=== PATIENT | male | born 1955 | race Caucasian/White ===

== ENCOUNTER 2024-05-10 19:43 | Emergency (ER) | payer MEDICARE, BC, SELFPAY ==
[2024-05-10 20:04] VITALS: BP 130/85; PULSE 59; RESP 16; TEMP 36.7; O2SAT 96; BMI 26.3
--- NOTE | 2024-05-10 20:17 | ED.GENADULT ---
HPI - General Adult General Chief complaint: Fall/Minor Trauma Stated complaint: Fall, face abrasion, L arm injury Time Seen by Provider: 05/10/24 20:01 History of Present Illness HPI narrative: pt fell at home around 1710, injured left hand ring finger. Pt seen in Urgent Care today, had ring removed from finger. Pt went to bathroom at Urgent Care, Pt fell in restroom, pt reports left foot got caught , he was not able to compensate and fell. Pt hit head on tile floor when he fell. No LOC, No neck pain. Pt is on Eliquis. Pt reports no difficulty in breathing. Pt has Parkinson's . Pt A&[id number]. Pt brought here for further evaluation after fall. Pain reports to left rib area, left side of face and left?hand ring finger. 69-year-old man presenting to the emergency department after initially being evaluated in urgent care following a fall forward event when he bent forward to interact with leaf blower I believe noting to have a dislocation of the left finger. Also revealed later that anterior left chest does hurt somewhat as well. Not particularly with pleuritic pain; more irritated with movement. No abdominal pain. Ring was removed in urgent care and we were contacted in this department about potential relocation of joint described initially as DIP. However upon going to the bathroom prior to this relocation Mr. Hamlin'adriel in reportedly caught his foot and fell in the bathroom sustaining further injuries. Did strike his head. He is not have any neck or back pain. Underlying history of Parkinson's prompting frequent falls. Is not experiencing shortness of breath. There was not a loss of consciousness. Does not have significant head pain. Dentition appears to be intact. Takes Eliquis. Related Data Home Medications ?Medication ?Instructions ?Recorded ?Confirmed amiodarone 200 mg tablet 100 mg PO DAILY 05/10/24 05/10/24 apixaban 5 mg tablet (Eliquis) 5 mg PO BID 05/10/24 05/10/24 carbidopa 25 mg-levodopa 100 mg tab PO 05/10/24 05/10/24 tablet carbidopa ER 48.75 mg-levodopa 195 cap PO 05/10/24 05/10/24 mg capsule,extended release (Rytary) duloxetine 30 mg capsule,delayed 30 mg PO DAILY 05/10/24 05/10/24 release metoprolol succinate 25 mg 25 mg PO DAILY 05/10/24 05/10/24 tablet,extended release 24 hr Allergies Allergy/AdvReac Type Severity Reaction Status Date / Time No Known Drug Allergies Allergy Verified 05/10/24 17:56 Review of Systems Status of ROS: Reports: 6 or more systems reviewed and unremarkable except as noted in History and below [facility] Social History Smoking Status: Never smoker How often do you have a drink containing alcohol: never AUDIT-C Alcohol total score: 0 Non-prescribed substance use: denies use Exam Narrative: Exam Narrative: Very pleasant. Tremor more affecting the left side. Was a little stiffly. Breathing easily. Cranial nerves 2-12 intact. Dentition looks to be intact. There is a bruise and mild skin tear little more than quarter sized on the left zygoma. External ear canals free of fluid. There is no Toscano sign. Neck is supple nontender. Back nontender. Lungs appear to be clear with equal expansion excursion. Difficult to reproduce discomfort in the anterior chest but seems to be in the midclavicular line a few inches up on the chest. I do not see any erythema or bruising here. Is not tender to oppositional compression. Abdomen is soft and nontender. There is small skin tear at the left elbow but flexes and extends is try without difficulty. Raising his arms over his head without difficulty. No pain to palpation of the shoulder clavicles. Knees are not tender and without any apparent swelling. The left hand in particular shows deformity at the left 4th finger PIP joint and absent a ring. There is some slight deviation at the D IP as well attempting manipulation here does not appear to be the joint involved. There is also a 1.5 cm laceration at the left outer brow. Bleeds lightly when manipulated. Const: Vital Signs, click to edit/add: Vital Signs - 24 hr 05/10/24 20:04 Temperature 98.1 F Pulse Rate [Left P ulse Oximeter] 59 L Respiratory Rate 16 Blood Pressure [Ri ght Upper Arm] 130/85 Pulse Oximetry 96 Oxygen Delivery Me thod Room Air Documenting provider has reviewed patient's vital signs: yes Course Vital Signs Vital signs: Initial Vital Signs Temperature 98.1 F 05/10/24 20:04 Temperature Source Temporal Artery Scan 10/08/24 20:04 Pulse Rate 59 L 05/10/24 20:04 Pulse Rhythm Regular 05/10/24 20:04 Respiratory Rate 16 05/10/24 20:04 Blood Pressure 130/85 05/10/24 20:04 Blood Pressure Mean 100 05/10/24 20:04 Blood Pressure Position Sitting 05/10/24 20:04 Pulse Oximetry 96 05/10/24 20:04 Oxygen Delivery Method Room Air 05/10/24 20:04 Vital Signs Temperature 98.1 F 05/10/24 20:04 Pulse Rate 59 L 05/10/24 20:04 Respiratory Rate 16 05/10/24 20:04 Blood Pressure 130/85 05/10/24 20:04 Pulse Oximetry 96 05/10/24 20:04 Oxygen Delivery Method Room Air 05/10/24 20:04 Temperature 98.1 F 05/10/24 20:04 Pulse Rate 59 L 05/10/24 20:04 Respiratory Rate 16 05/10/24 20:04 Blood Pressure 130/85 05/10/24 20:04 Pulse Oximetry 96 05/10/24 20:04 Oxygen Delivery Method Room Air 05/10/24 20:04 Medications Administered Medications: Discontinued Medications Generic Name Dose Route Start Last Admin Trade Name Bee PRN Reason Stop Dose Admin Bupivacaine HCl 2 ml 05/10/24 20:24 05/10/24 20:35 Bupivacaine 0.25% 30 Ml INJECTION 05/10/24 20:25 2 ml ONCE ONE Administration Ibuprofen 600 mg 05/10/24 20:24 05/10/24 20:54 Ibuprofen 200 Mg Tablet PO 05/10/24 20:25 600 mg ONCE ONE Administration Lidocaine 1 patch 05/10/24 22:53 05/10/24 23:11 Lidocaine 5% Patch TRANSDERMA 05/10/24 22:54 1 patch ONCE ONE Administration Protocol Medical Decision Making MDM Narrative Medical decision making narrative: Considering Eliquis an age and significant fall would image head and face in this case. Considering nexus criteria. He is clearly alert and on altered by substances. I would have concerns by neck but he maintains clearly that he does not have any pain here. Would like something for pain. I think singular dosing of ibuprofen would be all right even in light of Eliquis. Was not too long ago that he did take some acetaminophen. Returned to place digital block with Marcaine in the left 4th finger. Unable initially to see imaging did do one-view clearly this is the PIP joint. With traction countertraction able to relocate this joint. Placed a splint. X-rays confirms relocation. I did review these images. I did review images of head and facial CT both of which without apparent acute abnormality. Radiology over-read are noted; concur Applied benzoin and 8th inch Steri-Strips at the left brow with good wound approximation. Cleansed the left zygoma applied Band-Aid and antibiotic ointment as well to the left elbow. Place Lidoderm patch on the left chest. I do not think this is a likely fracture but he is uncomfortable here. See patient discharge plan for further discussion Medical Records Medical records reviewed: Yes I reviewed the patient's medical records Discharge Plan Discharge Clinical Impression: Closed head injury, Multiple skin tears, Laceration of brow without complication, Dislocation of finger PIP joint Patient Disposition: Home w/ Parent or Adult Condition: Stable Additional Instructions: Can trim away the edges of this Steri-Strip as it peels off. Hopefully it stays in place at least 3 or [address] not place antibiotic ointment here as it will just encourage Steri-Strip to pull way Otherwise antibiotic ointment and Band-Aid to abrasions/skin tears, changing daily over the next 5 days or so. If this lidocaine patch is helpful, you can purchase more [id number]. Wear this splint most of the time until follow-up in 10-14 days. Be careful with finger movements when removing splint for cleaning. Prescriptions: No Action carbidopa-levodopa 25-100 mg tablet PO Rytary 48.75-195 mg capsule, extended release PO duloxetine 30 mg capsule,delayed release(DR/EC) 30 mg PO DAILY amiodarone 200 mg tablet 100 mg PO DAILY metoprolol succinate 25 mg tablet extended release 24 hr 25 mg PO DAILY Eliquis 5 mg tablet 5 mg PO BID Follow Up/Referrals: Provider,Not a Local [Primary Care Provider] - Stand Alone Forms: [facility] Info Instructions
--- NOTE | 2024-05-10 20:24 | CRLHL7_ITS ---
For Patients: As a result of the Century Cures Act, medical imaging exams and procedure reports are released immediately into your electronic medical record. You may view this report before your referring provider. If you have questions, please contact your health care provider. INDICATION: Facial injury, anticoagulated. History of melanoma.. TECHNIQUE: CT head without contrast. COMPARISON: None. FINDINGS: CSF spaces: Within normal limits for age. Brain parenchyma and extra-axial spaces: Mild generalized volume loss consistent with physiologic aging the gilbert-white differentiation is unremarkable. No sign of mass, hemorrhage, or midline shift. No extra-axial fluid collection. Skull base and calvarium: The visualized paranasal sinuses and mastoid air cells demonstrate no acute or significant findings. The visualized orbits are grossly unremarkable. No skull fractures. IMPRESSION: No acute intracranial abnormality. No skull fracture. Please note that all CT scans at this facility use dose modulation, iterative reconstruction, and/or weight-based dosing when appropriate to reduce radiation dose to as low as reasonably achievable. Dictated by Steven Eduardo MD @ 05/10/2024 9:46:41 PM (Electronically Signed)
--- NOTE | 2024-05-10 20:24 | CRLHL7_ITS ---
For Patients: As a result of the Cures Act, medical imaging exams and procedure reports are released immediately into your electronic medical record. You may view this report before your referring provider. If you have questions, please contact your health care provider. INDICATION: Facial injury. TECHNIQUE: CT maxillofacial without contrast. COMPARISON: None. FINDINGS: Facial bones: No fractures or bone lesions. Specifically the nasal bones, temporomandibular joints, maxilla and mandible appear intact. Orbits and globes: Unremarkable. Globes are intact. No sign of intraorbital hemorrhage or emphysema. Sinuses: Small left maxillary sinus mucous retention cyst. Mild right maxillary sinus fluid opacification. Soft tissues: Left-sided facial soft tissue swelling. IMPRESSION: Left-sided facial soft tissue swelling, but no underlying fracture. Please note that all CT scans at this facility use dose modulation, iterative reconstruction, and/or weight-based dosing when appropriate to reduce radiation dose to as low as reasonably achievable. Dictated by Steven Eduardo MD @ 05/10/2024 9:54:25 PM (Electronically Signed)
[2024-05-10] MEDS: BUPIVACAINE 0.25% 30 ML INJECTION (20:35)
[2024-05-10] MEDS: IBUPROFEN 200 MG TABLET 600 MG PO (20:54)
--- NOTE | 2024-05-10 21:37 | CRLHL7_ITS ---
For Patients: As a result of the Century Cures Act, medical imaging exams and procedure reports are released immediately into your electronic medical record. You may view this report before your referring provider. If you have questions, please contact your health care provider. Indication: Postreduction. Technique: Left hand 2 views. Comparison: Same day, 6:50pm. Findings/Impression: Bones: Compared to same day exam from 6:50pm, similar dislocation of the middle phalanx after try 1. After try 2, the joint appears reduced and well-aligned. Small bony fragment proximal to the joint on the palmar side of the finger could represent a small avulsion fracture (arrow on lateral view). Joint spaces: Unremarkable. Soft tissues: 4th digit soft tissue swelling. Dictated by Steven Eduardo MD @ 05/10/2024 10:22:37 PM (Electronically Signed)
[2024-05-10] MEDS: LIDOCAINE 5% PATCH 1 PATCH TRANSDERMA (23:11)
== END 2024-05-10 23:22 | disposition home or self-care (01) ==
PROVIDERS: Emergency Provider Family Medicine
DX: S01.111A Laceration without foreign body of right eyelid and periocular area, initial encounter (principal); S63.284A Dislocation of proximal interphalangeal joint of right ring finger, initial encounter; W01.10XA Fall on same level from slipping, tripping and stumbling with subsequent striking against unspecified object, initial encounter
CPT/HCPCS: 26770; 70450; 70486; 73140; 99284; A9270; J0665

== ENCOUNTER 2024-11-05 17:22 | Emergency (ER) | payer MEDICARE, BC, SELFPAY ==
[2024-11-05 17:34] VITALS: BP 137/83; PULSE 64; RESP 18; TEMP 36.7; O2SAT 97; BMI 27.0
--- NOTE | 2024-11-05 18:04 | CRLHL7_ITS ---
For Patients: As a result of the Cures Act, medical imaging exams and procedure reports are released immediately into your electronic medical record. You may view this report before your referring provider. If you have questions, please contact your health care provider. Indication: Trauma. Technique: Left forearm, 2 views. Comparison: None. Findings/Impression: Bones: Alignment is normal. No displaced fractures or bone lesions. Joint spaces: Unremarkable. Soft tissues: Unremarkable. Dictated by Syed Bazan MD @ 11/05/2024 6:40:19 PM (Electronically Signed)
--- NOTE | 2024-11-05 18:04 | ED_ITS ---
HPI - General Adult General Chief complaint: Skin/Abscess/Foreign Body Stated complaint: fall/arm pain Time Seen by Provider: 11/05/24 17:27 History of Present Illness HPI narrative: This 69-year-old male comes in with an injury to his left forearm. He has Parkinson's disease and has associated balance problems. He states that he got walking too fast and fell onto his left forearm. He did not hit his head or have loss of consciousness. He has a pre-existing cellulitis of the left forearm that is responding to a treatment with a 2nd antibiotic. He did not have any break in his skin. He does not report any fevers. Related Data Home Medications ?Medication ?Instructions ?Recorded ?Confirmed amiodarone 200 mg tablet 100 mg PO DAILY 05/10/24 05/10/24 apixaban 5 mg tablet (Eliquis) 5 mg PO BID 05/10/24 05/10/24 carbidopa 25 mg-levodopa 100 mg tab PO 05/10/24 05/10/24 tablet carbidopa ER 48.75 mg-levodopa 195 cap PO 05/10/24 05/10/24 mg capsule,extended release (Rytary) duloxetine 30 mg capsule,delayed 30 mg PO DAILY 05/10/24 05/10/24 release metoprolol succinate 25 mg 25 mg PO DAILY 05/10/24 05/10/24 tablet,extended release 24 hr Allergies Allergy/AdvReac Type Severity Reaction Status Date / Time No Known Drug Allergies Allergy Verified 11/05/24 17:33 Review of Systems Status of ROS: Reports: 10 or more systems reviewed and unremarkable except as noted in History and below Narrative: Constitutional: No fevers, no weight gain or loss. Eyes: No discharge. No vision changes. HENT: No congestion, no sore throat, no ear pain. Cardiovascular: No chest pain, no palpitations. Respiratory: No shortness of breath, no wheezes, no cough. Gastrointestinal: No abdominal pain, no vomiting, no diarrhea. Genitourinary: No dysuria, no hematuria. Musculoskeletal: Normal range of motion. Swelling of the left forearm with erythema from a cellulitis. Skin: No rashes, no pruritis. Neurological: No dizziness, weakness, sensory change, speech change. Endo/Heme/Allergies: No bruising or bleeding. No polydipsia. Pysch: no suicidality, no anxiety, no insomnia. All other systems reviewed and are negative. [facility] Social History Smoking Status: Never smoker Do you use any of these nicotine containing products: None Second hand tobacco smoke exposure: No How often do you have a drink containing alcohol: never AUDIT-C Alcohol total score: 0 Non-prescribed substance use: denies use service: No Exam Narrative: Exam Narrative: Constitutional: Well-developed, well-nourished, no acute distress. HEENT: Normocephalic, atraumatic. Neck: Normal range of motion. Nontender. Supple. Heart: Regular. No murmurs. Normal rate. Intact distal pulses. Lungs: Clear to auscultation. No chest discomfort. No wheezes, rhonchi, or rales. Abdomen: Normal bowel sounds. Nontender. No rebound tenderness. Genitalia: Deferred. Back: No midline tenderness. Normal range of motion. Extremities: Normal range of motion. Left forearm has erythema and mild swelling from a pre-existing cellulitis prior to his fall today. Range of motion is intact but there is some associated pain. Skin: Intact. No rash. Warm. No erythema or pallor. Neurologic: No altered sensation. No weakness. Alert and oriented. Psychiatric: No suicidality. No anxiety or depression. No insomnia. Nursing notes and vitals signs are reviewed. Const: Vital Signs, click to edit/add: Vital Signs - 24 hr 11/05/24 17:34 Temperature 98.1 F Pulse Rate [Pulse Oximeter] 64 Respiratory Rate 18 Blood Pressure [Ri ght Upper Arm] 137/83 Pulse Oximetry 97 Oxygen Delivery Me thod Room Air Course Vital Signs Vital signs: Initial Vital Signs Temperature 98.1 F 11/05/24 17:34 Temperature Source Temporal Artery Scan 11/05/24 17:34 Pulse Rate 64 11/05/24 17:34 Pulse Rhythm Regular 11/05/24 17:34 Respiratory Rate 18 11/05/24 17:34 Blood Pressure 137/83 11/05/24 17:34 Blood Pressure Mean 101 11/05/24 17:34 Blood Pressure Position Semi-Fowlers 11/05/24 17:34 Pulse Oximetry 97 11/05/24 17:34 Oxygen Delivery Method Room Air 11/05/24 17:34 Vital Signs Temperature 98.1 F 11/05/24 17:34 Pulse Rate 64 11/05/24 17:34 Respiratory Rate 18 11/05/24 17:34 Blood Pressure 137/83 11/05/24 17:34 Pulse Oximetry 97 11/05/24 17:34 Oxygen Delivery Method Room Air 11/05/24 17:34 Temperature 98.1 F 11/05/24 17:34 Pulse Rate 64 11/05/24 17:34 Respiratory Rate 18 11/05/24 17:34 Blood Pressure 137/83 11/05/24 17:34 Pulse Oximetry 97 11/05/24 17:34 Oxygen Delivery Method Room Air 11/05/24 17:34 Medical Decision Making MDM Narrative Medical decision making narrative: This patient comes in for evaluation of an injury to his left arm because of a fall that occurred prior to arrival. He happens to have a cellulitis in that same arm that he is treating with antibiotic. An x-ray images obtained which shows no sign of fracture or dislocation. The patient appears to be on a good antibiotic treatment for the cellulitis and there is no sign of worsening symptoms in that regard. He is okay to be discharged home. He has a sling that he can use if he desires. I did provide a [employer] prescription for Toradol. Discharge Plan Discharge Clinical Impression: Cellulitis Patient Disposition: Home, Self-Care Condition: Stable Additional Instructions: Take medication as needed and directed. Wear sling also as needed. Follow up with MD return if worsening. Prescriptions: No Action carbidopa-levodopa 25-100 mg tablet PO Rytary 48.75-195 mg capsule, extended release PO duloxetine 30 mg capsule,delayed release(DR/EC) 30 mg PO DAILY amiodarone 200 mg tablet 100 mg PO DAILY metoprolol succinate 25 mg tablet extended release 24 hr 25 mg PO DAILY Eliquis 5 mg tablet 5 mg PO BID Follow Up/Referrals: Provider,Not a Local [Non-Staff] - Stand Alone Forms: [employer] Info Instructions
--- OUTSIDE RECORDS SUMMARY | 2024-11-05 18:38 | XMS_ITS | Clinical Summary ---
Author Organization [facility] Address [address] [place] [address] Care Team Providers Care Copy Technician Name Role Phone Jayla Canales APRN, C.N.P. Primary Care Provide r Source Comments Patient records contain information from all sites at [facility]. For routine questions regarding patient records, call [phone] during business hours, M-F 8:00 AM - 5:00 PM Central Time. Record requests for emergency care only can be directed to [phone] at any time.[facility] Allergies No known active allergies Medications * This document contains information received from the source organization and may not represent a complete record from that organization. folic acid-vitamin B6,B12 (FOLBIC) 2.5-25-2 mg per tablet Take 2 tablets by mouth daily. To prevent homocysteine elevation. 01/08/20 16 Active glucosamine-florencia droitin 500-400 mg per tablet Take 2 tablets by mouth daily. Active fish oil 1,000 mg capsule Take 1,000 mg by mouth daily. Active fluocinolone (SYNALAR) 0.01 % external solutionIndicati ons:Keratosis Seborrheic,Eczem a Apply topically daily as needed for itching or rash. 60 mL 3 08/27/19 22 Active ketoconazole (NIZORAL) 2 % shampoo Apply 1 Application topically 3 (three) times a week. Apply to damp skin, lather, leave on 5 minutes, and rinse 120 mL 3 03/23/20 23 Active multivitamin tablet Take 1 tablet by mouth daily. Active carbidopa-levodo pa (SINEMET) 25-100 mg per tablet Take 0.5-1 tablets by mouth as directed. 1/2 tab by mouth six times per day; pt may take an additional 3 tabs daily as needed. 540 tablet 3 11/16/19 24 Active carbidopa-levodo pa (SINEMET CR) 50-200 mg per ER tablet Take 2 tablets by mouth at bedtime. 180 tablet 3 12/10/19 24 025 Active apixaban (Eliquis) 5 mg tablet Take 1 tablet (5 mg total) by mouth 2 (two) times a day. 180 tablet 3 12/17/19 24 Active DULoxetine (CYMBALTA) [address] capsule take 1 capsule by mouth daily 90 capsule 3 01/18/20 24 Active metoprolol succinate (Toprol XL) 25 mg 24 hr tabletIndication s:Atrial Fibrillation Unspecified (HCC) take 1 tablet by mouth daily 90 tablet 3 03/15/20 24 Active carbidopa-levodo pa (Crexont) 70-280 mg capsule,IR -extend rel,biphase Take 3 capsules by mouth every 4 (four) hours. Substitute for Rytary. Take 3 Crexont caps every 4 hours around the clock. Take on an empty stomach. 1800 each 3 05/17/20 24 Active traZODone (DesyreL) 50 mg tablet take 2 tablets by mouth at bedtime, may repeat with one tablet during the night. 270 tablet 3 08/04/19 25 Active amiodarone (Pacerone) 200 mg tablet TAKE HALF TABLET BY MOUTH DAILY 90 tablet 3 09/07/19 25 Active HYDROcodone-acet aminophen (Ehrenberg) 5-325 mg per tablet every 6 (six) hours as needed. Active sulfamethoxazole -trimethoprim (Bactrim DS) 800-160 mg per tabletIndication s:Cellulitis Arm Left Take 1 tablet by mouth 2 (two) times a day for 7 days. 14 tablet 11/05/19 25 025 Active cefadroxil (Duricef) 500 mg capsuleIndicatio ns:Cellulitis Arm Left Take 1 capsule (500 mg total) by mouth 2 (two) times a day for 10 days. 20 capsule 11/02/19 25 025 Discontin ued(Alter philomena therapy) Active Problems Problem Noted Date Diagnosed Date Sinusitis Acute Maxillary 10/15/2023 History Of Falling 02/19/2023 Pain Generalized 11/10/2022 Overview (02/19/2023): 05/22: Patient previously taking 40 mg Lexapro however, due to concerns of QT prolongation in setting of amiodarone, switched to 30 mg Cymbalta. Patient tolerating well. Prolonged QT Interval 10/22/2022 Overview (02/19/2023): noted on october 2022 EKG, QTC 445. 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 Advanced right proximal hamstring tendinopathy Mass Foot Soft Tissue 03/16/2021 Overview (02/19/2023): asymptomatic right dorsal foot mass. 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 Benign; tx: observation verses excision. At this time he will observe the mass. Dyspnea Multifactorial 02/01/2021 Insomnia Due To Medical Condition 11/10/2020 Overview (11/10/2020): Secondary to Parkinsons. Assessment & Plan (11/10/2020 2:01 PM CDT): - Trazodone 100-150 mg (via 50 mg tablets Rx) nightly before bed. We discussed that given his endorsed difficulty with sleep he should increase his nightly trazodone dose to 150 mg (from 100 mg) nightly as previously recommend by neurology. - Melatonin 5 mg one hour prior to sleep. Could increase to 10 mg nightly if desired. We discussed the safety of this and given his endorsement of ability to fall asleep at night with inability of taking a nap during the day he could attempt to stager these two medications as he is seeing adequate sleep onset, with decreased latency, in the setting of only one of these, when he holds his melatonin or forgets to take it. Atrial Fibrillation Paroxysmal 11/01/2020 Overview (09/10/2021): - 09/10/21: cards started low dose (100mg) amiodarone for rate control. Discussed case w/ EP and will pursue ablation Amiodarone fails. Per cards We completed his initial toxicity screening. Moving forward recommend TSH, LFTs every 6 months and ECG / CXR every 12 months. Repeat PFTS / eye exam as needed -05/25/21: confirmed with pt NOT on Cymbalta, was taking Lexapro. Checked with pharmacy; actually recommended to switch from Lexapro to 30mg Cymbalta for less QT prolongation. Desires 30mg dose instead of 60mg. - 05/07/21: Cards +amiodarone 200mg daily, continued Eliquis. Rec d/c Cymbalta (but never on Cymbalta, actually on Lexapro) d/t potential QT prolongation - 02/07/21: Per cardiology response, Daily metoprolol and PRN propanolol okay from CV perspective as long as no symptomatic bradycardia. - 02/03/21: per neurology response; okay to continue Propranolol while on metoprolol; feels that his resting HR is probably low regardless due to exercise - As of 02/01/21: rate controlled with 25mg Metoprolol succinate and anticoagulated with 5mg Eliquis. Asymptomatic (no fatigue, palpitations, chest pain, dyspnea). Also taking 40mg propranolol for parkinsonian hand tremor, taking roughly every other to every 2 days, will staff message Neuro and Cards so they're both aware he's taking 2 forms of betablocker, as he's near bradycardic in clinic today (HR 60). -11/08/2020: Echo Stress Test - non diagnostic for myocardial ischemia b/c exercise capacity was below average (estimated 7.4 METS; 77 % FAC). EF: 50 % at rest 11/07/2020: Holter Monitor- The basic rhythm was atrial fibrillation. The heart rate varied between 58-153 BPM with an average of 84 BPM. Occasional pauses were seen with the longest of 2.42 seconds in duration. -10/29/20: office CC: exertional dyspnea, found to have irreg rate in clinic, office EKG confirmed new Afib Assessment & Plan (11/29/2020 7:32 AM CDT): - Continue Metoprolol 25 mg daily. Discussed potential utility in an increase and declines increasing dose today. - Continue Aspirin 81 mg daily. - Continue Apixaban for remainder of thirty days and proceed with planned cardioversion on 12/10/2020. Assessment & Plan (11/10/2020 2:39 PM CDT): - Increase metoprolol to 25 mg daily - Discussed risks versus benefits of initiating anticoagulation - [id number]: 1; Stroke risk was 0.6% per year (1.02 bleeds per 100 patient years) - HAS-BLED: 1; Risk 3.4% of bleeding per year. - Through shared decision making he determined to initiate a baby ASA 81 mg daily. - Will withhold NOAC at this time and reconsider pending clinical status in the future. - Given his noted NSVT on Holter he does carry increased risk of SCD. Because of this will refer to [facility] Cardiology. Thoracic Aortic Aneurysm Without Rupture Unspeci fied 01/13/2017 Overview (02/19/2023): 04/07/2018 CTA: Mild dilatation of the proximal descending thoracic aorta measures 37 mm and is unchanged.Stable on imaging 2017. 11/2020: Dilated sinuses of Valsalva measuring up to 44 mm in diameter, previously 42 mm. Unchanged proximal descending thoracic aortic ectasia measuring 37 mm. Repeat 1 year. Assessment & Plan (11/10/2020 1:49 PM CDT): - Re-screen is overdue 04/07/2019. (CT Ordered). Nodule Thyroid 01/13/2017 Overview (04/03/2018): Normal biopsy 2017 Cyst Renal 02/11/2016 Loss Hearing Sensorineural Bilateral 08/07/2014 Tinnitus Subjective Right 08/04/2014 Parkinsonism Unspecified 01/03/2014 Assessment & Plan (11/10/2020 2:17 PM CDT): - Continue on Sinemet - (Carbidopa-Levodopa) 50-200 mg tablet, 2 tablets at bedtime. - (Carbidopa-Levodopa) 48.76 - 195 mg capsule, 3 capsules, 6 times daily. - Continue Lexapro 10 mg daily Keratosis Seborrheic 11/17/2008 Melanoma Personal History 10/13/2008 Pain Elbow Left Resolved Problems Problem Noted Date Diagnosed Date Resolved Date COVID-19 Infection 05/01/2022 3 Anxiety 05/25/2021 11/10/2022 Overview (05/25/2021): -05/22: Patient previously taking 40 mg Lexapro however, due to concerns of QT prolongation in setting of amiodarone, switched to 30 mg Cymbalta. Patient tolerating well. Chest Wall Fracture NOS 09/22/201508/2017 Elevated Prostate-Specific Antigen 08/04/2014 04/03/2018 Nephrolithiasis Calcium Oxalate 06/11/2012 04/03/2018 Encounters * This document contains information received from the source organization and may not represent a complete record from that organization. Date Type Department Care Team Description 11/04/2024 2:20 PM CDT Ancillary Procedure Department of Emergency Medicine Arrived 11/04/2024 2:10 PM CDT - 11/04/2024 3:34 PM CDT Emergency [facility] [address] [place] [phone] Nelly Jarrell APRN C.N.PEmeka, D.N.P. Cellulitis Arm Left (Primary Dx) Discharge Disposition: Home or Self Care 11/04/2024 Nurse Triage Department of Family [facility], [facility], in [address] [phone] Jayla Benton R.N. Wound Infection 11/03/2024 Clinical Communication Department of Rehabilitation Services in [address] [phone] Capri Valdez P.TEmeka, D.P.TEmeka Order Request (PT) 11/01/2024 4:28 PM CDT - 11/01/2024 5:34 PM CDT Emergency [facility] [address] [place] [phone] Steven Ferrell APRN C.N.P., D.N.P. Cellulitis Arm Left (Primary Dx) Discharge Disposition: Home or Self Care 11/01/2024 4:15 PM CDT Clinical Support Department of Rehabilitation Services in [address] [place] [phone] Jayla Canales APRN, C.N.P. Fogarty, Jennifer L P.T., D.P.T. Parkinsonism Unspecified (HCC) 10/25/2024 4:15 PM CDT Clinical Support Department of Rehabilitation Services in [address] [phone] Jayla Canales APRN, C.N.P. Fogarty, Jennifer L P.T., D.P.T. Parkinsonism Unspecified (HCC) 10/23/2024 Results Follow-Up Department of Family Medicine, [facility], in [address] [phone] Monsour, Jayla M, [employer]MENT [employer]ER, C.N.P. PSA (Prostate-Specific Antigen) Screen 10/21/2024 Results Follow-Up Department of Cardiovascular Diseases in [address] [phone] Maverick Terry M.D. ECG 12 Lead 10/19/2024 3:15 PM CDT Clinical Support Department of Rehabilitation Services in [address] [phone] Jayla Canales APRN, C.N.P. Fogarty, Jennifer L, P.T., D.P.T. Parkinsonism Unspecified (HCC) 10/17/2024 10:15 AM CDT Clinical Support Department of Rehabilitation Services in [address] [phone] Jayla Canales APRN, C.N.P. Fogarty, Jennifer L, P.T., D.P.T. Parkinsonism Unspecified (HCC) 10/14/2024 1:00 PM CDT Nurse Only Department of Family Medicine, [facility], in [address] [phone] Jayla Canales APRN, C.N.P. Jandro, Vanessa R RSandra Cerumen Impaction Discharge Disposition: Home or Self Care 10/14/2024 10:37 AM CDT - 10/14/2024 11:59 PM CDT Hospital Encounter Department of Radiology in [address] [phone] Maverick Terry M.D. Atrial Fibrillation Paroxysmal (HCC); Atrial Fibrillation Permanent (HCC); High Risk Medication; Atrial Fibrillation Unspecified (HCC) Discharge Disposition: Home or Self Care 10/14/2024 10:30 AM CDT - 10/14/2024 10:36 AM CDT Hospital Encounter Department of Radiology in [address] [phone] Maverick Terry M.D. Atrial Fibrillation Paroxysmal (HCC); Atrial Fibrillation Permanent (HCC); High Risk Medication; Atrial Fibrillation Unspecified (HCC) Discharge Disposition: Home or Self Care 10/11/2024 3:24 PM CDT - 10/11/2024 11:59 PM CDT Hospital Encounter Department of Laboratory Medicine in [address] [phone] Jayla Canales APRN, C.NKristin Screening Examination Prostate Cancer; Atrial Fibrillation Paroxysmal (HCC); Atrial Fibrillation Permanent (HCC); High Risk Medication; Atrial Fibrillation Unspecified (HCC) Discharge Disposition: Home or Self Care 10/11/2024 2:45 PM CDT Clinical Support Department of Rehabilitation Services in [address] [phone] Jayla Canales APRN, Capri Nava, P.T., D.P.T. Parkinsonism Unspecified (HCC) 10/10/2024 Clinical Communication Department of Cardiovascular Diseases in [address] [phone] Maverick Terry M.D. Lab Monitoring (High risk medication/Amiodaron e) 10/07/2024 8:00 AM WRAPAROUND FACILITATOR Clinical Support Department of Rehabilitation Services in [address] [phone] Jayla Canales APRN, Capri Nava, P.T., D.P.T. Parkinsonism Unspecified (HCC) 10/03/2024 9:15 AM WRAPAROUND FACILITATOR Clinical Support Department of Rehabilitation Services in [address] [phone] Jayla Canales APRN, C.N.P. Fogarty, Jennifer L P.T., D.P.T. Parkinsonism Unspecified (HCC) 09/30/2024 8:45 AM WRAPAROUND FACILITATOR Clinical Support Department of Rehabilitation Services in [address] [phone] Jayla Canales APRN, Capri Nava P.T., D.P.T. Parkinsonism Unspecified (HCC) 09/24/2024 Results Follow-Up Department of Family Medicine, [facility], in [address] [phone] Jayla Canales APRN, ChulaNKristin DX Knee Right 3 Views 09/21/2024 1:30 PM WRAPAROUND FACILITATOR Clinical Support Department of Rehabilitation Services in [address] [phone] Jayla Canales APRN, C.N.P. Fogarty, Jennifer L P.T., D.P.T. Parkinsonism Unspecified (HCC) 09/20/2024 3:30 PM WRAPAROUND FACILITATOR Office Visit Department of Orthopedic Surgery in [address] [place] [phone] Cristian Alvarenga M.D. Pain Knee Left (Primary Dx); Injury Finger Initial Left; Pain Knee Right 09/20/2024 2:52 PM WRAPAROUND FACILITATOR - 09/20/2024 11:59 PM WRAPAROUND FACILITATOR Hospital Encounter Department of Radiology in [address] [phone] Jayla Canales APRN, Edna.NEmekaPEmeka Pain Knee Right Discharge Disposition: Home or Self Care 09/19/2024 3:15 PM WRAPAROUND FACILITATOR Clinical Support Department of Rehabilitation Services in [address] [phone] Jayla Canales APRN, ChulaNCapri Watson P.T., D.P.T. Parkinsonism Unspecified (HCC) 09/16/2024 11:15 AM WRAPAROUND FACILITATOR Clinical Support Department of Rehabilitation Services in [address] [phone] Jayla Canales APRN, C.N.P. Fogarty, Jennifer L P.T., D.P.T. Parkinsonism Unspecified (HCC) 09/14/2024 7:45 AM WRAPAROUND FACILITATOR Clinical Support Department of Rehabilitation Services in [address] [phone] Jayla Canales APRN, C.N.P. Fogarty, Jennifer L P.T., D.P.T. Parkinsonism Unspecified (HCC) 09/14/2024 Clinical Communication Department of Rehabilitation Services in [address] [phone] Capri Valdez P.T., D.P.T. 09/12/2024 11:00 AM WRAPAROUND FACILITATOR Telemedicine Department of Neurology in [address] [phone] Bobby Santiago M.D., Ph.D. Parkinsonism Unspecified (HCC) (Primary Dx) 09/05/2024 1:00 PM WRAPAROUND FACILITATOR Comprehensive Visit Department of Family Medicine, [facility], in [address] [phone] Jayla Canales APRN, ChulaNEmekaPEmeka Conjunctivitis Chronic Simple Left (Primary Dx); Pain Knee Right; Parkinsonism Unspecified (HCC); Atrial Fibrillation Paroxysmal (HCC); History Of Falling; Screening Examination Prostate Cancer Discharge Disposition: Home or Self Care 09/05/2024 11:00 AM WRAPAROUND FACILITATOR Clinical Support Department of Rehabilitation Services in [address] [phone] Jayla Canales APRN, C.N.P. Fogarty, Jennifer L, P.T., D.P.T. Parkinsonism Unspecified (HCC) 09/04/2024 Refill Department of Cardiovascular Diseases in [address] [phone] Maverick Terry M.D. Med Refill 09/01/2024 12:45 PM WRAPAROUND FACILITATOR Clinical Support Department of Rehabilitation Services in [address] [phone] Jayla Canales APRN, Capri Nava, P.T., D.P.T. Parkinsonism Unspecified (HCC) 08/31/2024 Clinical Communication Department of Neurology in [address] [phone] Bobby Santiago M.D., Ph.D. Appt Request 08/17/2024 3:15 PM WRAPAROUND FACILITATOR Clinical Support Department of Rehabilitation Services in [address] [phone] Jayla Canales APRN, Capri Nava, P.T., D.P.T. Parkinsonism Unspecified (HCC) 08/12/2024 10:30 AM WRAPAROUND FACILITATOR Clinical Support Department of Rehabilitation Services in [address] [phone] Jayla Canales APRN, Capri Nava, P.T., D.P.T. Parkinsonism Unspecified (HCC) 08/09/2024 8:45 AM WRAPAROUND FACILITATOR Clinical Support Department of Rehabilitation Services in [address] [phone] Jayla Canales APRN, Capri Nava, P.T., D.P.T. Parkinsonism Unspecified (HCC) from Last 3 Months Immunizations Immunization Administration Dates Next Due HZV (ZOSTAVAX) 05/08/2013 HepB Adult 1999 HepB Adult (HEPLISAV-B) 02/19/2023,08/18/2022 HepB, Unspecified 1999 Influenza Split 04/19/2017, 6,04/17/2015,2013,05/03/2013 Influenza TIV (IM) 04/18/2019,04/29/2017 Influenza, Quadrivalent, Adj uvanted, Preservative Free 05/14/2023,05/13/2022,04/17/2021,2019 Influenza, Unspecified 04/16/2018 PCV13 2018 PPSV23 2019 RSV: respiratory syncytial v irus (ABRYSVO) bivalent vaccine 07/16/2023 RZV (SHINGRIX) 11/23/2017,09/22/2017 SARS-COV-2 (COVID-19) - PFIZ ER (Discontinued)(12 years or older) 09/22/2020,08/30/2020 Td (Adult), adsorbed 10/18/2002,11/30/1992 Tdap 04/15/2022,2018,11/18/2007 influenza trivalent high dos e (HD)(PF) 04/13/2020 Family History Medical History Relation Name Comments Arthritis Brother Rafael Mustafa Asthma Brother Rafael Ramsey Diabetes Brother Rafael Mustafa Hyperlipidemia Brother Rafael Mustafa Hypertension Brother Rafael Mustafa Parkinson disease Brother Rafael Mustafa Essenti al tremor first diagnosed age 62 Stroke Brother Rafael Mustafa Arthritis Father Zac Mustafa Diabetes Father Zac Mustafa Mild in hi s 60 d Prostate cancer Father Zac Herreraon Dementia Father's Sister Felicitas Herreraon Alzh eimer s in her 90 s Stroke Maternal Grandmother Dior Bruever Asthma Mother Bee Mustafa As a Child Diabetes Mother Bee Mus[place]fa Mild on her 60 s Hypertension Mother Bee Mustafa Osteoporosis Mother Bee Mustafa Parkinson disease Mother Bee Mustafa Essent ial tremor for 60 of her 99 years Leukemia Paternal Grandfather Juan Bruring Dementia Paternal Grandmother 1 Aletha O T [place] Ramsey Alzheimer s in her 90 s Transient ischemic attack Paternal Grand mother 1 Aletha O T [place] Ramsey Transient ischemic attack Paternal Grand mother 2 Dior Bruring Asthma Sister Florence Lechuga Diabetes Sister Florence Lechuga Hyperlipidemia Sister [place] Lechuga Hypertension Sister [place] Lechuga Osteoporosis Sister Florence Lechuga Anesthesia problems Neg Hx Relation Name Status Comments Brother Rafael Mustafa Father Zac Mustafa Father's Sister Felicitas Mustafa Maternal Grandmother Dior Bruring Alive Mother Bee Mustafa Paternal Grandfather Juan Bruring Alive Paternal Grandmother 1 Aletha O T het[place] Mustafa Alive Paternal Grandmother 2 Dior Bruring Alive Sister [place] Lechuga Social History Tobacco Use Types Packs/Day Years Used Date Smoking Tobacco: Never Passive Smoke Exposure: Never Smokeless Tobacco: Never Tobacco Cessation:Counseling Given: Not Answered Alcohol Use Standard Drinks/Week Comments Never 0 (1 standard drink = 0.6 oz pur e alcohol) [facility] Utilities Answer Date Recorded In the past 12 months has e [employer], gas, oil, or water [employer] threatened to shut off services in your home? No 09/19/2024 Humiliation, Afraid, Rape, and Kick questionnair e Answer Date Recorded Within the last year, have y ou been afraid of your partner or ex-partner? No 03/15/2024 Within the last year, have y ou been humiliated or emotionally abused in other ways by your partner or ex-partner? No Within the last year, have y ou been kicked, hit, slapped, or otherwise physically hurt by your partner or ex-partner? No 03/15/2024 Within the last year, have y ou been raped or forced to have any kind of sexual activity by your partner or ex-partner? No 03/15/2024 Social Connection and Isolat ion Panel [NHANES] Answer Date Recorded In a typical week, how many times do you talk on the phone with family, friends, or neighbors? More than three times a week 09/04/2022 How often do you get togethe r with friends or relatives? More than three times a week 09/04/2022 How often do you attend chur ch or rastafarian services? More than 4 times per year 09/04/2022 Do you belong to any clubs o r organizations such as confucianism groups, unions, fraternal or athletic groups, or school groups? Yes 09/04/2022 How often do you attend meet ings of the clubs or organizations you belong to? More than 4 times per year 09/04/2022 Are you , , di vorced, , never , or living with a partner? 09/04/2022 AUDIT-C Answer Date Recorded Q1: How often do you have a drink containing alc ohol? Never 09/04/2022 Average Number of Drinks Not on file 023 Frequency of Binge Drinking Not on file 09/2022 Overall Financial Resource Strain (CARDIA) Answe r Date Recorded How hard is it for you to pa y for the very basics like food, housing, medical care, and heating? Not hard at all 09/04/2022 PHQ-2 Answer Date Recorded PHQ-2 Score 0 08/31/2024 [facility] - Occupational Stress Questionnaire Answer Date Recorded Do you feel stress - tense, restless, nervous, or anxious, or unable to sleep at night because your mind is troubled all the time - these days? Not at all 09/04/2022 Exercise Vital Sign Answer Date Recorde d On average, how many days pe r week do you engage in moderate to strenuous exercise (like a brisk walk)? 4 days 09/19/2024 On average, how many minutes do you engage in exercise at this level? 40 min 09/19/2024 Hunger Vital Sign Answer Date Recorded Within the past 12 months, y ou worried that your food would run out before you got the money to buy more. Never true 09/19/19 25 Within the past 12 months, t he food you bought just didn't last and you didn't have money to get more. Never true 09/19/2024 PRAPARE - Transportation Answer Date Re corded In the past 12 months, has l ack of transportation kept you from medical appointments or from getting medications? No 09/03 In the past 12 months, has l ack of transportation kept you from meetings, work, or from getting things needed for daily living? No 09/19/2024 Depression Answer Date Recor ded PHQ-9 Total Score (max 27) 1 10/29 Nutrition Answer Date Recorded On average, how many serving s of fruits and vegetables do you eat per day (serving size is equal to 1 cup or approximately the size of a tennis ball)? 3-5 09/19/2024 Dental Answer Date Recorded Dental: Regular Dentist Yes 09/24/19 21 Employment Answer Date Recorded Employment status Retired 09/19/2024 Housing Stability Answer Date Recorded What is your living situation today? I have a [facility] place to live 03/15/2024 Education Answer Date Recorded What is the highest level of school you have completed or the highest degree you have received? 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, [employer], [employer]) 01/09/2019 Sex and Gender Information Value Date Recorded Sex Assigned at Male 12/15/2017 6:50 AM CDT Legal Sex Male 5:03 AM WRAPAROUND FACILITATOR Gender Identity Male 12/15/2017 6:50 AM CDT Sexual Orientation Straight 12/15/2017 6: 50 AM CDT Last Filed Vital Signs Vital Sign Reading Time Taken Comments Blood Pressure 168/88 11/04/2024 3:27 PM CDT Pulse 83 11/04/2024 3:27 PM CDT Temperature 36.3 C (97.3 F) 11/04/2024 2:18 PM CDT Respiratory Rate 18 11/04/2024 2:18 PM CDT Oxygen Saturation 95% 11/04/2024 2:18 PM CDT Inhaled Oxygen Concentration - - Weight 96.5 kg (212 lb 11.9 oz) 11/04/2024 2:19 PM CDT Height 185.1 cm (6' 0.87) 05/17/2024 7:51 AM CD T Body Mass Index 28.17 05/17/2024 7:51 AM CDT Plan of Treatment Upcoming Encounters Date Type Department Care Team (Latest Contact Info) Description 11/23/2024 3:15 PM CDT Clinical Support Department of Rehabilitation Services in [address] [phone] Jayla Canales APRN, C.N.P. [address] [place] [phone] Capri Valdez, P.T., D.P.T. [address] [place] [phone] 11/25/2024 4:15 PM CDT Clinical Support Department of Rehabilitation Services in [address] [place] [phone] Jayla Canales APRN, C.N.P. [address] [place] [phone] Capri Valdez P.TEmeka, D.P.T. [address] [place] [address] [place] [phone] 11/29/2024 4:15 PM CDT Clinical Support Department of Rehabilitation Services in [address] [place] [phone] Jayla Canales APRN, C.N.P. [address] [place] [phone] Capri Valdez P.T., D.P.T. [address] [place] [address] [place] [phone] 12/02/2024 4:15 PM CDT Clinical Support Department of Rehabilitation Services in [address] [place] [phone] Jayla Canales APRN, C.N.P. [address] [place] [phone] Capri Valdez P.TEmeka, D.P.T. [address] [place], [place] [address] [phone] 12/08/2024 1:45 PM CDT Office Visit Department of Cardiovascular Diseases in [address] [place] [phone] Maverick Terry M.D. [address] [place] [phone] Discharge Disposition: Home or Self Care 12/12/2024 10:15 AM CDT Clinical Support Department of Rehabilitation Services in [address] [phone] Jayla Canales, LINDY, C.N.P. [address] [place] [phone] Capri Valdez P.T., D.P.T. [address] [place] [phone] Health Maintenance Due Date Last Done Comments CT Colonography 1955 COVID-19 Vaccine ( season) 2024 05/03/2024, 01/05/2024, 05/29/2023, Additional history exists Visit: Medicare Annual Wellness 03/16/2025 03/15/2024, 02/19/2023 Visit: Annual, age 65+ (or Medicare and <65) 09/05/2025 09/05/2024 Cologuard 11/29/2026 11/30/2023 Colonoscopy 02/02/2027 02/03/2024, 01/02, 03/07/2004 Colorectal Cancer Surveillance 02/02/2027 Fasting Glucose for Diabetes Screening 11/05/2027 11/04/2024, 10/11/2024, 12/17/2023, Additional history exists DTaP,Tdap,and Td Vaccines (4 - Td or Tdap) 04/15/2032 04/15/2022, 2018, 11/18/2007, Additional history exists Zoster Vaccines Completed 11/23/2017, 09/04, 05/08/2013 Pneumococcal vaccine (50+ years) Completed 2019, 2018 Hepatitis C Screening Completed 10/29/2020 Hepatitis B Vaccines Completed 02/19/2023, 08/18/2022, 1999, Additional history exists RSV vaccine - (32-36 weeks) or 60+ years Completed 07/16/2023 Colonoscopy After Positive Cologuard Discontinued 02/03/2024 Influenza Vaccine Completed 05/03/2024, , 05/13/2022, Additional history exists Depression Screening (Annual PHQ-2) Completed 09/05/2024, 08/31/2024 Fall Risk Screen (Annual) Completed 09/05/2024 IPV Vaccines Aged Out No longer eligi ble based on patient's age to complete this topic Procedures Procedure Name Priority Date/Time Associated Diagnosis Comments BASIC METABOLIC PANEL, S/P STAT 11/04/2024 2:38 PM CDT C-REACTIVE PROTEIN (CRP), S/P STAT 11/04/2024 2:38 PM CDT CBC WITH DIFFERENTIAL, B STAT 11/04/2024 2:38 PM CDT EMERGENCY DEPARTMENT IMAGE EXAM Routine 11/04/2024 2:20 PM CDT C-REACTIVE PROTEIN (CRP), S/P STAT 11/01/2024 4:50 PM CDT CBC WITH DIFFERENTIAL, B STAT 11/01/2024 4:50 PM CDT WI RMVL IMPACT CERUMEN IRRIG UNILAT Today 10/14/2024 1:00 PM CDT Cerumen Impacted Bilateral DX CHEST AP OR PA AND LATERAL 2 VIEWS RAD - Routine (most inpatients and all outpatients) 10/14/2024 10:43 AM CDT Atrial Fibrillation Paroxysmal (HCC) Atrial Fibrillation Permanent (HCC) High Risk Medication Atrial Fibrillation Unspecified (HCC) ECG Routine 10/14/2024 10:19 AM CDT Atrial Fibrillation Paroxysmal (HCC) Atrial Fibrillation Permanent (HCC) High Risk Medication Atrial Fibrillation Unspecified (HCC) COMPREHENSIVE METABOLIC PANEL, S/P Routine 10/11/2024 3:31 PM CDT Atrial Fibrillation Paroxysmal (HCC) Atrial Fibrillation Permanent (HCC) High Risk Medication Atrial Fibrillation Unspecified (HCC) MAGNESIUM, S Routine 10/11/2024 3:31 PM CDT Atrial Fibrillation Paroxysmal (HCC) Atrial Fibrillation Permanent (HCC) High Risk Medication Atrial Fibrillation Unspecified (HCC) THYROID FUNCTION CASCADE, S Routine 10/11/2024 3:31 PM CDT Atrial Fibrillation Paroxysmal (HCC) Atrial Fibrillation Permanent (HCC) High Risk Medication Atrial Fibrillation Unspecified (HCC) PROSTATE-SPECIFIC AG (PSA) SCRN, S Routine 10/11/2024 3:31 PM CDT Screening Examination Prostate Cancer WI ARTHCS ASP/INJ MJR JT WO US Routine 09/20/2024 3:30 PM WRAPAROUND FACILITATOR Pain Knee Left Pain Knee Right DX KNEE RIGHT 3 VIEWS RAD - Routine (most inpatients and all outpatients) 09/20/2024 3:10 PM WRAPAROUND FACILITATOR Pain Knee Right COLONOSCOPY Routine 02/03/2024 12:32 PM CDT Screening Cancer Colon Positive Cologuard Stool Deoxyribonucleic Acid Test COLOGUARD Routine 11/30/2023 11:00 AM CDT Screening Cancer Colon HCV AB SCRN W/REFLEX TO HCV PCR, S Routine 10/29/2020 2:52 PM CDT Health Maintenance Examination Adult from Last 3 Months or Most Recently Relevant to Health Maintenance Results * (ABNORMAL) CBC with Differential, Blood (11/04/2024 2:38 PM CDT) Only the most recent of2 resultswithin the time period is included. Hemoglobin 14.2 13.2 - 16.6 g/dL 11/04/2024 2:53 PM CDT CNFL Hematocrit 43.7 38.3 - 48.6 % 11/04/2024 2:53 PM CDT CNFL Erythrocytes 4.54 4.35 - 5.65 x10(12)/L 11/04/2024 2:53 PM CDT CNFL MCV 96.3 78.2 - 97.9 fL 11/04/2024 2:53 PM CDT CNFL RBC Distrib Width 13.6 11.8 - 14.5 % 11/04/2024 2:53 PM CDT CNFL Platelet Count 227 135 - 317 x10(9)/L 11/04/2024 2:53 PM CDT CNFL Leukocytes 8.7 3.4 - 9.6 x10(9)/L 11/04/2024 2:53 PM CDT CNFL Neutrophils 6.87(H) 1.56 - 6.45 x10(9)/L 11/04/2024 2:53 PM CDT CNFL Lymphocytes 0.93(L) 0.95 - 3.07 x10(9)/L 11/04/2024 2:53 PM CDT CNFL Monocytes 0.52 0.26 - 0.81 x10(9)/L 11/04/2024 2:53 PM CDT CNFL Eosinophils 0.30 0.03 - 0.48 x10(9)/L 11/04/2024 2:53 PM CDT CNFL Basophils <0.04 0.01 - 0.08 x10(9)/L 11/04/2024 2:53 PM CDT CNFL Blood (Blood, Venous) 11/04/2024 2:38 PM CDT 11/04/2024 2:49 PM CDT us Nelly Jarrell APRN, C.N.P., D.N.P. LAB BLOOD ADD-ON Final Result [facility] [address] [place] [phone], [facility] in [address] [address] * (ABNORMAL) CRP (C-Reactive Protein) (11/04/2024 2:38 PM CDT) Only the most recent of2 resultswithin the time period is included. C-Reactive Protein (CRP), P 66.7(H) <5.0 mg/L 11/04/2024 3:08 PM CDT CNFL Blood (Blood, Venous) 11/04/2024 2:38 PM CDT 11/04/2024 2:49 PM CDT Nelly Jarrell APRN, C.N.P., D.N.P. LAB BLOOD ADD-ON Final Result [facility] [address] [place] [id number], [facility] CNFL [facility] [place] [address] * (ABNORMAL) Basic Metabolic Panel (11/04/2024 2:38 PM CDT) Potassium, P 4.1 3.6 - 5.2 mmol/L 11/04/2024 3:08 PM CDT CNFL Sodium, P 136 135 - 145 mmol/L 11/04/2024 3:08 PM CDT CNFL Chloride, P 100 98 - 107 mmol/L 11/04/2024 3:08 PM CDT CNFL Bicarbonate, P 23 22 - 29 mmol/L 11/04/2024 3:08 PM CDT CNFL Anion Gap, P 13 7 - 15 11/04/2024 3:08 PM CDT CNFL BUN (Blood Urea Nitrogen), P 17 8 - 24 mg/dL 11/04/2024 3:08 PM CDT CNFL Creatinine 0.51(L) 0.74 - 1.35 mg/dL 11/04/2024 3:08 PM CDT CNFL Estimated GFR (eGFR) >90 >=60 mL/min/BSA 11/04/2024 3:08 PM CDT CNFL Comment: Estimated GFR calculated using the 2020 CKD_EPI creatinine equation. Calcium, Total, P 9.3 8.8 - 10.2 mg/dL 11/04/2024 3:08 PM CDT CNFL Glucose, P 132 70 - 140 mg/dL 11/04/2024 3:08 PM CDT CNFL Blood (Blood, Venous) 11/04/2024 2:38 PM CDT 11/04/2024 2:49 PM CDT us Nelly Jarrell APRN, C.N.P., D.N.P. LAB BLOOD ADD-ON Final Result Performing Organization Address [facility] Co de Phone Number [facility] [address] [place] [phone], [facility] CNFL [facility] in [address] [address] * Arm-Emergency Department Image Exam (11/04/2024 2:20 PM CDT) 11/04/2024 2:17 PM CDT Narrative IIMS - 11/04/2024 2:20 PM CDT This order has been created and auto-finalized to support the import of images acquired without order. The clinical documentation to support these images can be found on the encounter that produced images. us Provider Not In System IMG NON RAD IMAGING PROCE DURES Final Result Performing Organization Address [facility] de Phone Number IIMS NA * [place] RMVL IMPACT CERUMEN IRRIG UNILAT (10/14/2024 1:00 PM CDT) Narrative MMODAL - 10/14/2024 1:00 PM CDT Lucy Valles REmekaN. 10/14/2024 11:19 AM FAM Ear wax removal procedure Performed by: Lucy Valles REmekaN. Authorized by: Jayla Canales APRN, C.N.P. Care team members present 1. Lucy Valles R.N. PROCEDURE DETAILS Location: left ear and right ear Procedure type: irrigation Scope used: otoscope CONSENT Consent obtained: verbal Consent given by: patient PRE-PROCEDURE DETAILS Indication: cerumen impaction POST-PROCEDURE DETAILS Inspection: complete impaction removal Hearing quality: improved Procedure completed successfully: yes Complications: no immediate complications us Jayla Canales APRN, C.N.P. PROCEDURE/MINOR SURGI REECE ORDERABLES Final Result Performing Organization Address [facility]/ZIP Co de Phone Number MMODAL NA * DX Chest AP or PA and Lateral 2 Views (10/14/2024 10:43 AM CDT) Anatomical Region Laterality Modality Chest, Thoracic RST LOS, Tho racic ARZ LOS, Thoracic FLA LOS N/A Digital Radiography Impressions 10/14/2024 11:16 AM CDT Cardiomediastinal silhouette is unremarkable. No focal airspace opacity or large pleural effusion. Mild hyperinflation. Narrative 10/14/2024 11:16 AM CDT EXAM: DX CHEST AP OR PA AND LATERAL 2 VIEWS Procedure Note Carson Rodriguez M.D. - 10/14/2024 EXAM: DX CHEST AP OR PA AND LATERAL 2 VIEWS IMPRESSION: Cardiomediastinal silhouette is unremarkable. No focal airspace opacity orlarge pleural effusion. Mild hyperinflation. Maverick Terry M.D. IMG DIAGNOSTIC IMAGING PRO CEDURES Final Result * ECG 12 Lead (10/14/2024 10:19 AM CDT) Ventricular Rate ECG/Min 58 BPM MUSE WI Interval 216 ms MUSE QRSD Interval 98 ms MUSE QT Interval 430 ms MUSE QTC Interval 422 ms MUSE P Morrison 34 degrees MUSE R Morrison -30 degrees MUSE T Wave Morrison 7 degrees MUSE 10/14/2024 10:1 9 AM CDT 10/14/2024 10:49 AM CDT Impressions MUSE - 10/14/2024 10:49 AM CDT Sinus bradycardia with 1st degree A-V block Left axis deviation Incomplete right bundle branch block When compared with ECG of 01-Jan-2024 12:42, QRS voltage has increased QRS axis has changed Slightly Criteria for Nonspecific T wave abnormality are no longer present Reviewed by ISELA Becerra Narrative Procedure Note Sudhir Kong M.D. - 10/14/2024 IMPRESSION: Sinus bradycardia with 1st degree A-V block Left axis deviation Incomplete right bundle branch block When compared with ECG of 01-Jan-2024 12:42, QRS voltage has increased QRS axis has changed Slightly Criteria for Nonspecific T wave abnormality are no longer present Reviewed by ISELA Becerra us Maverick Terry M.D. ECG ORDERABLES Final Resu lt Performing Organization Address City/[facility]/ZIP Co de Phone Number MUSE NA * Thyroid Function [place] (10/11/2024 3:31 PM CDT) Pathologist [facility] TSH, Sensitive 3.2 0.3 - 4.2 mIU/L 10/11/2024 4:41 PM CDT CNFL Blood (Blood, Venous) 10/11/2024 3:31 PM CDT 10/11/2024 3:34 PM CDT Maverick Terry M.D. LAB BLOOD ADD-ON Final Res ult Performing Organization Address [facility] Co de Phone Number [facility] [address] [place] [address], [facility] [place] [address] * PSA (Prostate-Specific Antigen) Screen (10/11/2024 3:31 PM CDT) [facility] Prostate-Specific Ag 2.8 <=6.5 ng/mL 10/11/2024 8:08 PM CDT RDWG Comment: ----ADDITIONAL INFORMATION---- The testing method is an electrochemiluminescence assay manufactured by [employer] and performed on the Modular or Frankie system. Values obtained with different assay methods or kits may be different and cannot be used interchangeably. Test results cannot be interpreted as absolute evidence for the presence or absence of malignant disease. Blood (Blood, Venous) 10/11/2024 3:31 PM CDT 10/11/2024 7:06 PM CDT Jayla Canales APRN, C.N.P. LAB BLOOD ADD-ON Bridget l Result [facility] [address] [place] [address], [facility] RDWG [facility] in [place] [address] [place], [place] [phone] * Magnesium (10/11/2024 3:31 PM CDT) Magnesium, P 2.2 1.7 - 2.3 mg/dL 10/11/2024 3:55 PM CDT CNFL Blood (Blood, Venous) 10/11/2024 3:31 PM CDT 10/11/2024 3:34 PM CDT us Maverick Terry M.D. LAB BLOOD ADD-ON Final Res ult [facility] [address] [place] [phone], [facility] CNFL [facility] in [address] [address] * (ABNORMAL) Comprehensive Metabolic Panel (10/11/2024 3:31 PM CDT) Potassium, P 4.7 3.6 - 5.2 mmol/L 10/11/2024 3:55 PM CDT CNFL Sodium, P 142 135 - 145 mmol/L 10/11/2024 3:55 PM CDT CNFL Chloride, P 108(H) 98 - 107 mmol/L 10/11/2024 3:55 PM CDT CNFL Bicarbonate, P 25 22 - 29 mmol/L 10/11/2024 3:55 PM CDT CNFL Anion Gap, P 9 7 - 15 10/11/2024 3:55 PM CDT CNFL BUN (Blood Urea Nitrogen), P 16 8 - 24 mg/dL 10/11/2024 3:55 PM CDT CNFL Creatinine 0.59(L) 0.74 - 1.35 mg/dL 10/11/2024 3:55 PM CDT CNFL Estimated GFR (eGFR) >90 >=60 mL/min/BS A 10/11/2024 3:55 PM CDT CNFL Comment: Estimated GFR calculated using the 2020 CKD_EPI creatinine equation. Calcium, Total, P 9.5 8.8 - 10.2 mg/dL 10/11/2024 3:55 PM CDT CNFL Glucose, P 109 70 - 140 mg/dL 10/11/2024 3:55 PM CDT CNFL Protein, Total, P 7.3 6.3 - 7.9 g/dL 10/11/2024 3:55 PM CDT CNFL Albumin, P 4.2 3.5 - 5.0 g/dL 10/11/2024 3:55 PM CDT CNFL Aspartate Aminotransferase (AST), P 19 8 - 48 U/L 10/11/2024 3:55 PM CDT CNFL Alkaline Phosphatase, P 80 40 - 129 U/L 10/11/2024 3:55 PM CDT CNFL Alanine Aminotransferase (ALT), P 6(L) 7 - 55 U/L 10/11/2024 3:55 PM CDT CNFL Bilirubin, Total, P 0.4 0.0 - 1.2 mg/dL 10/11/2024 3:55 PM CDT CNFL Blood (Blood, Venous) 10/11/2024 3:31 PM CDT 10/11/2024 3:34 PM CDT us Maverick Terry M.D. LAB BLOOD ADD-ON Final Res ult Performing Organization Address [facility]/State/[facility] Co de Phone Number [facility] [address] [place] [address], [facility] CNFL [facility] [place] [address] * [place] ARTHCS ASP/INJ MJR JT WO US (09/20/2024 3:30 PM WRAPAROUND FACILITATOR) Narrative MMODAL - 09/20/2024 3:30 PM WRAPAROUND FACILITATOR Capri Almonte L.P.N. 09/23/2024 3:44 PM Knee site- Bilat knee joint : injection only Performed by: Cristian Alvarenga M.D. Authorized by: Cristian Alvarenga M.D. PROCEDURE DETAILS Indications: bilateral knee pain Procedure Location knee Knee site: Bilat knee joint Site prep: patient was prepped and draped in usual sterile fashion Procedural approach: anterolateral Procedure performed: injection only Needle gauge: 22 G Procedural Medication The following medications were administered at the target site(s) On the right: Local anesthetic: 4 mL lidocaine 10 mg/mL (1 %) Corticosteroid: 60 mg triamcinolone acetonide 40 mg/mL On the left: Local anesthetic: 4 mL lidocaine 10 mg/mL (1 %) Corticosteroid: 60 mg triamcinolone acetonide 40 mg/mL CONSENT Consent obtained: written (Risks, benefits and alternatives were discussed and a written Informed Consent was obtained. Please see Informed Consent form for further details.) PRE-PROCEDURE DETAILS Procedure purpose: therapeutic and diagnostic Indications: bilateral knee pain Site preparation: chlorhexidine SEDATION / ANESTHESIA Anesthesia method: none POST-PROCEDURE DETAILS Procedure completed successfully: yes Complications: no apparent complications Post-procedure instructions: avoid strenuous activity for 5 days Discharge instructions: dressing care and follow-up with ordering provider Cristian Alvarenga M.D. PROCEDURE/MINOR SURGICAL O RDERABLES Final Result MMODAL NA * DX Knee Right 3 Views (09/20/2024 3:10 PM WRAPAROUND FACILITATOR) Anatomical Region Laterality Modality Lower Extremity, Knee, Muscu loskeletal RST LOS, Musculoskeletal ARZ LOS, Muskuloskeletal FLA LOS Right Digit al Radiography Impressions 09/20/2024 3:15 PM WRAPAROUND FACILITATOR Comparison 09/10/2021. Progressed moderate medial compartment predominant tricompartmental right knee osteoarthritis. Moderate right knee joint effusion. Alignment normal. No acute fracture. Narrative 09/20/2024 3:15 PM WRAPAROUND FACILITATOR EXAM: DX KNEE RIGHT 3 VIEWS Procedure Note Aramis Miller M.D. - 09/20/2024 EXAM: DX KNEE RIGHT 3 VIEWS IMPRESSION: Comparison 09/10/2021. Progressed moderate medial compartment predominant tricompartmental rightknee osteoarthritis. Moderate right knee joint effusion. Alignment normal.No acute fracture. Jayla Canales APRN C.N.PEmeka IMG DIAGNOSTIC IMAGIN G PROCEDURES Final Result * (ABNORMAL) Cologuard - Sent Out Lab (11/30/2023 11:00 AM CDT) Result Positive( A) Negative 12/10/2023 4:39 PM CDT EXLI Comment: POSITIVE TEST RESULT. A positive Cologuard result should be followed with a colonoscopy or visual examination of the colon. The normal value (reference range) for this assay is negative. TEST DESCRIPTION: Composite algorithmic analysis of stool DNA-biomarkers with hemoglobin immunoassay. Quantitative values of individual biomarkers are not reportable and are not associated with individual biomarker result reference ranges. Cologuard is intended for colorectal cancer screening of adults of either sex, 45 years or older, who are at average-risk for colorectal cancer (CRC). Cologuard has been approved for use by the U.S. FDA. The performance of Cologuard was established in a cross sectional study of average-risk adults aged 50-84. Cologuard performance in patients ages 45 to 49 years was estimated by sub-group analysis of near-age groups. Colonoscopies performed for a positive result may find as the most clinically significant lesion: colorectal cancer [4.0%], advanced adenoma (including sessile serrated polyps greater than or equal to 1cm diameter) [20%] or non- advanced adenoma [31%]; or no colorectal neoplasia [45%]. These estimates are derived from a prospective cross-sectional screening study of 10,000 individuals at average risk for colorectal cancer who were screened with both Cologuard and colonoscopy. (Madelin Castañeda et al, N Engl J Med 2014;370(14):9184-6818.) Cologuard may produce a false negative or false positive result (no colorectal cancer or precancerous polyp present at colonoscopy follow up). A negative Cologuard test result does not guarantee the absence of CRC or advanced adenoma (pre-cancer). The current Cologuard screening interval is every 3 years. ([place] [employer] Society and U.S. Multi-Society Task Force). Cologuard performance data in a 10,000 patient pivotal study using colonoscopy as the reference method can be accessed at the following location: [email or web address].com/results. Additional description of the Cologuard test process, warnings and precautions can be found at www.cologuard.com. Stool (Stool) 11/30/2023 11: 00 AM CDT 12/01/2023 1:25 PM CDT Radha Arce M.D. LAB BODY FLUIDS AND STOOLS ORDERABLES Final Result [facility] [address] [place] [address] EX[facility] [address] [facility], [address] [place] [address] * HCV Ab Scrn w/Reflex to HCV PCR, Serum (10/29/2020 2:52 PM CDT) HCV Ab Screen, S Negative Negative 10/30/2020 8:44 AM CDT [facility] Comment:Fvjkle-fe-yqadny rat io is <1.00. Blood (Blood, Venous) 10/29/2020 2:52 PM CDT 10/30/2020 6:50 AM CDT Annamarie Harrell D.O. LAB MICROBIOLOGY - BLOO D ORDERABLES Final Result [facility] [address] [place] [address] [facility] Dept. of Laboratory Medicine and Pathology [address] 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 See document viewer. * Full Code (Latest Code Status on File) Date Activated Date Inactivated Comments 02/03/2024 10:18 AM 02/03/2024 3:50 PM Question Answer Comments Full Code: Discussed Healthcare Agents on File Name Relationship Healthcare Agent Relationship Communication Leydi Mustafa Spouse Health Care Agent [email or web address] Josefina Small Daughter First Alternat e Health Care Agent [email or web address] Care Teams Copy Technician Relationship Specialty Start Date End Date Jayla Canales APRN, C.N.P. [address] [place] [phone] PCP - General Family Medicine 12/24/[address] [place], [place] Dentist 03/15/24
--- OUTSIDE RECORDS SUMMARY | 2024-11-05 18:38 | XMS_ITS | Encounter Summary ---
Author Organization [facility] Address [address] [place] [address] Care Team Providers Care Hand Cooper Helper Name Role Phone Jayla Canales APRN, C.N.P. Primary Care Provide r Encounter Details Date Type Department Care Team (Late st Contact Info) Description 10/21/2024 Results Follow-Up Department of Cardiovascular Diseases in [address] [phone] Basil Terry M.D. [address] [place] [phone] ECG 12 Lead Social History Tobacco Use Types Packs/Day Years Used Date Smoking Tobacco: Never Passive Smoke Exposure: Never Smokeless Tobacco: Never Alcohol Use Standard Drinks/Week Comments Never 0 (1 standard drink = 0.6 oz pur e alcohol) [facility] Utilities Answer Date Recorded In the past 12 months has [employer], gas, oil, or water company threatened to shut off services in your [...] week 09/04/2022 How often do you attend [facility] or druze services? More than 4 times per year 09/04/2022 Do you belong to any clubs o r organizations such as protestant groups, unions, fraternal or athletic groups, or [...] Answer Date Recorded PHQ-2 Score 0 08/31/2024 [facility] of Occupat ional Health - Occupational Stress [...] Date Recorded Dental: Regular Dentist Yes 09/24/19 Employment Answer Date Recorded Employment status Retired 09/19/2024 Housing Stability Answer Date Recorded What is your living situation today? I have a [facility] place to live 03/15/2024 Education Answer Date Recorded What is the highest level of school you have completed or the highest degree you have received? 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 - 10/21/2024 10:15 AM CDT Hi Isaias, chest xray and EKG done as part of the amiodarone monitoring both looked good. No concernsover side effects from amiodarone. Heart rhythm was normal rhythm (not afib) on the EKG. Hope you are doing well. basil Peralta documented in this encounter Plan of Treatment Upcoming Encounters Date Type Department Care Team (Latest Contact Info) Description 11/23/2024 3:15 PM CDT Clinical Support Department of Rehabilitation Services in [address] [phone] Jayla Canales APRN, C.N.P. [address] [place] [phone] Capri Valdez P.T., D.P.T. [address] [place] [phone] 11/25/2024 4:15 PM CDT Clinical Support Department of Rehabilitation Services in [address] [phone] Jayla Canales APRN, C.N.P. [address] [place] [phone] Capri Valdez P.T., D.P.T. [address] [place] [phone] 11/29/2024 4:15 PM CDT Clinical Support Department of Rehabilitation Services in [address] [phone] Jayla Canales APRN, C.N.P. 701 [place] [phone] Capri Valdez P.T., D.P.T. [address] [place] [address] [place] [phone] 12/02/2024 4:15 PM CDT Clinical Support Department of Rehabilitation Services in [address] [place] [phone] Jayla Canales APRN, C.N.P. [address] [place] [address] Capri Valdez P.T., D.P.T. [address] [place] [phone] 12/08/2024 1:45 PM CDT Office Visit Department of Cardiovascular Diseases in [address] [place] [phone] Basil Terry M.D. [address] [place] [phone] Discharge Disposition: Home or Self Care 12/12/2024 10:15 AM CDT Clinical Support Department of Rehabilitation Services in [address] [phone] Jayla Canales APRN C.N.P. [address] [place] [address] Capri Valdez P.T., D.P.T. [address] [place], [place] [address] [phone] documented as of this encounter Visit Diagnoses Not on filedocumented in this encounter Additional Health Concerns Assessment Noted Time PHQ-9 Depression Total Score: 1 03/29/20 21 1:32 PM CDT documented as of this encounter Care Teams Hand Cooper Helper Relationship Specialty Start Date End Date Jayla Canales APRN, C.N.P. [address] [place] [phone] PCP - General Family Medicine 12/24/[address] [place], [place] Dentist 03/15/24 documented as of this encounter
--- OUTSIDE RECORDS SUMMARY | 2024-11-05 18:38 | XMS_ITS | Encounter Summary ---
Author Organization [facility] Address [address] [place] [address] Care Team Providers Care Production Posting Clerk Name Role Phone Jayla Canales APRN, C.N.P. Primary Care Provide r Reason for Visit * Physical Therapy (Routine) - Authorized Specialty Diagnoses / Procedures Referred By Contac t Referred To Contact Diagnoses Parkinsonism Unspecified (HCC) Procedures PT Ongoing treatment Jayla Canales APRN, C.N.P. [address] [place] [address] Phone: tel: fax: [facility] Region Referral ID Status Reason Start Date Expiration Date V isits Requested Visits Authorized [id number] Authorized 06/23/2024 06/23/2025 99 [phone] Encounter Details Date Type Department Care Team (Latest Contact Info) Description 11/01/2024 4:15 PM CDT Clinical Support Department of Rehabilitation Services in [address] [phone] Jayla Canales, LINDY, C.N.P. 701 [facility] [place] [address] Capri Valdez P.T., D.P.T. [address] [place] [phone] Parkinsonism Unspecified (HCC) Social History Tobacco Use Types Packs/Day Years Used Date Smoking Tobacco: Never Passive Smoke Exposure: Never Smokeless Tobacco: Never Alcohol Use Standard Drinks/Week Comments Never 0 (1 standard drink = 0.6 oz pur e alcohol) [facility] Utilities Answer Date Recorded In the past 12 months has e [employer], gas, oil, or water [employer] threatened to shut off services in your [...] often do you attend chur ch or presybeterian services? More than 4 times per year 09/04/2022 Do you belong to any clubs o r organizations such as gnosticism groups, unions, fraternal or athletic groups, or [...] Answer Date Recorded PHQ-2 Score 0 08/31/2024 [facility] of Occupat ional Health - Occupational [...] your living situation today? I have a [facility] place to live 03/15/2024 Education Answer Date Recorded What is the highest level of school you have completed or the highest degree you have received? 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 - 11/01/2024 4:15 PM CDT Patient presents to physical therapy today with new complaints left arm pain. Patient notes pain inhis forearm which began on Thursday. He reports his symptoms have gotten worse since. Today he has a lot of tenderness over the forearm. Patient has significant swelling as well as redness in his also warm to the touch. Due to patient's symptoms appropriate that patient be evaluated today to prevent exacerbation of symptoms. We will hold on physical therapy treatment today and resume monitor next treatment session. Patient was escorted to the emergency department for further evaluation and treatment. documented in this encounter Plan of Treatment Upcoming Encounters Date Type Department Care Team (Latest Contact Info) Description 11/23/2024 3:15 PM CDT Clinical Support Department of Rehabilitation Services in [address] [phone] Jayla Canales APRN, C.N.P. [address] [place] [address] Capri Valdez P.T., D.P.T. [address] [place] [address] [place] [phone] 11/25/2024 4:15 PM CDT Clinical Support Department of Rehabilitation Services in [address] [place] [address] Jayla Canales APRN, C.N.P. 701 [place] [phone] Capri Valdez P.T., D.P.T. [address] [place], [place] [address] [address] 11/29/2024 4:15 PM CDT Clinical Support Department of Rehabilitation Services in [address] [place] [address] Jayla Canales APRN, C.N.P. 701 [place] [phone] Capri Valdez P.T., D.P.T. [address] [place], [place] [address] [address] 12/02/2024 4:15 PM CDT Clinical Support Department of Rehabilitation Services in [address] [place] [address] Jayla Canales APRN, C.N.P. 701 [place] [phone] Capri Valdez P.T., D.P.T. [address] [place], [place] [address] [address] 12/08/2024 1:45 PM CDT Office Visit Department of Cardiovascular Diseases in [address] [phone] Maverick Terry M.D. [address] [place] [phone] Discharge Disposition: Home or Self Care 12/12/2024 10:15 AM CDT Clinical Support Department of Rehabilitation Services in [address] [phone] Jayla Canales APRN, C.N.P. [address] [place] [phone] Capri Valdez P.T., D.P.T. [address] [place] [phone] documented as of this encounter Visit Diagnoses Diagnosis Parkinsonism Unspecified (HCC) documented in this encounter Additional Health Concerns Assessment Noted Time PHQ-9 Depression Total Score: 1 10/30/19 21 1:32 PM CDT documented as of this encounter Care Teams Production Posting Clerk Relationship Specialty Start Date End Date Jayla Canales APRN, C.N.P. [address] [place] [phone] PCP - General Family Medicine 12/24/[address] [place], [place] Dentist 03/15/24 documented as of this encounter
--- OUTSIDE RECORDS SUMMARY | 2024-11-05 18:38 | XMS_ITS | Encounter Summary ---
Author Organization [facility] Address [address] [place] [address] Care Team Providers Care Multimedia Journalist Name Role Phone Jayla Canales APRN, C.N.P. Primary Care Provide r Reason for Visit * Reason Onset Date Comments Order Request 11/03/2024 PT Encounter Details Date Type Department Care Team (Latest Contact Info) Description 11/03/2024 Clinical Communication Department of Rehabilitation Services in [address] [phone] Capri Valdez P.T., D.P.T. [address] [place] [phone] Order Request (PT) Social History Tobacco Use Types Packs/Day Years Used Date Smoking Tobacco: Never Passive Smoke Exposure: Never Smokeless Tobacco: Never Alcohol Use Standard Drinks/Week Comments Never 0 (1 standard drink = 0.6 oz pur e alcohol) [facility] Utilities Answer Date Recorded In the past 12 months has e [employer], gas, oil, or water company threatened to [...] often do you attend chur ch or shinto services? More than 4 times per year 09/04/2022 Do you belong to any clubs o r organizations such as episcopalian groups, unions, fraternal or athletic groups, or [...] Answer Date Recorded PHQ-2 Score 0 08/31/2024 [facility] of Occupat ional Health - Occupational Stress [...] your living situation today? I have a [facility] place to live 03/15/2024 Education Answer Date Recorded What is the highest level of school you have completed or the highest degree you have received? 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 701 [place] [phone] Capri Valdez P.T., D.P.T. [address] [place], [place] [address] [address] 11/25/2024 4:15 PM CDT Clinical Support Department of Rehabilitation Services in [address] [place] [address] Jayla Canales APRN, C.N.P. [address] [place] [phone] Capri Valdez P.T., D.P.T. [address] [place], [place] [address] [address] 11/29/2024 4:15 PM CDT Clinical Support Department of Rehabilitation Services in [address] [place] [address] Jayla Canales APRN, C.N.P. [address] [place] [phone] Capri Valdez P.T., D.P.T. [address] [place], [place] [address] [address] 12/02/2024 4:15 PM CDT Clinical Support Department of Rehabilitation Services in [address] [place] [phone] Jayla Canales APRN, C.N.P. [address] [place] [phone] Capri Valdez P.T., D.P.T. [address] [place] [phone] 12/08/2024 1:45 PM CDT Office Visit Department of Cardiovascular Diseases in [address] [phone] Maverick Terry M.D. [address] [place] [phone] Discharge Disposition: Home or Self Care 12/12/2024 10:15 AM CDT Clinical Support Department of Rehabilitation Services in [address] [phone] Jayla Canales APRN, C.N.P. [address] [place] [address] Capri Valdez, P.T., D.P.T. [address] [place] [phone] documented as of this encounter Visit Diagnoses Not on filedocumented in this encounter Additional Health Concerns Assessment Noted Time PHQ-9 Depression Total Score: 1 10/30/19 21 1:32 PM CDT documented as of this encounter Care Teams Multimedia Journalist Relationship Specialty Start Date End Date Jayla Canales APRN, C.N.P. [address] [place] [phone] PCP - General Family Medicine 12/24/[address] [place], [place] Dentist 03/15/24 documented as of this encounter
--- OUTSIDE RECORDS SUMMARY | 2024-11-05 18:38 | XMS_ITS | Encounter Summary ---
Author Organization [facility] Address [address] [place] [address] Care Team Providers Care Extension Service Supervisor Name Role Phone Jayla Canales APRN, C.N.P. Primary Care Provide r Reason for Visit * Physical Therapy (Routine) - Authorized Specialty Diagnoses / Procedures Referred By Contac t Referred To Contact Diagnoses Parkinsonism Unspecified (HCC) Procedures PT Ongoing treatment Jayla Canales APRN, C.N.P. [address] [place] [address] Phone: tel: fax: [facility] Region Referral ID Status Reason Start Date Expiration Date V isits Requested Visits Authorized [id number] Authorized 06/23/2024 06/23/2025 99 [phone] Encounter Details Date Type Department Care Team (Latest Contact Info) Description 10/17/2024 10:15 AM CDT Clinical Support Department of Rehabilitation Services in [address] [phone] Jayla Canales, LINDY, C.N.P. 701 [facility] [place] [address] Capri Valdez P.T., D.P.T. [address] [place] [phone] Parkinsonism Unspecified (HCC) Social History Tobacco Use Types Packs/Day Years Used Date Smoking Tobacco: Never Passive Smoke Exposure: Never Smokeless Tobacco: Never Alcohol Use Standard Drinks/Week Comments Never 0 (1 standard drink = 0.6 oz pur e alcohol) [facility] Utilities Answer Date Recorded In the past 12 months has e [employer], gas, oil, or water [employer] threatened to shut off services in your [...] often do you attend chur ch or muslim services? More than 4 times per year 09/04/2022 Do you belong to any clubs o r organizations such as spiritism groups, unions, fraternal or athletic groups, or [...] Answer Date Recorded PHQ-2 Score 0 08/31/2024 [facility] of Occupat ional Health - Occupational [...] your living situation today? I have a [facility] place to live 03/15/2024 Education Answer Date Recorded What is the highest level of school you have completed or the highest degree you have received? 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 - 10/17/2024 10:15 AM CDT Physical Therapy Outpatient Treatment Note SUBJECTIVE Patient's Name: Sinan Mustafa Referring Provider: Jayla Canales APRN, C.* Visit Diagnosis: 1. Parkinsonism Unspecified (HCC) Payor: MEDICARE / Plan: MEDICARE A AND B / Product Type: Medicare / No data recorded Epic Visit Count: 21 Patient comments: Patient had one fall walking into spiritism when a heavy door closed on him. Patientreports he had his arms full. Unsure if he was using or carrying his cane. OBJECTIVE Pain: right shoulder pain from falls. TREATMENT Treatment today consisted of: Patient perform the [employer]-Fit Total body ergometer times 16 minutes at a level 5 resistance. Standingin the parallel bars with a bar in front and behind him performed standing rows with a green Thera-Band 3 x 10 repetitions. We also performed shoulder protraction with a green Thera-Band in Romberg stance times 10 repetitions, with 1 forward step times 10 repetitions and to forward steps times 10 repetitions. Performed weight shifting both anterior and posteriorly at 10 repetitions in each direction and [id number] times 10 repetitions. Patient requires and mid and upper extremity support to maintain balance. Performed heel raises at 2 x 10 repetitions. Tandem stance 2 times 30 seconds. Romberg stance with eyes closed 2 times 30 seconds. Standing lunges times 10 repetitions. Assessment Clinical Impression: Patient has had 1 fall since our last treatment session for the external forceof the door caused him to lose his balance. Patient has no new injuries. Patient continues [employer] boxing program twice a week. Patient continues to benefit from skilled physical therapy to minimize fall risk and maximize his functional independence. Functional Goals and Timeframes: PT Goal #1: Patient will demonstrate a 24/24 on the Dynamic Gait index in order to demonstrate reduce fall risk. PT Goal #1 to be achieved by: 10/28/24 PT Goal #1 Status: Slowly progressing PT Goal #2: Patient will demonstrate single leg stance times 15 seconds. PT Goal #2 to be achieved by: 10/28/24 PT Goal #2 Status: Slowly progressing PT Goal #3: Patient will demonstrate tug test in 11 seconds or less to demonstrate increased gait speed. PT Goal #3 to be achieved by: 10/28/24 PT Goal #3 Status: Slowly progressing PT Goal #4: Patient will demonstrate del-su-hpnsv x5 in 10 seconds or less to demonstrate improved endurance. PT Goal #4 to be achieved by: 10/28/24 PT Goal #4 Status: Slowly progressing Plan Plan for next session: Strengthening gait and balance. Time Spent with Patient Therapeutic Interventions Neuromuscular Re-Education (min): 10 min Therapeutic Exercise (min): 30 min Time Tracking Total Timed Units (min): 40 min Total Treatment Time (min): 40 min documented in this encounter Plan of Treatment Upcoming Encounters Date Type Department Care Team (Latest Contact Info) Description 11/23/2024 3:15 PM CDT Clinical Support Department of Rehabilitation Services in [address] [phone] Jayla Canales APRN, C.N.P. [address] [place] [phone] Capri Valdez P.T., D.P.T. [address] [place], [place] [address] [address] 11/25/2024 4:15 PM CDT Clinical Support Department of Rehabilitation Services in [address] [place] [address] Jayla Canales APRN, C.N.P. 701 [place] [phone] Capri Valdez P.T., D.P.T. [address] [place], [place] [address] [address] 11/29/2024 4:15 PM CDT Clinical Support Department of Rehabilitation Services in [address] [place] [address] Jayla Canales APRN, C.N.P. 701 [place] [phone] Capri Valdez P.T., D.P.T. [address] [place], [place] [address] [phone] 12/02/2024 4:15 PM CDT Clinical Support Department of Rehabilitation Services in [address] [place] [address] Jayla Canales APRN, C.N.P. 701 [place] [phone] Capri Valdez P.T., D.P.T. [address] [place], [place] [address] [phone] 12/08/2024 1:45 PM CDT Office Visit Department of Cardiovascular Diseases in [address] [place] [address] Maverick Terry M.D. [address] [place] [phone] Discharge Disposition: Home or Self Care 12/12/2024 10:15 AM CDT Clinical Support Department of Rehabilitation Services in [address] [phone] Jayla Canales APRN, C.N.P. [address] [place] [phone] Capri Valdez P.T., D.P.T. [address] [place] [phone] documented as of this encounter Visit Diagnoses Diagnosis Parkinsonism Unspecified (HCC) documented in this encounter Additional Health Concerns Assessment Noted Time PHQ-9 Depression Total Score: 1 10/30/19 21 1:32 PM CDT documented as of this encounter Care Teams Extension Service Supervisor Relationship Specialty Start Date End Date Jayla Canales APRN, C.N.P. [address] [place] [phone] PCP - General Family Medicine 12/24/[address] [place], [place] Dentist 03/15/24 documented as of this encounter
--- OUTSIDE RECORDS SUMMARY | 2024-11-05 18:38 | XMS_ITS | Encounter Summary ---
Author Organization [facility] Address [address] [place] [address] Care Team Providers Care Dental Scheduler Name Role Phone Jayla Canales APRN, C.N.P. Primary Care Provide r Reason for Referral * Outpatient (Routine) - Authorized Specialty Diagnoses / Procedures Referred By Contac t Referred To Contact Emergency Medicine Diagnoses Cellulitis Arm Left Nelly Jarrell APRN, C.N.P., D.N.P. [address] [place] [phone] Phone: tel: fax: [facility] Region Referral ID Status Reason Start Date Expiration Date V isits Requested Visits Authorized [id number] Authorized 11/04/2024 05/06/2026 1 1 Reason for Visit * Reason Comments Cellulitis Diagnosed cellulitis to right arm couple days ago. Today presents with increased redness with less swelling. Encounter Details Date Type Department Care Team (Late st Contact Info) Description 11/04/2024 2:10 PM CDT - 11/04/2024 3:34 PM CDT Emergency [facility] [address] [place] [address] [place] [phone] Nelly Jarrell, LINDY, C.N.P., D.N.P. [address] [place] [address] [place] [phone] Cellulitis Arm Left (Primary Dx) Discharge Disposition: Home or Self Care Social History Tobacco Use Types Packs/Day Years Used Date Smoking Tobacco: Never Passive Smoke Exposure: Never Smokeless Tobacco: Never Alcohol Use Standard Drinks/Week Comments Never 0 (1 standard drink = 0.6 oz pur e alcohol) [facility] Utilities Answer Date Recorded In the past 12 months has [facility] [employer], gas, oil, or water [employer] threatened to shut off services in your [...] week 09/04/2022 How often do you attend [facility] or jainism services? More than 4 times per year 09/04/2022 Do you belong to any clubs o r organizations such as uatsdin groups, unions, fraternal or athletic groups, or [...] Answer Date Recorded PHQ-2 Score 0 08/31/2024 [facility] of Occupat ional [facility] - Occupational Stress Questionnaire Answer Date Recorded [...] your living situation today? I have a [facility] place to live 03/15/2024 Education Answer Date Recorded What is the highest level of school you have completed or the highest degree you have received? 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 Gender Identity Male 12/15/2017 6:50 AM CDT Sexual Orientation Straight 12/15/2017 6: 50 AM CDT documented as of this encounter Last Filed Vital Signs Vital Sign Reading Time Taken Comments Blood Pressure 168/88 11/04/2024 3:27 PM CDT Pulse 83 11/04/2024 3:27 PM CDT Temperature 36.3 C (97.3 F) 11/04/2024 2:18 PM CDT Respiratory Rate 18 11/04/2024 2:18 PM CDT Oxygen Saturation 95% 11/04/2024 2:18 PM CDT Inhaled Oxygen Concentration - - Weight 96.5 kg (212 lb 11.9 oz) 11/04/2024 2:19 PM CDT Height - - Body Mass Index 28.17 05/17/2024 7:51 AM CDT documented in this encounter Discharge Instructions * Discharge Instructions* Nelly Jarrell APRN, C.N.P., D.N.P. - 11/04/2024 3:28 PM CDT An electronic referral was submitted to the primary care clinic for follow-up; they will call you to schedule. Stop the antibiotic you have been taking (cefadroxil) and start (Bactrim DS). Return to the ED for worsening signs/symptoms of infection - increasing redness, swelling, pain, fevers greater than 100.4, chest pain, shortness of breath. * Attachments The following attachments cannot be sent through Care Everywhere. * Cellulitis Adult [id number] (South African) * Sulfamethoxazole; Trimethoprim Tablets (South African) documented in this encounter Medications at Time of Discharge amiodarone (Pacerone) 200 mg tablet TAKE HALF TABLET BY MOUTH DAILY 90 tablet 3 09/07/2024 apixaban (Eliquis) 5 mg tablet Take 1 tablet (5 mg total) by mouth 2 (two) times a day. 180 tablet 3 12/17/2023 carbidopa-levodop a (Crexont) 70-280 mg capsule,IR -extend rel,biphase Take 3 capsules by mouth every 4 (four) hours. Substitute for Rytary. Take 3 Crexont caps every 4 hours around the clock. Take on an empty stomach. 1800 each 3 05/17/2024 carbidopa-levodop a (SINEMET CR) 50-200 mg per ER tablet Take 2 tablets by mouth at bedtime. 180 tablet 3 12/10/2023 carbidopa-levodop a (SINEMET) 25-100 mg per tablet Take 0.5-1 tablets by mouth as directed. 1/2 tab by mouth six times per day; pt may take an additional 3 tabs daily as needed. 540 tablet 3 11/16/2023 DULoxetine (CYMBALTA) [address] capsule take 1 capsule by mouth daily 90 capsule 3 01/18/2024 fish oil 1,000 mg capsule Take 1,000 mg by mouth daily. fluocinolone (SYNALAR) 0.01 % external solutionIndicatio ns:Keratosis Seborrheic,Eczema Apply topically daily as needed for itching or rash. 60 mL 3 08/27/2021 folic acid-vitamin B6,B12 (FOLBIC) 2.5-25-2 mg per tablet Take 2 tablets by mouth daily. To prevent homocysteine elevation. 01/08/2016 glucosamine-chond roitin 500-400 mg per tablet Take 2 tablets by mouth daily. HYDROcodone-aceta minophen (Ashley) 5-325 mg per tablet every 6 (six) hours as needed. ketoconazole (NIZORAL) 2 % shampoo Apply 1 Application topically 3 (three) times a week. Apply to damp skin, lather, leave on 5 minutes, and rinse 120 mL 3 03/23/2023 metoprolol succinate (Toprol XL) 25 mg 24 hr tabletIndications :Atrial Fibrillation Unspecified (HCC) take 1 tablet by mouth daily 90 tablet 3 03/15/2024 multivitamin tablet Take 1 tablet by mouth daily. sulfamethoxazole- trimethoprim (Bactrim DS) 800-160 mg per tabletIndications :Cellulitis Arm Left Take 1 tablet by mouth 2 (two) times a day for 7 days. 14 tablet 11/04/2024 traZODone (DesyreL) 50 mg tablet take 2 tablets by mouth at bedtime, may repeat with one tablet during the night. 270 tablet 3 08/04/2024 documented as of this encounter ED Notes * Nelly Jarrell, LINDY, C.N.P., D.N.P. - 11/04/2024 2:14 PM CDT SUBJECTIVE CHIEF COMPLAINT/REASON FOR VISIT Cellulitis (Diagnosed cellulitis to right arm couple days ago. Today presents with increased redness with less swelling. ) HISTORY OF PRESENT ILLNESS History provided by: Patient and medical records Mr. Isaias Mustafa is a 69-year-old male who presents via private vehicle unaccompanied with complaints of increased redness to his left upper extremity despite cefadroxil x 3 days. Denies fevers, chills, body aches, change in PO intake and change in bowel and bladder function. Denies missed doses of his antibiotic. Does feel the swelling is better but is concerned that the rednessis traveling down towards his wrist. Documented medical history includes prolonged QT interval, multifactorial dyspnea, melanoma history, Parkinson's, and thoracic aortic aneurysm without rupture. REVIEW OF SYSTEMS Skin: Positive for color change. See HPI above. OBJECTIVE Initial Vitals Temperature 11/04/24 1418 36.3 ??C Pulse Rate 11/04/24 1418 87 Heart Rate -- Resp Rate 11/04/24 1418 18 Blood Pressure 11/04/24 1418 (!) 171/99 SpO2 11/04/24 1418 95 % Pain Score 11/04/24 1419 0 - No pain PHYSICAL EXAMINATION Constitutional: Nursing note and vitals reviewed. No distress. HENT: Head: Normocephalic. Mouth/Throat: Mucous membranes are moist. Eyes: Conjunctivae and EOM are normal. Neck: Neck supple. Cardiovascular: Normal rate, regular rhythm, S1 normal and S2 normal. Pulses are strong. Capillary refill: takes less than 3 seconds Pulmonary/Chest: Effort normal and breath sounds normal. There is normal air entry. No stridor. No respiratory distress. He has no wheezes. He has no rhonchi. He has no rales. Abdominal: Soft. exhibits no distension. There is no abdominal tenderness. There is no rebound and no guarding. Musculoskeletal: General: Normal range of motion. Cervical back: Normal range of motion and neck supple. Neurological: Alert and oriented to person, place, and time. Skin: Skin is warm and dry. See QREADS for images obtained by nursing via [facility] Photo Exam randy. Edematous and erythematous area spreading outside previously marked margins to left upper extremity. Radial pulse 2+. Full range of motion of left elbow, wrist, and fingers. There is nontender and without fluctuant areas. Psychiatric: He has a normal mood and affect. Behavior is normal. Judgment and thought content normal. ASSESSMENT/PLAN Nontoxic-appearing 69-year-old male presents hypertensive but otherwise afebrile and hemodynamically appropriate concerned for spreading redness to his left upper extremity despite a 3 day course (of10 total) of cefadroxil. I am reassured that he is without systemic complaints but concerned given his clinical exam. See QREADS for images obtained. Will repeat screening labs including infectious and inflammatory markers along with blood cultures. There are no fluctuant areas amenable to drainageand no open or draining areas amenable to wound culture. Differentials considered include but not limited to worsening cellulitis, abscess, phlebitis, contact dermatitis, among others. Disposition ultimately determined by ED course and patient response to treatment. ED Course as of 11/04/24 1529 ThuNov 04, 2024 1455 Neutrophils(!): 6.87 Acute leukocytosis present 3 days ago has resolved. Neutrophilic count improving down from 8.21 to 6.87 today. 1513 C-Reactive Protein (CRP), P(!): 66.7 CRP bumped from baseline 3 days ago of 49.5. 1513 Creatinine(!): 0.51 Creatinine continues to trend down. No electrolyte derangement. Euglycemic. 1520 I am somewhat reassured by his improving white count but remain concerned given his increased erythema and CRP elevation. Blood cultures are pending. Diagnostic results were discussed with the patient in plain, everyday language. All questions answered and concerns addressed to the best my ability. Will discontinue cefadroxil and start Bactrim for MRSA coverage. Strict return precautions forworsening infection. Referral sent to primary for close follow-up. Final Diagnoses: as of 11/04/24 1529 Cellulitis Arm Left Nelly Jarrell APRN, C.N.P., D.N.P. 11/04/24 1529 documented in this encounter Plan of Treatment Upcoming Encounters Date Type Department Care Team (Latest Contact Info) Description 11/23/2024 3:15 PM CDT Clinical Support Department of Rehabilitation Services in [address] [phone] Jayla Canales APRN, C.N.P. [address] [place] [address] Capri Valdez P.T., D.P.T. [address] [place] [phone] 11/25/2024 4:15 PM CDT Clinical Support Department of Rehabilitation Services in [address] [phone] Jayla Canales APRN, C.N.P. [address] [place] [phone] Capri Valdez P.T., D.P.T. [address] [place] [address] [place] [phone] 11/29/2024 4:15 PM CDT Clinical Support Department of Rehabilitation Services in [address] [place] [address] Jayla Canales APRN, C.N.P. [address] [place] [phone] Capri Valdez P.T., D.P.T. [address] [place] [address] [place] [phone] 12/02/2024 4:15 PM CDT Clinical Support Department of Rehabilitation Services in [address] [place] [phone] Jayla Canales APRN, C.N.P. [address] [place] [phone] Capri Valdez P.T., D.P.T. [address] [place] [address] [place] [phone] 12/08/2024 1:45 PM CDT Office Visit Department of Cardiovascular Diseases in [address] [place] [phone] Maverick Terry M.D. [address] [place] [phone] Discharge Disposition: Home or Self Care 12/12/2024 10:15 AM CDT Clinical Support Department of Rehabilitation Services in [address] [place] [phone] Jayla Canales APRN, C.N.P. [address] [facility] [place] [phone] Capri Valdez P.T., D.P.T. [address] [facility], [place] [phone] Pending Results Name Type Priority Associated Diagnoses Date /Time Bacteria / Lissette Culture, Blood #1 Microbiology STAT 11/04/2024 2:3 7 PM CDT Bacteria / Lissette Culture, Blood #2 Microbiology STAT 11/04/2024 2:4 6 PM CDT Scheduled Orders Name Type Priority Associated Diagnoses Orde r Schedule Bacteria / Lissette Culture, Blood #1 Microbiology STAT STAT for 1 Occ urrences starting 11/04/2024 until 11/04/2024 Bacteria / Lissette Culture, Blood #2 Microbiology STAT STAT for 1 Occ urrences starting 11/04/2024 until 11/04/2024 Scheduled Referrals Name Type Priority Associated Diagnoses Orde r Schedule POST ED VISIT Family Medicine Outpatient Referral Routine Cellulitis Arm Left Expected: 11/04/2024 (Approximate), Expires: 02/03/2026 documented as of this encounter Procedures Procedure Name Priority Date/Time Associated Diagnosis Comments CBC WITH DIFFERENTIAL, B STAT 11/04/2024 2:38 PM CDT C-REACTIVE PROTEIN (CRP), S/P STAT 11/04/2024 2:38 PM CDT BASIC METABOLIC PANEL, S/P STAT 11/04/2024 2:38 PM CDT documented in this encounter Results * (ABNORMAL) Basic Metabolic Panel (11/04/2024 2:38 PM CDT) [facility] Potassium, P 4.1 3.6 - 5.2 mmol/L [...] BLOOD ADD-ON Final Result Performing Organization Address [facility]/State/[facility] Co de Phone Number [facility] [address] [place] [address], [facility] [place] [address] * (ABNORMAL) CRP (C-Reactive Protein) (11/04/2024 2:38 PM CDT) C-Reactive Protein (CRP), P 66.7(H) <5.0 mg/L 11/04/2024 3:08 PM CDT CNFL Blood (Blood, Venous) 11/04/2024 2:38 PM CDT 11/04/2024 2:49 PM CDT us Nelly Jarrell APRN, C.N.P., AngelaNKristin LAB BLOOD ADD-ON Final Result [facility] [address] [place] [phone], [facility] CNFL [facility] in [address] [phone] * (ABNORMAL) CBC with Differential, Blood (11/04/2024 2:38 PM CDT) Hemoglobin 14.2 13.2 - 16.6 g/dL 11/04/2024 [...] C.N.P., D.N.P. LAB BLOOD ADD-ON Final Result [facility] [address] [place] [phone], [facility] [address] [address] documented in this encounter Visit Diagnoses Diagnosis Cellulitis Arm Left- Primary documented in this encounter Additional Health Concerns Assessment Noted Time PHQ-9 Depression Total Score: 1 10/30/19 21 1:32 PM CDT documented as of this encounter Care Teams Dental Scheduler Relationship Specialty Start Date End Date Jayla Canales APRN, C.N.P. [address] [place] [phone] PCP - General Family Medicine 12/24/[address] [place], [place] Dentist 03/15/24 documented as of this encounter
--- OUTSIDE RECORDS SUMMARY | 2024-11-05 18:38 | XMS_ITS | Encounter Summary ---
Author Organization [facility] Address [address] [place] [address] Care Team Providers Care Inside Steward/Stewardess Name Role Phone Jayla Canales APRN, C.N.P. Primary Care Provide r Reason for Visit * Physical Therapy (Routine) - Authorized Specialty Diagnoses / Procedures Referred By Contac t Referred To Contact Diagnoses Parkinsonism Unspecified (HCC) Procedures PT Ongoing treatment Jayla Canales APRN, C.N.P. [address] [place] [address] Phone: tel: fax: [facility] Region Referral ID Status Reason Start Date Expiration Date V isits Requested Visits Authorized [id number] Authorized 06/23/2024 06/23/2025 99 99 Encounter Details Date Type Department Care Team (Latest Contact Info) Description 10/19/2024 3:15 PM CDT Clinical Support Department of Rehabilitation Services in [address] [phone] Jayla Canales, LINDY, C.N.P. [address] [facility] [place] [address] Capri Valdez P.T., D.P.T. [address] [place] [phone] Parkinsonism Unspecified (HCC) Social History Tobacco Use Types Packs/Day Years Used Date Smoking Tobacco: Never Passive Smoke Exposure: Never Smokeless Tobacco: Never Alcohol Use Standard Drinks/Week Comments Never 0 (1 standard drink = 0.6 oz pur e alcohol) [facility] Utilities Answer Date Recorded In the past 12 months has e [employer], gas, oil, or water [employer] threatened to shut off services in your [...] often do you attend chur ch or baptist services? 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 - 10/19/2024 3:15 PM CDT Physical Therapy Outpatient Treatment Note SUBJECTIVE Patient's Name: Sinan Mustafa Referring Provider: Jayla Canales APRN, C.* Visit Diagnosis: 1. Parkinsonism Unspecified (HCC) Payor: MEDICARE / Plan: MEDICARE A AND B / Product Type: Medicare / No data recorded Epic Visit Count: 22 Patient comments: Patient has no new complaints. OBJECTIVE Pain: right shoulder pain TREATMENT Treatment today consisted of: Patient performed Sci-Fit Total body ergometer times 15 minutes at a level 5 resistance for the 1st2 minutes then decrease down to a level 3 resistance due to hamstring cramps in the right lower extremity. Performed leg press at 130 lb at 3 x 10 repetitions as well as heel raises at 130 lb on leg press times 20 repetitions. Performed tandem stance 2 times 30 seconds. Performed Romberg stance with eyes closed 2 times 30 seconds. Performed Romberg stance on balance foam 2 times 30 seconds. Patient remained stable with very little ankle reactions noted for all balance activities. Performed weight shifting both anterior and posteriorly 10 repetitions in each direction and [id number] 10 times. Patient was able to maintain control. Performed standing lunges with a weighted medicine ball at 2x 10 repetitions. Side lunges with medicine ball 2 x 10 repetitions bilaterally. Heel raises times 20 repetitions. Assessment Clinical Impression: Patient overall did very well with our session today. Patient is demonstratingbetter control with weight shifting and eccentric control as well. Patient is demonstrating improvement in static balance. Patient does continue to remain at risk of falls. Patient continues to benefit from skilled physical therapy to minimize fall risk and maximize his functional independence. Functional Goals and Timeframes: PT Goal #1: Patient will demonstrate a on the Dynamic Gait index in order [...] progressing PT Goal #4: Patient will demonstrate hzd-[id number] x5 in 10 seconds or less to demonstrate improved endurance. PT Goal #4 to be achieved by: 10/28/24 PT Goal #4 Status: Slowly progressing Plan Plan for next session: Strengthening gait and balance Time Spent with Patient Therapeutic Interventions Neuromuscular Re-Education (min): 10 min Therapeutic Exercise (min): 35 min Time Tracking Total Timed Units (min): 45 min Total Treatment Time (min): 45 min documented in this encounter Plan of Treatment Upcoming Encounters Date Type Department Care Team (Latest Contact Info) Description 11/23/2024 3:15 PM CDT Clinical Support Department of Rehabilitation Services in [address] [phone] Jayla Canales APRN, C.N.P. [address] [place] [phone] Capri Valdez P.T., D.P.T. [address] [place], [place] [address] [address] 11/25/2024 4:15 PM CDT Clinical Support Department of Rehabilitation Services in [address] [place] [address] Jayla Canales APRN, C.N.P. [address] [place] [phone] Capri Valdez P.TEmeka, D.P.T. [address] [place], [place] [address] [address] 11/29/2024 4:15 PM CDT Clinical Support Department of Rehabilitation Services in [address] [place] [phone] Jayla Canales APRN, C.N.P. [address] [place] [phone] Capri Valdez P.TEmeka, D.P.T. [address] [place], [place] [address] [address] 12/02/2024 4:15 PM CDT Clinical Support Department of Rehabilitation Services in [address] [place] [address] Jayla Canales APRN, C.N.P. [address] [place] [phone] Capri Valdez P.TEmeka, D.P.T. [address] [place], [place] [address] [address] 12/08/2024 1:45 PM CDT Office Visit Department of Cardiovascular Diseases in [address] [place] [address] Maverick Terry M.D. [address] [place] [phone] Discharge Disposition: Home or Self Care 12/12/2024 10:15 AM CDT Clinical Support Department of Rehabilitation Services in [address] [phone] Jayla Canales APRN, C.N.P. [address] [place] [phone] Capri Valdez P.T., D.P.T. [address] [place] [phone] documented as of this encounter Visit Diagnoses Diagnosis Parkinsonism Unspecified (HCC) documented in this encounter Additional Health Concerns Assessment Noted Time PHQ-9 Depression Total Score: 1 10/30/19 21 1:32 PM CDT documented as of this encounter Care Teams Inside Steward/Stewardess Relationship Specialty Start Date End Date Jayla Canales APRN, C.N.P. [address] [place] [phone] PCP - General Family Medicine 12/24/[address] [place], [place] Dentist 03/15/24 documented as of this encounter
--- OUTSIDE RECORDS SUMMARY | 2024-11-05 18:38 | XMS_ITS | Encounter Summary ---
Author Organization [facility] Address [address] [place] [address] Care Team Providers Care Medical Director/Head Team Physician Name Role Phone Jayla Canales APRN, C.N.P. Primary Care Provide r Encounter Details Date Type Department Care Team (Late st Contact Info) Description 10/23/2024 Results Follow-Up Department of Family Medicine, [facility], in [address] [phone] Jayla Canales APRN, C.N.P. [address] [place] [phone] PSA (Prostate-Specific Antigen) Screen Social History Tobacco Use Types Packs/Day Years Used Date Smoking Tobacco: Never Passive Smoke Exposure: Never Smokeless Tobacco: Never Alcohol Use Standard Drinks/Week Comments Never 0 (1 standard drink = 0.6 oz pur e alcohol) [facility] Utilities Answer Date Recorded In the past 12 months has [place], gas, oil, or water company threatened to [...] often do you attend chur ch or mormonism services? More than 4 times per year 09/04/2022 Do you belong to any clubs o r organizations such as jew groups, unions, fraternal or athletic groups, or [...] Answer Date Recorded PHQ-2 Score 0 08/31/2024 [facility] Occupat ional Health - [...] your living situation today? I have a [facility] place to live 03/15/2024 Education Answer Date Recorded What is the highest level of school you have completed or the highest degree you have received? 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 [address] [place] [phone] Capri Valdez P.T., D.P.T. [address] [place], [place] [address] [address] 11/25/2024 4:15 PM CDT Clinical Support Department of Rehabilitation Services [place] [address] [place] [phone] Jayla Canales APRN, C.N.P. [address] [place] [phone] Capri Valdez P.T., D.P.T. [address] [place], [place] [address] [phone] 11/29/2024 4:15 PM CDT Clinical Support Department of Rehabilitation Services in [address] [place] [address] Jayla Canales APRN, C.N.P. [address] [place] [phone] Capri Valdez P.T., D.P.T. [address] [place], [place] [address] [phone] 12/02/2024 4:15 PM CDT Clinical Support Department of Rehabilitation Services in [address] [place] [phone] Jayla Canales APRN, C.N.P. [address] [place] [phone] Capri Valdez PJaky, D.P.T. [address] [place] [phone] 12/08/2024 1:45 PM CDT Office Visit Department of Cardiovascular Diseases in [address] [phone] Maverick Terry M.D. [address] [place] [phone] Discharge Disposition: Home or Self Care 12/12/2024 10:15 AM CDT Clinical Support Department of Rehabilitation Services in [address] [phone] Jayla Canales APRN, C.N.P. [address] [place] [phone] Capri Valdez, P.Christiano., D.P.T. [address] [place] [phone] documented as of this encounter Visit Diagnoses Not on filedocumented in this encounter Additional Health Concerns Assessment Noted Time PHQ-9 Depression Total Score: 1 10/30/19 21 1:32 PM CDT documented as of this encounter Care Teams Medical Director/Head Team Physician Relationship Specialty Start Date End Date Jayla Canales APRN, C.N.P. [address] [place] [phone] PCP - General Family Medicine 12/24/[address] [place], [place] Dentist 03/15/24 documented as of this encounter
--- OUTSIDE RECORDS SUMMARY | 2024-11-05 18:38 | XMS_ITS | Encounter Summary ---
Author Organization [facility] Address [address] [place] [address] Care Team Providers Care Quality Engineer Name Role Phone Jayla Canales APRN, C.N.P. Primary Care Provide r Reason for Visit * Reason Comments Cellulitis Patient sent by PT f or possible cellulitis in left arm Encounter Details Date Type Department Care Team (Late st Contact Info) Description 11/01/2024 4:28 PM CDT - 11/01/2024 5:34 PM CDT Emergency [facility] [address] [place] [phone] Steven Ferrell APRN, C.N.P., D.N.P. [address] [place] [phone] Cellulitis Arm Left (Primary Dx) Discharge Disposition: Home or Self Care Social History Tobacco Use Types Packs/Day Years Used Date Smoking Tobacco: Never Passive Smoke Exposure: Never Smokeless Tobacco: Never Alcohol Use Standard Drinks/Week Comments Never 0 (1 standard drink = 0.6 oz pur e alcohol) [facility] Utilities Answer Date Recorded In the past 12 months has e electric, gas, oil, or water company threatened [...] often do you attend chur ch or islam services? More than 4 times per year 09/04/2022 Do you belong to any clubs o r organizations such as jainism groups, unions, fraternal or athletic groups, or [...] Answer Date Recorded PHQ-2 Score 0 08/31/2024 [facility] of Occupat ional Health - Occupational Stress [...] your living situation today? I have a [facility] place to live 03/15/2024 Education Answer Date Recorded What is the highest level of school you have completed or the highest degree you have received? 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 Gender Identity Male 12/15/2017 6:50 AM CDT Sexual Orientation Straight 12/15/2017 6: 50 AM CDT documented as of this encounter Last Filed Vital Signs Vital Sign Reading Time Taken Comments Blood Pressure 116/92 11/01/2024 5:15 PM CDT Pulse 69 11/01/2024 5:15 PM CDT Temperature 36.6 C (97.9 F) 11/01/2024 4:39 PM CDT Respiratory Rate - - Oxygen Saturation 95% 11/01/2024 5:15 PM CDT Inhaled Oxygen Concentration - - Weight 96.5 kg (212 lb 11.9 oz) 11/01/2024 4:39 PM CDT Height - - Body Mass Index 28.17 05/17/2024 7:51 AM CDT documented in this encounter Discharge Instructions * Discharge Instructions* Steven Ferrell APRN, C.N.P., D.N.P. - 11/01/2024 5:19 PM CDT Take the antibiotics as prescribed. Follow-up in 24-48 hours if the rash exceeds the drawn line on your arm. Return for any systemic symptoms including fever, chills, sweats, nausea, vomiting. Take the antibiotic to finished. Thank you for utilizing [facility] for your care! * Attachments The following attachments cannot be sent through Care Everywhere. * Cellulitis Adult Lflr-av-Rtry ([place]) documented in this encounter Medications at Time [...] 2 tablets by mouth daily. HYDROcodone-aceta minophen ([place]) 5-325 mg per tablet every 6 (six) [...] tablet Take 1 tablet by mouth daily. traZODone (DesyreL) 50 mg tablet take 2 tablets by mouth at bedtime, may repeat with one tablet during the night. 270 tablet 3 08/04/2024 cefadroxil (Duricef) 500 mg capsuleIndication s:Cellulitis Arm Left Take 1 capsule (500 mg total) by mouth 2 (two) times a day for 10 days. 20 capsule 11/01/2024 documented as of this encounter ED Notes * Steven Ferrell APRN, C.N.P., D.N.P. - 11/01/2024 4:42 PM CDT Images from the original note were not included. CHIEF COMPLAINT/REASON FOR VISIT Cellulitis (Patient sent by PT for possible cellulitis in left arm) HISTORY OF PRESENT ILLNESS Patient presents to the emergency department after a fall 3 days ago. Patient does have a history of Parkinson and does have fairly frequent falls. He was at physical therapy today when they sent himover here to the emergency department for concerns of cellulitis of his left arm. Patient has erythema from the elbow to mid forearm. It is extremely warm to touch. No pain up in the axillary region or upper arm. Patient denies any fever, chills, sweats. History provided by: Patient quencher operator needed/used: no REVIEW OF SYSTEMS Constitutional: Negative for chills, diaphoresis, fatigue and fever. HENT: Negative for sinus pressure and sore throat. Respiratory: Negative for cough, chest tightness and shortness of breath. Cardiovascular: Negative for chest pain. Gastrointestinal: Negative for abdominal pain, constipation, diarrhea, nausea and vomiting. Genitourinary: Negative for dysuria, frequency and urgency. Musculoskeletal: Positive for extremity pain. Negative for arthralgias and myalgias. Skin: Positive for rash. Neurological: Negative for dizziness, weakness and headaches. Hematological: Negative for adenopathy. Does not bruise/bleed easily. All other systems reviewed and are negative. Allergies Reviewed in medical record Current Medications Reviewed in Medical Record. PAST HISTORY Medical Medical History[1] Problem List[2] Surgical Surgical History[3] Family Reviewed in Medical Record Social History Social History Tobacco Use Smoking status: Never Passive exposure: Never Smokeless tobacco: Never Substance Use Topics Alcohol use: Never Social History Substance and Sexual Activity Drug Use Never OBJECTIVE Initial Vital Signs / Weights Initial Vitals Temperature 11/01/24 1639 36.6 ??C Pulse Rate 11/01/24 1630 71 Heart Rate -- Resp -- Blood Pressure 11/01/24 1639 128/89 SpO2 11/01/24 1630 98 % Pain Score 11/01/24 1632 1 Wt Readings from Last 3 Encounters: 11/01/24 96.5 kg 02/03/25 97.6 kg 05/17/24 96.1 kg PHYSICAL EXAMINATION Constitutional: Nursing note and vitals reviewed. No distress. HENT: Nose: No nasal discharge. Mouth/Throat: Oropharynx is clear and moist. Mucous membranes are moist. No tonsillar exudate. Eyes: Conjunctivae are normal. Pupils are equal, round, and reactive to light. Neck: Neck supple. Cardiovascular: Normal rate. Pulses are strong and palpable. Capillary refill: takes less than 3 seconds Pulmonary/Chest: Effort normal. No respiratory distress. Musculoskeletal: General: Normal range of motion. Cervical back: Normal range of motion and neck supple. Lymphadenopathy: He has no cervical adenopathy. Neurological: Alert and oriented to person, place, and time. Skin: Skin is warm, dry and intact. Has erythema and significant warmth to the mid forearm up to the left elbow. No swelling appreciated. POCUS applied, there is cobblestoning of the tissue. Psychiatric: He has a normal mood and affect. DIAGNOSTICS Labs Labs Reviewed CBC WITH DIFFERENTIAL, B - Abnormal Result Value Hemoglobin 14.3 Hematocrit 43.3 Erythrocytes 4.61 MCV 93.9 RBC Distrib Width 13.7 Platelet Count 206 Leukocytes 10.6 (*) Neutrophils 8.21 (*) Lymphocytes 1.10 Monocytes 0.96 (*) Eosinophils 0.28 Basophils <0.04 C-REACTIVE PROTEIN (CRP), S/P - Abnormal C-Reactive Protein (CRP), P 49.5 (*) ECG Radiology No orders to display Procedures None See separate procedure note. ED COURSE ED Course as of 11/01/241723e Nov 01, 2024 1640 I performed my initial evaluation of the patient. We discussed Emergency Department course including testing, treatment, and potential disposition based on findings. 164 Pocus shows cobblestoning of the lower arm from the elbow to the mid forearm. Skin is erythematous and warm to touch 165 Leukocytes(!): 10.6 1656 Neutrophils(!): 8.21 1718 C-Reactive Protein (CRP), P(!): 49.5 1718 I discussed the plan for discharge with the patient, and patient/family is agreeable. I discussed with patient the utility, limitations, and findings of the exam/interventions/studies done during this visit as well as the list of differential diagnosis. Patient understands provisional nature of this diagnosis and need for follow up. We discussed the plan of care, including supportive cares. We also discussed symptoms to monitor and symptoms that should prompt them to return for re-evaluation including new or worsening symptoms. All questions and concerns addressed. Patient to be discharged by RN. Final Diagnoses: as of 11/01/24 1724 Cellulitis Arm Left INTERVENTIONS Medications - No data to display MEDICAL DECISION MAKING Assessment and Plan Patient presents to the emergency department with complaints of possible cellulitis. He was sent over from physical therapy. Patient fell 3 days ago. He did not sustain significant injury, however henoticed today that his arm was erythematous and warm to touch. Patient denies any fever, chills, sweats. POCUS was applied, cobblestoning of the tissue present. No tenderness in the axillary region or upper arm to suggest DVT. No swelling in those areas. We will get a CBC, CRP. Disposition pending workup. Workup in the emergency department shows a leukocytosis with left shift and elevation of the CRP. This is consistent with a cellulitis. The arm was marked. Patient will be started on Duricef twice a day for 10 days. He was instructed to follow-up if the red dorothy on his skin goes outside the line after 24 or 48 hours. He should return to the emergency department for any systemic symptoms. Patient and/or caregiver was given red flag signs & symptoms that would require immediate followup or return to the ED. Patient and/or caregiver was given red flag signs & symptoms that would require immediate followup or return to the ED. . DIAGNOSIS Final diagnoses: [L03.114] Cellulitis Arm Left DISPOSITION Home or Self Care DISCHARGE/TRANSFER VITAL SIGNS Vitals: 11/01/24 1715 BP: (!) 116/92 Pulse: 69 Temp: SpO2: 95% ED DISCHARGE MEDS ED Prescriptions Medication Sig Dispense Start Date End Date Auth. Provider cefadroxil (Duricef) 500 mg capsule Take 1 capsule (500 mg total) by mouth 2 (two) times a day for 10 days. 20 capsule 11/01/2024 11/11/2024 Steven Ferrell APRN, C.N.P., D.N.P. FOLLOW UP Contact Information for Follow-ups Jayla Canales APRN, C.N.P. Specialty: Family Medicine Relationship: PCP - General [address] [facility] [phone] Next Steps: Follow up in 1 week(s) Steven Ferrell, SADA, PICTURE FRAMES INSPECTOR, CARRIER DRIVER-C, AGACNP-BC, ENP-C Emergency Medicine [1] Past Medical History: Diagnosis Date Amblyopia Bilateral 01/1962 Atrial Fibrillation Unspecified (HCC) 11/21 Chest Wall Fracture NOS 09/22/2015 Rib COVID-19 Infection 05/01/2022 Eczema 06/1975 Gastroesophageal Reflux Disease NOS 2007? Melanoma Skin (HCC) 08/1985 Nephrolithiasis Calcium Oxalate 06/11/2012 Other Specified Health Status 01/2014 Parkinson???s Pneumonia ? Polyp Colon 04/26 Stone Kidney 1997 [2] Patient Active Problem List Diagnosis Thoracic Aortic Aneurysm Without Rupture Unspecified Parkinsonism Unspecified (HCC) Cyst Renal Keratosis Seborrheic Loss Hearing Sensorineural Bilateral Melanoma Personal History Nodule Thyroid Tinnitus Subjective Right Pain Elbow Left Atrial Fibrillation Paroxysmal (HCC) Insomnia Due To Medical Condition Dyspnea Multifactorial Mass Foot Soft Tissue Primary Osteoarthritis Hip Right Avulsion Hamstring Subsequent Right Monitoring For Therapeutic Drug Therapy Primary Osteoarthritis First Carpal Metacarpal Joint Left Prolonged QT Interval Pain Generalized History Of Falling Sinusitis Acute Maxillary [3] Past Surgical History: Procedure Laterality Date APPENDECTOMY KNEE ARTHROSCOPY W/ PARTIAL MEDIAL MENISCECTOMY Left 12/05/2004 >Left knee arthroscopic partial medial meniscectomy. Medial femoral condyle debridement. OTHER SURGICAL HISTORY 2006 Right knee, meniscus and arthritus RADIAL TUNNEL RELEASE Right 02/28/2002 >Right radial tunnel release. TRAPEZIECTOMY APL SUSPENSIONPLASTY Left 08/28/2023 Procedure: TRAPEZIECTOMY - ABDUCTOR POLLICIS LONGUS SUSPENSIONPLASTY; Surgeon: Cristian Alvarenga M.D.; Location: [facility] CACF OR VASECTOMY Steven Ferrell APRN, C.N.P., D.N.P. 11/01/24 1725 documented in this encounter Plan of Treatment Upcoming Encounters Date Type Department Care Team (Latest Contact Info) Description 11/23/2024 3:15 PM CDT Clinical Support Department of Rehabilitation Services in [address] [place] [address] Jayla Canales APRN, C.N.P. [address] [facility] [phone] Capri Valdez P.T., D.P.T. [address] [place] [address] [place] [address] 11/25/2024 4:15 PM CDT Clinical Support Department of Rehabilitation Services in [address] [place] [address] Jayla Canales APRN, C.N.P. [address] [facility] [phone] Capri Valdez P.T., D.P.T. [address] [place], [place] [address] [address] 11/29/2024 4:15 PM CDT Clinical Support Department of Rehabilitation Services in [address] [place] [address] Jayla Canales APRN, C.N.P. [address] [facility] [phone] Capri Valdez P.T., D.P.T. [address] [place], [place] [address] [address] 12/02/2024 4:15 PM CDT Clinical Support Department of Rehabilitation Services in [address] [place] [address] Jayla Canales APRN, C.N.P. [address] [place] [phone] Capri Valdez P.T., D.P.T. [address] [place] [phone] 12/08/2024 1:45 PM CDT Office Visit Department of Cardiovascular Diseases in [address] [phone] Maverick Terry M.D. [address] [place] [phone] Discharge Disposition: Home or Self Care 12/12/2024 10:15 AM CDT Clinical Support Department of Rehabilitation Services in [address] [phone] Jayla Canales APRN, C.N.PEmeka [address] [place] [phone] Capri Valdez P.T., D.P.T. [address] [place] [phone] documented as of this encounter Procedures Procedure Name Priority Date/Time Associated Diagnosis Comments CBC WITH DIFFERENTIAL, B STAT 11/01/2024 4:50 PM CDT C-REACTIVE PROTEIN (CRP), S/P STAT 11/01/2024 4:50 PM CDT documented in this encounter Results * (ABNORMAL) CRP (C-Reactive Protein) (11/01/2024 4:50 PM CDT) C-Reactive Protein (CRP), P 49.5(H) <5.0 mg/L 11/01/2024 5:11 PM CDT CNFL Blood (Blood, Venous) 11/01/2024 4:50 PM CDT 11/01/2024 4:53 PM CDT us Chula Crocker APRNNEmekaP., D.N.P. LAB BLOOD AD D-ON Final Result [facility] [address] [place] [phone], [facility] CNFL [facility] in [place] [phone] * (ABNORMAL) CBC with Differential, Blood (11/01/2024 4:50 PM CDT) Hemoglobin 14.3 13.2 - 16.6 g/dL 11/01/2024 4:56 PM CDT CNFL Hematocrit 43.3 38.3 - 48.6 % 11/01/2024 4:56 PM CDT CNFL Erythrocytes 4.61 4.35 - 5.65 x10(12)/L 11/01/2024 4:56 PM CDT CNFL MCV 93.9 78.2 - 97.9 fL 11/01/2024 4:56 PM CDT CNFL RBC Distrib Width 13.7 11.8 - 14.5 % 11/01/2024 4:56 PM CDT CNFL Platelet Count 206 135 - 317 x10(9)/L 11/01/2024 4:56 PM CDT CNFL Leukocytes 10.6(H) 3.4 - 9.6 x10(9)/L 11/01/2024 4:56 PM CDT CNFL Neutrophils 8.21(H) 1.56 - 6.45 x10(9)/L 11/01/2024 4:56 PM CDT CNFL Lymphocytes 1.10 0.95 - 3.07 x10(9)/L 11/01/2024 4:56 PM CDT CNFL Monocytes 0.96(H) 0.26 - 0.81 x10(9)/L 11/01/2024 4:56 PM CDT CNFL Eosinophils 0.28 0.03 - 0.48 x10(9)/L 11/01/2024 4:56 PM CDT CNFL Basophils <0.04 0.01 - 0.08 x10(9)/L 11/01/2024 4:56 PM CDT CNFL Blood (Blood, Venous) 11/01/2024 4:50 PM CDT 11/01/2024 4:53 PM CDT Steven Ferrell APRN, C.N.P., D.N.P. LAB BLOOD AD D-ON Final Result [facility] [address] [place] [id number], [facility] CNFL [facility] in [address] [phone] documented in this encounter Visit Diagnoses Diagnosis Cellulitis Arm Left- Primary documented in this encounter Additional Health Concerns Assessment Noted Time PHQ-9 Depression Total Score: 1 10/30/19 21 1:32 PM CDT documented as of this encounter Care Teams Quality Engineer Relationship Specialty Start Date End Date Jayla Canales APRN, C.N.P. [address] [place] [phone] PCP - General Family Medicine 12/24/[address] [place], [place] Dentist 03/15/24 documented as of this encounter
--- OUTSIDE RECORDS SUMMARY | 2024-11-05 18:38 | XMS_ITS | Encounter Summary ---
Author Organization [facility] Address [address] [place] [address] Care Team Providers Care Ore Crusher Name Role Phone Jayla Canales APRN, C.N.P. Primary Care Provide r Encounter Details Date Type Department Care Team (Late st Contact Info) Description 11/04/2024 2:20 PM CDT Ancillary Procedure Department of Emergency Medicine Arrived Social History Tobacco Use Types Packs/Day Years Used Date Smoking Tobacco: Never Passive Smoke Exposure: Never Smokeless Tobacco: Never Alcohol Use Standard Drinks/Week Comments Never 0 (1 standard drink = 0.6 oz pur e alcohol) [facility] Utilities Answer Date Recorded In the [...] 09/04/2022 How often do you attend chur or druze services? More than 4 times per year 09/04/2022 Do you belong to any clubs o r organizations such as gnosticist groups, unions, fraternal or athletic groups, or [...] Answer Date Recorded PHQ-2 Score 0 08/31/2024 [facility] of Occupat ional Health - Occupational Stress [...] your living situation today? I have a [facility] place to live 03/15/2024 Education Answer Date Recorded What is the highest level of school you have completed or the highest degree you have received? 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 [address] [place] [phone] Capri Valdez P.T., D.P.T. [address] [place] [address] [place] [address] 11/25/2024 4:15 PM CDT Clinical Support Department of Rehabilitation Services [place] [address] [place] [phone] Jayla Canales APRN, C.N.P. 701 [place] [phone] Capri Valdez P.T., D.P.T. [address] [place], [place] [address] [address] 11/29/2024 4:15 PM CDT Clinical Support Department of Rehabilitation Services in [address] [place] [address] Jayla Canales APRN, C.N.P. [address] [place] [phone] Capri Valdez P.T., D.P.T. [address] [place], [place] [address] [address] 12/02/2024 4:15 PM CDT Clinical Support Department of Rehabilitation Services [place] [address] [place] [address] Jayla Canales APRN, C.N.P. 701 [facility] [place] [phone] Capri Valdez P.T., D.P.T. [address] [place], [place] [address] [phone] 12/08/2024 1:45 PM CDT Office Visit Department of Cardiovascular Diseases in [address] [phone] Maverick Terry M.D. [address] [place] [phone] Discharge Disposition: Home or Self Care 12/12/2024 10:15 AM CDT Clinical Support Department of Rehabilitation Services in [address] [phone] Jayla Canales APRN, C.N.P. [address] [place] [phone] Capri Valdez P.T., D.P.T. [address] [place] [phone] documented as of this encounter Procedures Procedure Name Priority Date/Time Associated Diagnosis Comments EMERGENCY DEPARTMENT IMAGE EXAM Routine 11/04/2024 2:20 PM CDT documented in this encounter Results * Arm-Emergency Department Image Exam (11/04/2024 2:20 [...] NON RAD IMAGING PROCE DURES Final Result IIMS NA documented in this encounter Visit Diagnoses Not on filedocumented in this encounter Additional Health Concerns Assessment Noted Time PHQ-9 Depression Total Score: 1 10/30/19 21 1:32 PM CDT documented as of this encounter Care Teams Ore Crusher Relationship Specialty Start Date End Date Jayla Canales APRN, C.N.P. [address] [place] [phone] PCP - General Family Medicine 12/24/[address] [place], [place] Dentist 03/15/24 documented as of this encounter
--- OUTSIDE RECORDS SUMMARY | 2024-11-05 18:38 | XMS_ITS | Encounter Summary ---
Author Organization [facility] Address [address] [place] [address] Care Team Providers Care Tieing Machine Operator Name Role Phone Jayla Canales APRN, C.N.P. Primary Care Provide r Reason for Visit * Physical Therapy (Routine) - Authorized Specialty Diagnoses / Procedures Referred By Contac t Referred To Contact Diagnoses Parkinsonism Unspecified (HCC) Procedures PT Ongoing treatment Jayla Canales APRN, C.N.P. [address] [place] [address] Phone: tel: fax: [facility] Region Referral ID Status Reason Start Date Expiration Date V isits Requested Visits Authorized [id number] Authorized 06/23/2024 06/23/2025 99 99 Encounter Details Date Type Department Care Team (Latest Contact Info) Description 10/25/2024 4:15 PM CDT Clinical Support Department of Rehabilitation Services in [address] [phone] Jayla Canales, LINDY, C.N.P. 701 [facility] [place] [address] Capri Valdez P.T., D.P.T. [address] [place] [phone] Parkinsonism Unspecified (HCC) Social History Tobacco Use Types Packs/Day Years Used Date Smoking Tobacco: Never Passive Smoke Exposure: Never Smokeless Tobacco: Never Alcohol Use Standard Drinks/Week Comments Never 0 (1 standard drink = 0.6 oz pur e alcohol) [facility] Utilities Answer Date Recorded In the past 12 months has e [employer], gas, oil, or water [employer] threatened to shut off services in your [...] often do you attend chur ch or judaism services? 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 - 10/25/2024 4:15 PM CDT Physical Therapy Outpatient Treatment Note SUBJECTIVE Patient's Name: Sinan Mustafa Referring Provider: Jayla Canales APRN, C.* Visit Diagnosis: 1. Parkinsonism Unspecified (HCC) Payor: MEDICARE / Plan: MEDICARE A AND B / Product Type: Medicare / No data recorded Epic Visit Count: 23 Patient comments: Patient reports 3 near falls but he was able to catch himself. He is demonstrating improved balance reactions that are reducing his falls. OBJECTIVE Pain: right posterior arm pain from previous fall. TREATMENT Treatment today consisted of: Today we worked on ambulation without the use of a cane. Provided contact guard assist with gait belt. Worked on weaving in and out of obstacles, ambulating with head movements, ambulating at variousspeeds as well as starting and stopping. We also negotiated in between cones and worked on bending over picking up cones. Performed anterior-posterior weight shifting within the parallel bars as wellas yzng-id-ugmt with 10 repetitions in each direction. Patient was able to maintain balance and stability at the edge of his base of support. Performed heel raises times 20 repetitions. Performed lunges with a weighted exercise ball performing 2 x 10 repetitions. Performed tandem stance at 4 x 30 seconds. Performed Romberg stance with eyes closed 2 times 30 seconds. Performed Romberg stance on balance foam with eyes open at 2 x 30 seconds. Patient did excellent with all those balance exercises.Patient had no loss of balance and very minimal ankle reaction. Patient did have increase ankle reaction and mild trunk sway when standing on the balance foam with eyes closed at 2 x 30 seconds. Assessment Clinical Impression: Patient tolerated treatment session well. Patient is demonstrating improved balance reactions. Patient does excellent with static balance. Patient is demonstrating reduced falls as well. Patient continues to benefit from skilled physical therapy to maximize his functional potential and reduce fall risk. Functional Goals and Timeframes: PT Goal #1: [...] progressing PT Goal #4: Patient will demonstrate zyo-zd-qzkah x5 in 10 seconds or less to demonstrate improved endurance. PT Goal #4 to be achieved by: 10/28/24 PT Goal #4 Status: Slowly progressing Plan Plan for next session: Strengthening gait and balance training. Time Spent with Patient Therapeutic Interventions Gait Training (min): 15 min Neuromuscular Re-Education (min): 23 min Time Tracking Total Timed Units (min): 38 min Total Treatment Time (min): 38 min documented in this encounter Plan of Treatment Upcoming Encounters Date Type Department Care Team (Latest Contact Info) Description 11/23/2024 3:15 PM CDT Clinical Support Department of Rehabilitation Services in [address] [phone] Jayla Canales APRN, C.N.P. [address] [place] [phone] Capri Valdez P.T., D.P.T. [address] [place] [address] [place] [address] 11/25/2024 4:15 PM CDT Clinical Support Department of Rehabilitation Services in [address] [place] [address] Jayla Canales APRN, C.N.P. 701 [place] [phone] Capri Valdez P.T., D.P.T. [address] [place], [place] [address] [address] 11/29/2024 4:15 PM CDT Clinical Support Department of Rehabilitation Services in [address] [place] [address] Jayla Canales APRN, C.N.P. 701 [place] [phone] Capri Valdez P.T., D.P.T. [address] [place], [place] [address] [address] 12/02/2024 4:15 PM CDT Clinical Support Department of Rehabilitation Services in [address] [place] [address] Jayla Canales APRN, C.N.P. 701 [place] [phone] Capri Valdez P.T., D.P.T. [address] [place], [place] [address] [address] 12/08/2024 1:45 PM CDT Office Visit Department of Cardiovascular Diseases in [address] [phone] Maverick Terry M.D. [address] [place] [phone] Discharge Disposition: Home or Self Care 12/12/2024 10:15 AM CDT Clinical Support Department of Rehabilitation Services in [address] [phone] Jayla Canales APRN, C.N.P. [address] [place] [address] Capri Valdez P.T., D.P.T. [address] [place] [phone] documented as of this encounter Visit Diagnoses Diagnosis Parkinsonism Unspecified (HCC) documented in this encounter Additional Health Concerns Assessment Noted Time PHQ-9 Depression Total Score: 1 10/30/19 21 1:32 PM CDT documented as of this encounter Care Teams Tieing Machine Operator Relationship Specialty Start Date End Date Jayla Canales APRN, C.N.P. [address] [place] [phone] PCP - General Family Medicine 12/24/[address] [place], [place] Dentist 03/15/24 documented as of this encounter
--- OUTSIDE RECORDS SUMMARY | 2024-11-05 18:38 | XMS_ITS | Encounter Summary ---
Author Organization [facility] Address [address] [place] [address] Care Team Providers Care Generation Engineering Technologist Name Role Phone Jayla Canales APRN, C.N.P. Primary Care Provide r Reason for Visit * Reason Onset Date Comments Wound Infection 11/04/2024 Encounter Details Date Type Department Care Team (Late st Contact Info) Description 11/04/2024 Nurse Triage Department of Family Medicine, [facility], in [address] [phone] Jayla Benton, R.N. [address] [place] [address] Wound Infection Social History Tobacco Use Types Packs/Day Years Used Date Smoking Tobacco: Never Passive Smoke Exposure: Never Smokeless Tobacco: Never Alcohol Use Standard Drinks/Week Comments Never 0 (1 standard drink = 0.6 oz pur e alcohol) [facility] Utilities Answer Date Recorded In the past 12 months has [employer], gas, oil, or water [employer] threatened to shut off services in your [...] week 09/04/2022 How often do you attend [facility] or mandaen services? More than 4 times per year 09/04/2022 Do you belong to any clubs o r organizations such as mandaeism groups, unions, fraternal or athletic groups, or [...] Answer Date Recorded PHQ-2 Score 0 08/31/2024 [facility] [place] of Occupat ional Health - Occupational Stress [...] your living situation today? I have a [facility] place to live 03/15/2024 Education Answer Date Recorded What is the highest level of school you have completed or the highest degree you have received? 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 - 11/04/2024 12:57 PM CDT Chief Complaint / Reason for Call Patient is a 69 y.o. male calling regarding skin infection Assessment Concern: left arm redness is spreading since last seen for cellulitis Present for: 12 hours Home cares tried: taking antibiotics as ordered Calling to request: an appointment The recommended disposition is See a health care provider within 4 hours. Isaias has called regarding spreading redness 3 inches more down past the original line drawn by theprovider when diagnosed with cellulitis it is spreading toward his wrist. area is warm and gettingmore itchy. It is not open or blistered yet. afebrile. He continues with antibiotics as directed. Care Advice Patient/Caregiver understands and will follow care advice?: Yes, able to teach back Wound Infection Weqdtdnim-Zhpvl-IV Nurse Jayla Roman Nov 04, 2024 01:10 PM Care Advice SEE HCP (OR PCP TRIAGE) WITHIN 4 HOURS: * IF OFFICE WILL BE OPEN: You need to be seen within the next 3 or 4 hours. Call your doctor (or GREETING CARD WRITER/PA) now or as soon as the office opens. * IF OFFICE WILL BE CLOSED AND NO PCP (PRIMARY CARE PROVIDER) SECOND-LEVEL TRIAGE: You need to be seen within the next 3 or 4 hours. A nearby Urgent Care Center (UCC) is often a good source of care. Another choice is to go to the ED. Go sooner if you become worse. * IF OFFICE WILL BE CLOSED AND PCP SECOND-LEVEL TRIAGE REQUIRED: You may need to be seen. Your doctor (or GREETING CARD WRITER/PA) will want to talk with you to decide what's best. I'll page the on-call provider now. If you haven't heard from the provider (or me) within 30 minutes, call again. NOTE: If on-call provider can't be reached, send to UCC or ED. SOURCES OF CARE: * ED: Patients who may need surgery or hospital admission need to be sent to an ED. So do most patients with serious symptoms or complex medical problems. * UCC: Some UCCs can manage patients who are stable and have less serious symptoms (e.g., minor illnesses and injuries). The triager must know the [facility] capabilities before sending a patient there. If unsure, call ahead. * OFFICE: If patient sounds stable and not seriously ill, consult PCP (or follow your office policy) to see if patient can be seen NOW in office. CALL BACK IF: * You become worse Patient was warm transferred to [facility], Patient Appointment Environmental Educator at the clinic for further assistance., If clinic appointment is not available in the next 4 hours, caller is advised to be seen in emergency department, and Endpoint: be seen in the next 4 hours. Reason for Visit: spreading redness to the left arm that was diagnosed with cellulitis . Video Visit: not recommended Reason for Disposition [1] Skin around the wound has become red AND [2] larger than 2 inches (5 cm) Protocols used: Wound Infection Jegqbghgf-Tayzu-WP documented in this encounter Plan of Treatment Upcoming Encounters Date Type Department Care Team (Latest Contact Info) Description 11/23/2024 3:15 PM CDT Clinical Support Department of Rehabilitation Services in [address] [phone] Jayla Canales APRN, C.N.P. [address] [place] [phone] Capri Valdez P.T., D.P.T. [address] [place] [phone] 11/25/2024 4:15 PM CDT Clinical Support Department of Rehabilitation Services in [address] [phone] Jayla Canales APRN, C.N.P. [address] [place] [phone] Capri Valdez P.T., D.P.T. [address] [place] [phone] 11/29/2024 4:15 PM CDT Clinical Support Department of Rehabilitation Services in [address] [place] [phone] Jayla Canales APRN, C.N.P. [address] [place] [phone] Capri Valdez P.T., D.P.T. [address] [place], [place] [address] [address] 12/02/2024 4:15 PM CDT Clinical Support Department of Rehabilitation Services in [address] [place] [address] Jayla Canales APRN, C.N.P. [address] [place] [phone] Capri Valdez P.TEmeka, D.P.T. [address] [place] [address] [place] [phone] 12/08/2024 1:45 PM CDT Office Visit Department of Cardiovascular Diseases in [address] [phone] Maverick Terry M.D. [address] [place] [phone] Discharge Disposition: Home or Self Care 12/12/2024 10:15 AM CDT Clinical Support Department of Rehabilitation Services in [address] [place] [address] Jayla Canales APRN, C.N.P. [address] [place] [phone] Capri Valdez P.TEmeka, D.P.T. [address] [phone] documented as of this encounter Visit Diagnoses Not on filedocumented in this encounter Additional Health Concerns Assessment Noted Time PHQ-9 Depression Total Score: 1 10/30/19 21 1:32 PM CDT documented as of this encounter Care Teams Generation Engineering Technologist Relationship Specialty Start Date End Date Jayla Canales APRN, C.N.P. [address] [place] [phone] PCP - General Family Medicine 12/24/[address] [place], [place] Dentist 03/15/24 documented as of this encounter
--- OUTSIDE RECORDS SUMMARY | 2024-11-05 18:39 | XMS_ITS | Encounter Summary ---
Author Organization [facility] Address [address] [place] [address] Care Team Providers Care Compound Specialist Name Role Phone Jayla Canales APRN, C.N.P. Primary Care Provide r Encounter Details Date Type Department Care Team (Late st Contact Info) Description 09/24/2024 Results Follow-Up Department of Family Medicine, [facility], in [address] [phone] Jayla Canales APRN, C.N.P. [address] [place] [phone] DX Knee Right 3 Views Social History Tobacco Use Types Packs/Day Years Used Date Smoking Tobacco: Never Passive Smoke Exposure: Never Smokeless Tobacco: Never Alcohol Use Standard Drinks/Week Comments Never 0 (1 standard drink = 0.6 oz pur e alcohol) [facility] Utilities Answer Date Recorded In the past 12 months has [employer], oil, or [employer] threatened to shut off services in your [...] How often do you attend chur or gnosticism services? More than 4 times per year 09/04/2022 Do you belong to any clubs o r organizations such as mandaen groups, unions, fraternal or athletic groups, or [...] Date Recorded PHQ-2 Score 0 08/31/2024 [facility] of Occupat ional Health - Occupational [...] your living situation today? I have a [facility] place to live 03/15/2024 Education Answer Date Recorded What is the highest level of school you have completed or the highest degree you have received? 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 701 [facility] [phone] Capri Valdez P.T., D.P.T. [address] [place] [address], [place] [phone] 11/25/2024 4:15 PM CDT Clinical Support Department of Rehabilitation Services in [address] [place] [phone] Jayla Canales APRN, C.N.P. [address] [place] [phone] Capri Valdez P.T., D.P.T. [address] [place] [address], [place] [phone] 11/29/2024 4:15 PM CDT Clinical Support Department of Rehabilitation Services in [address] [place] [address] Jayla Canales APRN, C.N.P. 701 [facility] [phone] Capri Valdez P.T., D.P.T. [address] [place] [address], [place] [phone] 12/02/2024 4:15 PM CDT Clinical Support Department of Rehabilitation Services in [address] [place] [phone] Jayla Canales APRN, C.N.P. [address] [place] [phone] Capri Valdez, P.T., D.P.T. [address] [place] [phone] 12/08/2024 1:45 PM CDT Office Visit Department of Cardiovascular Diseases in [address] [phone] Maverick Terry M.D. [address] [place] [phone] Discharge Disposition: Home or Self Care 12/12/2024 10:15 AM CDT Clinical Support Department of Rehabilitation Services in [address] [phone] Jayla Canales APRN, C.N.P. [address] [place] [phone] Capri Valdez, P.T., D.P.T. [address] [place] [phone] documented as of this encounter Visit Diagnoses Not on filedocumented in this encounter Additional Health Concerns Assessment Noted Time PHQ-9 Depression Total Score: 1 10/30/19 21 1:32 PM CDT documented as of this encounter Care Teams Compound Specialist Relationship Specialty Start Date End Date Jayla Canales APRN, C.N.P. [address] [place] [phone] PCP - General Family Medicine 12/24/[address] [place], [place] Dentist 03/15/24 documented as of this encounter
--- OUTSIDE RECORDS SUMMARY | 2024-11-05 18:39 | XMS_ITS | Encounter Summary ---
Author Organization [facility] Address [address] [place] [address] Care Team Providers Care Computer Networking Instructor Adjunct Name Role Phone Jayla Canales APRN, C.N.P. Primary Care Provide r Reason for Referral * Outpatient (Routine) - Closed Specialty Diagnoses / Procedures Referred By Axel t Referred To Contact Diagnoses Pain Knee Right Procedures DX Knee Right 3 Views Jayla Canales APRN, C.N.P. [address] [place] [address] Phone: tel: fax: [facility] Region Referral ID Status Reason Start Date Expiration Date Visits Re quested Visits Authorized [id number] Closed 09/09/2024 12/10/2025 1 1 ATE SECRETARY Reason for Visit * Outpatient (Routine) - Closed Specialty Diagnoses / Procedures Referred By Contac t Referred To Contact Diagnoses Pain Knee Right Procedures DX Knee Right 3 Views Jayla Canales APRN, C.N.P. [address] [place] [address] Phone: tel: fax: [facility] Region Referral ID Status Reason Start Date Expiration Date Visits Re quested Visits Authorized [id number] Closed 09/09/2024 12/10/2025 1 1 Encounter Details Date Type Department Care Team (Latest Contact Info) Description 09/20/2024 2:52 PM PRIVATE SECRETARY - 09/20/2024 11:59 PM PRIVATE SECRETARY Hospital Encounter Department of Radiology in [address] [phone] Jayla Canales APRN, C.N.P. [address] [place] [phone] Pain Knee Right Discharge Disposition: Home or Self Care Social History Tobacco Use Types Packs/Day Years Used Date Smoking Tobacco: Never Passive Smoke Exposure: Never Smokeless Tobacco: Never Alcohol Use Standard Drinks/Week Comments Never 0 (1 standard drink = 0.6 oz pur e alcohol) [facility] Utilities Answer Date Recorded In the past 12 months has [facility] [employer], gas, oil, or water [employer] threatened to shut off services in your [...] often do you attend chur ch or sabianism services? More than 4 times per year 09/04/2022 Do you belong to any clubs o r organizations such as roman catholic groups, unions, fraternal or athletic groups, or [...] Answer Date Recorded PHQ-2 Score 0 08/31/2024 [facility] - [...] 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, MILK HANDLER, [place]) 01/09/2019 Sex and Gender Information Value Date Recorded Sex Assigned at Male 12/15/2017 6:50 AM CDT Legal Sex Male 5:03 AM PRIVATE SECRETARY Gender Identity Male 12/15/2017 6:50 AM CDT Sexual Orientation Straight 12/15/2017 6: 50 AM CDT documented as of this encounter Medications at Time of Discharge [...] mouth at bedtime. 180 tablet 3 12/10/2023 5 carbidopa-levodop a (SINEMET) 25-100 mg per tablet [...] 2 tablets by mouth daily. HYDROcodone-aceta minophen ([place]) 5-325 mg per tablet every 6 (six) [...] 3 08/04/2024 documented as of this encounter Plan of Treatment Upcoming Encounters Date Type Department Care Team (Latest Contact Info) Description 11/23/2024 3:15 PM CDT Clinical Support Department of Rehabilitation Services in [address] [place] [address] Jayla Canales, CONTRACT TECHNICIAN, C.N.P. 701 [place] [address] Capri Valdez P.T., D.P.T. [address] [place] [address] [place] [address] 11/25/2024 4:15 PM CDT Clinical Support Department of Rehabilitation Services in [address] [place] [address] Jayla Canales APRN, C.N.P. 701 [place] [phone] Capri Valdez P.T., D.P.T. [address] [place], [place] [address] [address] 11/29/2024 4:15 PM CDT Clinical Support Department of Rehabilitation Services in [address] [place] [address] Jayla Canales APRN, C.N.P. 701 [place] [phone] Capri Valdez P.T., D.P.T. [address] [place], [place] [address] [address] 12/02/2024 4:15 PM CDT Clinical Support Department of Rehabilitation Services in [address] [place] [address] Jayla Canales APRN, C.N.P. 701 [place] [phone] Capri Valdez P.T., D.P.T. [address] [place], [place] [address] [address] 12/08/2024 1:45 PM CDT Office Visit Department of Cardiovascular Diseases in [address] [phone] Maverick Terry M.D. [address] [place] [address] Discharge Disposition: Home or Self Care 12/12/2024 10:15 AM CDT Clinical Support Department of Rehabilitation Services in [address] [phone] Jayla Canales APRN, C.NKristin [address] [place] [address] Capri Valdez P.T., D.P.T. [address] [place] [phone] documented as of this encounter Procedures Procedure Name Priority Date/Time Associated Diagnosis Comments DX KNEE RIGHT 3 VIEWS RAD - Routine (most inpatients and all outpatients) 09/20/2024 3:10 PM PRIVATE SECRETARY Pain Knee Right documented in this encounter Results * DX Knee Right 3 Views (09/20/2024 3:10 PM PRIVATE SECRETARY) Anatomical Region Laterality Modality Lower Extremity, Knee, Muscu loskeletal RST LOS, Musculoskeletal ARZ LOS, Muskuloskeletal FLA LOS Right Digit al Radiography Impressions 09/20/2024 3:15 PM PRIVATE SECRETARY Comparison 09/10/2021. Progressed moderate medial compartment predominant tricompartmental right knee osteoarthritis. Moderate right knee joint effusion. Alignment normal. No acute fracture. Narrative 09/20/2024 3:15 PM PRIVATE SECRETARY EXAM: DX KNEE RIGHT 3 VIEWS Procedure Note Aramis Miller M.D. - 09/20/2024 EXAM: DX KNEE RIGHT 3 VIEWS IMPRESSION: Comparison 09/10/2021. Progressed moderate medial compartment predominant tricompartmental rightknee osteoarthritis. Moderate right knee joint effusion. Alignment normal.No acute fracture. Jayla Canales APRN, C.N.P. IMG DIAGNOSTIC IMAGIN G PROCEDURES Final Result documented in this encounter Visit Diagnoses Diagnosis Pain Knee Right documented in this encounter Additional Health Concerns Assessment Noted Time PHQ-9 Depression Total Score: 1 10/30/19 21 1:32 PM CDT documented as of this encounter Care Teams Computer Networking Instructor Adjunct Relationship Specialty Start Date End Date Jayla Canales, LINDY, C.N.P. [address] [place] [phone] PCP - General Family Medicine 12/24/[address] [place], [place] Dentist 03/15/24 documented as of this encounter
--- OUTSIDE RECORDS SUMMARY | 2024-11-05 18:39 | XMS_ITS | Encounter Summary ---
Author Organization [facility] Address [address] [place] [address] Care Team Providers Care Bulb Weeder Name Role Phone Jayla Canales APRN, C.N.P. Primary Care Provide r Reason for Referral * Outpatient (Routine) - Closed Specialty Diagnoses / Procedures Referred By Contac t Referred To Contact Diagnoses Atrial Fibrillation Paroxysmal (HCC) Atrial Fibrillation Permanent (HCC) High Risk Medication Atrial Fibrillation Unspecified (HCC) Procedures ECG 12 Lead Maverick Terry M.D. [address] [place] [address] Phone: tel: fax: [facility] Region Referral ID Status Reason Start Date Expiration Date Visits Re quested Visits Authorized [id number] Closed 10/11/2024 01/11/2026 1 1 Reason for Visit * Outpatient (Routine) - Closed Specialty Diagnoses / Procedures Referred By Contac t Referred To Contact Diagnoses Atrial Fibrillation Paroxysmal (HCC) Atrial Fibrillation Permanent (HCC) High Risk Medication Atrial Fibrillation Unspecified (HCC) Procedures ECG 12 Lead Maverick Terry M.D. [address] [place] [address] Phone: tel: fax: [facility] Referral ID Status Reason Start Date Expiration Date Visits Re quested Visits Authorized [id number] Closed 10/11/2024 01/11/2026 1 1 Encounter Details Date Type Department Care Team (Latest Contact Info) Description 10/14/2024 10:30 AM CDT - 10/14/2024 10:36 AM CDT Hospital Encounter Department of Radiology in [address] [phone] Maverick Terry M.D. [address] [place] [address] Atrial Fibrillation Paroxysmal (HCC); Atrial Fibrillation Permanent (HCC); High Risk Medication; Atrial Fibrillation Unspecified (HCC) Discharge Disposition: Home or Self Care Social History Tobacco Use Types Packs/Day Years Used Date Smoking Tobacco: Never Passive Smoke Exposure: Never Smokeless Tobacco: Never Alcohol Use Standard Drinks/Week Comments Never 0 (1 standard drink = 0.6 oz pur e alcohol) [facility] Utilities Answer Date Recorded In the past 12 months has [facility] [employer], gas, oil, or water [employer] threatened to shut off services in your [...] often do you attend chur ch or religion services? More than 4 times per year 09/04/2022 Do you belong to any clubs o r organizations such as mu-ism groups, unions, fraternal or athletic groups, or [...] Answer Date Recorded PHQ-2 Score 0 08/31/2024 [facility] Occupat ional Health - [...] your living situation today? [facility] 03/15/2024 Education Answer Date Recorded What is the highest level of school you have completed or the highest degree you have received? 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, HEALTH EDUCATION SPECIALIST, [employer]) 01/09/2019 Sex and Gender Information Value Date Recorded Sex Assigned at Male 12/15/2017 6:50 AM CDT Legal Sex Male 5:03 AM RUBBER TURNER Gender Identity Male 12/15/2017 6:50 AM CDT [...] 2 tablets by mouth daily. HYDROcodone-aceta minophen ([place]) 5-325 mg per tablet every 6 (six) [...] Clinical Support Department of Rehabilitation Services in [address] [phone] Jayla Canales APRN, C.N.P. 701 [place] [phone] Capri Valdez P.TEmeka, D.P.T. [address] [place] [address] [place] [address] 11/25/2024 4:15 PM CDT Clinical Support Department of Rehabilitation Services in [address] [place] [address] Jayla Canales APRN, C.N.P. 701 [facility] [place] [phone] Capri Valdez P.T., D.P.T. [address] [place], [place] [address] [address] 11/29/2024 4:15 PM CDT Clinical Support Department of Rehabilitation Services in [address] [place] [address] Jayla Canales APRN, Edna.N.P. [address] [facility] [place] [phone] Capri Valdez P.T., D.P.T. [address] [place], [place] [address] [address] 12/02/2024 4:15 PM CDT Clinical Support Department of Rehabilitation Services in [address] [place] [address] Jayla Canales APRN, C.N.P. 701 [facility] [place] [phone] Capri Valdez P.T., D.P.T. [address] [place] [phone] 12/08/2024 1:45 PM CDT Office Visit Department of Cardiovascular Diseases in [address] [phone] Maverick Terry M.D. [address] [place] [address] Discharge Disposition: Home or Self Care 12/12/2024 10:15 AM CDT Clinical Support Department of Rehabilitation Services in [address] [phone] Jayla Canales APRN, C.N.P. [address] [place] [phone] Capri Valdez P.T., D.P.T. [address] [place] [phone] documented as of this encounter Procedures Procedure Name Priority Date/Time Associated Diagnosis Comments ECG Routine 10/14/2024 10:19 AM CDT Atrial Fibrillation Paroxysmal (HCC) Atrial Fibrillation Permanent (HCC) High Risk Medication Atrial Fibrillation Unspecified (HCC) documented in this encounter Results * ECG 12 Lead (10/14/2024 10:19 AM CDT) Ventricular Rate ECG/Min 58 BPM MUSE OR Interval 216 ms MUSE QRSD Interval 98 ms MUSE QT Interval 430 ms MUSE QTC Interval 422 ms MUSE P [place] 34 degrees MUSE R [place] -30 degrees MUSE T Wave [place] 7 degrees MUSE 10/14/2024 10:1 9 AM [...] Terry M.D. ECG ORDERABLES Final Resu lt MUSE NA documented in this encounter Visit Diagnoses Diagnosis Atrial Fibrillation Paroxysmal (HCC) Atrial Fibrillation Permanent (HCC) High Risk Medication Atrial Fibrillation Unspecified (HCC) documented in this encounter Additional Health Concerns Assessment Noted Time PHQ-9 Depression Total Score: 1 10/30/19 21 1:32 PM CDT documented as of this encounter Care Teams Bulb Weeder Relationship Specialty Start Date End Date Jayla Canales APRN, C.N.P. [address] [place] [address] PCP - General Family Medicine 12/24/[address] [place], [place] Dentist 03/15/24 documented as of this encounter
--- OUTSIDE RECORDS SUMMARY | 2024-11-05 18:39 | XMS_ITS | Encounter Summary ---
Author Organization [facility] Address [address] [place] [address] Care Team Providers Care Dba Manager Name Role Phone Jayla Canales APRN, C.N.P. Primary Care Provide r Reason for Visit * Physical Therapy (Routine) - Authorized Specialty Diagnoses / Procedures Referred By Contac t Referred To Contact Diagnoses Parkinsonism Unspecified (HCC) Procedures PT Ongoing treatment Jayla Canales APRN, C.N.P. [address] [place] [address] Phone: tel: fax: [facility] Region Referral ID Status Reason Start Date Expiration Date V isits Requested Visits Authorized [id number] Authorized 06/23/2024 06/23/2025 99 99 Encounter Details Date Type Department Care Team (Latest Contact Info) Description 09/30/2024 8:45 AM SPANISH PROFESSOR Clinical Support Department of Rehabilitation Services in [address] [phone] Jayla Canales APRN, C.N.P. 701 [facility] [place] [address] Capri Valdez P.T., D.P.T. [address] [place] [address] Parkinsonism Unspecified (HCC) Social History Tobacco Use Types Packs/Day Years Used Date Smoking Tobacco: Never Passive Smoke Exposure: Never Smokeless Tobacco: Never Alcohol Use Standard Drinks/Week Comments Never 0 (1 standard drink = 0.6 oz pur e alcohol) [facility] Utilities Answer Date Recorded In the past 12 months has e [employer], gas, oil, or water [employer] threatened to shut off services in your [...] often do you attend chur ch or jew services? More than 4 times per year 09/04/2022 Do you belong to any clubs o r organizations such as cheondoism groups, unions, fraternal or athletic groups, or [...] Recorded PHQ-2 Score 0 08/31/2024 [facility] of Occupat ional Health - Occupational Stress [...] 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, DIRECTOR OF INCOME TAX, [employer]) 01/09/2019 Sex and Gender Information Value Date Recorded Sex Assigned at Male 12/15/2017 6:50 AM CDT Legal Sex Male 5:03 AM SPANISH PROFESSOR Gender Identity Male 12/15/2017 6:50 AM CDT Sexual Orientation Straight 12/15/2017 6: 50 AM CDT documented as of this encounter Progress Notes * Capri Valdez P.T., D.P.T. - 09/30/2024 8:45 AM CST Physical Therapy Outpatient Treatment Note SUBJECTIVE Patient's Name: Sinan Mustafa Referring Provider: Jayla Canales APRN, C.* Visit Diagnosis: 1. Parkinsonism Unspecified (HCC) Payor: MEDICARE / Plan: MEDICARE A AND B / Product Type: Medicare / No data recorded Epic Visit Count: 17 Patient comments: Patient reports one fall in the kitchen since he was last at therapy. He rolled his ankle and fell. OBJECTIVE Pain: no new complaint. TREATMENT Treatment today consisted of: Therapeutic exercise: Patient performed Sci-Fit Total body ergometer level 5 resistance times 15 minutes. Performed leg press 130 lb at 2 x 10 repetitions and then the final 10 repetitions at 110 lb. Neuromuscular reeducation: Performed tandem stance 2 times 30 seconds, 1/2 step tandem stance with eyes closed 2 times 30 seconds, Romberg stance on balance foam 2 times 30 seconds. Rhomberg stance on balance foam 2 times 30 seconds. Performed anterior weight shifting with focus on eccentric control and then returning to neutral without the use of the upper extremities times 10 repetitions and then repeated weightshifting backwards x 10 repetitions. Performed toe walking required assist x 1 to regain balance. Also worked on taking turns at 90?? with long strides out of them. Step ups on bosu ball 2 x 10 repetitions. Assessment Clinical Impression: Patient tolerated treatment session well. Patient continues to demonstrate good eccentric control especially with the weight shifting. Patient will continue to benefit from skilled physical therapy to reduce his fall risk and maximize his functional independence. Functional Goals and Timeframes: PT Goal #1: Patient will demonstrate a / on the Dynamic Gait index in order to demonstrate reduce fall risk. PT Goal #1 to be achieved by: 09/23/24 PT Goal #1 Status: Slowly progressing PT Goal #2: Patient will demonstrate single leg stance times 15 seconds. PT Goal #2 to be achieved by: 09/23/24 PT Goal #2 Status: Slowly progressing PT Goal #3: Patient will demonstrate tug test in 11 seconds or less to demonstrate increased gait speed. PT Goal #3 to be achieved by: 09/23/24 PT Goal #3 Status: Slowly progressing PT Goal #4: Patient will demonstrate prm-vz-euprc x5 in 10 seconds or less to demonstrate improved endurance. PT Goal #4 to be achieved by: 09/23/24 PT Goal #4 Status: Slowly progressing Plan Plan for next session: Strengthening gait and balance Time Spent with Patient Therapeutic Interventions Neuromuscular Re-Education (min): 15 min Therapeutic Exercise (min): 25 min Time Tracking Total Timed Units (min): 40 min Total Treatment Time (min): 40 min ISH PROFESSOR documented in this encounter Plan of Treatment Upcoming Encounters Date Type Department Care Team (Latest Contact Info) Description 11/23/2024 3:15 PM CDT Clinical Support Department of Rehabilitation Services in [address] [phone] Jayla Canales APRN, C.N.P. [address] [place] [phone] Capri Valdez P.T., D.P.T. [address] [place] [phone] 11/25/2024 4:15 PM CDT Clinical Support Department of Rehabilitation Services in [address] [place] [address] Jayla Canales APRN, C.N.P. 701 [place] [address] Capri Valdez P.TEmeka, D.P.T. [address] [place], [place] [address] [address] 11/29/2024 4:15 PM CDT Clinical Support Department of Rehabilitation Services in [address] [place] [address] Jayla Canales APRN, C.N.P. [address] [place] [address] Capri Valdez P.T., D.P.T. [address] [place] [address], [place] [address] 12/02/2024 4:15 PM CDT Clinical Support Department of Rehabilitation Services in [address] [place] [address] Jayla Canales APRN, C.N.P. [address] [place] [phone] Capri Valdez P.T., D.P.T. [address] [place] [address], [place] [address] 12/08/2024 1:45 PM CDT Office Visit Department of Cardiovascular Diseases in [address] [place] [address] Maverick Terry M.D. [address] [place] [phone] Discharge Disposition: Home or Self Care 12/12/2024 10:15 AM CDT Clinical Support Department of Rehabilitation Services in [address] [phone] Jayla Canales APRN, C.N.P. [address] [place] [phone] Capri Valdez P.T., D.P.T. [address] [place] [phone] documented as of this encounter Visit Diagnoses Diagnosis Parkinsonism Unspecified (HCC) documented in this encounter Additional Health Concerns Assessment Noted Time PHQ-9 Depression Total Score: 1 10/30/19 21 1:32 PM CDT documented as of this encounter Care Teams Dba Manager Relationship Specialty Start Date End Date Jayla Canales APRN, C.N.P. [address] [place] [phone] PCP - General Family Medicine 12/24/[address] [place], [place] Dentist 03/15/24 documented as of this encounter
--- OUTSIDE RECORDS SUMMARY | 2024-11-05 18:39 | XMS_ITS | Encounter Summary ---
Author Organization [facility] Address [address] [place] [address] Care Team Providers Care Manager Training And Development Name Role Phone Jayla Canales APRN, C.N.P. Primary Care Provide r Reason for Visit * Physical Therapy (Routine) - Authorized Specialty Diagnoses / Procedures Referred By Contac t Referred To Contact Diagnoses Parkinsonism Unspecified (HCC) Procedures PT Ongoing treatment Jayla Canales APRN, C.N.P. [address] [place] [address] Phone: tel: fax: [facility] Region Referral ID Status Reason Start Date Expiration Date V isits Requested Visits Authorized [id number] Authorized 06/23/2024 06/23/2025 99 99 Encounter Details Date Type Department Care Team (Latest Contact Info) Description 10/07/2024 8:00 AM SOFTWARE TESTER Clinical Support Department of Rehabilitation Services in [address] [phone] Jayla Canales APRN, C.N.P. [address] [facility] [place] [address] Capri Valdez P.T., D.P.T. [address] [place] [phone] Parkinsonism Unspecified (HCC) Social History Tobacco Use Types Packs/Day Years Used Date Smoking Tobacco: Never Passive Smoke Exposure: Never Smokeless Tobacco: Never Alcohol Use Standard Drinks/Week Comments Never 0 (1 standard drink = 0.6 oz pur e alcohol) [facility] Utilities Answer Date Recorded In the past 12 months has e [employer], gas, oil, or water [employer] threatened to shut off services in your [...] often do you attend chur ch or tenriism services? More than 4 times per year [...] Answer Date Recorded PHQ-2 Score 0 08/31/2024 [facility] [place] of Occupat ional Health - Occupational Stress [...] 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, ADMINISTRATIVE OFFICE CLERK, HARRISON) 01/09/2019 Sex and Gender Information Value Date Recorded Sex Assigned at Male 12/15/2017 6:50 AM CDT Legal Sex Male 5:03 AM SOFTWARE TESTER Gender Identity Male 12/15/2017 6:50 AM CDT Sexual Orientation Straight 12/15/2017 6: 50 AM CDT documented as of this encounter Progress Notes * Capri Valdez P.T., D.P.T. - 10/07/2024 8:00 AM CST Physical Therapy Outpatient Treatment Note SUBJECTIVE Patient's Name: Sinan Mustafa Referring Provider: Jayla Canales APRN, C.* Visit Diagnosis: 1. Parkinsonism Unspecified (HCC) Payor: MEDICARE / Plan: MEDICARE A AND B / Product Type: Medicare / No data recorded Epic Visit Count: 19 Patient comments: Patient reports he had one near fall but was able to save the fall by catching himself on his car. He feels his balance is better overall. Patient continues with his boxing class. OBJECTIVE Pain: no complaint TREATMENT Treatment today consisted of: Therapeutic exercise: Patient performed Sci-Fit Total body ergometer level 5 resistance times 15 minutes. Performed leg press 130 lb at 3 x 10 repetitions. Neuromuscular reeducation: Performed tandem stance 2 times 30 seconds, Rhomberg with eyes closed 2 times 30 seconds, Romberg stance on balance foam 2 times 30 seconds. Performed anterior, posterior and lateral weight shifting with focus on eccentric control and then returning to neutral without theuse of the upper extremities times 10 repetitions each. Performed toe raises x 20 reps. Toe marching x 20 reps. Step ups on bosu ball 2 x 10 repetitions. Assessment Clinical Impression: Patient continues to demonstrate improved balance. Patient is having very little balance reactions with the balance exercises we are performing. Patient is demonstrating more control weight shifting to the edge of his base of support. Patient falls have decreased. Patient continues to benefit from skilled physical therapy to maximize his functional independence. Functional Goals and [...] progressing PT Goal #4: Patient will demonstrate vkq-yn-[id number] x5 in 10 seconds or less to demonstrate improved endurance. PT Goal #4 to be achieved by: 10/28/24 PT Goal #4 Status: Slowly progressing Plan Plan for next session: strengthening, gait and balance. Time Spent with Patient Therapeutic Interventions Neuromuscular Re-Education (min): 15 min Therapeutic Exercise (min): 25 min Time Tracking Total Timed Units (min): 40 min Total Treatment Time (min): 40 min Cosigned by Jayla Canales APRN, C.N.P. at 10/07/2024 10:31 AM SOFTWARE TESTER WARE TESTER WARE TESTER documented in this encounter Plan of Treatment Upcoming Encounters Date Type Department Care Team (Latest Contact Info) Description 11/23/2024 3:15 PM CDT Clinical Support Department of Rehabilitation Services in [address] [phone] Jayla Canales APRN, C.N.P. [address] [place] [phone] Capri Valdez P.Christiano., D.P.T. [address] [place] [address] [place] [phone] 11/25/2024 4:15 PM CDT Clinical Support Department of Rehabilitation Services in [address] [place] [address] Jayla Canales APRN, C.N.P. 701 [place] [phone] Capri Valdez P.T., D.P.T. [address] [place], [place] [address] [address] 11/29/2024 4:15 PM CDT Clinical Support Department of Rehabilitation Services in [address] [place] [address] Jayla Canales APRN, C.N.P. 701 [place] [phone] Capri Valdez P.T., D.P.T. [address] [place] [address] [place] [address] 12/02/2024 4:15 PM CDT Clinical Support Department of Rehabilitation Services in [address] [place] [address] Jayla Canales APRN, C.N.P. 701 [place] [phone] Capri Valdez P.T., D.P.T. [address] [place] [address] [place] [address] 12/08/2024 1:45 PM CDT Office Visit Department of Cardiovascular Diseases in [address] [place] [phone] Maverick Terry M.D. [address] [place] [phone] Discharge Disposition: Home or Self Care 12/12/2024 10:15 AM CDT Clinical Support Department of Rehabilitation Services in [address] [phone] Jayla Canales APRN, C.N.P. [address] [place] [phone] Capri Valdez P.T., D.P.T. [address] [place] [phone] documented as of this encounter Visit Diagnoses Diagnosis Parkinsonism Unspecified (HCC) documented in this encounter Additional Health Concerns Assessment Noted Time PHQ-9 Depression Total Score: 1 10/30/19 21 1:32 PM CDT documented as of this encounter Care Teams Manager Training And Development Relationship Specialty Start Date End Date Jayla Canales APRN, C.N.P. [address] [place] [phone] PCP - General Family Medicine 12/24/[address] [place], [place] Dentist 03/15/24 documented as of this encounter
--- OUTSIDE RECORDS SUMMARY | 2024-11-05 18:39 | XMS_ITS | Encounter Summary ---
Author Organization [facility] Address [address] [place] [address] Care Team Providers Care Hole Digger Truck Driver Name Role Phone Jayla Canales APRN, C.N.P. Primary Care Provide r Reason for Referral * Outpatient (Routine) - Closed Specialty Diagnoses / Procedures Referred By Contac t Referred To Contact Diagnoses Atrial Fibrillation Paroxysmal (HCC) Atrial Fibrillation Permanent (HCC) High Risk Medication Atrial Fibrillation Unspecified (HCC) Procedures DX Chest AP or PA and Lateral 2 Views Maverick Terry M.D. [address] [place] [address] Phone: tel: fax: [facility] Region Referral ID Status Reason Start Date Expiration Date Visits Re quested Visits Authorized [id number] Closed 10/11/2024 01/11/2026 1 1 Reason for Visit * Outpatient (Routine) - Closed Specialty Diagnoses / Procedures Referred By Contac t Referred To Contact Diagnoses Atrial Fibrillation Paroxysmal (HCC) Atrial Fibrillation Permanent (HCC) High Risk Medication Atrial Fibrillation Unspecified (HCC) Procedures DX Chest AP or PA and Lateral 2 Views Maverick Terry M.D. [address] [place] [address] Phone: tel: fax: [facility] Region Referral ID Status Reason Start Date Expiration Date Visits Re quested Visits Authorized [id number] Closed 10/11/2024 01/11/2026 1 1 Encounter Details Date Type Department Care Team (Latest Contact Info) Description 10/14/2024 10:37 AM CDT - 10/14/2024 11:59 PM CDT Hospital Encounter Department of Radiology in [address] [phone] Maverick Terry M.D. [address] [place] [address] Atrial Fibrillation Paroxysmal (HCC); Atrial Fibrillation Permanent (HCC); High Risk Medication; Atrial Fibrillation Unspecified (HCC) Discharge Disposition: Home or Self Care Social History Tobacco Use Types Packs/Day Years Used Date Smoking Tobacco: Never Passive Smoke Exposure: Never Smokeless Tobacco: Never Alcohol Use Standard Drinks/Week Comments Never 0 (1 standard drink = 0.6 oz pur e alcohol) [facility] Utilities Answer Date Recorded In the past 12 months has [facility] [employer], oil, or water [employer] threatened to shut off services in your [...] How often do you attend chur or hinduism services? More than 4 times per year 09/04/2022 Do you belong to any clubs o r organizations such as yazidi groups, unions, fraternal or athletic groups, or [...] the money to buy more. Never true 02/17/20 25 Within the past 12 months, t [...] your living situation today? I have a [facility] place to live 03/15/2024 Education Answer Date Recorded What is the highest level of school you have completed or the highest degree you have received? 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, DIGITAL PERFORMANCE ANALYST, HARRISON) 01/09/2019 Sex and Gender Information Value Date Recorded Sex Assigned at Male 12/15/2017 6:50 AM CDT Legal Sex Male 5:03 AM OPHTHALMOLOGY TECHNICIAN Gender Identity Male 12/15/2017 6:50 AM CDT [...] 2 tablets by mouth daily. HYDROcodone-aceta minophen ([place]) 5-325 mg per tablet every 6 (six) [...] Clinical Support Department of Rehabilitation Services in [address] [phone] Jayla Canales APRN, C.N.P. 701 [place] [address] Capri Valdez P.TEmeka, D.P.T. [address] [place] [address] [place] [address] 11/25/2024 4:15 PM CDT Clinical Support Department of Rehabilitation Services in [address] [place] [address] Jayla Canales APRN, C.N.P. 701 [place] [phone] Capri Valdez P.Christiano., D.P.T. [address] [place], [place] [address] [address] 11/29/2024 4:15 PM CDT Clinical Support Department of Rehabilitation Services in [address] [place] [address] Jayla Canales APRN, C.N.P. [address] [place] [phone] Capri Valdez P.T., D.P.T. [address] [place], [place] [address] [address] 12/02/2024 4:15 PM CDT Clinical Support Department of Rehabilitation Services in [address] [place] [address] Jayla Canales APRN, C.N.P. 701 [place] [phone] Capri Valdez PJaky, D.P.T. [address] [place] [phone] 12/08/2024 1:45 PM CDT Office Visit Department of Cardiovascular Diseases in [address] [phone] Maverick Terry M.D. [address] [place] [phone] Discharge Disposition: Home or Self Care 12/12/2024 10:15 AM CDT Clinical Support Department of Rehabilitation Services in [address] [phone] Jayla Canales APRN, C.N.P. [address] [place] [phone] Capri Valdez P.T., D.P.T. [address] [place] [phone] documented as of this encounter Procedures Procedure Name Priority Date/Time Associated Diagnosis Comments DX CHEST AP OR PA AND LATERAL 2 VIEWS RAD - Routine (most inpatients and all outpatients) 10/14/2024 10:43 AM CDT Atrial Fibrillation Paroxysmal (HCC) Atrial Fibrillation Permanent (HCC) High Risk Medication Atrial Fibrillation Unspecified (HCC) documented in this encounter Results * DX Chest AP or PA and [...] IMG DIAGNOSTIC IMAGING PRO CEDURES Final Result documented in this encounter Visit Diagnoses Diagnosis Atrial Fibrillation Paroxysmal (HCC) Atrial Fibrillation Permanent (HCC) High Risk Medication Atrial Fibrillation Unspecified (HCC) documented in this encounter Additional Health Concerns Assessment Noted Time PHQ-9 Depression Total Score: 1 10/30/19 21 1:32 PM CDT documented as of this encounter Care Teams Hole Digger Truck Driver Relationship Specialty Start Date End Date Jayla Canales APRN, C.N.P. [address] [place] [phone] PCP - General Family Medicine 12/24/[address] [place], [place] Dentist 03/15/24 documented as of this encounter
--- OUTSIDE RECORDS SUMMARY | 2024-11-05 18:39 | XMS_ITS | Encounter Summary ---
Author Organization [facility] Address [address] [place] [address] Care Team Providers Care General Labor Name Role Phone Jayla Canales APRN, C.N.P. Primary Care Provide r Encounter Details Date Type Department Care Team (Latest Contact Info) Description 10/11/2024 3:24 PM CDT - 10/11/2024 11:59 PM CDT Hospital Encounter Department of Laboratory Medicine in [address] [phone] Jayla Canales APRN, C.N.P. [address] [place] [address] Screening Examination Prostate Cancer; Atrial Fibrillation Paroxysmal (HCC); Atrial Fibrillation Permanent (HCC); High Risk Medication; Atrial Fibrillation Unspecified (HCC) Discharge Disposition: Home or Self Care Social History Tobacco Use Types Packs/Day Years Used Date Smoking Tobacco: Never Passive Smoke Exposure: Never Smokeless Tobacco: Never Alcohol Use Standard Drinks/Week Comments Never 0 (1 standard drink = 0.6 oz pur e alcohol) [facility] Utilities Answer Date Recorded In the past 12 months has th e electric, gas, oil, or water company [...] How often do you attend chur or christian services? More than 4 times per year [...] Answer Date Recorded PHQ-2 Score 0 08/31/2024 [facility] - Occupational Stress Questionnaire Answer Date [...] your living situation today? I have a [facility] place to live 03/15/2024 Education Answer Date Recorded What is the highest level of school you have completed or the highest degree you have received? 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 HYDROcodone-aceta minophen ([place]) 5-325 mg per tablet every 6 (six) [...] Support Department of Rehabilitation Services in [address] [phone] Jayla Canales APRN, C.N.P. [address] [place] [phone] Capri Valdez, P.T., D.P.T. [address] [place] [phone] 11/25/2024 4:15 PM CDT Clinical Support Department of Rehabilitation Services in [address] [phone] Jayla Canales APRN, C.N.P. [address] [place] [phone] Capri Valdez P.T., D.P.T. [address] [place] [phone] 11/29/2024 4:15 PM CDT Clinical Support Department of Rehabilitation Services in [address] [phone] Jayla Canales APRN, C.N.P. 701 [place] [address] Capri Valdez P.T., D.P.T. [address] [place], [place] [address] [phone] 12/02/2024 4:15 PM CDT Clinical Support Department of Rehabilitation Services in [address] [phone] Jayla Canales APRN, C.N.P. [address] [place] [address] Capri Valdez P.T., D.P.T. [address] [place] [phone] 12/08/2024 1:45 PM CDT Office Visit Department of Cardiovascular Diseases in [address] [place] [phone] Maverick Terry M.D. [address] [place] [address] Discharge Disposition: Home or Self Care 12/12/2024 10:15 AM CDT Clinical Support Department of Rehabilitation Services in [address] [phone] Jayla Canales APRN, C.N.P. [address] [place] [address] Capri Valdez P.T., D.P.T. [address] [place] [phone] documented as of this encounter Procedures Procedure Name Priority Date/Time Associated Diagnosis Comments THYROID FUNCTION CASCADE, S Routine 10/11/2024 3:31 PM CDT Atrial Fibrillation Paroxysmal (HCC) Atrial Fibrillation Permanent (HCC) High Risk Medication Atrial Fibrillation Unspecified (HCC) PROSTATE-SPECIFIC AG (PSA) SCRN, S Routine 10/11/2024 3:31 PM CDT Screening Examination Prostate Cancer MAGNESIUM, S Routine 10/11/2024 3:31 PM CDT Atrial Fibrillation Paroxysmal (HCC) Atrial Fibrillation Permanent (HCC) High Risk Medication Atrial Fibrillation Unspecified (HCC) COMPREHENSIVE METABOLIC PANEL, S/P Routine 10/11/2024 3:31 PM CDT Atrial Fibrillation Paroxysmal (HCC) Atrial Fibrillation Permanent (HCC) High Risk Medication Atrial Fibrillation Unspecified (HCC) documented in this encounter Results * (ABNORMAL) Comprehensive Metabolic Panel (10/11/2024 3:31 [...] ADD-ON Final Res ult Performing Organization Address City/[facility]/ZIP [place] [address], [address] [address] * Magnesium (10/11/2024 3:31 PM CDT) Magnesium, P 2.2 1.7 - 2.3 mg/dL 10/11/2024 3:55 PM CDT CNFL Blood (Blood, Venous) 10/11/2024 3:31 PM CDT 10/11/2024 3:34 PM CDT us Maverick Terry M.D. LAB BLOOD ADD-ON Final Res ult [address] [address], [address] [place] [address] * Thyroid Function [place] (10/11/2024 3:31 PM CDT) TSH, Sensitive 3.2 0.3 - 4.2 mIU/L 10/11/2024 4:41 PM CDT [facility] Blood (Blood, Venous) 10/11/2024 3:31 PM CDT 10/11/2024 3:34 PM CDT Maverick Terry M.D. LAB BLOOD ADD-ON Final Res ult [facility] [address] [place] [address], [facility] in [address] [address] * PSA (Prostate-Specific Antigen) Screen (10/11/2024 3:31 PM CDT) Pathologist [facility] Prostate-Specific Ag 2.8 <=6.5 ng/mL 10/11/2024 8:08 PM CDT RDW Comment: ----ADDITIONAL INFORMATION---- The testing method is [...] 3:31 PM CDT 10/11/2024 7:06 PM CDT us Jayla Canales APRN, C.N.P. LAB BLOOD ADD-ON Bridget l Result [facility] [address] [place] [address], [place] [facility] in [place] [address] [place] [address] documented in this encounter Visit Diagnoses Diagnosis Screening Examination Prostate Cancer Atrial Fibrillation Paroxysmal (HCC) Atrial Fibrillation Permanent (HCC) High Risk Medication Atrial Fibrillation Unspecified (HCC) documented in this encounter Additional Health Concerns Assessment Noted Time PHQ-9 Depression Total Score: 1 10/30/19 21 1:32 PM CDT documented as of this encounter Care Teams General Labor Relationship Specialty Start Date End Date Jayla Canales APRN, C.N.P. [address] [place] [phone] PCP - General Family Medicine 12/24/[address] [place], [place] Dentist 03/15/24 documented as of this encounter
--- OUTSIDE RECORDS SUMMARY | 2024-11-05 18:39 | XMS_ITS | Encounter Summary ---
Author Organization [facility] Address [address] [place] [address] Care Team Providers Care Principal Software Architect Name Role Phone Jayla Canales APRN, C.N.P. Primary Care Provide r Encounter Details Date Type Department Care Team (Late st Contact Info) Description 09/14/2024 Clinical Communication Department of Rehabilitation Services in [address] [phone] Capri Valdez, P.T., D.P.T. [address] [place] [phone] Social History Tobacco Use Types Packs/Day Years Used Date Smoking Tobacco: Never Passive Smoke Exposure: Never Smokeless Tobacco: Never Alcohol Use Standard Drinks/Week Comments No 0 (1 standard drink = 0.6 oz pur e alcohol) [facility] Utilities Answer Date Recorded In the past 12 months has [employer], gas, oil, or water company threatened [...] week 09/04/2022 How often do you attend [facility] or [facility] services? More than 4 times per year 09/04/2022 Do you belong to any clubs o r organizations such as jain groups, unions, fraternal or athletic groups, or [...] Answer Date Recorded PHQ-2 Score 0 08/31/2024 [facility] of Occupat ional Health - Occupational [...] your living situation today? I have a [facility] place to live 03/15/2024 Education Answer Date Recorded What is the highest level of school you have completed or the highest degree you have received? 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 701 [facility] [phone] Capri Valdez P.T., D.P.T. [address] [place], [place] [address] [address] 11/25/2024 4:15 PM CDT Clinical Support Department of Rehabilitation Services in [address] [place] [address] Jayla Canales APRN, C.N.P. [address] [facility] [phone] Capri Valdez P.T., D.P.T. [address] [place], [place] [address] [address] 11/29/2024 4:15 PM CDT Clinical Support Department of Rehabilitation Services in [address] [place] [address] Jayla Canales APRN, C.N.P. [address] [facility] [phone] Capri Valdez P.T., D.P.T. [address] [place], [place] [address] [address] 12/02/2024 4:15 PM CDT Clinical Support Department of Rehabilitation Services in [address] [place] [address] Jayla Canales APRN, C.N.P. [address] [place] [phone] Capri Valdez P.T., D.P.T. [address] [place] [phone] 12/08/2024 1:45 PM CDT Office Visit Department of Cardiovascular Diseases in [address] [phone] Maverick Terry M.D. [address] [place] [phone] Discharge Disposition: Home or Self Care 12/12/2024 10:15 AM CDT Clinical Support Department of Rehabilitation Services in [address] [phone] Jayla Canales APRN, C.N.P. [address] [place] [phone] Capri Valdez P.T., D.P.T. [address] [place] [phone] documented as of this encounter Visit Diagnoses Not on filedocumented in this encounter Additional Health Concerns Assessment Noted Time PHQ-9 Depression Total Score: 1 10/30/19 21 1:32 PM CDT documented as of this encounter Care Teams Principal Software Architect Relationship Specialty Start Date End Date Jayla Canales APRN, C.N.P. [address] [place] [phone] PCP - General Family Medicine 12/24/[address] [place], [place] Dentist 03/15/24 documented as of this encounter
--- OUTSIDE RECORDS SUMMARY | 2024-11-05 18:39 | XMS_ITS | Encounter Summary ---
Author Organization [facility] Address [address] [place] [address] Care Team Providers Care Photogrammetrist Name Role Phone Jayla Canales APRN, C.N.P. Primary Care Provide r Reason for Referral * Outpatient (Routine) - Closed Specialty Diagnoses / Procedures Referred By Contac t Referred To Contact Diagnoses Atrial Fibrillation Paroxysmal (HCC) Atrial Fibrillation Permanent (HCC) High Risk Medication Atrial Fibrillation Unspecified (HCC) Procedures DX Chest AP or PA and Lateral 2 Views Maverick Terry M.D. [address] [place] [address] Phone: tel: fax: [facility] Region Referral ID Status Reason Start Date Expiration Date Visits Re quested Visits Authorized [id number] Closed 10/11/2024 01/11/2026 1 1 * Outpatient (Routine) - Closed Specialty Diagnoses / Procedures Referred By Contac t Referred To Contact Diagnoses Atrial Fibrillation Paroxysmal (HCC) Atrial Fibrillation Permanent (HCC) High Risk Medication Atrial Fibrillation Unspecified (HCC) Procedures ECG 12 Lead Maverick Terry M.D. [address] [place] [phone] Phone: tel: fax: [facility] Region Referral ID Status Reason Start Date Expiration Date Visits Re quested Visits Authorized [id number] Closed 10/11/2024 01/11/2026 1 1 Reason for Visit * Reason Onset Date Comments Lab Monitoring 10/10/2024 High risk medica tion/Amiodarone Encounter Details Date Type Department Care Team (Latest Contact Info) Description 10/10/2024 Clinical Communication Department of Cardiovascular Diseases in [address] [address] Maverick Terry M.D. [address] [place] [phone] Lab Monitoring (High risk medication/Amiodar one) Social History Tobacco Use Types Packs/Day Years Used Date Smoking Tobacco: Never Passive Smoke Exposure: Never Smokeless Tobacco: Never Alcohol Use Standard Drinks/Week Comments Never 0 (1 standard drink = 0.6 oz pur e alcohol) [facility] Utilities Answer Date Recorded In the past 12 months has [facility] [employer], oil, or water [employer] threatened to shut off services in your [...] often do you attend chur ch or bahai services? More than 4 times per year 09/04/2022 Do you belong to any clubs o r organizations such as scientology groups, unions, fraternal or athletic groups, or [...] Answer Date Recorded PHQ-2 Score 0 08/31/2024 [facility] - [...] your living situation today? I have a [facility] place to live 03/15/2024 Education Answer Date Recorded What is the highest level of school you have completed or the highest degree you have received? 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 [address] [place] [phone] Capri Valdez, P.Christiano., D.P.T. [address] [place] [address] [place] [address] 11/25/2024 4:15 PM CDT Clinical Support Department of Rehabilitation Services in [address] [place] [address] Jayla Canales APRN, C.N.P. [address] [place] [phone] Capri Valdez P.T., D.P.T. [address] [place], [place] [address] [address] 11/29/2024 4:15 PM CDT Clinical Support Department of Rehabilitation Services in [address] [place] [address] Jayla Canales APRN, C.N.P. [address] [place] [phone] Capri Valdez P.T., D.P.T. [address] [place], [place] [address] [address] 12/02/2024 4:15 PM CDT Clinical Support Department of Rehabilitation Services in [address] [place] [address] Jayla Canales APRN, C.N.P. [address] [place] [phone] Capri Valdez P.T., D.P.T. [address] [place], [place] [address] [address] 12/08/2024 1:45 PM CDT Office Visit Department of Cardiovascular Diseases in [address] [place] [phone] Maverick Terry M.D. [address] [place] [phone] Discharge Disposition: Home or Self Care 12/12/2024 10:15 AM CDT Clinical Support Department of Rehabilitation Services in [address] [phone] Jayla Canales, LIDNY, C.N.P. [address] [place] [phone] Capri Valdez P.T., D.P.T. [address] [place] [phone] documented as of this encounter Results * DX Chest AP [...] airspace opacity orlarge pleural effusion. Mild hyperinflation. us Maverick Terry M.D. IMG DIAGNOSTIC IMAGING PRO CEDURES Final Result * ECG 12 Lead (10/14/2024 10:19 AM CDT) Ventricular Rate ECG/Min 58 BPM MUSE ND Interval 216 ms MUSE QRSD Interval 98 ms MUSE QT Interval 430 ms MUSE QTC Interval 422 ms MUSE P [place] 34 degrees MUSE R [place] -30 degrees MUSE T Wave [place] 7 degrees MUSE 10/14/2024 10:1 9 AM [...] ECG ORDERABLES Final Resu lt MUSE NA * (ABNORMAL) Comprehensive Metabolic Panel (10/11/2024 3:31 [...] M.D. LAB BLOOD ADD-ON Final Res ult [facility] [address] [place] [address], [facility] CNFL [facility] in [address] [address] * Magnesium (10/11/2024 3:31 PM CDT) Magnesium, P 2.2 1.7 - 2.3 mg/dL 10/11/2024 3:55 PM CDT CNFL Blood (Blood, Venous) 10/11/2024 3:31 PM CDT 10/11/2024 3:34 PM CDT us Maverick Terry M.D. LAB BLOOD ADD-ON Final Res ult Performing Organization Address [facility]/ZIP Co de Phone Number [address] [address], [address] [address] * Thyroid Function [place] (10/11/2024 3:31 PM CDT) TSH, Sensitive 3.2 0.3 - 4.2 mIU/L 10/11/2024 4:41 PM CDT [facility] Blood (Blood, Venous) 10/11/2024 3:31 PM CDT 10/11/2024 3:34 PM CDT us Maverick Terry M.D. LAB BLOOD ADD-ON Final Res ult Performing Organization Address [facility] Co de Phone Number [address] [address], [address] [address] documented in this encounter Visit Diagnoses Diagnosis Atrial Fibrillation Paroxysmal (HCC)- Primary Atrial Fibrillation Permanent (HCC) High Risk Medication Atrial Fibrillation Unspecified (HCC) Atrial Fibrillation Paroxysmal (HCC) Atrial Fibrillation Permanent (HCC) High Risk Medication Atrial Fibrillation Unspecified (HCC) Atrial Fibrillation Paroxysmal (HCC) Atrial Fibrillation Permanent (HCC) High Risk Medication Atrial Fibrillation Unspecified (HCC) documented in this encounter Additional Health Concerns Assessment Noted Time PHQ-9 Depression Total Score: 1 10/30/19 21 1:32 PM CDT documented as of this encounter Care Teams Photogrammetrist Relationship Specialty Start Date End Date Jayla Canales APRN, C.N.P. [address] [place] [phone] PCP - General Family Medicine 12/24/23 professional [place], [place] Dentist 03/15/24 documented as of this encounter
--- OUTSIDE RECORDS SUMMARY | 2024-11-05 18:39 | XMS_ITS | Encounter Summary ---
Author Organization [facility] Address [address] [place] [address] Care Team Providers Care Senior Advisor Name Role Phone Jayla Canales APRN, C.N.P. Primary Care Provide r Reason for Visit * Reason Onset Date Comments Appt Request 08/31/2024 Encounter Details Date Type Department Care Team (Late st Contact Info) Description 08/31/2024 Clinical Communication Department of Neurology in [place], [place] [address] [place] [phone] Bobby Santiago M.D., Ph.D. [address] [place] [phone] Appt Request Social History Tobacco Use Types Packs/Day Years Used Date Smoking Tobacco: Never Passive Smoke Exposure: Never Smokeless Tobacco: Never Alcohol Use Standard Drinks/Week Comments No 0 (1 standard drink = 0.6 oz pur e alcohol) [facility] Utilities Answer Date Recorded In the past 12 months has [employer], gas, oil, or water [employer] threatened to shut off services in your [...] often do you attend chur ch or roman catholic services? More than 4 times per year 09/04/2022 Do you belong to any clubs o r organizations such as scientologist groups, unions, fraternal or athletic groups, or [...] Answer Date Recorded PHQ-2 Score 0 08/31/2024 [facility]at ional Health - [...] your living situation today? I have a [facility] place to live 03/15/2024 Education Answer Date Recorded What is the highest level of school you have completed or the highest degree you have received? 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 [address] [place] [phone] Capri Valdez P.T., D.P.T. [address] [place], [place] [address] [address] 11/25/2024 4:15 PM CDT Clinical Support Department of Rehabilitation Services in [address] [place] [address] Jayla Canales APRN, C.N.P. [address] [place] [phone] Capri Valdez P.T., D.P.T. [address] [place], [place] [address] [address] 11/29/2024 4:15 PM CDT Clinical Support Department of Rehabilitation Services in [address] [place] [address] Jayla Canales APRN, C.N.P. [address] [place] [phone] Capri Valdez P.T., D.P.T. [address] [place], [place] [address] [address] 12/02/2024 4:15 PM CDT Clinical Support Department of Rehabilitation Services in [address] [place] [phone] Jayla Canales APRN, C.N.P. [address] [place] [phone] Capri Valdez P.T., D.P.T. [address] [place] [phone] 12/08/2024 1:45 PM CDT Office Visit Department of Cardiovascular Diseases in [address] [phone] Maverick Terry M.D. [address] [place] [phone] Discharge Disposition: Home or Self Care 12/12/2024 10:15 AM CDT Clinical Support Department of Rehabilitation Services in [address] [phone] Jayla Canales APRN, C.N.P. [address] [place] [address] Capri Valdez, P.T., D.P.T. [address] [place] [phone] documented as of this encounter Visit Diagnoses Not on filedocumented in this encounter Additional Health Concerns Assessment Noted Time PHQ-9 Depression Total Score: 1 10/30/19 21 1:32 PM CDT documented as of this encounter Care Teams Senior Advisor Relationship Specialty Start Date End Date Jayla Canales APRN, C.N.P. [address] [place] [phone] PCP - General Family Medicine 12/24/[address] [place], [place] Dentist 03/15/24 documented as of this encounter
--- OUTSIDE RECORDS SUMMARY | 2024-11-05 18:39 | XMS_ITS | Continuity of Care Document ---
Author Organization [facility] Address [address] [facility] [address] [place] [address] Assessment Encounter Date Assessment Date Assessment LastModified by Organization Details LastModified Time 10/10/2024 10/10/2024 ASSESSMENT: Patient is a good candidate for conservative care and the prognosis is for a favorable outcome that achieves the patients' goals. We discussed etiology, activity modifications, home care, and other treatment options. Initially, it is recommended that the patient receive in-office treatment 1 times per week for 8 weeks at which time a re-evaluation will be performed to determine an appropriate change in plan. Initially, treatment will focus on joint manipulation to restore range of motion and reduce pain. We will slowly progress to therapeutic exercises and activities to improve function, strength, and stability may also be used as warranted. If the patient is not responding as expected, more invasive procedures will be discussed along with a referral. All considerations above were discussed with the patient and questions answered to satisfaction. If the patient should have any additional questions, or should the condition evolve or worsen, the patient should not hesitate to contact our office. ASSESSMENT: Patient is a good candidate for conservative care and the prognosis is for a favorable outcome that achieves the patients' goals. We discussed etiology, activity modifications, home care, and other treatment options. Initially, it is recommended that the patient receive in-office treatment 1 times per week for 8 weeks at which time a re-evaluation will be performed to determine an appropriate change in plan. Initially, treatment will focus on joint manipulation to restore range of motion and reduce pain. We will slowly progress to therapeutic exercises and activities to improve function, strength, and stability may also be used as warranted. If the patient is not responding as expected, more invasive procedures will be discussed along with a referral. All considerations above were discussed with the patient and questions answered to satisfaction. If the patient should have any additional questions, or should the condition evolve or worsen, the patient should not hesitate to contact our office. ecram Not available 10/10/2024 12:24:36 Plan of Treatment Reminders Order Date Submit Date Provider Last Modified By Organization Details Last Modified Time Details Appointments None record ed. Lab None record ed. Referral None record ed. Procedures None record ed. Surgeries None record ed. Imaging None record ed. Medication Orders None record ed. Patient TargetsNo targets recorded. Patient InstructionsNo instructions recorded. Reason for Referral None Reported. Problems Name Problem SNOMED Code Status Onset Date Resolution Date Notes Provider Name and Address Organization Details Recorded Time Thoracic segmental dysfunction 362140090 Active 2023 Nura Mendiola DC [address] [facility], [place], [address], [facility] 4 12:05:55 Low back pain 022858845 Active 2023 Nura Mendiola DC [address] [facility], [place], [address], [facility] 4 12:05:55 Lumbar segmental dysfunction 256783333 Active 2023 Nura Mendiola DC [address] [facility], [place], [address], [facility] 4 12:05:55 Somatic dysfunction of sacral spine 478591577 Active 2023 Nrua Mendiola DC [address] [facility], [place], [address], [facility] 4 12:05:55 Cervical segmental dysfunction 954059152 Active 2023 Nura Mendiola DC [address] [facility], [place], [address], [facility] 4 12:06:16 Neck pain 40220321 Active 2023 Nura Mendiola DC [address] [facility], [place], [address], [facility] 4 12:06:16 Degeneratio n of cervical interverteb ral disc 42069095 Active 2023 Nura Eric HarrisioanaLIBORIO [address] [facility], [place], [address], [facility] 4 13:20:22 Muscle spasm of cervical muscle of neck 373498901135 Active 2023 Nura Eric HarrisioanaLIBORIO [address] [facility], [place], [address], [facility] 4 13:20:22 Pain of erector spinae muscle Active 2023 Nura Eric [address]LIBORIO [address] [facility], [place], [address], [facility] 4 13:27:36 Cervical radiculopat hy 57075387 Active 2023 Nura Eric [address]anaLIBORIO [address] [facility], [place], [address], [facility] 4 13:29:41 Somatic dysfunction of pelvic region 581202486 Active 2024 Nura Eric HarrisioanaLIBORIO [address] [facility], [place], [address], [facility] 5 13:54:08 Spasm of muscle of lower back 4725941233927 9105 Active 2024 Nura Mendiola DC [address] [facility], [place], [address], [facility] 5 13:56:26 Problem Notes None recorded. Procedures Surgical History Date Name Laterality Status Provider Name and Address Organization Details Recorded Time 5 [address]: Spinal manipulation , 3 to 4 regions completed Nura Mendiola DC [address] [facility], [place], [address], [facility] 10/10/2024 12:24:36 5 [address]: Spinal manipulation , 3 to 4 regions completed Nura Mendiola DC [address] [facility], [place], [address], [facility] 09/12/2024 15:48:55 5 [address]: Spinal manipulation , 3 to 4 regions completed Nura Mendiola DC [address] [facility], [place], [address], [facility] 08/29/2024 16:25:45 5 37002: Spinal manipulation , 3 to 4 regions completed Nura Mendiola DC [address] [facility], [place], [address], [facility] 08/19/2024 10:12:05 5 18652: Spinal manipulation , 3 to 4 regions completed Nura Mendiola DC [address] [facility], [place], [address], [facility] 08/08/2024 12:58:36 4 46157: Spinal manipulation , 3 to 4 regions completed Nura Mendiola DC [address] [facility], [place], [address], [facility] 07/25/2024 13:24:16 4 28195: Spinal manipulation , 3 to 4 regions completed Nura Mendiola DC [address] [facility], [place], [address], [facility] 07/15/2024 12:07:33 Imaging Results None recorded. Procedure Notes None recorded. Medical Equipment None Reported. Medications Name Sig Start Date Stop Date Status Note LastModified by Organization Details LastModified Time amoxicillin 500 mg capsule TAKE ONE CAPSULE BY MOUTH THREE TIMES A DAY UNTIL GONE active Not Available Not Available No t Available trazodone 50 mg tablet active Not Available Not Available No t Available amiodarone 200 mg tablet active Not Available Not Availabl e Not Available hydrocodone 5 mg-acetaminop hen 325 mg tablet TAKE 1 TABLET BY MOUTH EVERY 4-6 HOURS NEEDED FOR PAIN IF NOT RELIEVED WITH NSAIDS active Not Available Not Available No t Available carbidopa ER 50 mg-levodopa 200 mg tablet,extend ed release active Not Available Not Available N ot Available polymyxin B sulfate 10,000 unit-trimetho prim 1 mg/mL eye drops active Not Available Not Available No t Available metoprolol succinate ER 25 mg tablet,extend ed release 24 hr active Not Available Not Available Not Available carbidopa 25 mg-levodopa 100 mg tablet active Not Available Not Availabl e Not Available amoxicillin 875 mg-potassium clavulanate 125 mg tablet active Not Available Not Availabl e Not Available oxycodone 5 mg tablet active Not Available Not Available No t Available duloxetine 30 mg capsule,delay ed release active Not Available Not Available N ot Available peg 3350-electrol ytes 236 gram-22.74 gram-6.74 gram-5.86 gram solution active Not Available Not Availabl e Not Available Eliquis 5 mg tablet active Not Available Not Available Not Available Rytary 48.75 mg-195 mg capsule,exten ded release TAKE 3 CAPSULES BY MOUTH EVERY 4 HOURS active Not Available Not Available No t Available Crexont 70 mg-280 mg capsule, extended release TAKE 3 CAPSULES BY MOUTH EVERY 4 HOURS AROUND THE CLOCK ON AN EMPTY STOMACH active Not Available Not Available No t Available Vitals None Recorded Social History None recorded. Functional Status None recorded. Mental Status None recorded. Family History Nothing Reported. Medical History No medical history recorded. Past Encounters Encounter ID Performer Location Encounter Start Date Encounter Closed Date Diagnosis/Indication Diagnosis SNOMED-CT Code Diagnosis ICD10 Code Diagnosis Note [id number] [facility] [address] [place] [address] 09/12/2024 14:57:07 09/12/2024 15:53:55 Lumbar segmental dysfunction 009470723 M99.03 Low back pain 313968445 M54.50 Somatic dy sfunction of sacral spine 672404759 M99.04 Thoracic s egmental dysfunction 062430799 M99.02 Cervical s egmental dysfunction 411007371 M99.01 Neck pain 92821403 M54.2 [id number] [facility] & [address] [place] [address] 10/10/2024 11:06:28 10/11/2024 18:34:13 Lumbar segmental dysfunction 272335738 M99.03 Low back pain 443109199 M54.50 Somatic dy sfunction of sacral spine 775857009 M99.04 Thoracic s egmental dysfunction 019115702 M99.02 Cervical s egmental dysfunction 046553188 M99.01 Neck pain 68829839 M54.2 Health Concerns Section Related Observation LastModified by Organization Detai ls LastModified Time None Recorded Concern Status LastModified by Organization Details LastModified Time None Recorded Payers Encounter Date Sequence Insurance Name Policy Number Policy Topete Covered Member ID Topete Member ID Guarantor Name 10/10/2024 2 [place] [id number] Sinan Mustafa [id number] Isaias Mustafa 10/10/2024 1 [place] [employer] Sinan Mustafa [id number] Isaias Mustafa Notes Date Note Type Note Provider Name and Address Organization Details Recorded Time 10/10/2024 text/html HPI - Cervical SpineReported bypatient.Location: bilateral Quality:aching Severity:moderate Duration:1 weeks Timing:gradual Alleviating Factors:rest; ice Aggravating Factors:twisting/tu rning Associated Symptoms:no numbness/tinglingHP I - Lumbar SpineReported bypatient.Location: bilateral; With radiation to knee Quality:aching Severity:moderate Timing:gradual Aggravating Factors:carrying; twisting Alleviating Factors:ice; rest Nura Mendiola DC [address] [facility], [place], [address], [facility] - [facility] 10/10/2024 12:26:04
--- OUTSIDE RECORDS SUMMARY | 2024-11-05 18:39 | XMS_ITS | Encounter Summary ---
Author Organization [facility] Address [address] [place] [address] Care Team Providers Care Land Lease Information Clerk Name Role Phone Jayla Canales APRN, C.N.P. Primary Care Provide r Reason for Visit * Physical Therapy (Routine) - Authorized Specialty Diagnoses / Procedures Referred By Contac t Referred To Contact Diagnoses Parkinsonism Unspecified (HCC) Procedures PT Ongoing treatment Jayla Canales APRN, C.N.P. [address] [place] [address] Phone: tel: fax: [facility] Region Referral ID Status Reason Start Date Expiration Date V isits Requested Visits Authorized [id number] Authorized 06/23/2024 06/23/2025 99 99 Encounter Details Date Type Department Care Team (Latest Contact Info) Description 10/11/2024 2:45 PM CDT Clinical Support Department of Rehabilitation Services in [address] [phone] Jayla Canales, LINDY, C.N.P. 701 [facility] [place] [address] Capri Valdez P.T., D.P.T. [address] [place] [address] Parkinsonism Unspecified (HCC) Social History Tobacco Use Types Packs/Day Years Used Date Smoking Tobacco: Never Passive Smoke Exposure: Never Smokeless Tobacco: Never Alcohol Use Standard Drinks/Week Comments Never 0 (1 standard drink = 0.6 oz pur e alcohol) [facility] Utilities Answer Date Recorded In the past 12 months has e [employer], gas, oil, or water [employer] threatened to shut off services in your [...] often do you attend chur ch or quaker services? More than 4 times per year [...] 08/31/2024 [facility] of Occupat ional Health - Occupational Stress [...] 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, CARD DOFFER, HARRISON) 01/09/2019 Sex and Gender Information Value Date Recorded Sex Assigned at Male 12/15/2017 6:50 AM CDT Legal Sex Male 5:03 AM STERNMAN Gender Identity Male 12/15/2017 6:50 AM CDT Sexual Orientation Straight 12/15/2017 6: 50 AM CDT documented as of this encounter Progress Notes * Capri Valdez P.T., D.P.T. - 10/11/2024 2:45 PM CDT Physical Therapy Outpatient Treatment Note SUBJECTIVE Patient's Name: Sinan Mustafa Referring Provider: Jayla Canales APRN, C.* Visit Diagnosis: 1. Parkinsonism Unspecified (HCC) Payor: MEDICARE / Plan: MEDICARE A AND B / Product Type: Medicare / No data recorded Epic Visit Count: 20 Patient comments: Patient had one fall in his garage on the cement floor since our last treatment session. He was able to get up on his own with some mild compensation. OBJECTIVE Pain: bilateral shoulder soreness from his fall. TREATMENT Treatment today consisted of: Therapeutic exercise: Patient performed Sci-Fit Total body ergometer level 5 resistance times 15 minutes decreased to a level 2 resistance for the last 5 minutes. Performed leg press 150 lb at 3 x 10repetitions. Neuromuscular reeducation: Performed tandem stance 2 times 30 seconds, Rhomberg with eyes closed 2 times 30 seconds, Romberg stance on balance foam 2 times 30 seconds. Performed anterior, posterior and lateral weight shifting with focus on eccentric control and then returning to neutral without theuse of the upper extremities times 10 repetitions each. Performed toe raises x 20 reps. Assessment Clinical Impression: Patient was sore and more fatigued today as a result of his fall and having a busy day. Patient did well with his weight shifting today demonstrating improvement with only 2 lossof balance requiring use of the upper extremities in the parallel bars to correct. Patient will continue to benefit from skilled physical therapy being to maximize his functional independence. Functional Goals [...] progressing PT Goal #4: Patient will demonstrate wlm-fo-qooss x5 in 10 seconds or less to demonstrate improved endurance. PT Goal #4 to be achieved by: 10/28/24 PT Goal #4 Status: Slowly progressing Plan Plan for next session: Strengthening gait and balance Time Spent with Patient Therapeutic Interventions Neuromuscular Re-Education (min): 15 min Therapeutic Exercise (min): 23 min Time Tracking Total Timed Units (min): 38 min Total Treatment Time (min): 38 min documented in this encounter Plan of Treatment Upcoming Encounters Date Type Department Care Team (Latest Contact Info) Description 11/23/2024 3:15 PM CDT Clinical Support Department of Rehabilitation Services in [address] [phone] Jayla Canales APRN, C.N.P. [address] [place] [phone] Capri Valdez P.T., D.P.T. [address] [place] [phone] 11/25/2024 4:15 PM CDT Clinical Support Department of Rehabilitation Services in [address] [place] [address] Jayla Canales APRN, C.N.P. 701 [facility] [place] [address] Capri Valdez P.TEmeka, D.P.T. [address] [place], [place] [address] [address] 11/29/2024 4:15 PM CDT Clinical Support Department of Rehabilitation Services in [address] [place] [address] Jayla Canales APRN, C.N.P. [address] [place] [phone] Capri Valdez P.T., D.P.T. [address] [place], [place] [address] [address] 12/02/2024 4:15 PM CDT Clinical Support Department of Rehabilitation Services in [address] [place] [address] Jayla Canales APRN, C.N.P. [address] [place] [phone] Capri Valdez P.T., D.P.T. [address] [place], [place] [address] [address] 12/08/2024 1:45 PM CDT Office Visit Department of Cardiovascular Diseases in [address] [place] [address] Maverick Terry M.D. [address] [place] [phone] Discharge Disposition: Home or Self Care 12/12/2024 10:15 AM CDT Clinical Support Department of Rehabilitation Services in [address] [phone] Jayla Canales APRN, C.N.P. [address] [place] [phone] Capri Valdez P.T., D.P.T. [address] [place] [phone] documented as of this encounter Visit Diagnoses Diagnosis Parkinsonism Unspecified (HCC) documented in this encounter Additional Health Concerns Assessment Noted Time PHQ-9 Depression Total Score: 1 10/30/19 21 1:32 PM CDT documented as of this encounter Care Teams Land Lease Information Clerk Relationship Specialty Start Date End Date Jayla Canales APRN, C.N.P. [address] [place] [phone] PCP - General Family Medicine 12/24/[address] [place], [place] Dentist 03/15/24 documented as of this encounter
--- OUTSIDE RECORDS SUMMARY | 2024-11-05 18:39 | XMS_ITS | Encounter Summary ---
Author Organization [facility] Address [address] [place] [address] Care Team Providers Care Track Repair Person Name Role Phone Jayla Canales APRN, C.N.P. Primary Care Provide r Reason for Visit * Physical Therapy (Routine) - Authorized Specialty Diagnoses / Procedures Referred By Contac t Referred To Contact Diagnoses Parkinsonism Unspecified (HCC) Procedures PT Ongoing treatment Jayla Canales APRN, C.N.P. [address] [place] [address] Phone: tel: fax: [facility] Region Referral ID Status Reason Start Date Expiration Date V isits Requested Visits Authorized [id number] Authorized 06/23/2024 06/23/2025 99 99 Encounter Details Date Type Department Care Team (Latest Contact Info) Description 09/21/2024 1:30 PM LATHE WINDER Clinical Support Department of Rehabilitation Services in [address] [phone] Jayla Canales APRN, C.N.P. 701 [facility] [place] [address] Capri Valdez P.T., D.P.T. [address] [place] [address] Parkinsonism Unspecified (HCC) Social History Tobacco Use Types Packs/Day Years Used Date Smoking Tobacco: Never Passive Smoke Exposure: Never Smokeless Tobacco: Never Alcohol Use Standard Drinks/Week Comments Never 0 (1 standard drink = 0.6 oz pur e alcohol) [facility] Utilities Answer Date Recorded In the past 12 months has e [employer], gas, oil, or water [employer] threatened to shut off services in your [...] often do you attend chur ch or scientologist services? More than 4 times per year 09/04/2022 Do you belong to any clubs o r organizations such as voodoo groups, unions, fraternal or athletic groups, or [...] Answer Date Recorded PHQ-2 Score 0 08/31/2024 [facility] of Occupat ional Health - Occupational Stress [...] 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, ASTROCHEMIST, HARRISON) 01/09/2019 Sex and Gender Information Value Date Recorded Sex Assigned at Male 12/15/2017 6:50 AM CDT Legal Sex Male 5:03 AM LATHE WINDER Gender Identity Male 12/15/2017 6:50 AM CDT Sexual Orientation Straight 12/15/2017 6: 50 AM CDT documented as of this encounter Progress Notes * Capri Valdez P.T., D.P.T. - 09/21/2024 1:30 PM CST Physical Therapy Outpatient Treatment Note SUBJECTIVE Patient's Name: Sinan Mustafa Referring Provider: Jayla Canales APRN, C.* Visit Diagnosis: 1. Parkinsonism Unspecified (HCC) Payor: MEDICARE / Plan: MEDICARE A AND B / Product Type: Medicare / No data recorded Epic Visit Count: 16 Patient comments: Patient has no new complaints. OBJECTIVE Pain: knee pain TREATMENT Treatment today consisted of: Therapeutic exercise: Patient performed Sci-Fit Total body ergometer level 5 resistance times 15 minutes. Performed leg press 130 lb at 2 x 10 repetitions and then the final 10 repetitions at 110 lb. Neuromuscular reeducation: Performed half step tandem stance 2 times 30 seconds, tandem stance 2 times 30 seconds, Romberg stance on balance foam 2 times 30 seconds. Performed anterior weight shifting with focus on eccentric control and then returning to neutral without the use of the upper extremities times 10 repetitions and then repeated weightshifting backwards x 5 repetitions. Patient demonstrated significant improvement in his eccentric control today. Performed toe walking. Also worked ontaking turns at 90?? with long strides out of them. Assessment Clinical Impression: Patient tolerated session well. Patient is demonstrating good eccentric control with weight shifting. Patient is also demonstrating improved balance today. Patient will continue to benefit from skilled [...] progressing PT Goal #4: Patient will demonstrate vyt-ox-jzbvx x5 in 10 seconds or less to demonstrate improved endurance. PT Goal #4 to be achieved by: 09/23/24 PT Goal #4 Status: Slowly progressing Plan Plan for next session: Strengthening gait and balance Time Spent with Patient Therapeutic Interventions Neuromuscular Re-Education (min): 15 min Therapeutic Exercise (min): 30 min Time Tracking Total Timed Units (min): 45 min Total Treatment Time (min): 45 min E WINDER documented in this encounter Plan of Treatment Upcoming Encounters Date Type Department Care Team (Latest Contact Info) Description 11/23/2024 3:15 PM CDT Clinical Support Department of Rehabilitation Services in [address] [phone] Jayla Canales APRN, C.N.P. [address] [place] [phone] Capri Valdez P.T., D.P.T. [address] [place] [phone] 11/25/2024 4:15 PM CDT Clinical Support Department of Rehabilitation Services in [address] [phone] Jayla Canales APRN, C.N.P. 701 [place] [phone] Capri Valdez P.T., D.P.T. [address] [place] [address] [place] [address] 11/29/2024 4:15 PM CDT Clinical Support Department of Rehabilitation Services in [address] [place] [address] Jayla Canales APRN, C.NKristin [address] [place] [phone] Capri Valdez P.T., D.P.T. [address] [place], [place] [address] [phone] 12/02/2024 4:15 PM CDT Clinical Support Department of Rehabilitation Services in [address] [place] [address] Jayla Canales APRN, C.NEmekaPEmeka 1 [place] [phone] Capri Valdez P.T., D.P.TEmeka [address] [place], [place] [address] [phone] 12/08/2024 1:45 PM CDT Office Visit Department of Cardiovascular Diseases in [address] [place] [phone] Maverick Terry M.D. [address] [place] [phone] Discharge Disposition: Home or Self Care 12/12/2024 10:15 AM CDT Clinical Support Department of Rehabilitation Services in [place] [phone] Jayla Canales APRN, C.N.P. [address] [place] [phone] Capri Valdez P.T., D.P.T. [address] [place] [phone] documented as of this encounter Visit Diagnoses Diagnosis Parkinsonism Unspecified (HCC) documented in this encounter Additional Health Concerns Assessment Noted Time PHQ-9 Depression Total Score: 1 10/30/19 21 1:32 PM CDT documented as of this encounter Care Teams Track Repair Person Relationship Specialty Start Date End Date aJyla Canales APRN, C.N.P. [address] [place] [phone] PCP - General Family Medicine 12/24/[address] [place], [place] Dentist 03/15/24 documented as of this encounter
--- OUTSIDE RECORDS SUMMARY | 2024-11-05 18:39 | XMS_ITS | Encounter Summary ---
Author Organization [facility] Address [address] [place] [address] Care Team Providers Care Orthotist Or Prosthetist Name Role Phone Jayla Canales APRN, C.N.P. Primary Care Provide r Reason for Visit * Physical Therapy (Routine) - Authorized Specialty Diagnoses / Procedures Referred By Contac t Referred To Contact Diagnoses Parkinsonism Unspecified (HCC) Procedures PT Ongoing treatment Jayla Canales APRN, C.N.P. [address] [place] [address] Phone: tel: fax: [facility] Region Referral ID Status Reason Start Date Expiration Date V isits Requested Visits Authorized [id number] Authorized 06/23/2024 06/23/2025 99 99 Encounter Details Date Type Department Care Team (Latest Contact Info) Description 10/03/2024 9:15 AM ACCOUNTING COORDINATOR Clinical Support Department of Rehabilitation Services in [address] [phone] Jayla Canales APRN, C.N.P. 701 [facility] [place] [address] Capri Valdez P.T., D.P.T. [address] [place] [address] Parkinsonism Unspecified (HCC) Social History Tobacco Use Types Packs/Day Years Used Date Smoking Tobacco: Never Passive Smoke Exposure: Never Smokeless Tobacco: Never Alcohol Use Standard Drinks/Week Comments Never 0 (1 standard drink = 0.6 oz pur e alcohol) [facility] Utilities Answer Date Recorded In the past 12 months has e [employer], gas, oil, or water [employer] threatened to shut off services in your [...] Answer Date Recorded PHQ-2 Score 0 08/31/2024 [facility] of Occupat ional Health - Occupational Stress [...] 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, BOAT BUILDER AND REPAIRER, HARRISON) 01/09/2019 Sex and Gender Information Value Date Recorded Sex Assigned at Male 12/15/2017 6:50 AM CDT Legal Sex Male 5:03 AM ACCOUNTING COORDINATOR Gender Identity Male 12/15/2017 6:50 AM CDT Sexual Orientation Straight 12/15/2017 6: 50 AM CDT documented as of this encounter Progress Notes * Capri Valdez P.T., D.P.T. - 10/03/2024 9:15 AM CST Physical Therapy Outpatient Treatment Note SUBJECTIVE Patient's Name: Sinan Mustafa Referring Provider: Jayla Canales APRN, C.* Visit Diagnosis: 1. Parkinsonism Unspecified (HCC) Payor: MEDICARE / Plan: MEDICARE A AND B / Product Type: Medicare / No data recorded Epic Visit Count: 18 Patient comments: Patient reports no falls since our last session. He reports he has been walking well. OBJECTIVE Pain: no complaint. TREATMENT Treatment today consisted of: Therapeutic exercise: Patient performed Sci-Fit Total body ergometer level 5 resistance times 15 minutes. Performed leg press 130 lb at 3 x 10 repetitions. Neuromuscular reeducation: Performed tandem stance 2 times 30 seconds, Rhomberg with eyes closed 2 times 30 seconds, Romberg stance on balance foam 2 times 30 seconds. Rhomberg stance on balance foam2 times 30 seconds. Performed anterior, posterior and lateral weight shifting with focus on eccentric control and then returning to neutral without the use of the upper extremities times 10 repetitions each. Performed toe walking required assist x 1 to regain balance. Also worked on taking turns at90?? with long strides out of them. Step ups on bosu ball 2 x 10 repetitions. Assessment Clinical Impression: Patient tolerated treatment session well. Patient continues to demonstrate good eccentric control especially with the weight shifting. Patient did very well with balance today. Patient will continue to benefit [...] progressing PT Goal #4: Patient will demonstrate boz-ug-nrcra x5 in 10 seconds or less to demonstrate improved endurance. PT Goal #4 to be achieved by: 09/23/24 PT Goal #4 Status: Slowly progressing Plan Plan for next session: Strengthening gait and balance Time Spent with Patient Therapeutic Interventions Neuromuscular Re-Education (min): 15 min Therapeutic Exercise (min): 25 min Time Tracking Total Timed Units (min): 40 min Total Treatment Time (min): 40 min UNTING COORDINATOR documented in this encounter Plan of Treatment Upcoming Encounters Date Type Department Care Team (Latest Contact Info) Description 11/23/2024 3:15 PM CDT Clinical Support Department of Rehabilitation Services in [address] [phone] Jayla Canales, LINDY, C.N.P. [address] [place] [phone] Capri Valdez P.T., D.P.T. [address] [place] [phone] 11/25/2024 4:15 PM CDT Clinical Support Department of Rehabilitation Services in [address] [phone] Jayla Canales APRN, C.N.P. 701 [place] [phone] Capri Valdez P.T., D.P.T. [address] [place] [address] [place] [phone] 11/29/2024 4:15 PM CDT Clinical Support Department of Rehabilitation Services in [address] [place] [phone] Jayla Canales APRN, C.N.P. [address] [place] [phone] Capri Valdez P.T., D.P.T. [address] [place], [place] [address] [phone] 12/02/2024 4:15 PM CDT Clinical Support Department of Rehabilitation Services in [address] [place] [address] Jayla Canales APRN, C.N.P. [address] [place] [phone] Capri Valdez P.T., D.P.T. [address] [place], [place] [address] [phone] 12/08/2024 1:45 PM CDT Office Visit Department of Cardiovascular Diseases in [address] [place] [phone] Maverick Terry M.D. [address] [place] [phone] Discharge Disposition: Home or Self Care 12/12/2024 10:15 AM CDT Clinical Support Department of Rehabilitation Services in [address] [phone] Jayla Canales APRN, C.N.P. [address] [place] [phone] Capri Valdez P.T., D.P.T. [address] [place] [phone] documented as of this encounter Visit Diagnoses Diagnosis Parkinsonism Unspecified (HCC) documented in this encounter Additional Health Concerns Assessment Noted Time PHQ-9 Depression Total Score: 1 10/30/19 21 1:32 PM CDT documented as of this encounter Care Teams Orthotist Or Prosthetist Relationship Specialty Start Date End Date Jayla Canales APRN, C.N.P. [address] [place] [phone] PCP - General Family Medicine 12/24/[address] [place], [place] Dentist 03/15/24 documented as of this encounter
--- OUTSIDE RECORDS SUMMARY | 2024-11-05 18:39 | XMS_ITS | Encounter Summary ---
Author Organization [facility] Address [address] [place] [address] Care Team Providers Care Scientific Publications Editor Name Role Phone Jayla Canales APRN, C.N.P. Primary Care Provide r Reason for Referral * Outpatient (Routine) - Authorized Specialty Diagnoses / Procedures Referred By Axel larios Referred To Contact Diagnoses Cerumen Impacted Bilateral Procedures FAM Ear wax removal procedure Jayla Canales APRN, C.N.P. [address] [place] [address] Phone: tel: fax: [facility] Region Referral ID Status Reason Start Date Expiration Date V isits Requested Visits Authorized [id number] Authorized 10/14/2024 01/14/2026 1 1 Reason for Visit * Reason Comments Cerumen Impaction * Appointment Request (Routine) - Closed Specialty Diagnoses / Procedures Referred By Contac t Referred To Contact Family Medicine Referral ID Status Reason Start Date Expiration Date Visits Re quested Visits Authorized [id number] Closed 10/11/2024 01/11/2026 1 1 Encounter Details Date Type Department Care Team (Late st Contact Info) Description 10/14/2024 1:00 PM CDT Nurse Only Department of Family Medicine, [facility], in [address] [phone] Jayla Canales, LINDY, C.N.P. [address] [place] [address] Lucy Valles, RSandra [address] [place] [phone] Cerumen Impaction Discharge Disposition: Home or Self Care Social History Tobacco Use Types Packs/Day Years Used Date Smoking Tobacco: Never Passive Smoke Exposure: Never Smokeless Tobacco: Never Alcohol Use Standard Drinks/Week Comments Never 0 (1 standard drink = 0.6 oz pur e alcohol) [facility] Utilities Answer Date Recorded In the past 12 months has [employer], gas, oil, or water [employer] threatened to shut off services in your [...] often do you attend chur ch or yazidi services? More than 4 times per year 09/04/2022 Do you belong to any clubs o r organizations such as rastafari groups, unions, fraternal or athletic groups, or [...] Answer Date Recorded PHQ-2 Score 0 08/31/2024 [facility] of Occupat ional [facility] - Occupational Stress Questionnaire Answer Date [...] your living situation today? I have a [facility] place to live 03/15/2024 Education Answer Date Recorded What is the highest level of school you have completed or the highest degree you have received? 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, NEONATAL SOCIAL WORKER, [employer]) 01/09/2019 Sex and Gender Information Value Date Recorded Sex Assigned at Male 12/15/2017 6:50 AM CDT Legal Sex Male 5:03 AM GREEN CHAIN MARKER Gender Identity Male 12/15/2017 6:50 AM CDT Sexual Orientation Straight 12/15/2017 6: 50 AM CDT documented as of this encounter Procedure Notes * Lucy Valles R.N. - 10/14/2024 1:00 PM CDTAssociated Order(s): FAM Ear wax removal procedure Pre-Procedure Diagnose(s): Cerumen Impacted Bilateral Post-Procedure Diagnose(s): Cerumen Impacted Bilateral FAM Ear wax removal procedure Performed by: Lucy Valles R.N. Authorized by: Jyala Canales APRN, C.N.P. Care team members present 1. Lucy Valles R.N. PROCEDURE DETAILS Location: left ear and right ear Procedure type: irrigation Scope used: otoscope CONSENT Consent obtained: verbal Consent given by: patient PRE-PROCEDURE DETAILS Indication: cerumen impaction POST-PROCEDURE DETAILS Inspection: complete impaction removal Hearing quality: improved Procedure completed successfully: yes Complications: no immediate complications documented in this encounter Plan of Treatment Upcoming Encounters Date Type Department Care Team (Latest Contact Info) Description 11/23/2024 3:15 PM CDT Clinical Support Department of Rehabilitation Services in [address] [place] [phone] Jayla Canales APRN, C.N.P. [address] [place] [phone] Capri Valdez P.T., D.P.T. [address] [place] [address], [place] [phone] 11/25/2024 4:15 PM CDT Clinical Support Department of Rehabilitation Services in [address] [place] [phone] Jayla Canales APRN, C.N.P. [address] [place] [phone] Capri Valdez P.T., D.P.T. [address] [place] [phone] 11/29/2024 4:15 PM CDT Clinical Support Department of Rehabilitation Services in [address] [place] [phone] Jayla Canales APRN, C.N.P. [address] [place] [phone] Capri Valdez P.T., D.P.T. [address] [place] [address], [place] [phone] 12/02/2024 4:15 PM CDT Clinical Support Department of Rehabilitation Services in [address] [place] [phone] Jayla Canales APRN, Edna.N.P. [address] [place] [phone] Capri Valdez P.T., D.P.T. [address] [place] [phone] 12/08/2024 1:45 PM CDT Office Visit Department of Cardiovascular Diseases in [address] [phone] Maverick Terry M.D. [address] [place] [phone] Discharge Disposition: Home or Self Care 12/12/2024 10:15 AM CDT Clinical Support Department of Rehabilitation Services in [address] [phone] Jayla Canales APRN, C.N.P. [address] [place] [phone] Capri Valdez PJaky, D.P.T. [address] [place] [phone] documented as of this encounter Procedures Procedure Name Priority Date/Time Associated Diagnosis Comments VA RMVL IMPACT CERUMEN IRRIG UNILAT Today 10/14/2024 1:00 PM CDT Cerumen Impacted Bilateral documented in this encounter Results * VA RMVL IMPACT CERUMEN IRRIG UNILAT (10/14/2024 1:00 PM CDT) Narrative MMODAL - 10/14/2024 1:00 PM CDT Lucy Valles R.N. 10/14/2024 11:19 AM FAM Ear wax removal procedure Performed by: Lucy Valles R.N. Authorized by: Jayla Canales APRN, C.N.P. Care [...] C.N.P. PROCEDURE/MINOR SURGI REECE ORDERABLES Final Result MMODAL NA documented in this encounter Visit Diagnoses Diagnosis Cerumen Impacted Bilateral- Primary documented in this encounter Additional Health Concerns Assessment Noted Time PHQ-9 Depression Total Score: 1 10/30/19 21 1:32 PM CDT documented as of this encounter Care Teams Scientific Publications Editor Relationship Specialty Start Date End Date Jayla Canales APRN, C.N.P. [address] [place] [phone] PCP - General Family Medicine 12/24/[address] [place], [place] Dentist 03/15/24 documented as of this encounter
--- OUTSIDE RECORDS SUMMARY | 2024-11-05 18:39 | XMS_ITS | Encounter Summary ---
Author Organization [facility] Address [address] [place] [address] Care Team Providers Care Brown Stock Washer Name Role Phone Jayla Canales APRN, C.N.P. Primary Care Provide r Reason for Visit * Reason Comments Chronic Disease Management Right knee pa in for about a month. Encounter Details Date Type Department Care Team (Latest Contact Info) Description 09/05/2024 1:00 PM BREAD SUPERVISOR Comprehensive Visit Department of Family Medicine, [facility], in [address] [phone] Jayla Canales APRN, C.N.P. [address] [place] [phone] Conjunctivitis Chronic Simple Left (Primary Dx); Pain Knee Right; Parkinsonism Unspecified (HCC); Atrial Fibrillation Paroxysmal (HCC); History Of Falling; Screening Examination Prostate Cancer Discharge Disposition: Home or Self Care Social History Tobacco Use Types Packs/Day Years Used Date Smoking Tobacco: Never Passive Smoke Exposure: Never Smokeless Tobacco: Never Tobacco Cessation:Counseling Given: Not Answered Alcohol Use Standard Drinks/Week Comments No 0 (1 standard drink = 0.6 oz pur e alcohol) [facility] Utilities Answer Date Recorded In the [...] often do you attend chur ch or cheondoism services? More than 4 times per year 09/04/2022 Do you belong to any clubs o r organizations such as sikh groups, unions, fraternal or athletic groups, or [...] Answer Date Recorded PHQ-2 Score 0 08/31/2024 [facility] of Occupat ional [facility] - Occupational Stress Questionnaire Answer Date Recorded [...] 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, MAINTENANCE SUPERVISOR 2ND SHIFT, [employer]) 01/09/2019 Sex and Gender Information Value Date Recorded Sex Assigned at Male 12/15/2017 6:50 AM CDT Legal Sex Male 5:03 AM BREAD SUPERVISOR Gender Identity Male 12/15/2017 6:50 AM CDT Sexual Orientation Straight 12/15/2017 6: 50 AM CDT documented as of this encounter Last Filed Vital Signs Vital Sign Reading Time Taken Comments Blood Pressure 112/71 09/05/2024 12:53 PM BREAD SUPERVISOR Pulse 88 09/05/2024 12:53 PM BREAD SUPERVISOR Temperature 36 C (96.8 F) 09/05/2024 12:53 PM BREAD SUPERVISOR Respiratory Rate - - Oxygen Saturation 95% 09/05/2024 12:53 PM BREAD SUPERVISOR Inhaled Oxygen Concentration - - Weight 97.6 kg (215 lb 2.7 oz) 09/05/2024 12:53 PM BREAD SUPERVISOR Height - - Body Mass Index 28.49 05/17/2024 7:51 AM CDT documented in this encounter H&P Notes * Jayla Canales, LINDY, C.N.P. - 09/05/2024 1:00 PM CST SUBJECTIVE CHIEF COMPLAINT / REASON FOR VISIT Sinan Mustafa is a 69 y.o. male who presents for evaluation of Chronic Disease Management (Right knee pain for about a month. ). HISTORY OF PRESENT ILLNESS Patient presents to clinic today for evaluation of right knee and feet pain, patient reports 12 recent falls in the last few weeks. Patient reports no injuries patient reports freezing feet for the last 3 weeks when he is trying to walk and unable to move forward. Patient is walking with a cane. Patient has a history of Parkinson's Patient also speaks of right knee pain that has been present for one-month denies any falls or injuries. The following portions of the patient's history were reviewed and updated as appropriate: allergies, current medications, family history, medical history, social history, surgical history, and problem list. REVIEW OF SYSTEMS REVIEW OF SYSTEMS OBJECTIVE Vitals: 09/05/24 1253 BP: 112/71 Pulse: 88 Temp: 36 ??C SpO2: 95% 07/29/2019 2:46 PM 08/04/2019 8:29 AM 10/29/2020 1:32 PM PHQ9 Score PHQ-9 Total Score (max 27) 2 0 1 PHYSICAL EXAMINATION General: No acute distress. HEENT: Normocephalic. EOMI, PERRL, Canals patent, TMs normal. Oropharynx without lesion of mucosa. Neck: No nodes, no thyromegaly. No bruit auscultated. Heart: Regular rate and rhythm. No murmurs, gallops or rubs noted. Lungs: Non-labored breathing. Clear to auscultation bilaterally. No expiratory wheeze. Abdomen: Nontender to palpation. No hepato-splenomegaly. No mass. Normal bowel sounds in all 4 quadrants. Extremities: No PALLAVI. No neurovascular compromise. No cyanosis, clubbing or edema. Skin: No atypical moles or skin changes. Neuro: Alert and oriented x3, nonfocal, moving all 4 extremities. CN II-XII grossly intact. Psych: Affect is appropriate. ASSESSMENT / PLAN #1 Pain Knee Right Patient denies any recent injury to right knee, patient was encouraged to continue to walk with a cane and continue with physical therapy. Patient was encouraged to continue Tylenol ibuprofen as wellas ice or heat for pain. #2 Parkinsonism Unspecified (HCC) VisitsPatient follows with a specialty, new lower extremity symptoms, patient was encouraged to continue with physical therapy and walk with a cane. Continue all current medications and treatments. Pros/Cons Side effects as well as alternatives and complications reviewed were with Patient. #3 Atrial Fibrillation Paroxysmal (HCC) Stable condition patient, Continue all current medications and treatments. Pros/Cons Side effects as well as alternatives and complications reviewed were with Patient. #4 History Of Falling Patient has had recent falls. Continue the use of gait aids and physical therapy. #5 Conjunctivitis Chronic Simple Left Patient has asked for a refill on Polytrim eyedrops at this time. - polymyxin B-trimethoprim (Polytrim) 10,000 unit- 1 mg/mL ophthalmic solution; Administer 1 drop into both eyes 4 (four) times a day for 5 days., Starting 09/05/2024, Until 09/10/2024, Normal #6 Screening Examination Prostate Cancer Screening lab completed. - PSA (Prostate-Specific Antigen) Screen; Future; Expected date: Before next visit Patient was instructed to follow up in primary care if symptoms are worsening or there is no improvement over the next several days. Plan was discussed with patient and is in agreement with plan. All questions were answered, side effects of any/all new medications were discussed. Patient left in no acute distress. Ready to learn. No apparent learning barriers were identified. Learning preferences include listening. Explained diagnosis and treatment plan. Patient/Child/Caregiver expressed understanding of the content. Plan: Patient was encouraged to return to clinic for his annual physical in roughly 6 months. Jayla Canales APRN-BARB [facility] D SUPERVISOR D SUPERVISOR documented in this encounter Plan of Treatment Upcoming Encounters Date Type Department Care Team (Latest Contact Info) Description 11/23/2024 3:15 PM CDT Clinical Support Department of Rehabilitation Services in [address] [phone] Jayla Canales APRN, C.N.P. [address] [place] [phone] Capri Valdez P.T., D.P.T. [address] [place] [phone] 11/25/2024 4:15 PM CDT Clinical Support Department of Rehabilitation Services in [address] [phone] Jayla Canales APRN, C.N.P. [address] [place] [address] Capri Valdez P.T., D.P.T. [address] [place] [phone] 11/29/2024 4:15 PM CDT Clinical Support Department of Rehabilitation Services in [address] [phone] Jayla Canales APRN, C.N.P. [address] [place] [phone] Capri Valdez PJaky, D.P.T. [address] [place] [address] [place] [phone] 12/02/2024 4:15 PM CDT Clinical Support Department of Rehabilitation Services in [address] [place] [phone] Jayla Canales APRN, C.N.P. [address] [place] [phone] Capri Valdez P.Christiano., D.P.T. [address] [place] [phone] 12/08/2024 1:45 PM CDT Office Visit Department of Cardiovascular Diseases in [address] [place] [phone] Maverick Terry M.D. [address] [place] [phone] Discharge Disposition: Home or Self Care 12/12/2024 10:15 AM CDT Clinical Support Department of Rehabilitation Services in [address] [phone] Jayla Canales APRN, C.N.P. [address] [place] [phone] Capri Valdez P.TEmeka, D.P.T. [address] [place], [place] [address] [place] [phone] documented as of this encounter Results * PSA (Prostate-Specific Antigen) Screen (10/11/2024 3:31 PM CDT) Prostate-Specific Ag 2.8 <=6.5 ng/mL 10/11/2024 8:08 [...] C.N.P. LAB BLOOD ADD-ON Bridget l Result [facility] [address] [place] [address], [facility] in [place] [address] [place] [address] documented in this encounter Visit Diagnoses Diagnosis Conjunctivitis Chronic Simple Left- Primary Pain Knee Right Parkinsonism Unspecified (HCC) Atrial Fibrillation Paroxysmal (HCC) History Of Falling Screening Examination Prostate Cancer documented in this encounter Additional Health Concerns Assessment Noted Time PHQ-9 Depression Total Score: 1 10/30/19 21 1:32 PM CDT documented as of this encounter Care Teams Brown Stock Washer Relationship Specialty Start Date End Date Jayla Canales APRN, C.N.P. [address] [place] [phone] PCP - General Family Medicine 12/24/[address] [place], [place] Dentist 03/15/24 documented as of this encounter
--- OUTSIDE RECORDS SUMMARY | 2024-11-05 18:40 | XMS_ITS | Data Portability ---
Author Organization [place] [facility], [employer] ETHNOARCHAEOLOGY PROFESSOR [facility] Address [address] [place] [address] Assessment Encounter Date Assessment Date Assessment LastModified by Organization Details LastModified Time 08/08/2024 08/08/2024 1. Multiple Fall s with Resultant Pelvic Subluxation and Left Knee/Calf Edema Assessment: Patient experienced multiple falls, leading to pelvic subluxation (right posterior ilium and left sacrum), contusions on the hip and side, and edema in the left knee and calf. The patient reports landing on hard surfaces multiple times, exacerbating the swelling and bruising. Plan: Discussed and advised the use of ice and heat strategies to manage the swelling in the left knee and calf. 2. Cervical and Thoracic Subluxations with Associated Paraspinal Hypertonicity Assessment: Mild cervical subluxation at C2 and lower thoracic subluxation noted. Associated findings include paraspinal hypertonicity and spasms in the right lumbar paraspinals, piriformis, and gluteus medius. Plan: Performed chiropractic adjustments for the cervical and thoracic subluxations. Addressed paraspinal hypertonicity and muscle spasms through manual therapy. [id number] Not available 08/08/2024 12:48:35 08/19/2024 08/19/2024 ASSESSMENT: Patient is a good candidate for [...] to contact our office. ecram Not available 08/19/2024 10:10:47 08/29/2024 08/29/2024 ASSESSMENT: Patient is a good candidate for [...] to contact our office. ecram Not available 08/29/2024 16:25:45 09/12/2024 09/12/2024 ASSESSMENT: Patient is a good candidate for [...] to contact our office. ecram Not available 09/12/2024 15:48:55 10/10/2024 10/10/2024 ASSESSMENT: Patient is a good [...] record ed. Patient TargetsNo targets recorded. Patient Instructions Encounter Date Encounter Id Patient Instructions Last Modified By Organization Details Last Modified Time 08/08/2024 [id number] Patient Instructions for Isaias Mustafa Date: August 08, 2024 Maria Fernanda Esparza, Thank you for visiting [facility] today. Here are some steps to help you recover and manage your symptoms: 1. Chiropractic Adjustments - Continue with the adjustments as recommended to address the subluxations and improve alignment. 2. Swelling Management - Alternate between applying ice and heat to the swollen areas of your left knee and leg to reduce swelling and discomfort. 3. Muscle Spasms - Perform gentle stretches as demonstrated to alleviate spasms in the lumbar paraspinals, piriformis, and gluteus medius. 4. Activity Modifications - Avoid activities that may strain your lower back or legs until the swelling and discomfort improve. 5. Follow-Up - Schedule a follow-up appointment in one week to monitor your progress and adjust your care plan as needed. If you have any questions or concerns, please contact our office. We are here to support your recovery. Take care, Dr. Nura Mendiola [facility] [address] Nura Mendiola [id number] Not available 08/08/2024 12:48:32 Discussion Notes On August 08, 2024 , Isaias Mustafa presented following three recent falls, one of which resulted in a hard impact on his right side and buttocks. He reported bruising on his hip, side, and left knee, with persistent swelling in the left knee, calf, and lateral lower leg. Examination revealed a pelvic subluxation involving the right posterior ilium and left sacrum, as well as a mild cervical subluxation at C2 and a lower thoracic subluxation. Additionally, hypertonicity was observed in the right lumbar paraspinals, extending into the right piriformis and gluteus medius, which were in spasm. Treatment included adjustments to the identified subluxations and discussion of ice and heat strategies to manage swelling. The patient was advised to monitor symptoms and follow up as needed. [id number] Not available 08/08/2024 12:48:32 Reason for Referral None Reported. Problems Name Problem SNOMED Code Status Onset Date Resolution Date Notes Provider Name and Address Organization Details Recorded Time Thoracic segmental dysfunction 756607266 Active 2023 Nura Mendiola DC [address], [place], [address], [place] [facility] 4 12:05:55 Low back pain 888716289 Active 2023 Nura Mendiola DC [address], [place], [address], [place] [facility] 4 12:05:55 Lumbar segmental dysfunction 405421186 Active 2023 Nura Mendiola DC [address], [place], [address], [place] [facility] 4 12:05:55 Somatic dysfunction of sacral spine 193566137 Active 2023 Nura Mendiola DC [address], [place], [address], [place] [facility] 4 12:05:55 Cervical segmental dysfunction 372113783 Active 2023 Nura Mendiola DC [address], [place], [address], [place] [facility] 4 12:06:16 Neck pain 20689741 Active 2023 Nura Mendiola DC [address], [place], [address], [place] [facility] 4 12:06:16 Degeneratio n of cervical interverteb ral disc 46658802 Active 2023 Nura Mendiola DC [address], [place], [address], [place] [facility] 4 13:20:22 Muscle spasm of cervical muscle of neck 778574873759 Active 2023 Nura Mendiola DC [address], [place], [address], [place] [facility] 4 13:20:22 Pain of erector spinae muscle Active 2023 Nura Mendiola DC [address], [place], [address], [facility] - Formerly [facility], [facility] 4 13:27:36 Cervical radiculopat hy 25572668 Active 2023 Nura Reyes Kimberlyioana LIBORIO [address], [place], [address], [facility] - [facility], [facility]–1983 4 13:29:41 Somatic dysfunction of pelvic region 622050475 Active 2024 Nura Reyes KimberlyioanaLIBORIO [address], [place], [address], [facility] 5 13:54:08 Spasm of muscle of lower back 8852124813688 9105 Active 2024 Nura Eric HarrisioanaLIBORIO [address], [place], [address], [facility] - [facility], [facility]–1983 13:56:26 Problem Notes None recorded. Procedures Surgical History Date Name Laterality Status Provider Name and Address Organization Details Recorded Time 5 48295: Spinal manipulation , 3 to 4 regions completed Nura Mendiola DC [address], [place], [address], [facility] 10/10/2024 12:24:36 5 24216: Spinal manipulation , 3 to 4 regions completed Nura Mendiola DC [address], [place], [address], [facility] 09/12/2024 15:48:55 5 91651: Spinal manipulation , 3 to 4 regions completed Nura eMndiola DC [address], [place], [address], [facility] 08/29/2024 16:25:45 5 14166: Spinal manipulation , 3 to 4 regions completed Nura Mendiola DC [address], [place], [address], [facility] 08/19/2024 10:12:05 5 94975: Spinal manipulation , 3 to 4 regions completed Nura Mendiola DC [address], [place], [address], [employer] 08/08/2024 12:58:36 4 40729: Spinal manipulation , 3 to 4 regions completed Nura Reyes Kimberlyioana, LIBORIO [address], [place], [address], [facility] 07/25/2024 13:24:16 4 19954: Spinal manipulation , 3 to 4 regions completed Nura Reyes Maury, LIBORIO [address], [place], [address], [employer] 07/15/2024 12:07:33 Imaging Results None recorded. Procedure [...] SNOMED-CT Code Diagnosis ICD10 Code Diagnosis Note [id number] [facility] [address] [place] [address] 07/15/2024 09:56:53 07/15/2024 12:56:16 Lumbar segmental dysfunction 443387987 M99.03 Low back pain 296431642 M54.50 Somatic dy sfunction of sacral spine 307704232 M99.04 Thoracic s egmental dysfunction 317282354 M99.02 Cervical s egmental dysfunction 540876121 M99.01 Neck pain 54219640 M54.2 [address] [place] [address] 07/25/2024 11:56:42 07/25/2024 13:33:11 Lumbar segmental dysfunction 622502128 M99.03 Low back pain 163104409 M54.50 Somatic dy sfunction of sacral spine 053677040 M99.04 Thoracic s egmental dysfunction 663197942 M99.02 Cervical radiculopathy 20251240 M54.12 Neck pain 32420455 M54.2 Muscle spa sm of cervical muscle of neck 8104546627 04 M62.838 Cervical s egmental dysfunction 321812706 M99.01 Degenerati on of cervical intervertebral disc 05325894 M50.30 Pain of er john spinae muscle 9509080106 81056 M54.12 69485 [facility] [address] [place] [address] 08/08/2024 12:23:31 08/08/2024 16:45:57 Somatic dysfunction of pelvic region 608093256 M99.05 Somatic dy sfunction of sacral spine 112647350 M99.04 Cervical s egmental dysfunction 448437241 M99.01 Spasm of m uscle of lower back 8117622033 9264406 M62.830 02736 LIBORIO Doe [facility] [address] [facility] [place], [place] [address] 08/19/2024 09:37:37 08/19/2024 12:07:34 Lumbar segmental dysfunction 911931293 M99.03 Low back pain 703081881 M54.50 Somatic dy sfunction of sacral spine 838313456 M99.04 Thoracic s egmental dysfunction 394524253 M99.02 Cervical s egmental dysfunction 904060048 M99.01 Neck pain 76864599 M54.2 [address] [facility] [address] [facility] [address] 08/29/2024 15:22:11 08/29/2024 16:30:20 Lumbar segmental dysfunction 923459410 M99.03 Low back pain 046662996 M54.50 Somatic dy sfunction of sacral spine 458231295 M99.04 Thoracic s egmental dysfunction 709596223 M99.02 Cervical s egmental dysfunction 522155993 M99.01 Neck pain 28342247 M54.2 [id number] [facility] [address] [facility] [place] [address] 09/12/2024 14:57:07 09/12/2024 15:53:55 Lumbar segmental dysfunction 253335217 M99.03 Low back pain 573767683 M54.50 Somatic dy sfunction of sacral spine 499300462 M99.04 Thoracic s egmental dysfunction 648215215 M99.02 Cervical s egmental dysfunction 226736538 M99.01 Neck pain 34745697 M54.2 [id number] [facility] & [address] [facility] [place] [address] 10/10/2024 11:06:28 10/11/2024 18:34:13 Lumbar segmental dysfunction 971975301 M99.03 Low back pain 616334345 M54.50 Somatic dy sfunction of sacral spine 891050788 M99.04 Thoracic s egmental dysfunction 577148640 M99.02 Cervical s egmental dysfunction 764676755 M99.01 Neck pain 54834818 M54.2 Health Concerns Section Related Observation LastModified by Organization Detai ls LastModified Time None Recorded Concern Status LastModified by Organization Details LastModified Time None Recorded Advance Directives Directive None Recorded Payers Encounter Date Sequence Insurance Name Policy Number Policy Topete Covered Member ID Topete Member ID Guarantor Name 08/08/2024 2 [place] [id number] Sinan Mustafa [id number] Isaias Ramsey 08/08/2024 1 [place] [employer] Sinan Mustafa [id number] Isaias Ramsey 08/19/2024 2 [place] [id number] Sinan Mustafa [id number] Isaias Ramsey 08/19/2024 1 [place] [employer] Sinan Mustafa [id number] Isaias Ramsey 08/29/2024 2 [place] [id number] Sinan Mustafa [id number] Isaias Ramsey 08/29/2024 1 [place] [employer] Sinan Mustafa [id number] Isaias Ramsey 09/12/2024 2 [place] [id number] Sinan Herreraon [id number] Isaias Ramsey 09/12/2024 1 [place] [employer] Sinan Herreraon [id number] Isaias Ramsey 10/10/2024 2 [place] [id number] Sinan Herreraon [id number] Isaias Ramsey 10/10/2024 1 [place] [employer] Sinan Mustafa [id number] Isaias Mustafa Notes Date Note Type Note Provider Name and Address Organization Details Recorded Time 5 text/html Isaias Mustafa is a 69-year-old male who presents with a history ofthree recent falls. He reports that while the falls were not severely damaging, one involved ahard impact on his right side and buttocks. He has sustainedcontusions on his hip, side, and left knee, which he has landed on multiple times on hard surfaces. Additionally, he describespersistent edema in the left knee, calf, and lateral side of the leg. The patient denies anyhead traumabut notes aminor cervical vertebral misalignment at C2. He has not reported any other associated symptoms or significant changes in his condition. Nura Mendiola DC [address], [place], [address], [facility] 08/08/2024 14:01:58 5 text/html HPI - Cervical SpineReported bypatient.Location:[facility] Quality:aching Severity:moderate Duration:1 weeks Timing:gradual Alleviating Factors:rest; ice Aggravating Factors:twisting/turning Associated Symptoms:no numbness/tinglingHPI - Lumbar SpineReported bypatient.Location:[facility]; With radiation to knee Quality:aching Severity:moderate Timing:gradual Aggravating Factors:carrying; twisting Alleviating Factors:ice; rest Nura Mendiola DC [address], [place], [address], [facility] 08/19/2024 10:12:22 5 text/html HPI - Cervical SpineReported bypatient.Location[facility] Quality:aching Severity:moderate Duration:1 weeks Timing:gradual Alleviating Factors:rest; ice Aggravating Factors:twisting/turning Associated Symptoms:no numbness/tinglingHPI - Lumbar SpineReported bypatient.Location:[facility]; With radiation to knee Quality:aching Severity:moderate Timing:gradual Aggravating Factors:carrying; twisting Alleviating Factors:ice; rest Nura Mendiola DC [address], [place], [address], [facility] 08/29/2024 16:26:47 5 text/html HPI - Cervical SpineReported bypatient.Location:[facility] Quality:aching Severity:moderate Duration:1 weeks Timing:gradual Alleviating Factors:rest; ice Aggravating Factors:twisting/turning Associated Symptoms:no numbness/tinglingHPI - Lumbar SpineReported bypatient.Location:[facility]; With radiation to knee Quality:aching Severity:moderate Timing:gradual Aggravating Factors:carrying; twisting Alleviating Factors:ice; rest Nura Mendiola DC [address], [place], [address], [facility] 09/12/2024 15:50:40 5 text/html HPI - Cervical SpineReported bypatient.Location:[facility] Quality:aching Severity:moderate Duration:1 weeks Timing:gradual Alleviating Factors:rest; ice Aggravating Factors:twisting/turning Associated Symptoms:no numbness/tinglingHPI - Lumbar SpineReported bypatient.Location:[facility]; With radiation to knee Quality:aching Severity:moderate Timing:gradual Aggravating Factors:carrying; twisting Alleviating Factors:ice; rest Nura Mendiola DC [address], [place], [address], [facility] 10/10/2024 12:26:04
== END 2024-11-05 19:11 | disposition home or self-care (01) ==
PROVIDERS: Emergency Provider Emergency Medicine Emergency Medical Services; PCP Clinical Nurse Specialist Adult Health
DX: L03.114 Cellulitis of left upper limb (principal)
CPT/HCPCS: 73090; 99283; 99284

== ENCOUNTER 2025-02-14 07:48 | Emergency (ER) | payer MEDICARE, BC, SELFPAY ==
--- OUTSIDE RECORDS SUMMARY | 2025-01-02 13:40 | XMS_ITS | Encounter Summary ---
Author Organization [facility] Address [address] [place] [address] Care Team Providers Care Concrete Laborer Name Role Phone Jayla Canales APRN, C.N.P. Primary Care Provide r Reason for Referral * Outpatient (Routine) - Authorized Specialty Diagnoses / Procedures Referred By Axel larios Referred To Contact Dermatology Courtney Madden M.D. [address] [place] [address] Phone: tel: fax: [facility] Referral ID Status Reason Start Date Expiration Date V isits Requested Visits Authorized [id number] Authorized 01/02/2025 07/04/2026 1 1 Scheduling Instructions Melanoma recheck in 6-12 months at [facility] with ct. Reason for Visit * Outpatient (Routine) - Closed Specialty Diagnoses / Procedures Referred By Axel larios Referred To Contact Dermatology Diagnoses Nevi Multiple Jayla Canales APRN, C.N.P. [address] [place] [address] Phone: tel: fax: [facility] Referral ID Status Reason Start Date Expiration Date V isits Requested Visits Authorized [id number] Closed Specialty Services Required 12/01/2024 06/02/2026 1 1 Encounter Details Date Type Department Care Team (Latest Contact Info) Description 01/02/2025 1:40 PM CDT Comprehensive Visit Department of Dermatology in [place], [place] [address] [place] [phone] Courtney Madden M.D. [address] [place] [phone] Keratosis Seborrheic (Primary Dx); Nevi Multiple; Melanoma Personal History Social History Tobacco Use Types Packs/Day Years Used Date Smoking Tobacco: Never Passive Smoke Exposure: Never Smokeless Tobacco: Never Alcohol Use Standard Drinks/Week Comments Never 0 (1 standard drink = 0.6 oz pur e alcohol) [facility] Utilities Answer Date Recorded In the past 12 months has [facility] electric, gas, oil, or water [employer] threatened to shut off services in your home? No 11/08/2024 Humiliation, Afraid, Rape, and Kick questionnair e Answer Date Recorded Within the last year, have y ou been afraid of your partner or ex-partner? No 11/08/2024 Within the last year, have y ou been humiliated or emotionally abused in other ways by your partner or ex-partner? No Within the last year, have y ou been kicked, hit, slapped, or otherwise physically hurt by your partner or ex-partner? No 11/08/2024 Within the last year, have y ou been raped or forced to have any kind of sexual activity by your partner or ex-partner? No 11/08/2024 Hunger Vital Sign Answer Date Recorded Within the past 12 months, y ou worried that your food would run out before you got the money to buy more. Never true 11/09/19 25 Within the past 12 months, t he food you bought just didn't last and you didn't have money to get more. Never true 11/08/2024 PRAPARE - Transportation Answer Date Re corded In the past 12 months, has l ack of transportation kept you from medical appointments or from getting medications? No 03/2025 In the past 12 months, has l ack of transportation kept you from meetings, work, or from getting things needed for daily living? No 11/08/2024 Depression Answer Date Recor ded PHQ-9 Total Score (max 27) 1 10/29 Housing Stability Answer Date Recorded What is your living situation today? I have a [place] place to live 11/08/2024 Education Answer Date Recorded What is the highest level of school you have completed or the highest degree you have received? 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 - 01/02/2025 1:40 PM CDT SUBJECTIVE CHIEF COMPLAINT / REASON FOR VISIT Melanoma recheck HISTORY OF PRESENT ILLNESS Mr. Sinan Mustafa is a 69 y.o. male who presents today for a melanoma recheck. The patient was last seen by me in Dermatology clinic on May 02, 2024. He has a history of malignant melanoma involving the right medial calf, Breslow Depth 0.37 mm, status post wide local excision in 1985. He denies a personal history of skin cancer or family history for melanoma. He uses sunscreen. He apparently has had many falls recently due to his Parkinson's and his doctors are aware of the situation. In addition, he had cellulitis involving his left arm in early November 2024 [facility] and then discharged 1 day later and was treated easily with cefadroxil and Bactrim and then later with Omnicef which cleared the cellulitis. No Known Allergies MEDICAL HISTORY 1. Right medial calf: History of malignant melanoma, Breslow Depth 0.37 mm, status post wide local excision in 1985 2. Negative for non-melanoma skin cancer 3. 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 Parkinson's disease FAMILY HISTORY No family history for melanoma. OBJECTIVE PHYSICAL EXAMINATION General: Awake, alert, in no acute distress, and with appropriate affect. Eyes: No scleral injection or icterus. No eyelid abnormalities. Lymph: No lower extremity edema. No lymphadenopathy on examination of head and neck, axilla, inguinal areas or popliteal fossa. No hepatosplenomegaly Skin: I have examined the scalp, face, neck, chest, abdomen, back, bilateral upper extremities, andbilateral lower extremities. No recurrence of previous melanoma involving the right medial calf He does have postinflammatory discoloration involving the left arm status post cellulitis. No evidence for cellulitis. Many bruises are noted from multiple falls secondary to his Parkinson's. Examination of his skin today reveals a few benign nevi, lentigines and seborrheic keratoses No suspicious lesions for skin cancer ASSESSMENT / PLAN #1 Skin: Benign-appearing nevi and lentigines The ABCDE criteria for melanoma was reviewed with the patient. None of the patient's nevi reach theclinical threshold for biopsy. I recommend continued sun protection including SPF 30 or higher, self-skin examinations, and observation. Should any of the patient's nevi change in size, color, texture, or shape or develop symptoms such as itching or bleeding, I recommend an immediate return visit for reassessment. #2 Trunk and extremities: Seborrheic keratosis The benign nature of the skin lesion(s) was discussed with the patient. No treatment is required. Irecommend continued observation. Should symptoms or changes develop related to this condition, I would recommend a return visit for reassessment. #3 Right medial calf: History of malignant melanoma, Breslow Depth 0.37 mm, status post wide local excision in 1985, no recurrence No evidence for recurrence of melanoma. Follow-up in 6-12 months or earlier if needed. PATIENT EDUCATION: Ready to learn. No apparent learning barriers were identified. Learning preferences include listening. Explained diagnosis and treatment plan; patient/guardian of patient expressed understanding of the content. documented in this encounter Plan of Treatment Upcoming Encounters Date Type Department Care Team (Latest Contact Info) Description 02/21/2025 8:00 AM CDT Clinical Support Department of Rehabilitation Services in [address] [place] [address] Ke Curiel MPAS, P.A.-C. [address] [place] [phone] Capri Valdez PJaky, D.P.T. [address] [place] [address], [place] [address] 02/28/2025 8:45 AM CDT Clinical Support Department of Rehabilitation Services in [address] [place] [address] Ke Curiel MPAS, P.A.-C. [address] [place] [phone] Capri Valdez PJaky, D.P.T. [address] [place] [address], [place] [address] 03/13/2025 10:15 AM CDT Clinical Support Department of Rehabilitation Services in [address] [place] [address] Ke Curiel MPAS, P.A.-C. [address] [place] [phone] Capri Valdez P.Christiano., D.P.T. [address] [place] [address], [place] [address] 03/20/2025 3:15 PM CDT Clinical Support Department of Rehabilitation Services in [address] [phone] Ke Curiel, MPAS, P.A.-C. [address] [facility] [place] [phone] Capri Valdez P.T., D.P.T. [address] [place], [place] [address] [place] [phone] 03/27/2025 11:00 AM CDT Clinical Communication Virtual Review in [place], [place] 200 [place] [address] 03/29/2025 8:00 AM CDT Comprehensive Visit Department of Neurology in [address] [phone] Bobby Santiago M.D., Ph.D. [address] [place] [phone] 03/29/2025 9:45 AM CDT Appointment Department of Radiology, [facility] in [address] [phone] Bobby Santiago M.D., Ph.D. [address] [place] [phone] 03/29/2025 1:00 PM CDT Education Department of Neurology in [address] [address] Bobby Santiago M.D., Ph.D. [address] [place] [phone] 03/29/2025 2:30 PM CDT Comprehensive Visit Department of Neurologic Surgery in [place], [place] [address] [place] [phone] Freddy Wayne M.D., Ph.D. [address] [place] [phone] 03/30/2025 8:00 AM CDT Clinical Support Department of Neurology in [place], [place] [address] [place] [phone] Bobby Santiago M.D., Ph.D. [address] [place] [phone] 03/30/2025 10:30 AM CDT Comprehensive Visit Department of Neurology in [place], [place] [address] [place] [phone] Bobby Santiago M.D., Ph.D. [address] [place] [phone] Maria Irvin, Ph.D. [address] [place] [phone] Scheduled Referrals Name Type Priority Associated Diagnoses Order Schedule Dermatology office visit (clinic) Outpatient Referral Routine Expected: 01/02/2026 (Approximate), Expires: 04/04/2026 documented as of this encounter Visit Diagnoses Diagnosis Keratosis Seborrheic- Primary Nevi Multiple Melanoma Personal History documented in this encounter Additional Health Concerns Assessment Noted Time PHQ-9 Depression Total Score: 1 10/30/19 21 1:32 PM CDT documented as of this encounter Care Teams Concrete Laborer Relationship Specialty Start Date End Date Jayla Canales APRN, C.N.P. [address] [place] [phone] PCP - General Family Medicine 12/24/[address] [place], [place] Dentist 03/15/24 documented as of this encounter
--- OUTSIDE RECORDS SUMMARY | 2025-01-04 07:45 | XMS_ITS | Encounter Summary ---
Author Organization [facility] Address [address] [place] [address] Care Team Providers Care Personnel Quality Assurance Auditor Name Role Phone Jayla Canales APRN, C.N.P. Primary Care Provide r Reason for Visit * Physical Therapy (Routine) - Canceled Specialty Diagnoses / Procedures Referred By Contac t Referred To Contact Diagnoses Parkinsonism Unspecified (HCC) Procedures PT Ongoing treatment Jayla Canales APRN, C.N.P. [address] [place] [address] Phone: tel: fax: [facility] Region Referral ID Status Reason Start Date Expiration Date V isits Requested Visits Authorized [id number] Canceled 06/23/2024 06/23/2025 99 99 Encounter Details Date Type Department Care Team (Latest Contact Info) Description 01/04/2025 7:45 AM CDT Clinical Support Department of Rehabilitation Services in [address] [phone] Jayla Canales, LINDY, C.N.P. 701 [facility] [place] [address] Capri Valdez P.T., D.P.T. [address] [place] [address] Parkinsonism Unspecified (HCC) Social History Tobacco Use Types Packs/Day Years Used Date Smoking Tobacco: Never Passive Smoke Exposure: Never Smokeless Tobacco: Never Alcohol Use Standard Drinks/Week Comments Never 0 (1 standard drink = 0.6 oz pur e alcohol) [facility] Utilities Answer Date Recorded In the past 12 months has e [employer], gas, oil, or water [employer] threatened to shut off services in your [...] living situation today? I have a [facility] [place] place to live 11/08/2024 Education Answer Date Recorded What is the highest level of school you have completed or the highest degree you have received? 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 - 01/04/2025 7:45 AM CDT Physical Therapy Outpatient Treatment Note SUBJECTIVE Patient's Name: Sinan Mustafa Referring Provider: Jayla Canales APRN, C.* Visit Diagnosis: 1. Parkinsonism Unspecified (HCC) Payor: MEDICARE / Plan: MEDICARE A AND B / Product Type: Medicare / No data recorded Epic Visit Count: 34 Patient comments: Patient reports 3 falls in the a last 2 days. He reports he was using an assistive device. Recommend walker at all times. He typically uses a cane but switches to a walker at night and when he is having a difficult day. OBJECTIVE Pain: soreness from falls, right knee pain TREATMENT Treatment today consisted of: Sci-Fit Total body ergometer times 10 minutes at a level 4 resistance. Performed heel raises and toe raises at 20 repetitions each. Lateral step ups 8 inch step 20 reps bilaterally. Performed forwardlunges and side lunges at 20 repetitions bilaterally. Worked on weight shifting both anterior and posteriorly as well as side to side. Performed tandem stance 4 times 30 seconds. Romberg stance with h ead movements on balance foam 2 x 30 seconds. Tandem stance 2 x 30 seconds. Worked on taking 2 consecutive long strides in the parallel bars without UE support. Worked on 90 degree turns taking long strides out. Assessment Clinical Impression: Patient does well with static balance. Patient does however continue to have consistent falls. Patient is pursuing a big and loud program close to his home. We will continue withphysical therapy here until he is able to start that program. Continue to recommend use of assistive device at all times to minimize fall risk, preferably walker. Functional Goals and Timeframes: PT Goal #1: [...] progressing PT Goal #4: Patient will demonstrate pqf-ev-cinki x5 in 10 seconds or less to [...] Support Department of Rehabilitation Services in [address] [phone] Ke Curiel, LOUISS, P.A.-C. [address] [place] [phone] Capri Valdez P.T., D.P.T. [address] [place] [phone] 02/28/2025 8:45 AM CDT Clinical Support Department of Rehabilitation Services in [address] [place] [address] Ke Curiel MPAS, Shanel.A.-C. [address] [place] [phone] Capri Valdez P.T., D.P.T. [address] [place] [address] [place] [address] 03/13/2025 10:15 AM CDT Clinical Support Department of Rehabilitation Services in [address] [place] [address] Ke Curiel MPAS, P.A.-CEmeka [address] [place] [phone] Capri Valdez P.T., D.P.T. [address] [place] [address] [place] [address] 03/20/2025 3:15 PM CDT Clinical Support Department of Rehabilitation Services in [address] [place] [address] Ke Curiel MPAS, P.A.-CEmeka [address] [place] [phone] Capri Valdez P.T., D.P.T. [address] [place], [place] [address] [place] [address] 03/27/2025 11:00 AM CDT Clinical Communication Virtual Review in [place], [place] 200 [place] [address] 03/29/2025 8:00 AM CDT Comprehensive Visit Department of Neurology in [address] [phone] Bobby Santiago M.D., Ph.D. [address] [place] [phone] 03/29/2025 9:45 AM CDT Appointment Department of Radiology, [facility] in [place], [place] [address] [place] [phone] Bobby Santiago M.D., Ph.D. [address] [place] [phone] 03/29/2025 1:00 PM CDT Education Department of Neurology in [place], [place] [address] [place] [address] Bobby Santiago M.D., Ph.D. [address] [place] [phone] 03/29/2025 2:30 PM CDT Comprehensive Visit Department of Neurologic Surgery in [place], [place] [address] [place] [phone] Freddy Wayne M.D., Ph.D. [address] [place] [phone] 03/30/2025 8:00 AM CDT Clinical Support Department of Neurology in [place], [place] [address] [place] [phone] Bobby Santiago M.D., Ph.D. [address] [place] [phone] 03/30/2025 10:30 AM CDT Comprehensive Visit Department of Neurology in [place], [place] [address] [place] [address] Bobby Santiago M.D., Ph.D. [address] [place] [address] [place] [phone] Maria Irvin, Ph.D. 200 [place] [address] documented as of this encounter Visit Diagnoses Diagnosis Parkinsonism Unspecified (HCC) documented in this encounter Additional Health Concerns Assessment Noted Time PHQ-9 Depression Total Score: 1 10/30/19 21 1:32 PM CDT documented as of this encounter Care Teams Personnel Quality Assurance Auditor Relationship Specialty Start Date End Date Jayla Canales APRN, C.N.P. [address] [place] [phone] PCP - General Family Medicine 12/24/[address] [place], [place] Dentist 03/15/24 documented as of this encounter
--- OUTSIDE RECORDS SUMMARY | 2025-01-06 08:30 | XMS_ITS | Encounter Summary ---
Author Organization [facility] Address [address] [place] [address] Care Team Providers Care Production Planning Manager Name Role Phone Jayla Canales APRN, C.N.P. Primary Care Provide r Reason for Referral * Outpatient (Routine) - Authorized Specialty Diagnoses / Procedures Referred By Contac t Referred To Contact Diagnoses Primary Osteoarthritis Knee Bilateral Pain Knee Left Pain Knee Right Procedures [id number]-pkrf-blkdfocb-elbow arthrocentesis: Bilat knee joint Ke Curiel MPAS, P.A.-C. [address] [place] [address] Phone: tel: fax: [facility] Region Referral ID Status Reason Start Date Expiration Date V isits Requested Visits Authorized [id number] Authorized 01/06/2025 04/08/2026 1 1 * Physical Therapy (Routine) - Authorized Specialty Diagnoses / Procedures Referred By Axel larios Referred To Contact Diagnoses Primary Osteoarthritis Knee Bilateral Procedures PT Evaluate and treat Ke Curiel MPAS, P.A.-C. [address] [place] [address] Phone: tel: fax: [facility] Region Referral ID Status Reason Start Date Expiration Date V isits Requested Visits Authorized [id number] Authorized 01/06/2025 04/08/2026 99 99 Reason for Visit * Reason Comments Pain Requesting injection s, last in Sep. Pain * Appointment Request (Routine) - Closed Specialty Diagnoses / Procedures Referred By Axel larios Referred To Contact Orthopedic Surgery Referral ID Status Reason Start Date Expiration Date Visits Re quested Visits Authorized [id number] Closed 01/04/2025 04/06/2026 1 1 Encounter Details Date Type Department Care Team (Latest Contact Info) Description 01/06/2025 8:30 AM CDT Office Visit Department of Orthopedic Surgery in [address] [phone] Ke Curiel MPAS, P.A.-C. [address] [place] [phone] Primary Osteoarthritis Knee Bilateral (Primary Dx); Pain Knee Left; Pain Knee Right Discharge Disposition: Home or Self Care Social History Tobacco Use Types Packs/Day Years Used Date Smoking Tobacco: Never Passive Smoke Exposure: Never Smokeless Tobacco: Never Alcohol Use Standard Drinks/Week Comments Never 0 (1 standard drink = 0.6 oz pur e alcohol) [facility] Utilities Answer Date Recorded In the past 12 months has [place], gas, oil, or water [employer] threatened to shut off services in your [...] your living situation today? I have a [facility] place to live 11/08/2024 Education Answer Date Recorded What is the highest level of school you have completed or the highest degree you have received? 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 - 01/06/2025 8:30 AM CDTAssociated Order(s): gci-okuw-fwhmjrpm-elbow arthrocentesis: Bilat knee joint Post-Procedure Diagnose(s): Primary Osteoarthritis Knee Bilateral; Pain Knee Left; Pain Knee Right Knee site- Bilat knee joint : injection only Performed by: Ke Curiel MPAS PEmekaA.-C. Authorized by: Ke Curiel MPAS P.A.-CEmeka PROCEDURE DETAILS Indications: bilateral knee pain Procedure Location knee Knee site: Bilat knee joint Site prep: patient was prepped and draped in usual sterile fashion Procedural approach: anterolateral Procedure performed: injection only Needle gauge: 22 G Procedural Medication The following medications were administered at the target site(s) On the right: Local anesthetic: 5 mL lidocaine 10 mg/mL (1 %) Corticosteroid: 60 mg triamcinolone acetonide 40 mg/mL On the left: Local anesthetic: 5 mL lidocaine 10 mg/mL (1 %) Corticosteroid: 60 mg triamcinolone acetonide 40 mg/mL PRE-PROCEDURE DETAILS Procedure purpose: therapeutic and diagnostic Indications: bilateral knee pain Site preparation: povidone-iodine and chlorhexidine SEDATION / ANESTHESIA Anesthesia method: none POST-PROCEDURE DETAILS Procedure completed successfully: yes Complications: no apparent complications Post-procedure instructions: avoid strenuous activity for 5 days Discharge instructions: dressing care and follow-up with ordering provider documented in this encounter Plan of Treatment Upcoming Encounters Date Type Department Care Team (Latest Contact Info) Description 02/21/2025 8:00 AM CDT Clinical Support Department of Rehabilitation Services in [address] [phone] Ke Curiel MPAS, P.A.-C. [address] [place] [phone] Capri Valdez P.T., D.P.T. [address] [place] [phone] 02/28/2025 8:45 AM CDT Clinical Support Department of Rehabilitation Services in [address] [phone] Ke Curiel MPAS, P.A.-C. [address] [place] [phone] Capri Valdez P.T., D.P.T. [address] [place], [place] [address] [phone] 03/13/2025 10:15 AM CDT Clinical Support Department of Rehabilitation Services in [address] [phone] Ke Curiel MPAS, Shanel.A.-C. [address] [place] [phone] Capri Valdez P.T., D.P.T. [address] [place], [place] [address] [phone] 03/20/2025 3:15 PM CDT Clinical Support Department of Rehabilitation Services in [address] [place] [address] Ke Curiel MPAS, P.A.-C. [address] [place] [phone] Capri Valdez P.Maddy, D.P.T. [address] [place], [place] [address] [place] [phone] 03/27/2025 11:00 AM CDT Clinical Communication Virtual Review in [address] [phone] 03/29/2025 8:00 AM CDT Comprehensive Visit Department of Neurology in [address] [phone] Bobby Santiago M.D., Ph.D. [address] [place] [phone] 03/29/2025 9:45 AM CDT Appointment Department of Radiology, [facility] in [place], [place] [address] [place] [phone] Bobby Santiago M.D., Ph.D. [address] [place] [phone] 03/29/2025 1:00 PM CDT Education Department of Neurology in [place], [place] [address] [place] [phone] Bobby Santiago M.D., Ph.D. [address] [place] [phone] 03/29/2025 2:30 PM CDT Comprehensive Visit Department of Neurologic Surgery in [address] [phone] Freddy Wayne M.D., Ph.D. [address] [place] [phone] 03/30/2025 8:00 AM CDT Clinical Support Department of Neurology in [place], [place] [address] [place] [phone] Bobby Santiago M.D., Ph.D. [address] [place] [phone] 03/30/2025 10:30 AM CDT Comprehensive Visit Department of Neurology in [place], [place] [address] [place] [phone] Bobby Santiago M.D., Ph.D. [address] [place] [phone] Maria Irvin, [place] [phone] documented as of this encounter Procedures Procedure Name Priority Date/Time Associated Diagnosis Comments OH ARTHCS ASP/INJ MJR JT WO US Routine 01/06/2025 8:30 AM CDT Primary Osteoarthritis Knee Bilateral Pain Knee Left Pain Knee Right documented in this encounter Results * OH ARTHCS ASP/INJ MJR JT WO US (01/06/2025 8:30 AM CDT) Narrative MMODAL - 01/06/2025 8:30 AM CDT Ke Curiel MPAS P.A.-C. 01/06/2025 8:46 AM Knee site- Bilat knee joint : injection only Performed by: Ke Curiel MPAS, P.A.-C. Authorized by: Ke Curiel MPAS P.A.-CEmeka PROCEDURE DETAILS Indications: bilateral knee pain Procedure Location knee Knee site: Bilat knee joint Site prep: patient was prepped and draped in usual sterile fashion Procedural approach: anterolateral Procedure performed: injection only Needle gauge: 22 G Procedural Medication The following medications were administered at the target site(s) On the right: Local anesthetic: 5 mL lidocaine 10 mg/mL (1 %) Corticosteroid: 60 mg triamcinolone acetonide 40 mg/mL On the left: Local anesthetic: 5 mL lidocaine 10 mg/mL (1 %) Corticosteroid: 60 mg triamcinolone acetonide 40 mg/mL PRE-PROCEDURE DETAILS Procedure purpose: therapeutic and diagnostic Indications: bilateral knee pain Site preparation: povidone-iodine and chlorhexidine SEDATION / ANESTHESIA Anesthesia method: none POST-PROCEDURE DETAILS Procedure completed successfully: yes Complications: no apparent complications Post-procedure instructions: avoid strenuous activity for 5 days Discharge instructions: dressing care and follow-up with ordering provider Ke FRANCO, P.A.-CEmeka PROCEDURE/MINOR SURGICAL ORDERABLES Final Result MMODAL NA documented in this encounter Visit Diagnoses Diagnosis Primary Osteoarthritis Knee Bilateral- Primary Pain Knee Left Pain Knee Right documented in this encounter Administered Medications Inactive Administered Medications - up to 3 most recent administrations Medication Order MAR Action Action Date Dose Rate Site lidocaine 10 mg/mL (1 %) injection 5 mL (Xylocaine) 5 mL, injection, One-Time Injection, Starting on Thu01/06/25 at 0830, For 1 doseIndications:Primary Osteoarthritis Knee Bilateral,Pain Knee Left,Pain Knee Right Given 01/06/2025 8:30 AM CDT 5 mL lidocaine 10 mg/mL (1 %) injection 5 mL (Xylocaine) 5 mL, injection, One-Time Injection, Starting on Thu01/06/25 at 0830, For 1 doseIndications:Primary Osteoarthritis Knee Bilateral,Pain Knee Left,Pain Knee Right Given 01/06/2025 8:30 AM CDT 5 mL triamcinolone acetonide injection 60 mg (Kenalog-40) 60 mg, intra-articular, One-Time Injection, Starting on Thu01/06/25 at 0830, For 1 doseIndications:Primary Osteoarthritis Knee Bilateral,Pain Knee Left,Pain Knee Right Given 01/06/2025 8:30 AM CDT 60 mg triamcinolone acetonide injection 60 mg (Kenalog-40) 60 mg, intra-articular, One-Time Injection, Starting on Thu01/06/25 at 0830, For 1 doseIndications:Primary Osteoarthritis Knee Bilateral,Pain Knee Left,Pain Knee Right Given 01/06/2025 8:30 AM CDT 60 mg documented in this encounter Additional Health Concerns Assessment Noted Time PHQ-9 Depression Total Score: 1 10/30/19 21 1:32 PM CDT documented as of this encounter Care Teams Production Planning Manager Relationship Specialty Start Date End Date Jayla Canales APRN, C.N.P. [address] [place] [phone] PCP - General Family Medicine 12/24/[address] [place], [place] Dentist 03/15/24 documented as of this encounter
--- OUTSIDE RECORDS SUMMARY | 2025-01-10 10:33 | XMS_ITS | Encounter Summary ---
Author Organization [facility] Address [address] [place] [address] Care Team Providers Care Rn Team Leader Name Role Phone Jayla Canales APRN, C.N.P. Primary Care Provide r Reason for Referral * Outpatient (Routine) - Closed Specialty Diagnoses / Procedures Referred By Contac t Referred To Contact Diagnoses Pain Hip Left Procedures DX Hip And Pelvis Left 2-3 Views DX Hip Left 2-3 Views Ke Curiel MPAS, P.A.-C. [address] [place] [phone] Phone: tel: fax: [facility] Region Referral ID Status Reason Start Date Expiration Date Visits Re quested Visits Authorized [id number] Closed 01/10/2025 04/12/2026 1 1 Reason for Visit * Outpatient (Routine) - Closed Specialty Diagnoses / Procedures Referred By Contac t Referred To Contact Diagnoses Pain Hip Left Procedures DX Hip And Pelvis Left 2-3 Views DX Hip Left 2-3 Views Ke Curiel, JOAN, P.A.-C. [address] [place] [address] Phone: tel: fax: [facility] Region Referral ID Status Reason Start Date Expiration Date Visits Re quested Visits Authorized [id number] Closed 01/10/2025 04/12/2026 1 1 Encounter Details Date Type Department Care Team (Latest Contact Info) Description 01/10/2025 10:33 AM CDT - 01/10/2025 11:59 PM CDT Hospital Encounter Department of Radiology in [address] [phone] Ke Curiel, JOAN, P.A.-C. [address] [place] [phone] Pain Hip Left Discharge Disposition: Home or Self Care Social History Tobacco Use Types Packs/Day Years Used Date Smoking Tobacco: Never Passive Smoke Exposure: Never Smokeless Tobacco: Never Alcohol Use Standard Drinks/Week Comments Never 0 (1 standard drink = 0.6 oz pur e alcohol) [facility] Utilities Answer Date Recorded In the past 12 months has [facility] [employer], gas, oil, or water [employer] threatened to shut off services in your [...] your living situation today? I have a [facility] place to live 11/08/2024 Education Answer Date Recorded What is the highest level of school you have completed or the highest degree you have received? 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 Substitute for Rytary. Take 3 Crexont caps every 4 hours around the clock. Take on an empty stomach. 1800 each 3 05/17/2024 carbidopa-levodop a (SINEMET) 25-100 mg per tablet Take 0.5-1 tablets by mouth as directed. 1/2 tab by mouth six times per day; pt may take an additional 3 tabs daily as needed. 540 tablet 3 11/16/2023 cyanocobalamin (Vitamin B-12) 1,000 mcg tablet Take 1,000 mcg by mouth daily. fish oil 1,000 mg capsule Take 1,000 mg by mouth daily. fluocinolone (SYNALAR) 0.01 % external solutionIndicatio ns:Keratosis Seborrheic,Eczema Apply topically daily as needed for itching or rash. 60 mL 3 08/27/2021 folic acid-vitamin B6,B12 (FOLBIC) 2.5-25-2 mg per tablet Take 2 tablets by mouth daily. To prevent homocysteine elevation. 01/08/2016 ketoconazole (NIZORAL) 2 % shampoo Apply 1 Application topically 3 (three) times a week. Apply to damp skin, lather, leave on 5 minutes, and rinse 120 mL 3 03/23/2023 metoprolol succinate (Toprol XL) 25 mg 24 hr tabletIndications :Atrial Fibrillation Unspecified (HCC) take 1 tablet by mouth daily 90 tablet 3 03/15/2024 pyridoxine, vitamin B6, (vitamin B-6) 100 mg tablet Take 100 mg by mouth daily. traZODone (DesyreL) 50 mg tablet take 2 tablets by mouth at bedtime, may repeat with one tablet during the night. 270 tablet 3 08/04/2024 DULoxetine (CYMBALTA) [address] capsule take 1 capsule by mouth daily 90 capsule 3 01/18/2024 zolpidem (Ambien) 5 mg tablet Take 1 tablet (5 mg total) by mouth at bedtime as needed for sleep. May raise the Ambien to 2 tabs at bedtime if necessary to initiate sleep. 30 tablet 12/14/2024 5 documented as of this encounter Plan of Treatment Upcoming Encounters Date Type Department Care Team (Latest Contact Info) Description 02/21/2025 8:00 AM CDT Clinical Support Department of Rehabilitation Services in [address] [phone] Ke Curiel, MPAS, P.A.-C. [address] [place] [phone] Capri Valdez P.T., D.P.T. [address] [place] [address] [place] [phone] 02/28/2025 8:45 AM CDT Clinical Support Department of Rehabilitation Services in [address] [place] [phone] Ke Curiel MPAS, P.A.-C. [address] [place] [phone] Capri Valdez P.T., D.P.T. [address] [place], [place] [address] [address] 03/13/2025 10:15 AM CDT Clinical Support Department of Rehabilitation Services in [address] [place] [phone] Ke Curiel MPAS, P.A.-C. [address] [place] [phone] Capri Valdez P.T., D.P.T. [address] [place], [place] [address] [address] 03/20/2025 3:15 PM CDT Clinical Support Department of Rehabilitation Services in [address] [place] [phone] Ke Curiel MPAS, P.A.-C. [address] [place] [phone] Capri Valdez P.T., D.P.T. [address] [place], [place] [address] [address] 03/27/2025 11:00 AM CDT Clinical Communication Virtual Review in [place], [place] [address] [place] [address] 03/29/2025 8:00 AM CDT Comprehensive Visit Department of Neurology in [place], [place] [address] [place] [phone] Bobby Santiago M.D., Ph.D. [address] [place] [phone] 03/29/2025 9:45 AM CDT Appointment Department of Radiology, [facility] in [place], [place] [address] [place] [phone] Bobby Santiago M.D., Ph.D. [address] [place] [phone] 03/29/2025 1:00 PM CDT Education Department of Neurology in [address] [phone] Bobby Santiago M.D., Ph.D. [address] [place] [phone] 03/29/2025 2:30 PM CDT Comprehensive Visit Department of Neurologic Surgery in [address] [phone] Freddy Wayne M.D., Ph.D. [address] [place] [phone] 03/30/2025 8:00 AM CDT Clinical Support Department of Neurology in [address] [phone] Bobby Santiago M.D., Ph.D. [address] [place] [phone] 03/30/2025 10:30 AM CDT Comprehensive Visit Department of Neurology in [place], [place] [address] [place] [address] Bobby Santiago M.D., Ph.D. [address] [place] [phone] Maria Irvin, Ph.D. [address] [place] [phone] documented as of this encounter Procedures Procedure Name Priority Date/Time Associated Diagnosis Comments DX HIP AND PELVIS LEFT 2-3 VIEWS RAD - Routine (most inpatients and all outpatients) 01/10/2025 11:05 AM CDT Pain Hip Left documented in this encounter Results * DX Hip And Pelvis Left 2-3 Views (01/10/2025 11:05 AM CDT) Anatomical Region Laterality Modality Lower Extremity, Pelvis, Hip , Musculoskeletal RST LOS, Musculoskeletal ARZ LOS, Muskuloskeletal FLA LOS Left Digit al Radiography Impressions 01/10/2025 11:37 AM CDT Images are interpreted with comparison to prior radiographs 08/26/2021. Intact ilioischial and iliopectineal lines. Negative for acute fracture or malalignment. Mild to moderate left hip joint arthrosis appears similar to prior study, with more moderately severe right hip arthrosis present. Degenerative changes in the lower lumbar spine, SI joints, pubic symphysis. Scattered arterial calcifications. Narrative 01/10/2025 11:37 AM CDT EXAM: DX HIP AND PELVIS LEFT 2-3 VIEWS Procedure Note Steven Dias M.D. - 01/10/2025 EXAM: DX HIP AND PELVIS LEFT 2-3 VIEWS IMPRESSION: Images are interpreted with comparison to prior radiographs 08/26/2021.Intact ilioischial and iliopectineal lines. Negative for acute fracture ormalalignment. Mild to moderate left hip joint arthrosis appears similar toprior study, with more moderately severe right hip arthrosis present. Degenerative changesin the lower lumbar spine, SI joints, pubic symphysis. Scattered arterialcalcifications. Ke FRANCO, P.A.-C. IMG DIAGNOSTIC I MAGING PROCEDURES Final Result documented in this encounter Visit Diagnoses Diagnosis Pain Hip Left documented in this encounter Additional Health Concerns Assessment Noted Time PHQ-9 Depression Total Score: 1 10/30/19 21 1:32 PM CDT documented as of this encounter Care Teams Rn Team Leader Relationship Specialty Start Date End Date Jayla Canales APRN, C.N.P. [address] [place] [phone] PCP - General Family Medicine 12/24/[address] [place], [place] Dentist 03/15/24 documented as of this encounter
--- OUTSIDE RECORDS SUMMARY | 2025-01-19 08:30 | XMS_ITS | Encounter Summary ---
Author Organization [facility] Address [address] [place] [address] Care Team Providers Care Medicare Compliance Auditor Name Role Phone Jayla Canales APRN, C.N.P. Primary Care Provide r Reason for Visit * Physical Therapy (Routine) - Canceled Specialty Diagnoses / Procedures Referred By Contac t Referred To Contact Diagnoses Parkinsonism Unspecified (HCC) Procedures PT Ongoing treatment Jayla Canales APRN, C.N.P. [address] [place] [address] Phone: tel: fax: [facility] Region Referral ID Status Reason Start Date Expiration Date V isits Requested Visits Authorized [id number] Canceled 06/23/2024 06/23/2025 99 99 Encounter Details Date Type Department Care Team (Latest Contact Info) Description 01/19/2025 8:30 AM CDT Clinical Support Department of Rehabilitation Services in [address] [phone] Jayla Canales, LINDY, C.N.P. [address] [facility] [place] [address] Capri Valdez P.T., D.P.T. [address] [place] [phone] Parkinsonism Unspecified (HCC) Social History Tobacco Use Types Packs/Day Years Used Date Smoking Tobacco: Never Passive Smoke Exposure: Never Smokeless Tobacco: Never Alcohol Use Standard Drinks/Week Comments Never 0 (1 standard drink = 0.6 oz pur e alcohol) [facility] Utilities Answer Date Recorded In the past 12 months has e [place], gas, oil, or water [employer] threatened to shut off services in your [...] 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, RECEIVABLE MANAGER, HARRISON) 01/09/2019 Sex and Gender Information Value Date Recorded Sex Assigned at Male 12/15/2017 6:50 AM CDT 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 - 01/19/2025 8:30 AM CDT Physical Therapy Outpatient Treatment Note SUBJECTIVE Patient's Name: Sinan Mustafa Referring Provider: Jayla Canales APRN, C.* Visit Diagnosis: 1. Parkinsonism Unspecified (HCC) Payor: MEDICARE / Plan: MEDICARE A AND B / Product Type: Medicare / No data recorded Epic Visit Count: 35 Patient comments: Patient continues to report history of falls. Patient feels he is ambulating wellone moment and then has a fall in the next. Patient utilizes a straight cane. He intermittently uses a walker. OBJECTIVE Pain: Hip and knee pain; patient will begin an injection in the hip today. Tug test 12 seconds without the use an assistive device. Uld-nx-aktpu x5 10 seconds. TREATMENT Treatment today consisted of: Patient completed Sci-Fit Total body ergometer times 10 minutes at a level 4 resistance. Completed the tug test and pzj-jz-nxzka test. Performed heel and toe raises within the parallel bars without upper extremity support times 20 repetitions. Worked on anterior-posterior weight shifting as well aslateral weight shifting 10 repetitions in each direction. Performed tandem stance with horizontal and vertical head movements 2 times 30 seconds. Performed tandem stance utilizing a weighted ball for protraction and retraction of the upper extremities 2 x 10 repetitions. Performed Romberg stance on balance foam with eyes open times 30 seconds independent. Performed Romberg stance on balance foam with eyes closed 2 times 30 seconds. Performed tandem stance on level ground with eyes closed at 30seconds. Assessment Clinical Impression: Patient tolerated session well today. Patient is demonstrating improved staticbalance and he is negotiating through his base of support much better statically. Patient does continue to have a high rate of falls despite using a cane and fall risk techniques. Suggest patient utilize a walker at all times to minimize his risk of falls. He has no current falls with the use of a walker. Patient is currently working on getting scheduled in a big and loud program. Once he has transitioned into this program will discontinue therapy here. Functional Goals and Timeframes: PT Goal #1: Patient will demonstrate a / on the Dynamic Gait index in order to demonstrate reduce fall risk. PT Goal #1 to be achieved by: 02/17/25 PT Goal #1 Status: Slowly progressing PT Goal #2: Patient will demonstrate single leg stance times 15 seconds. PT Goal #2 to be achieved by: 02/17/25 PT Goal #2 Status: Slowly progressing PT Goal #3: Patient will demonstrate tug test in 11 seconds or less to demonstrate increased gait speed. PT Goal #3 to be achieved by: 10/28/24 PT Goal #3 Status: Achieved PT Goal #4: Patient will demonstrate jgy-cy-oskpn x5 in 10 seconds or less to demonstrate improved endurance. PT Goal #4 to be achieved by: 10/28/24 PT Goal #4 Status: Achieved Plan Plan for next session: Strengthening gait and balance Time Spent with Patient Therapeutic Interventions Gait Training (min): 5 min Neuromuscular Re-Education (min): 15 min Therapeutic Exercise (min): 25 min Time Tracking Total Timed Units (min): 45 min Total Treatment Time (min): 45 min Cosigned by Jayla Canales APRN, C.N.P. at 01/19/2025 10:32 AM CDT documented in this encounter Plan of Treatment Upcoming Encounters Date Type Department Care Team (Latest Contact Info) Description 02/21/2025 8:00 AM CDT Clinical Support Department of Rehabilitation Services in [address] [place] [phone] Ke Curiel MPAS, P.A.-C. 701 [place] [phone] Capri Valdez P.T., D.P.T. [address] [place] [address], [place] [phone] 02/28/2025 8:45 AM CDT Clinical Support Department of Rehabilitation Services in [address] [place] [phone] Ke Curiel MPAS, P.A.-C. 701 [place] [phone] Capri Valdez P.T., D.P.T. [address] [place] [address], [place] [phone] 03/13/2025 10:15 AM CDT Clinical Support Department of Rehabilitation Services in [address] [place] [phone] Ke Curiel MPAS, P.A.-CEmeka [address] [place] [phone] Capri Valdez P.T., D.P.T. [address] [place] [address], [place] [phone] 03/20/2025 3:15 PM CDT Clinical Support Department of Rehabilitation Services in [address] [place] [address] Ke Curiel MPAS, P.A.-C. [address] [place] [phone] Capri Valdez P.T., D.P.T. [address] [phone] 03/27/2025 11:00 AM CDT Clinical Communication Virtual Review in [place], [place] [address] [place] [address] 03/29/2025 8:00 AM CDT Comprehensive Visit Department of Neurology in [place], [place] [address] [place] [phone] Bobby Santiago M.D., Ph.D. [address] [place] [phone] 03/29/2025 9:45 AM CDT Appointment Department of Radiology, [facility] in [place], [place] [address] [place] [phone] Bobby Santiago M.D., Ph.D. [address] [place] [phone] 03/29/2025 1:00 PM CDT Education Department of Neurology in [place], [place] [address] [place] [phone] Bobby Santiago M.D., Ph.D. [address] [place] [phone] 03/29/2025 2:30 PM CDT Comprehensive Visit Department of Neurologic Surgery in [place], [place] [address] [place] [phone] Freddy Wayne M.D., Ph.D. [address] [place] [phone] 03/30/2025 8:00 AM CDT Clinical Support Department of Neurology in [place], [place] [address] [place] [address] Bobby Santiago M.D., Ph.D. [address] [place] [phone] 03/30/2025 10:30 AM CDT Comprehensive Visit Department of Neurology in [place], [place] [address] [place] [phone] Bobby Santiago M.D., Ph.D. [address] [place] [phone] Maria Irvin, Ph.D. [address] [place] [phone] documented as of this encounter Visit Diagnoses Diagnosis Parkinsonism Unspecified (HCC) documented in this encounter Additional Health Concerns Assessment Noted Time PHQ-9 Depression Total Score: 1 10/30/19 21 1:32 PM CDT documented as of this encounter Care Teams Medicare Compliance Auditor Relationship Specialty Start Date End Date Jayla Canales APRN, C.N.P. [address] [place] [phone] PCP - General Family Medicine 12/24/[address] [place], [place] Dentist 03/15/24 documented as of this encounter
--- OUTSIDE RECORDS SUMMARY | 2025-01-19 13:30 | XMS_ITS | Encounter Summary ---
Author Organization [facility] Address [address] [place] [address] Care Team Providers Care Neonatal Intensive Care Unit Nurse Name Role Phone Jayla Canales APRN, C.N.P. Primary Care Provide r Reason for Visit * Reason Comments Pain * Outpatient (Routine) - Closed Specialty Diagnoses / Procedures Referred By Contac t Referred To Contact Diagnoses Pain Hip Left Procedures ORS US-Guided aspiration/injection Ke Curiel, [facility], P.A.-C. [address] [place] [address] Phone: tel: fax: [facility] Region Referral ID Status Reason Start Date Expiration Date Visits Re quested Visits Authorized [id number] Closed 01/10/2025 04/12/2026 1 1 Encounter Details Date Type Department Care Team (Latest Contact Info) Description 01/19/2025 1:30 PM CDT Procedure visit Department of Orthopedic Surgery in [place], [place] [address] [place] [address] Devi Mckee P.A.-C., P.A., M.S. 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 - 01/19/2025 1:30 PM CDTAssociated Order(s): ORS US-Guided aspiration/injection: L greater troch bursa Pre-Procedure Diagnose(s): Pain Hip Left Post-Procedure Diagnose(s): Pain Hip Left REFERRAL SOURCE: JOAN Soares* Pre-Procedure Diagnosis: left hip pain Post-Procedure Diagnosis: left hip pain Procedure Performed: Ultrasound-guided left greater trochanteric bursa injection PROCEDURAL PAUSE Procedural pause conducted to verify: correct patient identity, procedure to be performed and as applicable, correct side and site, correct patient position, and availability of implants, special equipment or special requirements. The use of direct ultrasound visualization of the needle (rather than a non- guided injection) was required to ensure accurate injection placement and maximize clinical benefit beyond that obtained with a non-guided injection. Additionally, there can be diagnostic specificity when evaluating effectiveness of the injection, and for safety purposes to minimize risk of bleeding or injury to surrounding structures. PATIENT EDUCATION Ready to learn, no apparent learning barriers were identified; learning preferences include listening. Explained diagnosis and treatment plan; patient expressed understanding of the content. INFORMED CONSENT Following denial of allergy and review of potential side effects and complications including but not necessarily limited to infection, allergic reaction, local tissue breakdown, systemic effects of corticosteroids, elevation of blood glucose, injury to soft tissue and/or nerves and seizure, the patient indicated understanding and agreed to proceed. The procedure was carried out under sterile technique. Prior to the procedure, the hip peritrochanteric region was examined with a Curvilinear CA3-10A, 8 cm, 44 Hz transducer to visualize the greater trochanteric bursa and determine the optimal needle path. Following this, the lateral hip was prepared with a ChloraPrep scrub, then re-examined using thesame transducer, a sterile ultrasound transducer cover, and sterile ultrasound transducer gel. Local anesthesia was obtained with 3 cc of 1% lidocaine. Thereafter, using ultrasound guidance, a [id number] needle was advanced into the greater trochanteric bursa. After visualizing the needle tip in the target area and following a negative aspiration for blood, a mixture of 3 cc 1% lidocaine and1 cc kenalog(40 mg/ml) was injected into the greater trochanteric bursa. The patient tolerated the procedure without complication. After a short observation period, the patient was discharged under their own power and in excellent condition. They were instructed to rest the area for 48 hours, avoid submerging the area for 48 hours, but they were welcome to take a shower. They should ice the area if they are sore. They should contact me with regard to any questions pertaining to the injection. IMPRESSION: Successful ultrasound-guided greater trochanteric bursa injection Hip site - Left greater trochanteric bursa: injection only Performed by: Devi Mckee P.A.-Edna., P.A., M.S. Authorized by: Ke Curiel MPAS, P.A.-C. PROCEDURE DETAILS Procedure Location hip Hip site - Left greater trochanteric bursa Site prep: patient was prepped and draped in usual sterile fashion Patient position: side-lying Procedural approach: lateral Procedure performed: injection only Needle gauge: 25 G, length: 2 in Ultrasound image guidance used to localize target, identify at risk structures, and dynamically used to direct therapy to the target. Image(s) acquired and saved. Probe: convex low/mid-frequency Needle approach: posterior to anterior Ultrasound visualization: in-plane Procedural Medication The following medications were administered at the target site(s) Local anesthetic: 3 mL lidocaine (PF) 10 mg/mL (1 %) Corticosteroid: 40 mg triamcinolone acetonide 40 mg/mL CONSENT Consent obtained: written (Risks, benefits and alternatives were discussed and a written Informed Consent was obtained. Please see Informed Consent form for further details.) PRE-PROCEDURE DETAILS Procedure purpose: therapeutic Site preparation: chlorhexidine/alcohol SEDATION / ANESTHESIA Anesthesia method: local infiltration Local infiltrate type: lidocaine POST-PROCEDURE DETAILS Procedure completed successfully: yes Complications: no apparent complications Post-procedure instructions: avoid submersion of procedure site for 48 hours and avoid strenuous activity for 2 days Discharge instructions: ice area as needed for comfort and dressing care documented in this encounter Plan of Treatment Upcoming Encounters Date Type Department Care Team (Latest Contact Info) Description 02/21/2025 8:00 AM CDT Clinical Support Department of Rehabilitation Services in [address] [phone] Ke Curiel MPAS, P.Sheba.-CEmeka [address] [place] [phone] Capri Valdez P.Maddy, D.P.T. [address] [place] [phone] 02/28/2025 8:45 AM CDT Clinical Support Department of Rehabilitation Services in [address] [phone] eK Curiel MPAS, P.A.-CEmeka [address] [place] [phone] Capri Valdez P.TEmeka, D.P.T. [address] [place] [phone] 03/13/2025 10:15 AM CDT Clinical Support Department of Rehabilitation Services in [address] [phone] Ke Curiel MPAS P.A.-CEmeka [address] [place] [phone] Capri Valdez P.T., D.P.T. [address] [place] [address] [place] [phone] 03/20/2025 3:15 PM CDT Clinical Support Department of Rehabilitation Services in [address] [place] [phone] Ke Curiel, [facility], P.A.-C. [address] [place] [address] [place] [phone] Capri Valdez P.T., D.P.T. [address] [place] [address] [place] [phone] 03/27/2025 11:00 AM CDT Clinical Communication Virtual Review in [place], [place] 200 [place] [address] 03/29/2025 8:00 AM CDT Comprehensive Visit Department of Neurology in [place], [place] [address] [place] [phone] Bobby Santiago M.D., Ph.D. [address] [place] [phone] 03/29/2025 9:45 AM CDT Appointment Department of Radiology, [facility], in [place], [place] [address] [place] [phone] Bobby Santiago M.D., Ph.D. [address] [place] [phone] 03/29/2025 1:00 PM CDT Education Department of Neurology in [place], [place] [address] [place] [phone] Bobby Santiago M.D., Ph.D. [address] [place] [phone] 03/29/2025 2:30 PM CDT Comprehensive Visit Department of Neurologic Surgery in [address] [phone] Freddy Wayne M.D., Ph.D. [address] [place] [phone] 03/30/2025 8:00 AM CDT Clinical Support Department of Neurology in [address] [phone] Bobby Santiago M.D., Ph.D. [address] [place] [phone] 03/30/2025 10:30 AM CDT Comprehensive Visit Department of Neurology in [address] [phone] Bobby Santiago M.D., Ph.D. [address] [place] [phone] Maria rIvin, Ph.D. [address] [place] [phone] documented as of this encounter Procedures Procedure Name Priority Date/Time Associated Diagnosis Comments TX ARTHCS ASP/INJ MJR JT W US Routine 01/19/2025 1:30 PM CDT Pain Hip Left documented in this encounter Results * TX ARTHCS ASP/INJ MJR JT W US (01/19/2025 1:30 PM CDT) Narrative MMODAL - 01/19/2025 1:30 PM CDT Devi Mckee P.A.-Edna., P.A., M.S. 01/19/2025 1:44 PM Hip site - Left greater trochanteric bursa: injection only Performed by: Devi Mckee P.A.-C., Anne MEmekaS. Authorized by: Ke Curiel MPAS POseas.Lindsey. PROCEDURE DETAILS Procedure Location hip Hip site - Left greater trochanteric bursa Site prep: patient was prepped and draped in usual sterile fashion Patient position: side-lying Procedural approach: lateral Procedure performed: injection only Needle gauge: 25 G, length: 2 in Ultrasound image guidance used to localize target, identify at risk structures, and dynamically used to direct therapy to the target. Image(s) acquired and saved. Probe: convex low/mid-frequency Needle approach: posterior to anterior Ultrasound visualization: in-plane Procedural Medication The following medications were administered at the target site(s) Local anesthetic: 3 mL lidocaine (PF) 10 mg/mL (1 %) Corticosteroid: 40 mg triamcinolone acetonide 40 mg/mL CONSENT Consent obtained: written (Risks, benefits and alternatives were discussed and a written Informed Consent was obtained. Please see Informed Consent form for further details.) PRE-PROCEDURE DETAILS Procedure purpose: therapeutic Site preparation: chlorhexidine/alcohol SEDATION / ANESTHESIA Anesthesia method: local infiltration Local infiltrate type: lidocaine POST-PROCEDURE DETAILS Procedure completed successfully: yes Complications: no apparent complications Post-procedure instructions: avoid submersion of procedure site for 48 hours and avoid strenuous activity for 2 days Discharge instructions: ice area as needed for comfort and dressing care Ke FRANCO, P.A.-Edna. PROCEDURE/MINOR SURGICAL ORDERABLES Final Result MMODAL NA documented in this encounter Visit Diagnoses Diagnosis Pain Hip Left documented in this encounter Administered Medications Inactive Administered Medications - up to 3 most recent administrations Medication Order MAR Action Action Date Dose Rate Site lidocaine (PF) 10 mg/mL (1 %) injection 3 mL (Xylocaine) 3 mL, injection, One-Time Injection, Starting on Suki 01/19/25 at 1330, For 1 doseIndications:Pain Hip Left Given 01/19/2025 1:30 PM CDT 3 mL triamcinolone acetonide injection 40 mg (Kenalog-40) 40 mg, intra-articular, One-Time Injection, Starting on Suki 01/19/25 at 1330, For 1 doseIndications:Pain Hip Left Given 01/19/2025 1:30 PM CDT 40 mg documented in this encounter Additional Health Concerns Assessment Noted Time PHQ-9 Depression Total Score: 1 10/30/19 21 1:32 PM CDT documented as of this encounter Care Teams Neonatal Intensive Care Unit Nurse Relationship Specialty Start Date End Date Jayla Canales APRN, C.N.P. [address] [place] [phone] PCP - General Family Medicine 12/24/[address] [place], [place] Dentist 03/15/24 documented as of this encounter
--- OUTSIDE RECORDS SUMMARY | 2025-02-13 09:15 | XMS_ITS | Encounter Summary ---
Author Organization [facility] Address [address] [place] [address] Care Team Providers Care Grader Marker Name Role Phone Jayla Canales APRN, C.N.P. Primary Care Provide r Reason for Referral * Physical Therapy (Routine) - Authorized Specialty Diagnoses / Procedures Referred By Contac t Referred To Contact Diagnoses Primary Osteoarthritis Knee Bilateral Procedures PT Ongoing treatment Ke Curiel MPAS, P.A.-C. [address] [place] [address] Phone: tel: fax: [facility] Region Referral ID Status Reason Start Date Expiration Date V isits Requested Visits Authorized [id number] Authorized 02/13/2025 05/16/2026 99 99 Reason for Visit * Physical Therapy (Routine) - Authorized Specialty Diagnoses / Procedures Referred By Contac t Referred To Contact Diagnoses Primary Osteoarthritis Knee Bilateral Procedures PT Evaluate and treat Ke Curiel MPAS, P.A.-C. [address] [place] [address] Phone: tel: fax: [facility] Region Referral ID Status Reason Start Date Expiration Date V isits Requested Visits Authorized [id number] Authorized 01/06/2025 04/08/2026 99 99 Encounter Details Date Type Department Care Team (Latest Contact Info) Description 02/13/2025 9:15 AM CDT Comprehensive Visit Department of Rehabilitation Services in [address] [phone] Ke Curiel MPAS, P.Sheba.-C. [address] [place] [phone] Capri Valdez P.T., D.P.T. [address] [place] [phone] Primary Osteoarthritis Knee Bilateral Social History Tobacco Use Types Packs/Day Years Used Date Smoking Tobacco: Never Passive Smoke Exposure: Never Smokeless Tobacco: Never Alcohol Use Standard Drinks/Week Comments Never 0 (1 standard drink = 0.6 oz pur e alcohol) [facility] Utilities Answer Date Recorded In the past 12 months has [facility] [employer], gas, oil, or water [employer] threatened to shut off services in your [...] living situation today? I have a [facility] place to live 11/08/2024 Education Answer Date Recorded What is the highest level of school you have completed or the highest degree you have received? 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 - 02/13/2025 9:15 AM CDT Physical Therapy Outpatient Evaluation/Treatment By co-signing this note, the provider certifies the therapy being provided to this patient is reasonable and necessary for the diagnosis or treatment of this patient. SUBJECTIVE Patient's Name: Sinan Mustafa Referring Provider: JOAN Soares* Visit Diagnosis: 1. Primary Osteoarthritis Knee Bilateral Reason for Referral: PT eval and treat Payor: MEDICARE / Plan: MEDICARE A AND B / Product Type: Medicare / Folkstr Visit Count: 1 PERTINENT MEDICAL / SURGICAL HISTORY: Problem List[1] Surgical History[2] Patient presents to outpatient physical therapy for evaluation of symptoms including: Bilateral knee pain, right > left Overall patient reports status remains the same. History of Present Illness: Patient reports history of bilateral knee pain with right> left. Patient reports the pain is along the medial border of the patella. Patient has had injections in the past and those did help with his pain. Patient reports they have since worn off. Previous Treatments: Injection Prior Function/Occupational Profile: Chronic bilateral knee pain Additional Staff Present During Session: no Patient goals: Resolve pain OBJECTIVE PHYSICAL EXAM Pain: Pain varies in intensity. Patient does note buckling at times in the right knee. Patient presents with FOTO functional status score of 66 (MCII: 8 and MDC: 9) indicating general function at stage 3. The risk adjusted functional status score is 49. Patient is predicted to have 4 points of functional status change in 13 visits over 51 days based on normative data. Ortho Exam Patient ambulates into physical therapy today utilizing cane. Patient utilizes cane at all times and occasionally utilizes a walker. Patient does have a history of falls due to his Parkinson's disease. Right knee range of motion 0-140 degrees; left knee range of motion 0-145 degrees. Normal patellar mobility. Lower extremity strength 5/5. Independent quad set with good quad contraction. Independent straight leg raise without extension lag. Reading Physician Reading Date Result Priority Aramis Miller M.D. 09/20/2024 RAD - Routine (most inpatients and all outpatients) Narrative & Impression EXAM: DX KNEE RIGHT 3 VIEWS IMPRESSION: Comparison 09/10/2021. Progressed moderate medial compartment predominant tricompartmental right knee osteoarthritis. Moderate right knee joint effusion. Alignment normal. No acute fracture. TREATMENT Treatment today consisted of: Today performed the [employer]-Fit Total body ergometer times 15 minutes. We then performed leg press at 70 lb 3 x 10 repetitions and seated knee extension with 10 lb cuff weights at the ankle 2 x 10 repetitions bilaterally. Patient was also educated on home exercise program. Home Exercise Program/Education: Access Code: [email or web address] URL: [email or web address] Date: 02/13/2025 Prepared by: Capri Valdez Exercises - Supine Quad Set - 1 x daily - 7 x weekly - 3 sets - 10 reps - Active Straight Leg Raise with Quad Set - 1 x daily - 7 x weekly - 3 sets - 10 reps - Sidelying Hip Abduction - 1 x daily - 7 x weekly - 3 sets - 10 reps - Clamshell - 1 x daily - 7 x weekly - 3 sets - 10 reps - Beginner Bridge - 1 x daily - 7 x weekly - 3 sets - 10 reps Assessment Clinical Impression: Patient presents to physical therapy with signs and symptoms consistent with bilateral knee pain. Impairments: Pain Functional deficits: Decreased positional activity tolerance Rehab Potential: Patient has good potential to achieve established physical therapy goals within the time frame outlined below, provided active participation in the physical therapy treatment plan and home program. Functional Goals and Timeframes: PT Outpatient Goals PT Goal #1: Patient will safely independently perform an independent home exercise program. PT Goal #1 to be achieved by: 03/31/25 PT Goal #2: Patient reported decreasing pain down to 0-2/10. PT Goal #2 to be achieved by: 03/31/25 Plan Patient was educated regarding evaluative findings, diagnosis, prognosis, potential risks and benefits of rehabilitation interventions. A collaborative effort was used to establish goals and plan of care. The patient was informed of the right to make decisions regarding care, including refusal of examination or treatment or selection of services from another provider if desired. The treatment plan may be progressed or modified based upon the patient's response to treatment. Treatment Plan: Start of Plan of Care: 02/13/2025 Number of Visits: 6 visits PT Duration: 6 weeks PT Frequency: 1 time per week Treatment interventions may include: Education, home exercise program stretching, strengthening, gait and balance. Plan for next session: Strengthening, gait and balance Time Spent with Patient Evaluations PT Eval - Mod Complexity: 15 min Therapeutic Interventions Therapeutic Exercise (min): 30 min Time Tracking Total Timed Units (min): 30 min Total Treatment Time (min): 45 min [1] Patient Active Problem List Diagnosis Parkinsonism Unspecified (HCC) Cyst Renal Keratosis Seborrheic [...] Generalized History Of Falling Sinusitis Acute Maxillary Cellulitis Ectasia Thoracic Aortic [2] Past Surgical History: Procedure Laterality Date APPENDECTOMY KNEE ARTHROSCOPY W/ PARTIAL MEDIAL MENISCECTOMY Left 12/05/2004 >Left knee arthroscopic partial medial meniscectomy. Medial femoral condyle debridement. OTHER SURGICAL HISTORY 2006 Right knee, meniscus and arthritus RADIAL TUNNEL RELEASE Right 02/28/2002 >Right radial tunnel release. TRAPEZIECTOMY APL SUSPENSIONPLASTY Left 08/28/2023 Procedure: TRAPEZIECTOMY - ABDUCTOR POLLICIS LONGUS SUSPENSIONPLASTY; Surgeon: Cristian Alvarenga M.D.; Location: [facility] CACF OR VASECTOMY Cosigned by Jayla Sunshine APRN, C.N.P., D.N.P. at 02/13/2025 10:05 AM CDT documented in this encounter Plan of Treatment Upcoming Encounters Date Type Department Care Team (Latest Contact Info) Description 02/21/2025 8:00 AM CDT Clinical Support Department of Rehabilitation Services in [address] [phone] Ke Curiel MPAS, P.A.-C. [address] [place] [phone] Capri Valdez PJaky, D.P.T. [address] [place] [phone] 02/28/2025 8:45 AM CDT Clinical Support Department of Rehabilitation Services in [address] [phone] Ke Curiel MPAS, P.A.-C. [address] [place] [phone] Capri Valdez P.T., D.P.T. [address] [place] [address] [place] [address] 03/13/2025 10:15 AM CDT Clinical Support Department of Rehabilitation Services [address] [place] [phone] Ke Curiel MPAS, P.A.-C. [address] [place] [phone] Capri Valdez P.T., D.P.T. [address] [place], [place] [address]on [place] [address] 03/20/2025 3:15 PM CDT Clinical Support Department of Rehabilitation Services in [address] [place] [address] Ke Curiel, JOAN, P.A.-C. [address] [place] [phone] Capri Valdez P.T., D.P.T. [address] [place], [place] [address] [place] [phone] 03/27/2025 11:00 AM CDT Clinical Communication Virtual Review in [address] [phone] 03/29/2025 8:00 AM CDT Comprehensive Visit Department of Neurology in [address] [phone] Bobby Santiago M.D., Ph.D. [address] [place] [phone] 03/29/2025 9:45 AM CDT Appointment Department of Radiology, [facility] in [address] [place] [address] Bobby Santiago M.D., Ph.D. [address] [place] [phone] 03/29/2025 1:00 PM CDT Education Department of Neurology in [place], [place] [address] [place] [phone] Bobby Santiago M.D., Ph.D. [address] [place] [phone] 03/29/2025 2:30 PM CDT Comprehensive Visit Department of Neurologic Surgery in [place], [place] [address] [place] [phone] Freddy Wayne M.D., Ph.D. [address] [place] [phone] 03/30/2025 8:00 AM CDT Clinical Support Department of Neurology in [address] [address] Bobby Santiago M.D., Ph.D. [address] [place] [phone] 03/30/2025 10:30 AM CDT Comprehensive Visit Department of Neurology in [address] [phone] Bobby Santiago M.D., Ph.D. [address] [place] [phone] Maria Irvin, Ph.D. [address] [place] [phone] documented as of this encounter Visit Diagnoses Diagnosis Primary Osteoarthritis Knee Bilateral documented in this encounter Additional Health Concerns Assessment Noted Time PHQ-9 Depression Total Score: 1 10/30/19 21 1:32 PM CDT documented as of this encounter Care Teams Grader Marker Relationship Specialty Start Date End Date Jayla Canales APRN, C.N.P. [address] [place] [phone] PCP - General Family Medicine 12/24/[address] [place], [place] Dentist 03/15/24 documented as of this encounter
--- OUTSIDE RECORDS SUMMARY | 2025-02-14 07:51 | XMS_ITS | Continuity of Care Document ---
Author Organization [place] [facility] Address [address] [facility] [address] [place] [address] Assessment Encounter Date Assessment Date Assessment LastModified by Organization Details LastModified Time 01/16/2025 01/16/2025 ASSESSMENT: Patient is a good candidate for [...] to contact our office. ecram Not available 01/16/2025 12:55:33 Plan of Treatment Reminders Order Date Submit Date Provider Last Modified By Organization Details Last Modified Time Details Appointments DC Treatment 2024 11:30A M Nura Mendiola [place] Not available Not available Not available Lab None recorded. Referral None recorded. Procedures None recorded. Surgeries None recorded. Imaging None recorded. Medication Orders None recorded. Patient TargetsNo targets recorded. Patient InstructionsNo instructions recorded. Reason for Referral None Reported. Problems Name Problem SNOMED Code Status Onset Date Resolution Date Notes Provider Name and Address Organization Details Recorded Time Thoracic segmental dysfunction 784410235 Active 2023 Nura Mendiola [place] [address] [facility], [place], [address], [facility] - [facility] 4 12:05:55 Low back pain 222079349 Active 2023 Nura Mendiola [place] [address] [facility], [place], [address], [facility] - [facility] 4 12:05:55 Lumbar segmental dysfunction 202938380 Active 2023 Nura Mendiola [place] [address] [facility], [place], [address], [facility] 4 12:05:55 Somatic dysfunction of sacral spine 308534636 Active 2023 Nura Mendiola [place] [address] [facility], [place], [address], [facility] 4 12:05:55 Cervical segmental dysfunction 214934337 Active 2023 Nura Mendiola [place] [address] [facility], [place], [address], [facility] 4 12:06:16 Neck pain 16490646 Active 2023 Nura Mendiola [place] [address] [facility], [place], [address], [place] [facility] 4 12:06:16 Degeneratio n of cervical interverteb ral disc 68579004 Active 2023 Nura Eric HarrisioanaLIBORIO [address] [facility], [place], [address], [place] [facility] 4 13:20:22 Muscle spasm of cervical muscle of neck 127527290957 Active 2023 Nura Eric Mendiola [place] [address] [facility], [place], [address], [place] [facility] 4 13:20:22 Pain of erector spinae muscle Active 2023 Nura Mendiola [place] [address] [facility], [place], [address], [place] [facility] 4 13:27:36 Cervical radiculopat hy 71219254 Active 2023 Nura Mendiola [place] [address] [facility], [place], [address], [place] [facility] 4 13:29:41 Somatic dysfunction of pelvic region 220371631 Active 2024 Nura Mendiola [place] [address] [facility], [place], [address], [place] [facility] 5 13:54:08 Spasm of muscle of lower back 1516032614393 9105 Active 2024 Nura Mendiola [place] [address] [facility], [place], [address], [place] [facility] 5 13:56:26 Problem Notes None recorded. Procedures Surgical History Date Name Laterality Status Provider Name and Address Organization Details Recorded Time 5 10256: Spinal manipulation , 3 to 4 regions completed Nura Mendiola [place] [address] [facility], [place], [address], [place] [facility] 02/06/2025 13:19:14 5 512[address]: Spinal manipulation , 3 to 4 regions completed Nura Mendiola, LIBORIO [address] [facility], [place], [address], [place] [facility] 01/16/2025 12:55:33 5 90393: Spinal manipulation , 3 to 4 regions completed Nura Mendiola, [place] [address] [facility], [place], [address], [place] [facility] 01/02/2025 17:52:49 5 24540: Spinal manipulation , 3 to 4 regions completed Nura Mendiola, LIBORIO [address] [facility], [place], [address], [place] [facility] 12/19/2024 11:23:12 5 30448: Spinal manipulation , 3 to 4 regions completed Nura Mendiola, LIBORIO [address] [facility], [place], [address], [facility] 12/05/2024 12:15:16 5 83583: Spinal manipulation , 3 to 4 regions completed Nura Mendiola, LIBORIO [address] [facility], [place], [address], [place] [facility] 11/21/2024 16:29:51 5 62391: Spinal manipulation , 3 to 4 regions completed Nura Mendiola, LIBORIO [address] [facility], [place], [address], [place] [facility] 10/10/2024 12:24:36 5 04120: Spinal manipulation , 3 to 4 regions completed Nura Mendiola, LIBORIO [address] [facility], [place], [address], [place] [facility] 09/12/2024 15:48:55 5 25308: Spinal manipulation , 3 to 4 regions completed Nura Harrism, [place] [address] [facility], [place], [address], [place] [facility] 08/29/2024 16:25:45 5 50324: Spinal manipulation , 3 to 4 regions completed Nura Mendiola, [place] [address] [facility], [place], [address], [place] [facility] 08/19/2024 10:12:05 5 45345: Spinal manipulation , 3 to 4 regions completed Nura Reyes KimberlyioanaLIBORIO [address] [facility], [place], [address], [facility] - [facility] 08/08/2024 12:58:36 4 53539: Spinal manipulation , 3 to 4 regions completed Nura Reyes LIBORIO Mendiola [address] [facility], [place], [address], [facility] - [facility] 07/25/2024 13:24:16 4 36710: Spinal manipulation , 3 to 4 regions completed Nura Reyes LIBORIO Mendiola [address] [facility], [place], [address], [facility] - [facility] 07/15/2024 12:07:33 Imaging Results None recorded. [...] 200 mg tablet active Not Available Not Available No t Available hydrocodone 5 mg-acetaminoph en 325 mg tablet TAKE 1 TABLET BY MOUTH EVERY 4 HOURS TO EVERY 6 HOURS NEEDED FOR PAIN active Not Available Not Available No t Available carbidopa ER 50 mg-levodopa 200 mg tablet,extende d release active Not Available Not Available No t Available sulfamethoxazo le 800 mg-trimethopri m 160 mg tablet TAKE 1 TABLET BY MOUTH TWICE A DAY FOR 7 DAYS active Not Available Not Available No t Available cefadroxil 500 mg capsule TAKE 1 CAPSULE BY MOUTH TWICE A DAY FOR 10 DAYS active Not Available Not Available No t Available polymyxin B sulfate 10,000 unit-trimethop rim 1 mg/mL eye drops active Not Available Not Available No t Available metoprolol succinate ER 25 mg tablet,extende d release 24 hr active Not Available Not Available Not Available carbidopa 25 mg-levodopa 100 mg tablet active Not Available Not Availabl e Not Available cefdinir 300 mg capsule TAKE 1 CAPSULE BY MOUTH 2 TIMES A DAY BEFORE MORNING AND EVENING MEALS FOR 7 DAYS. active Not Available Not Available No t Available amoxicillin 875 mg-potassium clavulanate 125 mg tablet active Not Available Not Availabl e Not Available oxycodone 5 mg tablet active Not Available Not Available Not Available duloxetine 30 mg capsule,delaye d release active Not Available Not Available No t Available peg 3350-electroly ravi 236 gram-22.74 gram-6.74 gram-5.86 gram solution active Not Available Not Available Not Available Eliquis 5 mg tablet active Not Available Not Available Not Available Rytary 48.75 mg-195 mg capsule,extend ed release TAKE 3 CAPSULES BY MOUTH EVERY [...] SNOMED-CT Code Diagnosis ICD10 Code Diagnosis Note [id number] Nura Mendiola DC [facility] [address] [place] [address] 12/19/2024 10:54:20 12/19/2024 12:16:50 Lumbar segmental dysfunction 750038994 M99.03 Somatic dy sfunction of sacral spine 599331787 M99.04 Thoracic s egmental dysfunction 987915730 M99.02 Cervical s egmental dysfunction 291520008 M99.01 Neck pain 98893721 M54.2 [id number] Nura Mendiola DC [facility] [address] [place] [address] 01/02/2025 17:17:33 01/02/2025 17:54:42 Lumbar segmental dysfunction 196327809 M99.03 Somatic dy sfunction of sacral spine 739059050 M99.04 Thoracic s egmental dysfunction 572496925 M99.02 Cervical s egmental dysfunction 571991608 M99.01 Neck pain 00330313 M54.2 [id number] Nura LIBORIO [facility] [address] [facility] [place] [address] 01/16/2025 12:54:50 01/17/2025 17:13:57 Lumbar segmental dysfunction 758030665 M99.03 Somatic dy sfunction of sacral spine 759930523 M99.04 Thoracic s egmental dysfunction 502931691 M99.02 Cervical s egmental dysfunction 724227383 M99.01 Neck pain 10453803 M54.2 Health Concerns Section Related Observation LastModified by Organization Detai ls LastModified Time None Recorded Concern Status LastModified by Organization Details LastModified Time None Recorded Payers Encounter Date Sequence Insurance Name Policy Number Policy Topete Covered Member ID Topete Member ID Guarantor Name 01/16/2025 2 [place] [id number] Sinan uMstafa [id number] Isaias Mustafa 01/16/2025 1 [place] [employer] [facility] Sinan Mustafa [id number] Isaias Mustafa Notes Date Note Type Note Provider Name and Address Organization Details Recorded Time 01/16/2025 text/html HPI - Cervical SpineReported bypatient.Location: bilateral Quality:aching Severity:moderate Duration:1 weeks Timing:gradual Alleviating Factors:rest; ice Aggravating Factors:twisting/tu rning Associated Symptoms:no numbness/tinglingHP I - Lumbar SpineReported bypatient.Location: bilateral; With radiation to knee Quality:aching Severity:moderate Timing:gradual Aggravating Factors:carrying; twisting Alleviating Factors:ice; rest Nura Mendiola [place] [address] [facility], [place], [address], [facility] 01/16/2025 12:56:30
--- OUTSIDE RECORDS SUMMARY | 2025-02-14 07:51 | XMS_ITS | Clinical Summary ---
Author Organization [facility] Address [address] [place] [address] Care Team Providers Care Apparel Rental Clerk Name Role Phone Jayla Canales APRN, C.N.P. Primary Care Provide r Source Comments Patient records contain information from all sites at [facility]. For routine questions regarding patient records, call [phone] during business hours, M-F 8:00 AM - 5:00 PM Central Time. Record requests for emergency care only can be directed to [phone] at any time.[facility] Allergies No known active allergies Medications * This document contains information received from the source organization and may not represent a complete record from that organization. folic acid-vitamin B6,B12 (FOLBIC) 2.5-25-2 mg per tablet Take 2 tablets by mouth daily. To prevent homocysteine elevation. 016 Active fish oil 1,000 mg capsule Take 1,000 mg by mouth daily. Active fluocinolone (SYNALAR) 0.01 % external solutionIndicat ions:Keratosis Seborrheic,Ecze ma Apply topically daily as needed for itching or rash. 60 mL 3 022 Active ketoconazole (NIZORAL) 2 % shampoo Apply 1 Application topically 3 (three) times a week. Apply to damp skin, lather, leave on 5 minutes, and rinse 120 mL 3 023 Active carbidopa-levod opa (SINEMET) 25-100 mg per tablet Take 0.5-1 tablets by mouth as directed. 1/2 tab by mouth six times per day; pt may take an additional 3 tabs daily as needed. 540 tablet 3 024 Active metoprolol succinate (Toprol XL) 25 mg 24 hr tabletIndicatio ns:Atrial Fibrillation Unspecified (HCC) take 1 tablet by mouth daily 90 tablet 3 024 Active carbidopa-levod opa (Crexont) 70-280 mg capsule,IR -extend rel,biphase Take 3 capsules by mouth every 4 (four) hours. Substitute for Rytary. Take 3 Crexont caps every 4 hours around the clock. Take on an empty stomach. 1800 each 3 024 Active traZODone (DesyreL) 50 mg tablet take 2 tablets by mouth at bedtime, may repeat with one tablet during the night. 270 tablet 3 025 Active amiodarone (Pacerone) 200 mg tablet TAKE HALF TABLET BY MOUTH DAILY 90 tablet 3 025 Active apixaban (Eliquis) 5 mg tablet TAKE ONE TABLET BY MOUTH TWICE DAILY 180 tablet 3 025 Active pyridoxine, vitamin B6, (vitamin B-6) 100 mg tablet Take 100 mg by mouth daily. Active cyanocobalamin (Vitamin B-12) 1,000 mcg tablet Take 1,000 mcg by mouth daily. Active zolpidem (Ambien) 5 mg tablet Take 1 tablet (5 mg total) by mouth at bedtime. 90 tablet 1 025 2024 Active DULoxetine (Cymbalta) [address] capsule Take 1 capsule (60 mg total) by mouth daily. 90 capsule 1 025 Active DULoxetine (CYMBALTA) [address] capsule take 1 capsule by mouth daily 90 capsule 3 024 2024 Discontinued(R eorder) zolpidem (Ambien) 5 mg tablet Take 1 tablet (5 mg total) by mouth at bedtime as needed for sleep. May raise the Ambien to 2 tabs at bedtime if necessary to initiate sleep. 30 tablet 025 2024 Discontinued Active Problems Problem Noted Date Diagnosed Date Ectasia Thoracic Aortic 12/08/2024 Cellulitis 11/08/2024 Sinusitis Acute Maxillary 10/15/2023 History Of Falling [...] risks versus benefits of initiating anticoagulation - [id number]: 1; Stroke risk was 0.6% per year [...] SCD. Because of this will refer to [facility] Cardiology. 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 Patient tolerating well. Thoracic Aortic Aneurysm Wit hout Rupture Unspecified 01/13/2017 12/08/2024 Overview (02/19/2023): 04/07/2018 CTA: Mild dilatation of the proximal descending thoracic aorta measures 37 mm and is unchanged.Stable on imaging 2017. 11/2020: Dilated sinuses of Valsalva measuring up to 44 mm in diameter, previously 42 mm. Unchanged proximal descending thoracic aortic ectasia measuring 37 mm. Repeat 1 year. Assessment & Plan (11/10/2020 1:49 PM CDT): - Re-screen is overdue 04/07/2019. (CT Ordered). Chest Wall Fracture NOS 09/22/201508/2017 Elevated Prostate-Specific Antigen 08/04/2014 04/03/2018 Nephrolithiasis Calcium Oxalate 06/11/2012 04/03/2018 Encounters * This document contains information received from the source organization and may not represent a complete record from that organization. Date Type Department Care Team Description 02/13/2025 9:15 AM CDT Comprehensive Visit Department of Rehabilitation Services in [address] [phone] Ke Curiel, LOUISS, P.A.-C. Capri Valdez, P.T., D.P.T. Primary Osteoarthritis Knee Bilateral 02/11/2025 Refill Department of Family Medicine, [facility], in [address] [phone] Jayla Canales APRN, C.N.P. Med Refill 02/01/2025 Refill Department of Family Medicine, [facility], in [address] [phone] Jayla Canales APRN, C.N.P. Med Refill 01/22/2025 Refill Department of Neurology in [address] [phone] Bobby Santiago M.D., Ph.D. Med Refill 01/19/2025 1:30 PM CDT Procedure visit Department of Orthopedic Surgery in [address] [phone] Devi Mckee P.A.Lindsey., P.A., M.S. Pain Hip Left Discharge Disposition: Home or Self Care 01/19/2025 8:30 AM CDT Clinical Support Department of Rehabilitation Services in [address] [phone] Jayla Canales APRN, C.N.P. Capri Valdez, P.T., D.P.T. Parkinsonism Unspecified (HCC) 01/10/2025 10:33 AM CDT - 01/10/2025 11:59 PM CDT Hospital Encounter Department of Radiology in [address] [phone] Ke Curiel MPAS, P.Sheba.NoemiC. Pain Hip Left Discharge Disposition: Home or Self Care 01/10/2025 Clinical Communication Department of Orthopedic Surgery in [address] [phone] Ke Curiel MPAS, P.A.-C. 01/10/2025 Orders Only Department of Orthopedic Surgery in [address] [phone] Ke Curiel, JOAN, P.A.-C. Pain Hip Left (Primary Dx) 01/09/2025 Orders Only Department of Orthopedic Surgery in [address] [phone] Ke Curiel, JOAN P.A.-C. 01/06/2025 8:30 AM CDT Office Visit Department of Orthopedic Surgery in [address] [phone] Ke Curiel, JOAN, P.A.-C. Primary Osteoarthritis Knee Bilateral (Primary Dx); Pain Knee Left; Pain Knee Right Discharge Disposition: Home or Self Care 01/04/2025 7:45 AM CDT Clinical Support Department of Rehabilitation Services in [address] [phone] Jayla Canales APRN, C.N.Capri Zimmer, P.T., D.P.T. Parkinsonism Unspecified (HCC) 01/02/2025 1:40 PM CDT Comprehensive Visit Department of Dermatology in [address] [phone] Courtney Madden M.D. Keratosis Seborrheic (Primary Dx); Nevi Multiple; Melanoma Personal History 12/30/2024 10:30 AM CDT Clinical Support Department of Rehabilitation Services in [address] [phone] Jayla Canales APRN, C.N.Juju Garcia Dysarthria 12/30/2024 9:30 AM CDT Clinical Support Department of Rehabilitation Services in [address] [phone] Jayla Canales APRN, C.N.P. Fogarty, Jennifer L P.T., D.P.T. Parkinsonism Unspecified (HCC) 12/23/2024 4:15 PM CDT Clinical Support Department of Rehabilitation Services in [address] [phone] Jayla Canales APRN, C.N.P. Fogarty, Jennifer L P.T., D.P.T. Parkinsonism Unspecified (HCC) 12/20/2024 8:00 AM CDT Clinical Support Department of Rehabilitation Services in [address] [phone] Jayla Canales APRN, C.N.P. Fogarty, Jennifer L, P.T., D.P.T. Parkinsonism Unspecified (HCC) 12/20/2024 Clinical Communication Department of Neurology in [address] [phone] Bobby Santiago M.D., Ph.D. 12/14/2024 1:00 PM CDT Clinical Support Department of Rehabilitation Services in [address] [phone] Jayla Canales APRN, Juju Sandoval Dysarthria 12/14/2024 Orders Only Department of Neurology in [address] [phone] Bobby Santiago M.D., Ph.D. 12/12/2024 10:15 AM CDT Clinical Support Department of Rehabilitation Services in [address] [phone] Jayla Canales APRN, Capri Nava, P.T., D.P.T. Parkinsonism Unspecified (HCC) 12/09/2024 11:00 AM CDT Office Visit Department of Neurology in [place], [place] [address] [place] [address] Bobby Santiago M.D., Ph.D. Parkinson's Disease With Dyskinesia, With Fluctuations (HCC) (Primary Dx) 12/08/2024 1:45 PM CDT Office Visit Department of Cardiovascular Diseases in [address] [phone] Maverick Terry M.D. Atrial Fibrillation Paroxysmal (HCC) (Primary Dx); High Risk Medication; Ectasia Thoracic Aortic Discharge Disposition: Home or Self Care 12/08/2024 12:30 PM CDT Clinical Support Department of Rehabilitation Services in [address] [phone] Jayla Canales APRN, C.N.PJuju Daigle Dysarthria 12/02/2024 4:15 PM CDT Clinical Support Department of Rehabilitation Services in [address] [phone] Jayla Canales APRN, C.N.Shanel. Capri Valdez, P.T., D.P.T. Parkinsonism Unspecified (HCC) 12/01/2024 Clinical Communication Department of Family Medicine, [facility], in [address] [phone] Jayla Canales APRN, C.N.P. 11/29/2024 4:15 PM CDT Clinical Support Department of Rehabilitation Services in [address] [phone] Jayla Canales APRN, Edna.N.Shanel. Capri Valdez, P.T., D.P.T. Parkinsonism Unspecified (HCC) 11/29/2024 8:00 AM CDT Comprehensive Visit Department of Rehabilitation Services in [address] [phone] Jayla Canales APRN, C.N.P. Englert, Jody L Dysarthria (Primary Dx); Parkinsonism Unspecified (HCC) 11/25/2024 4:15 PM CDT Clinical Support Department of Rehabilitation Services in [address] [place] [address] Jayla Canales APRN, C.Marco.Capri Zimmer, P.T., D.P.T. Parkinsonism Unspecified (HCC) 11/23/2024 3:15 PM CDT Clinical Support Department of Rehabilitation Services in [address] [phone] Jayla Canales APRN, C.N.P. Fogarty, Jennifer L, P.T., D.P.T. Parkinsonism Unspecified (HCC) 11/22/2024 11:00 AM CDT Clinical Support Department of Rehabilitation Services in [address] [place] [phone] Jayla Canales APRN, C.N.P. Luz Elena León, P.T., D.P.T. Parkinsonism Unspecified (HCC) 11/18/2024 Refill Department of Cardiovascular Diseases in [address] [phone] Maverick Terry M.D. Med Refill 11/16/2024 11:00 AM CDT Office Visit Department of Family Medicine, [facility], in [address] [phone] Jayla Canales APRN, C.N.PEmeka Follow Up Exam (Primary Dx); Cellulitis Arm Left; Parkinsonism Unspecified (HCC) Discharge Disposition: Home or Self Care from Last 3 Months Immunizations Immunization Administration Dates Next Due HZV (ZOSTAVAX) 05/08/2013 HepB Adult 1999 HepB Adult (HEPLISAV-B) 02/19/2023,08/18/2022 HepB, Unspecified 1999 Influenza Split 04/19/2017, 6,04/17/2015,2013,05/03/2013 Influenza TIV (IM) 05/03/2024,04/18/2019, 017 Influenza, Quadrivalent, Adj uvanted, Preservative Free 05/14/2023,05/13/2022,04/17/2021,2019 Influenza, Unspecified 04/16/2018 PCV13 2018 PPSV23 2019 RSV: respiratory syncytial v irus (ABRYSVO) bivalent vaccine 07/16/2023 RZV (SHINGRIX) 11/23/2017,09/22/2017 SARS-COV-2 (COVID-19) - PFIZ ER (Discontinued)(12 years or older) 09/22/2020,08/30/2020 Td (Adult), adsorbed 10/18/2002,11/30/1992 Tdap 04/15/2022,2018,11/18/2007 influenza trivalent high dos e (HD)(PF) 04/13/2020 Family History Medical History Relation Name Comments Arthritis Brother Rafael Herreraon Asthma Brother Rafael Mustafa Diabetes Brother Rafael ChenRamsey Hyperlipidemia Brother Rafael Mustafa Hypertension Brother Rafael ChenRamsey Parkinson disease Brother Rafael Ramsey Essenti al tremor first diagnosed age 62 Stroke Brother Rafael Herreraon Arthritis Father Zac Mustafa Diabetes Father Zac Herreraon Mild in hi s 60 d Prostate cancer Father ZacHandyRamsey Dementia Father's Sister Felicitas Mustafa Alzh eimer s in her 90 s Stroke Maternal Grandmother Dior Bruring Asthma Mother Bee Mustafa As a Child Diabetes Mother Bee Mustafa Mild on her 60 s Hypertension Mother Bee Mustafa Osteoporosis Mother Bee Mustafa Parkinson disease Mother Bee Mustafa Essent ial tremor for 60 of her 99 years Leukemia Paternal Grandfather Juan Bruring Dementia Paternal Grandmother 1 Aletha O T hetal Mustafa Alzheimer s in her 90 s Transient ischemic attack Paternal Grand mother 1 Aletha O Christiano Mustafa Transient ischemic attack Paternal Grand mother 2 Dior Bruring Asthma Sister Florence Lechuga Diabetes Sister Sunapee Lechuga Hyperlipidemia Sister Sun[place]e Lechuga Hypertension Sister [place] Lechuga Osteoporosis Sister Florence Lechuga Anesthesia problems Neg Hx Relation Name Status Comments Brother Rafael Mustafa Father Zac Mustafa Father's Sister Felicitas Mustafa Maternal Grandmother Dior Bruring Alive Mother Bee Mustafa Paternal Grandfather Juan Bruring Alive Paternal Grandmother 1 Aletha O T hetal Mustafa Alive Paternal Grandmother 2 Dior Bruring Alive Sister Florence Lechuga Social History Tobacco Use Types Packs/Day Years Used Date Smoking Tobacco: Never Passive Smoke Exposure: Never Smokeless Tobacco: Never Tobacco Cessation:Counseling Given: Not Answered Alcohol Use Standard Drinks/Week Comments Never 0 (1 standard drink = 0.6 oz pur e alcohol) [facility] Utilities Answer Date Recorded In the past 12 months has [facility], gas, oil, or water [employer] threatened to shut off services in your [...] your living situation today? I have a [facility] place to live 11/08/2024 Education Answer Date Recorded What is the highest level of school you have completed or the highest degree you have received? 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 Gender Identity Male 12/15/2017 6:50 AM CDT Sexual Orientation Straight 12/15/2017 6: 50 AM CDT Last Filed Vital Signs Vital Sign Reading Time Taken Comments Blood Pressure 116/80 12/08/2024 1:36 PM CDT Pulse 70 12/08/2024 1:36 PM CDT Temperature 36.4 C (97.5 F) 12/08/2024 1:36 PM CDT Respiratory Rate 16 11/09/2024 12:40 PM CDT Oxygen Saturation 98% 12/08/2024 1:36 PM CDT Inhaled Oxygen Concentration - - Weight 96.8 kg (213 lb 6.5 oz) 12/08/2024 1:36 P M CDT Height 188 cm (6' 2) 11/08/2024 2:12 PM CDT Body Mass Index 27.4 11/08/2024 2:12 PM CDT Plan of Treatment Upcoming Encounters Date Type Department Care Team (Latest Contact Info) Description 02/21/2025 8:00 AM CDT Clinical Support Department of Rehabilitation Services in [address] [phone] Ke Curiel, MPAS, P.A.-C. [address] [place] [phone] Capri Valdez P.T., D.P.T. [address] [place] [address] [place] [phone] 02/28/2025 8:45 AM CDT Clinical Support Department of Rehabilitation Services in [address] [place] [address] Ke Curiel MPAS, P.A.-C. [address] [place] [phone] Capri Valdez P.T., D.P.T. [address] [place], [place] [address] [phone] 03/13/2025 10:15 AM CDT Clinical Support Department of Rehabilitation Services in [address] [place] [address] Ke Curiel MPAS, P.A.-C. [address] [place] [phone] Capri Valdez P.T., D.P.T. [address] [place], [place] [address] [address] 03/20/2025 3:15 PM CDT Clinical Support Department of Rehabilitation Services in [address] [place] [address] Ke Curiel MPAS, P.A.-C. [address] [place] [phone] Capri Valdez P.T., D.P.T. [address] [place], [place] [address] [address] 03/27/2025 11:00 AM CDT Clinical Communication Virtual Review in [address] [phone] 03/29/2025 8:00 AM CDT Comprehensive Visit Department of Neurology in [place], [place] [address] [place] [phone] Bobby Santiago M.D., Ph.D. [address] [place] [phone] 03/29/2025 9:45 AM CDT Appointment Department of Radiology, [facility] in [place], [place] [address] [place] [phone] Bobby Santiago M.D., Ph.D. [address] [place] [phone] 03/29/2025 1:00 PM CDT Education Department of Neurology in [address] [phone] Bobby Santiago M.D., Ph.D. [address] [place] [phone] 03/29/2025 2:30 PM CDT Comprehensive Visit Department of Neurologic Surgery in [address] [phone] Freddy Wayne M.D., Ph.D. [address] [place] [phone] 03/30/2025 8:00 AM CDT Clinical Support Department of Neurology in [address] [phone] Bobby Santiago M.D., Ph.D. [address] [place] [phone] 03/30/2025 10:30 AM CDT Comprehensive Visit Department of Neurology in [place], [place] [address] [place] [address] Bobby Santiago M.D., Ph.D. [address] [place] [phone] Maria Irvin, Ph.D. [address] [place] [phone] Health Maintenance Due Date Last Done Comments CT Colonography 1955 Visit: Medicare Annual Wellness 03/16/2025 03/15/2024, 02/19/2023 Influenza Vaccine (#1) 2025 , 05/14/2023, 05/13/2022, Additional history exists Visit: Annual, age 65+ (or Medicare and <65) 11/16/2025 11/16/2024 Cologuard 11/29/2026 11/30/2023 Colonoscopy 02/02/2027 02/03/2024, 01/02, 03/07/2004 Colorectal Cancer Surveillance 02/02/2027 Fasting Glucose for Diabetes Screening 11/09/2027 11/08/2024, 11/04/2024, 10/11/2024, Additional history exists DTaP,Tdap,and Td Vaccines (4 - Td or Tdap) 04/15/2032 04/15/2022, 2018, 11/18/2007, Additional history exists Zoster Vaccines Completed 11/23/2017, 09/04, 05/08/2013 Pneumococcal vaccine (50+ years) Completed 2019, 2018 Hepatitis C Screening Completed 10/29/2020 Hepatitis B Vaccines Completed 02/19/2023, 08/18/2022, 1999, Additional history exists RSV vaccine - (32-36 weeks) or 60+ years Completed 07/16/2023 Colonoscopy After Positive Cologuard Discontinued 02/03/2024 Depression Screening (Annual PHQ-2) Completed 09/05/2024 Fall Risk Screen (Annual) Completed 09/05/2024 COVID-19 Vaccine Completed 12/23/2024, 08/2023, 01/05/2024, Additional history exists IPV Vaccines Aged Out No longer eligi ble based on patient's age to complete this topic Procedures Procedure Name Priority Date/Time Associated Diagnosis Comments AK ARTHCS ASP/INJ MJR JT W US Routine 01/19/2025 1:30 PM CDT Pain Hip Left DX HIP AND PELVIS LEFT 2-3 VIEWS RAD - Routine (most inpatients and all outpatients) 01/10/2025 11:05 AM CDT Pain Hip Left AK ARTHCS ASP/INJ MJR JT WO US Routine 01/06/2025 8:30 AM CDT Primary Osteoarthritis Knee Bilateral Pain Knee Left Pain Knee Right COMPREHENSIVE METABOLIC PANEL, S/P STAT 11/08/2024 12:34 PM CDT COLONOSCOPY Routine 02/03/2024 12:32 PM CDT Screening Cancer Colon Positive Cologuard Stool Deoxyribonucleic Acid Test COLOGUARD Routine 11/30/2023 11:00 AM CDT Screening Cancer Colon HCV AB SCRN W/REFLEX TO HCV PCR, S Routine 10/29/2020 2:52 PM CDT Health Maintenance Examination Adult from Last 3 Months or Most Recently Relevant to Health Maintenance Results * AK ARTHCS ASP/INJ MJR JT W US (01/19/2025 1:30 PM CDT) Narrative MMODAL - 01/19/2025 1:30 PM CDT Devi Mckee P.A.-Edna., P.A., M.S. 01/19/2025 1:44 PM Hip site - Left greater trochanteric bursa: injection only Performed by: Devi Mckee P.A.-C., P.A., M.S. Authorized by: Ke Curiel MPAS, [...] for comfort and dressing care Ke FRANCO, P.A.-C. PROCEDURE/MINOR SURGICAL ORDERABLES Final Result MMODAL NA * DX Hip And Pelvis Left 2-3 [...] SI joints, pubic symphysis. Scattered arterialcalcifications. Ke FRANCO P.A.-C. IMG DIAGNOSTIC I MAGING PROCEDURES Final Result * AK ARTHCS ASP/INJ MJR JT WO US (01/06/2025 8:30 AM CDT) Narrative MMODAL - 01/06/2025 8:30 AM CDT Ke Curiel MPAS, P.A.-C. 01/06/2025 8:46 AM Knee site- Bilat knee joint : injection only Performed by: Ke Curiel MPAS, P.A.-C. Authorized by: Ke Curiel MPAS, P.A.-[place] PROCEDURE DETAILS Indications: bilateral knee pain Procedure [...] dressing care and follow-up with ordering provider Samantha RamosAGale. PROCEDURE/MINOR SURGICAL ORDERABLES Final Result MMODAL NA * (ABNORMAL) Comprehensive Metabolic Panel (11/08/2024 12:34 PM CDT) Potassium, P 4.3 3.6 - 5.2 mmol/L 11/08/2024 1:00 PM CDT CNFL Sodium, P 134(L) 135 - 145 mmol/L 11/08/2024 1:00 PM CDT CNFL Chloride, P 101 98 - 107 mmol/L 11/08/2024 1:00 PM CDT CNFL Bicarbonate, P 23 22 - 29 mmol/L 11/08/2024 1:00 PM CDT CNFL Anion Gap, P 10 7 - 15 11/08/2024 1:00 PM CDT CNFL BUN (Blood Urea Nitrogen), P 16 8 - 24 mg/dL 11/08/2024 1:00 PM CDT CNFL Creatinine 0.63(L) 0.74 - 1.35 mg/dL 11/08/2024 1:00 PM CDT CNFL Estimated GFR (eGFR) >90 >=60 mL/min/BS A 11/08/2024 1:00 PM CDT CNFL Comment: Estimated GFR calculated using the 2020 CKD_EPI creatinine equation. Calcium, Total, P 8.8 8.8 - 10.2 mg/dL 11/08/2024 1:00 PM CDT CNFL Glucose, P 123 70 - 140 mg/dL 11/08/2024 1:00 PM CDT CNFL Protein, Total, P 6.5 6.3 - 7.9 g/dL 11/08/2024 1:00 PM CDT CNFL Albumin, P 3.6 3.5 - 5.0 g/dL 11/08/2024 1:00 PM CDT CNFL Aspartate Aminotransferase (AST), P 17 8 - 48 U/L 11/08/2024 1:00 PM CDT CNFL Alkaline Phosphatase, P 74 40 - 129 U/L 11/08/2024 1:00 PM CDT CNFL Alanine Aminotransferase (ALT), P <5(L) 7 - 55 U/L 11/08/2024 2:25 PM CDT CNFL Bilirubin, Total, P 0.4 0.0 - 1.2 mg/dL 11/08/2024 1:00 PM CDT CNFL Blood (Blood, Venous) 11/08/2024 12:34 PM CDT 11/08/2024 12:35 PM CDT us Titus Peterson P.A.-C. PRamón LAB BLOOD ADD-ON F inal Result [facility] [address] [place] [id number], [facility] CNFL [facility] in [address] [address] * (ABNORMAL) Cologuard - Sent Out Lab [...] screened with both Cologuard and colonoscopy. (Madelin Gonzalez al, N Engl J Med 2014;370(14):1483-1483.) Cologuard may produce a false negative or false positive result (no colorectal cancer or precancerous polyp present at colonoscopy follow up). A negative Cologuard test result does not guarantee the absence of CRC or advanced adenoma (pre-cancer). The current Cologuard screening interval is every 3 years. ([place] [employer] Society and U.S. Multi-Society Task Force). Cologuard performance data in a 10,000 patient pivotal study using colonoscopy as the reference method can be accessed at the following location: www.[employer]/results. Additional description of the Cologuard test process, warnings and precautions can be found at www.cologuard.com. Stool (Stool) 11/30/2023 11: 00 AM CDT 12/01/2023 1:25 PM CDT Radha Arce M.D. LAB BODY FLUIDS AND STOOLS ORDERABLES Final Result Performing Organization Address [facility] Co de Phone Number Area [address] [place] [id number] [employer] [address] [place] [address], [address] [place] [address] * HCV Ab Scrn w/Reflex to HCV PCR, Serum (10/29/2020 2:52 PM CDT) HCV Ab Screen, S Negative Negative 10/30/2020 8:44 AM CDT [facility] Comment:Kdodhr-vx-huierr rat io is <1.00. Blood (Blood, Venous) 10/29/2020 2:52 PM CDT 10/30/2020 6:50 AM CDT Annamarie Harrell D.O. LAB MICROBIOLOGY - BLOO D ORDERABLES Final Result Performing Organization Address City/State/[facility] Co de Phone Number [employer] [facility] [address] [place] [address] [facility] Dept. of Laboratory Medicine and Pathology [address] [place] [address] from Last 3 Months or Most Recently Relevant to Health Maintenance Insurance MEDICARE [facility] Advance Directives For more information, please contact: [phone] Documents on File Type Date Recorded Patient Bar Useful Or Busser Expl anation Advance Directives 01/03/2022 1:28 PM Leydi Small HCPOA/ADVOCATE/AGENT/ LAMPS TESTER AND INSPECTOR/SURROG ATE Advance Directives 04/01/2004 12:00 AM Leg acy document. See document viewer. * Full Code (Latest Code Status on File) Date Activated Date Inactivated Comments 11/08/2024 2:18 PM 11/09/2024 3:35 PM Question Answer Comments Full Code: Discussed * Full Code Date Activated Date Inactivated Comments 02/03/2024 10:18 AM 02/03/2024 3:50 PM Question Answer Comments Full Code: Discussed Healthcare Agents on File Name Relationship Healthcare Agent Relationship Communication Leydi Mustafa Spouse Health Care Agent [email or web address] Small Daughter First Alternat e Health Care Agent [email or web address] Care Teams Apparel Rental Clerk Relationship Specialty Start Date End Date Jayla Canales APRN, C.N.P. [address] [place] [address] PCP - General Family Medicine 12/24/[address] [place], [place] Dentist 03/15/24
--- OUTSIDE RECORDS SUMMARY | 2025-02-14 07:52 | XMS_ITS | Continuity of Care Document ---
Author Organization [place] [facility] Address [address] [facility] [address] [place] [address] Assessment Encounter Date Assessment Date Assessment LastModified by Organization Details LastModified Time 02/06/2025 02/06/2025 ASSESSMENT: Patient is a good candidate for [...] to contact our office. ecram Not available 02/06/2025 13:19:14 Plan of Treatment Reminders Order Date Submit [...] Organization Details Recorded Time Thoracic segmental dysfunction 969145359 Active 2023 [place]ola [place] [address], [place], [address], [facility] 4 12:05:55 Low back pain 644008406 Active 2023 [place]ura [place]ola [place] [address], [place], [address], [facility] 4 12:05:55 Lumbar segmental dysfunction 008625788 Active 2023 Nura [place]ola [place] [address], [place], [address], [facility] 4 12:05:55 Somatic dysfunction of sacral spine 143241923 Active 2023 Nura [place]ola [place] [address], [place], [address], [facility] 4 12:05:55 Cervical segmental dysfunction 712554812 Active 2023 Nura [place]ola [place] [address], [place], [address], [facility] 4 12:06:16 Neck pain 90281814 Active 2023 Nura [place]ola [place] [address], [place], [address], [place] [facility] 4 12:06:16 Degeneratio n of cervical interverteb ral disc 73319392 Active 2023 Nura Eric HrarisioanaLIBORIO [address], [place], [address], [place] [facility] 4 13:20:22 Muscle spasm of cervical muscle of neck 945944606475 Active 2023 Nura Eric Mendiola [place] [address], [place], [address], [place] [facility] 4 13:20:22 Pain of erector spinae muscle Active 2023 Nura Mendiola [place] [address], [place], [address], [place] [facility] 4 13:27:36 Cervical radiculopat hy 26427253 Active 2023 Nura Mendiola [place] [address], [place], [address], [place] [facility] 4 13:29:41 Somatic dysfunction of pelvic region 561293196 Active 2024 Nura Mendiola [place] [address], [place], [address], [place] [facility] 5 13:54:08 Spasm of muscle of lower back 0804656727433 9105 Active 2024 Nura Mendiola [place] [address], [place], [address], [place] [facility] 5 13:56:26 Problem Notes None recorded. Procedures Surgical History Date Name Laterality Status Provider Name and Address Organization Details Recorded Time 5 72836: Spinal manipulation , 3 to 4 regions completed Nura Mendiola [place] [address], [place], [address], [place] [facility] 02/06/2025 13:19:14 5 56597: Spinal manipulation , 3 to 4 regions completed Nura Mendiola, LIBORIO [address], [place], [address], [place] [facility] 01/16/2025 12:55:33 5 94078: Spinal manipulation , 3 to 4 regions completed Nura Mendiola, [place] [address], [place], [address], [place] [facility] 01/02/2025 17:52:49 5 77540: Spinal manipulation , 3 to 4 regions completed Nura Mendiola, LIBORIO [address], [place], [address], [place] [facility] 12/19/2024 11:23:12 5 88844: Spinal manipulation , 3 to 4 regions completed Nura Mendiola, LIBORIO [address], [place], [address], [facility] 12/05/2024 12:15:16 5 18678: Spinal manipulation , 3 to 4 regions completed Nura Mendiola, LIBORIO [address], [place], [address], [place] [facility] 11/21/2024 16:29:51 5 76505: Spinal manipulation , 3 to 4 regions completed Nura Mendiola, LIBORIO [address], [place], [address], [place] [facility] 10/10/2024 12:24:36 5 73941: Spinal manipulation , 3 to 4 regions completed Nura Mendiola, LIBORIO [address], [place], [address], [place] [facility] 09/12/2024 15:48:55 5 55259: Spinal manipulation , 3 to 4 regions completed Nura Harrism, [place] [address], [place], [address], [place] [facility] 08/29/2024 16:25:45 5 32793: Spinal manipulation , 3 to 4 regions completed Nura Mendiola, [place] [address], [place], [address], [place] [facility] 08/19/2024 10:12:05 5 52522: Spinal manipulation , 3 to 4 regions completed Nura Reyes KimberlyioanaLIBORIO [address], [place], [address], [facility] 08/08/2024 12:58:36 4 52241: Spinal manipulation , 3 to 4 regions completed Nura Reyes LIBORIO Mendiola [address], [place], [address], [facility] 07/25/2024 13:24:16 4 46521: Spinal manipulation , 3 to 4 regions completed Nura Reyes LIBORIO Mendiola [address], [place], [address], [facility] 07/15/2024 12:07:33 Imaging Results None recorded. [...] SNOMED-CT Code Diagnosis ICD10 Code Diagnosis Note [id number] Nura Mendiola DC [facility] [place] & [address] [place] [address] 01/16/2025 12:54:50 01/17/2025 17:13:57 Lumbar segmental dysfunction 853126099 M99.03 Somatic dy sfunction of sacral spine 647328938 M99.04 Thoracic s egmental dysfunction 427788029 M99.02 Cervical s egmental dysfunction 209667770 M99.01 Neck pain 18058412 M54.2 [id number] Nura Mendiola DC [facility] & [address] [place] [address] 02/06/2025 12:52:04 02/08/2025 15:08:34 Lumbar segmental dysfunction 332781826 M99.03 Somatic dy sfunction of sacral spine 177736565 M99.04 Thoracic s egmental dysfunction 227588847 M99.02 Cervical s egmental dysfunction 850966735 M99.01 Neck pain 77462477 M54.2 Health Concerns Section Related Observation LastModified by Organization Detai ls LastModified Time None Recorded Concern Status LastModified by Organization Details LastModified Time None Recorded Payers Encounter Date Sequence Insurance Name Policy Number Policy Topete Covered Member ID Topete Member ID Guarantor Name 02/06/2025 2 [place] [id number] Sinan Mustafa [id number] Isaias Mustafa 02/06/2025 1 [place] [employer] [facility] Sinan Mustafa [id number] Isaias Mustafa Notes Date Note Type Note Provider Name and Address Organization Details Recorded Time 02/06/2025 text/html HPI - Cervical SpineReported bypatient.Location: bilateral Quality:aching Severity:moderate Duration:1 weeks Timing:gradual Alleviating Factors:rest; ice Aggravating Factors:twisting/tu rning Associated Symptoms:no numbness/tinglingHP I - Lumbar SpineReported bypatient.Location: bilateral; With radiation to knee Quality:aching Severity:moderate Timing:gradual Aggravating Factors:carrying; twisting Alleviating Factors:ice; rest Nura Mendiola [place] [address], [place], [address], [facility] 02/06/2025 13:20:07
--- OUTSIDE RECORDS SUMMARY | 2025-02-14 07:52 | XMS_ITS | Encounter Summary ---
Author Organization [facility] Address [address] [place] [address] Care Team Providers Care Lap Hand Tool Name Role Phone Jayla Canales APRN, C.N.P. Primary Care Provide r Reason for Referral * Outpatient (Routine) - Closed Specialty Diagnoses / Procedures Referred By Contac t Referred To Contact Diagnoses Pain Hip Left Procedures ORS US-Guided aspiration/injection Ke Curiel MPAS, P.A.-C. [address] [place] [address] Phone: tel: fax: [facility] Region Referral ID Status Reason Start Date Expiration Date Visits Re quested Visits Authorized [id number] Closed 01/10/2025 04/12/2026 1 1 Encounter Details Date Type Department Care Team (Late st Contact Info) Description 01/10/2025 Orders Only Department of Orthopedic Surgery in [place], [place] [address] [place] [phone] Ke Curiel, MPAS, P.A.-C. [address] [place] [address] Pain Hip Left (Primary Dx) Social History Tobacco Use Types Packs/Day Years Used Date Smoking Tobacco: Never Passive Smoke Exposure: Never Smokeless Tobacco: Never Alcohol Use Standard Drinks/Week Comments Never 0 (1 standard drink = 0.6 oz pur e alcohol) [facility] Utilities Answer Date Recorded In the past 12 months has e electric, gas, oil, or water [employer] threatened to shut off services in your [...] [facility] 11/08/2024 Education Answer Date Recorded What is the highest level of school you have completed or the highest degree you have received? 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 [address] [place] [address] Capri Valdez PEmekaT., D.P.T. [address] [place] [phone] 02/28/2025 8:45 AM CDT Clinical Support Department of Rehabilitation Services in [address] [address] Ke Curiel MPAS, P.A.-C. [address] [place] [address] Capri Valdez P.T., D.P.T. [address] [place] [address] 03/13/2025 10:15 AM CDT Clinical Support Department of Rehabilitation Services in [address] [address] Ke Curiel MPAS, P.Sheba.-C. [address] [place] [phone] Capri Valdez P.T., D.P.T. [address] [place] [phone] 03/20/2025 3:15 PM CDT Clinical Support Department of Rehabilitation Services in [address] [address] Ke Curiel, JOAN, P.A.-C. [address] [place] [phone] Capri Valdez P.T., D.P.T. [address] [place] [phone] 03/27/2025 11:00 AM CDT Clinical Communication Virtual Review in [address] [address] 03/29/2025 8:00 AM CDT Comprehensive Visit Department of Neurology in [address] [address] Bobby Santiago M.D., Ph.D. [address] [place] [phone] 03/29/2025 9:45 AM CDT Appointment Department of Radiology, [facility] in [address] [address] Bobby Santiago M.D., Ph.D. [address] [place] [phone] 03/29/2025 1:00 PM CDT Education Department of Neurology in [place], [place] [address] [place] [phone] Bobby Santiago M.D., Ph.D. [address] [place] [phone] 03/29/2025 2:30 PM CDT Comprehensive Visit Department of Neurologic Surgery in [place], [place] [address] [place] [phone] Freddy Wayne M.D., Ph.D. [address] [place] [phone] 03/30/2025 8:00 AM CDT Clinical Support Department of Neurology in [address] [address] Bobby Santiago M.D., Ph.D. [address] [place] [phone] 03/30/2025 10:30 AM CDT Comprehensive Visit Department of Neurology in [address] [address] Bobby Santiago M.D., Ph.D. [address] [place] [phone] Maria Irvin, Ph.D. [address] [place] [phone] documented as of this encounter Results * [place] ARTHCS ASP/INJ MJR JT W (01/19/2025 1:30 PM CDT) Narrative MMODAL - 01/19/2025 1:30 PM CDT Devi Mckee P.A.-Edna., P.A., M.S. 01/19/2025 1:44 PM Hip site - Left greater trochanteric bursa: injection only Performed by: Devi Mckee P.A.-C., Anne MEmekaS. Authorized by: Ke Curiel MPAS, P.A.-C. PROCEDURE [...] needed for comfort and dressing care Ke FRANCO P.A.-C. PROCEDURE/MINOR SURGICAL ORDERABLES Final Result MMODAL NA documented in this encounter Visit Diagnoses Diagnosis Pain Hip Left- Primary Pain Hip Left documented in this encounter Additional Health Concerns Assessment Noted Time PHQ-9 Depression Total Score: 1 10/30/19 21 1:32 PM CDT documented as of this encounter Care Teams Lap Hand Tool Relationship Specialty Start Date End Date Jayla Canales, [facility] AGENT, C.N.P. [address] [place] [address] PCP - General Family Medicine 12/24/[address] [place], [place] Dentist 03/15/24 documented as of this encounter
--- OUTSIDE RECORDS SUMMARY | 2025-02-14 07:52 | XMS_ITS | Encounter Summary ---
Author Organization [facility] Address [address] [place] [address] Care Team Providers Care Dull Coat Mill Operator Name Role Phone Jayla Canales APRN, C.N.P. Primary Care Provide r Encounter Details Date Type Department Care Team (Late st Contact Info) Description 01/09/2025 Orders Only Department of Orthopedic Surgery in [place], [place] [address] [place] [address] Ke Curiel, MPAS, P.A.-C. [address] [place] [phone] Social History Tobacco Use Types Packs/Day Years Used Date Smoking Tobacco: Never Passive Smoke Exposure: Never Smokeless Tobacco: Never Alcohol Use Standard Drinks/Week Comments Never 0 (1 standard drink = 0.6 oz pur e alcohol) [facility] Utilities Answer Date Recorded In the past 12 months has [employer], gas, oil, or water [employer] threatened to shut off services in your [...] your living situation today? I have a [facility] place to live 11/08/2024 Education Answer Date Recorded What is the highest level of school you have completed or the highest degree you have received? 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 [address] [place] [phone] Capri Valdez P.T., D.P.T. [address] [place], [place] [address] [address] 02/28/2025 8:45 AM CDT Clinical Support Department of Rehabilitation Services in [address] [place] [address] Ke Curiel MPAS P.A.-C. [address] [place] [phone] Capri Valdez P.T., D.P.T. [address] [place], [place] [address] [address] 03/13/2025 10:15 AM CDT Clinical Support Department of Rehabilitation Services in [address] [place] [address] Ke Curiel MPAS, P.A.-CEmeka [address] [place] [phone] Capri Valdez P.T., D.P.T. [address] [place] [address], [place] [address] 03/20/2025 3:15 PM CDT Clinical Support Department of Rehabilitation Services in [address] [place] [address] Ke Curiel MPAS, P.A.-C. [address] [place] [phone] Capri Valdez P.T., D.P.T. [address] [address] [place] [address] 03/27/2025 11:00 AM CDT Clinical Communication Virtual Review in [place], [place] 200 [place] [address] 03/29/2025 8:00 AM CDT Comprehensive Visit Department of Neurology in [place], [place] [address] [place] [phone] Bobby Santiago M.D., Ph.D. [address] [place] [phone] 03/29/2025 9:45 AM CDT Appointment Department of Radiology, [facility] in [place], [place] [address] [place] [phone] Bobby Santiago M.D., Ph.D. [address] [place] [phone] 03/29/2025 1:00 PM CDT Education Department of Neurology in [place], [place] [address] [place] [phone] Bobby Santiago M.D., Ph.D. [address] [place] [phone] 03/29/2025 2:30 PM CDT Comprehensive Visit Department of Neurologic Surgery in [place], [place] [address] [place] [phone] Freddy Wayne M.D., Ph.D. [address] [place] [phone] 03/30/2025 8:00 AM CDT Clinical Support Department of Neurology in [place], [place] [address] [place] [address] Bobby Santiago M.D., Ph.D. [address] [place] [phone] 03/30/2025 10:30 AM CDT Comprehensive Visit Department of Neurology in [place], [place] [address] [place] [phone] Bobby Santiago M.D., Ph.D. [address] [place] [phone] Maria Irvin, Ph.D. [address] [place] [phone] documented as of this encounter Visit Diagnoses Not on filedocumented in this encounter Additional Health Concerns Assessment Noted Time PHQ-9 Depression Total Score: 1 10/30/19 21 1:32 PM CDT documented as of this encounter Care Teams Dull Coat Mill Operator Relationship Specialty Start Date End Date Jayla Canales APRN, C.N.P. [address] [place] [phone] PCP - General Family Medicine 12/24/[address] [place], [place] Dentist 03/15/24 documented as of this encounter
--- OUTSIDE RECORDS SUMMARY | 2025-02-14 07:53 | XMS_ITS | Continuity of Care Document ---
Author Organization [place] [facility] Address [address] [facility] [address] [place] [address] Assessment Encounter Date Assessment Date Assessment LastModified by Organization Details LastModified Time 01/02/2025 01/02/2025 ASSESSMENT: Patient is a good candidate for [...] to contact our office. ecram Not available 01/02/2025 17:52:49 Plan of Treatment Reminders Order Date Submit [...] Organization Details Recorded Time Thoracic segmental dysfunction [id number] Active 2023 Nura Mendiola [place] [address] [facility], [place], [address], [facility] 4 12:05:55 Low back pain 512588138 Active 2023 Nura Mendiola SD [address] [facility], [place], [address], [facility] - [facility] 4 12:05:55 Lumbar segmental dysfunction 210069772 Active 2023 Nura Mendiola SD [address] [facility], [place], [address], [facility] 4 12:05:55 Somatic dysfunction of sacral spine 105191755 Active 2023 Nura Mendiola SD [address] [facility], [place], [address], [facility] 4 12:05:55 Cervical segmental dysfunction 771914210 Active 2023 Nura Mendiola SD [address] [facility], [place], [address], [facility] 4 12:06:16 Neck pain 05270556 Active 2023 Nura Mendiola SD [address] [facility], [place], [address], [place] [facility] 4 12:06:16 Degeneratio n of cervical interverteb ral disc 51089523 Active 2023 Nura Eric HarrisioanaLIBORIO [address] [facility], [place], [address], [place] [facility] 4 13:20:22 Muscle spasm of cervical muscle of neck 669830619548 Active 2023 Nura Eric Mendiola DC [address] [facility], [place], [address], [place] [facility] 4 13:20:22 Pain of erector spinae muscle Active 2023 Nura Mendiola DC [address] [facility], [place], [address], [place] [facility] 4 13:27:36 Cervical radiculopat hy 83437810 Active 2023 Nura Mendiola DC [address] [facility], [place], [address], [place] [facility] 4 13:29:41 Somatic dysfunction of pelvic region 523586364 Active 2024 Nura Mendiola DC [address] [facility], [place], [address], [place] [facility] 5 13:54:08 Spasm of muscle of lower back 2626617835500 9105 Active 2024 Nura Mendiola DC [address] [facility], [place], [address], [place] [facility] 5 13:56:26 Problem Notes None recorded. Procedures Surgical History Date Name Laterality Status Provider Name and Address Organization Details Recorded Time 5 50054: Spinal manipulation , 3 to 4 regions completed Nura Mendiola DC [address] [facility], [place], [address], [place] [facility] 02/06/2025 13:19:14 5 [address]37[address]: Spinal manipulation , 3 to 4 regions completed Nura Mendiola, LIBORIO [address] [facility] [address], [place], [address], [place] [facility] 01/16/2025 12:55:33 5 05826: Spinal manipulation , 3 to 4 regions completed Nura Mendiola, DC [address] [facility], [place], [address], [place] [facility] 01/02/2025 17:52:49 5 76593: Spinal manipulation , 3 to 4 regions completed Nura Mendiola, LIBORIO [address] [facility] [address], [place], [address], [place] [facility] 12/19/2024 11:23:12 5 97442: Spinal manipulation , 3 to 4 regions completed Nura Mendiola, LIBORIO [address] [facility] [address], [place], [address], [facility] - [facility] 12/05/2024 12:15:16 5 76794: Spinal manipulation , 3 to 4 regions completed Nura Mendiola, LIBORIO [address] [facility] [address], [place], [address], [place] [facility] 11/21/2024 16:29:51 5 47694: Spinal manipulation , 3 to 4 regions completed Nura Mendiola, LIBORIO [address] [facility] [address], [place], [address], [place] [facility] 10/10/2024 12:24:36 5 66912: Spinal manipulation , 3 to 4 regions completed Nura Mendiola, LIBORIO [address] [facility], [place], [address], [place] [facility] 09/12/2024 15:48:55 5 44545: Spinal manipulation , 3 to 4 regions completed Nura Harrism, DC [address] [facility], [place], [address], [place] [facility] 08/29/2024 16:25:45 5 19132: Spinal manipulation , 3 to 4 regions completed Nura Mendiola, DC [address] [facility], [place], [address], [place] [facility] 08/19/2024 10:12:05 5 95160: Spinal manipulation , 3 to 4 regions completed Nura Reyes KimberlyioanaLIBORIO [address] [facility] [address], [place], [address], [facility] - [facility] 08/08/2024 12:58:36 4 94243: Spinal manipulation , 3 to 4 regions completed Nura Reyes LIBORIO Mendiola [address] [facility] [address], [place], [address], [facility] - [facility] 07/25/2024 13:24:16 4 39976: Spinal manipulation , 3 to 4 regions completed Nura Reyes LIBORIO Mendiola [address] [facility] [address], [place], [address], [facility] - [facility] 07/15/2024 12:07:33 Imaging Results None recorded. Procedure [...] SNOMED-CT Code Diagnosis ICD10 Code Diagnosis Note [id number] Nura Mendiola DC [facility] & [address] [place] [address] 12/05/2024 11:52:13 12/05/2024 14:15:55 Lumbar segmental dysfunction 921021576 M99.03 Somatic dy sfunction of sacral spine 605205655 M99.04 Thoracic s egmental dysfunction 096331287 M99.02 Cervical s egmental dysfunction 635250255 M99.01 Neck pain 58987952 M54.2 [id number] Nura Mendiola DC [facility] & [address] [place] [address] 12/19/2024 10:54:20 12/19/2024 12:16:50 Lumbar segmental dysfunction 309035687 M99.03 Somatic dy sfunction of sacral spine 551477834 M99.04 Thoracic s egmental dysfunction 229967954 M99.02 Cervical s egmental dysfunction 036262422 M99.01 Neck pain 70119263 M54.2 [id number] Nura LIBORIO [facility] [address] [facility] [address] [place] [address] 01/02/2025 17:17:33 01/02/2025 17:54:42 Lumbar segmental dysfunction 973340862 M99.03 Somatic dy sfunction of sacral spine 093531407 M99.04 Thoracic s egmental dysfunction 508785371 M99.02 Cervical s egmental dysfunction 682458667 M99.01 Neck pain 16380219 M54.2 Health Concerns Section Related Observation LastModified by Organization Detai ls LastModified Time None Recorded Concern Status LastModified by Organization Details LastModified Time None Recorded Payers Encounter Date Sequence Insurance Name Policy Number Policy Topete Covered Member ID Topete Member ID Guarantor Name 01/02/2025 2 [place] [id number] Sinan Mustafa [id number] Isaias Mustafa 01/02/2025 1 [place] [employer] [facility] Sinan Mustafa [id number] Isaias Mustafa Notes Date Note Type Note Provider Name and Address Organization Details Recorded Time 01/02/2025 text/html HPI - Cervical SpineReported bypatient.Location: bilateral Quality:aching Severity:moderate Duration:1 weeks Timing:gradual Alleviating Factors:rest; ice Aggravating Factors:twisting/tu rning Associated Symptoms:no numbness/tinglingHP I - Lumbar SpineReported bypatient.Location: bilateral; With radiation to knee Quality:aching Severity:moderate Timing:gradual Aggravating Factors:carrying; twisting Alleviating Factors:ice; rest Nura Mendiola DC [address] [facility], [place], [address], [facility] 01/02/2025 17:54:16
--- OUTSIDE RECORDS SUMMARY | 2025-02-14 07:53 | XMS_ITS | Encounter Summary ---
Author Organization [facility] Address [address] [place] [address] Care Team Providers Care Metal Fabricator Helper Name Role Phone Jayla Canales APRN, C.N.P. Primary Care Provide r Reason for Visit * Reason Comments Med Refill Encounter Details Date Type Department Care Team (Late st Contact Info) Description 02/11/2025 Refill Department of Family Medicine, [facility], in [address] [address] Jayla Canales APRN, C.N.P. [address] [place] [address] Med Refill Social History Tobacco Use Types Packs/Day Years Used Date Smoking Tobacco: Never Passive Smoke Exposure: Never Smokeless Tobacco: Never Alcohol Use Standard Drinks/Week Comments Never 0 (1 standard drink = 0.6 oz pur e alcohol) [facility] Utilities Answer Date Recorded In the [...] your living situation today? [facility] 11/08/2024 Education Answer Date Recorded What is the highest level of school you have completed or the highest degree you have received? 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 [address] [place] [address] Capri Valdez P.T., D.P.T. [address] [place] [address], [place] [address] 02/28/2025 8:45 AM CDT Clinical Support Department of Rehabilitation Services in [address] [place] [address] Ke Curiel MPAS, P.A.-CEmeka [address] [place] [address] Capri Valdez P.T., D.P.T. [address] [place] [phone] 03/13/2025 10:15 AM CDT Clinical Support Department of Rehabilitation Services in [address] [place] [address] Ke Curiel MPAS, P.A.-C. [address] [place] [phone] Capri Valdez P.T., D.P.T. [address] [place] [address], [place] [address] 03/20/2025 3:15 PM CDT Clinical Support Department of Rehabilitation Services in [address] [place] [address] Ke Curiel, [facility], P.A.-C. [address] [place] [address] Capri Valdez P.T., D.P.T. [address] [phone] 03/27/2025 11:00 AM CDT Clinical Communication Virtual Review in [place], [place] 200 [place] [address] 03/29/2025 8:00 AM CDT Comprehensive Visit Department of Neurology in [address] [address] Bobby Santiago M.D., Ph.D. [address] [place] [phone] 03/29/2025 9:45 AM CDT Appointment Department of Radiology, [facility] in [place], [place] [address] [place] [phone] Bobby Santiago M.D., Ph.D. [address] [place] [address] 03/29/2025 1:00 PM CDT Education Department of Neurology in [address] [address] Bobby Santiago M.D., Ph.D. [address] [place] [address] 03/29/2025 2:30 PM CDT Comprehensive Visit Department of Neurologic Surgery in [place], [place] [address] [place] [phone] Freddy Wayne M.D., Ph.D. [address] [place] [address] 03/30/2025 8:00 AM CDT Clinical Support Department of Neurology in [place], [place] [address] [place] [address] Bobby Santiago M.D., Ph.D. [address] [place] [address] 03/30/2025 10:30 AM CDT Comprehensive Visit Department of Neurology in [place], [place] [address] [place] [address] Bobby Santiago M.D., Ph.D. [address] [place] [phone] Maria Irvin, Ph.D. [address] [place] [phone] documented as of this encounter Visit Diagnoses Diagnosis Atrial Fibrillation Unspecified (HCC) documented in this encounter Additional Health Concerns Assessment Noted Time PHQ-9 Depression Total Score: 1 10/30/19 21 1:32 PM CDT documented as of this encounter Care Teams Metal Fabricator Helper Relationship Specialty Start Date End Date Jayla Canales APRN, C.N.P. [address] [place] [phone] PCP - General Family Medicine 12/24/[address] [place], [place] Dentist 03/15/24 documented as of this encounter
--- OUTSIDE RECORDS SUMMARY | 2025-02-14 07:53 | XMS_ITS | Encounter Summary ---
Author Organization [facility] Address [address] [place] [address] Care Team Providers Care Foiling Machine Operator Name Role Phone Jayla Canales APRN, C.N.P. Primary Care Provide r Encounter Details Date Type Department Care Team (Late st Contact Info) Description 01/10/2025 Clinical Communication Department of Orthopedic Surgery in [place], [place] [address] [place] [address] Ke Curiel, MPAS, P.A.-C. [address] [place] [phone] Social History Tobacco Use Types Packs/Day Years Used Date Smoking Tobacco: Never Passive Smoke Exposure: Never Smokeless Tobacco: Never Alcohol Use Standard Drinks/Week Comments Never 0 (1 standard drink = 0.6 oz pur e alcohol) [facility] Utilities Answer Date Recorded In the past 12 months has [employer], gas, oil, or water [employer] threatened to shut off services in your [...] your living situation today? I have a [facility] place to live 11/08/2024 Education Answer Date Recorded What is the highest level of school you have completed or the highest degree you have received? 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 [address] [place] [phone] Capri Valdez P.T., D.P.T. [address] [place], [place] [address] [address] 02/28/2025 8:45 AM CDT Clinical Support Department of Rehabilitation Services in [address] [place] [address] Ke Curiel MPAS P.A.-C. [address] [place] [phone] Capri Valdez P.T., D.P.T. [address] [place], [place] [address] [address] 03/13/2025 10:15 AM CDT Clinical Support Department of Rehabilitation Services in [address] [place] [address] Ke Curiel MPAS, P.A.-CEmeka [address] [place] [phone] Capri Valdez P.T., D.P.T. [address] [place] [address], [place] [phone] 03/20/2025 3:15 PM CDT Clinical Support Department of Rehabilitation Services in [address] [place] [address] Ke Curiel MPAS, P.A.-C. [address] [place] [address] Capri Valdez P.T., D.P.T. [address] [address] [place] [address] 03/27/2025 11:00 AM CDT Clinical Communication Virtual Review in [place], [place] 200 [place] [address] 03/29/2025 8:00 AM CDT Comprehensive Visit Department of Neurology in [place], [place] [address] [place] [address] Bobby Santiago M.D., Ph.D. [address] [place] [address] 03/29/2025 9:45 AM CDT Appointment Department of Radiology, [facility] in [place], [place] [address] [place] [phone] Bobby Santiago M.D., Ph.D. [address] [place] [address] 03/29/2025 1:00 PM CDT Education Department of Neurology in [place], [place] [address] [place] [address] Bobby Santiago M.D., Ph.D. [address] [place] [address] 03/29/2025 2:30 PM CDT Comprehensive Visit Department of Neurologic Surgery in [place], [place] [address] [place] [address] Freddy Wayne M.D., Ph.D. [address] [place] [address] 03/30/2025 8:00 AM CDT Clinical Support Department of Neurology in [place], [place] [address] [place] [address] Bobby Santiago M.D., Ph.D. [address] [place] [address] 03/30/2025 10:30 AM CDT Comprehensive Visit Department of Neurology in [place], [place] [address] [place] [address] Bobby Santiago M.D., Ph.D. [address] [place] [phone] Maria Irvin, Ph.D. [address] [place] [phone] documented as of this encounter Visit Diagnoses Not on filedocumented in this encounter Additional Health Concerns Assessment Noted Time PHQ-9 Depression Total Score: 1 10/30/19 21 1:32 PM CDT documented as of this encounter Care Teams Foiling Machine Operator Relationship Specialty Start Date End Date Jayla Canales APRN, C.N.P. [address] [place] [phone] PCP - General Family Medicine 12/24/[address] [place], [place] Dentist 03/15/24 documented as of this encounter
--- OUTSIDE RECORDS SUMMARY | 2025-02-14 07:53 | XMS_ITS | Encounter Summary ---
Author Organization [facility] Address [address] [place] [address] Care Team Providers Care Office Machine Inspector Name Role Phone Jayla Canales APRN, C.N.P. Primary Care Provide r Reason for Visit * Reason Comments Med Refill Encounter Details Date Type Department Care Team (Late st Contact Info) Description 01/22/2025 Refill Department of Neurology in [place], [place] [address] [place] [phone] Bobby Santiago M.D., Ph.D. [address] [place] [address] Med Refill Social History Tobacco Use Types Packs/Day Years Used Date Smoking Tobacco: Never Passive Smoke Exposure: Never Smokeless Tobacco: Never Alcohol Use Standard Drinks/Week Comments Never 0 (1 standard drink = 0.6 oz pur e alcohol) [facility] Utilities Answer Date Recorded In the past 12 months has [employer], gas, oil, or water [employer] threatened to shut off services in your [...] your living situation today? I have a [facility] place to live 11/08/2024 Education Answer Date Recorded What is the highest level of school you have completed or the highest degree you have received? 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 [address] [facility] [place] [phone] Capri Valdez P.T., D.P.T. [address] [place], [place] [address] [address] 02/28/2025 8:45 AM CDT Clinical Support Department of Rehabilitation Services in [address] [place] [address] Ke Curiel MPAS, P.A.-C. [address] [facility] [place] [phone] Capri Valdez P.T., D.P.T. [address] [place], [place] [address] [address] 03/13/2025 10:15 AM CDT Clinical Support Department of Rehabilitation Services in [address] [place] [address] Ke Curiel MPAS, P.A.-C. [address] [facility] [place] [phone] Capri Valdez P.T., D.P.T. [address] [place] [address], [place] [address] 03/20/2025 3:15 PM CDT Clinical Support Department of Rehabilitation Services in [address] [place] [address] Ke Curiel MPAS, P.A.-C. [address] [facility] [place] [address] Capri Valdez P.T., D.P.T. [address] [place] [address] 03/27/2025 11:00 AM CDT Clinical Communication Virtual Review in [place], [place] 200 [place] [address] 03/29/2025 8:00 AM CDT Comprehensive Visit Department of Neurology in [place], [place] [address] [place] [phone] Bobby Santiago M.D., Ph.D. [address] [place] [phone] 03/29/2025 9:45 AM CDT Appointment Department of Radiology, [facility] in [place], [place] [address] [place] [phone] Bobby Santiago M.D., Ph.D. [address] [place] [phone] 03/29/2025 1:00 PM CDT Education Department of Neurology in [address] [address] Bobby Santiago M.D., Ph.D. [address] [place] [phone] 03/29/2025 2:30 PM CDT Comprehensive Visit Department of Neurologic Surgery in [place], [place] [address] [place] [phone] Freddy Wayne M.D., Ph.D. [address] [place] [phone] 03/30/2025 8:00 AM CDT Clinical Support Department of Neurology in [place], [place] [address] [place] [phone] Bobby Santiago M.D., Ph.D. [address] [place] [phone] 03/30/2025 10:30 AM CDT Comprehensive Visit Department of Neurology in [place], [place] [address] [place] [phone] Bobby Santiago M.D., Ph.D. [address] [place] [phone] Maria Irvin, Ph.D. [address] [place] [phone] documented as of this encounter Visit Diagnoses Not on filedocumented in this encounter Additional Health Concerns Assessment Noted Time PHQ-9 Depression Total Score: 1 10/30/19 21 1:32 PM CDT documented as of this encounter Care Teams Office Machine Inspector Relationship Specialty Start Date End Date Jayla Canales APRN, C.N.P. [address] [place] [phone] PCP - General Family Medicine 12/24/[address] [place], [place] Dentist 03/15/24 documented as of this encounter
--- OUTSIDE RECORDS SUMMARY | 2025-02-14 07:53 | XMS_ITS | Data Portability ---
Author Organization [place] - [facility], [employer] - [employer] Address [address] [facility] [address] [place] [address] Assessment Encounter Date Assessment Date Assessment LastModified by Organization Details LastModified Time 12/05/2024 12/05/2024 ASSESSMENT: Patient is a good candidate for [...] to contact our office. ecram Not available 12/05/2024 12:15:16 12/19/2024 12/19/2024 ASSESSMENT: Patient is a good candidate for [...] to contact our office. ecram Not available 12/19/2024 11:23:12 01/02/2025 01/02/2025 ASSESSMENT: Patient is a good [...] our office. ecram Not available 01/02/2025 17:52:49 01/16/2025 01/16/2025 ASSESSMENT: Patient is a good [...] our office. ecram Not available 01/16/2025 12:55:33 02/06/2025 02/06/2025 ASSESSMENT: Patient is a good [...] DC Treatment 2024 11:30A M Nura Mendiola LIBORIO Not available Not available Not available Lab None recorded. Referral None recorded. Procedures None recorded. Surgeries None recorded. Imaging None recorded. Medication Orders None recorded. Patient TargetsNo targets recorded. Patient InstructionsNo instructions recorded. Reason for Referral None Reported. Problems Name Problem SNOMED Code Status Onset Date Resolution Date Notes Provider Name and Address Organization Details Recorded Time Thoracic segmental dysfunction 789120023 Active 2023 Nura Mendiola [place] [address] [facility], [place], [address], [facility] 4 12:05:55 Low back pain 495640816 Active 2023 Nura Mendiola [place] [address] [facility], [facility] [place], [address], [facility] 4 12:05:55 Lumbar segmental dysfunction 382121801 Active 2023 Nura Mendiola [place] [address] [facility], [facility], [address], [facility] 4 12:05:55 Somatic dysfunction of sacral spine 323547340 Active 2023 Nura Reyes [place], [place] [address] [facility], [facility], [address], [facility] 4 12:05:55 Cervical segmental dysfunction 050159549 Active 2023 Nura Eric [place] [address] [facility], [place], [address], [place] [facility] 4 12:06:16 Neck pain 35379478 Active 2023 Nura Reyes [place] LIB[place] [address] [facility], [place], [address], [place] [facility] 4 12:06:16 Degeneratio n of cervical interverteb ral disc 10317832 Active 2023 Nura HarrisioanaLIBORIO [address] [facility], [place], [address], [place] [facility] 4 13:20:22 Muscle spasm of cervical muscle of neck 388667898044 Active 2023 Nura Mendiola [place] [address] [facility], [place], [address], [place] [facility] 4 13:20:22 Pain of erector spinae muscle Active 2023 Nura Mendiola [place] [address] [facility], [place], [address], [place] [facility] 4 13:27:36 Cervical radiculopat hy 02964223 Active 2023 Nura Mendiola [place] [address] [facility], [place], [address], [place] [facility] 4 13:29:41 Somatic dysfunction of pelvic region 036402578 Active 2024 Nura Mendiola [place] [address] [facility], [place], [address], [facility] - [facility] 5 13:54:08 Spasm of muscle of lower back 8854375084747 9105 Active 2024 Nura HarrisioanaLIBORIO [address] [facility], [place], [address], [facility] - [facility] 5 13:56:26 Problem Notes None recorded. Procedures Surgical History Date Name Laterality Status Provider Name and Address Organization Details Recorded Time 5 62302: Spinal manipulation , 3 to 4 regions completed Nura Mendiola, LIBOR[place] [address], [place], [address], [place] [facility] 02/06/2025 13:19:14 5 24707: Spinal manipulation , 3 to 4 regions completed Nura Mendiola, [place] [address], [place], [address], [place] [facility] 01/16/2025 12:55:33 5 38299: Spinal manipulation , 3 to 4 regions completed Nura Mendiola, LIBORIO [address] [facility], [place], [address], [place] [facility] 01/02/2025 17:52:49 5 87435: Spinal manipulation , 3 to 4 regions completed Nura Mendiola, LIBORIO [address] [facility], [place], [address], [place] [facility] 12/19/2024 11:23:12 5 70389: Spinal manipulation , 3 to 4 regions completed Nura Mendiola, LIBORIO [address] [facility], [place], [address], [place] [facility] 12/05/2024 12:15:16 5 60067: Spinal manipulation , 3 to 4 regions completed Nura Mendiola, LIBORIO [address] [facility], [place], [address], [place] [facility] 11/21/2024 16:29:51 5 33071: Spinal manipulation , 3 to 4 regions completed Nura Mendiola, [place] [address] [facility], [place], [address], [place] [facility] 10/10/2024 12:24:36 5 49610: Spinal manipulation , 3 to 4 regions completed Nura Harrism, [place] [address] [facility], [place], [address], [place] [facility] 09/12/2024 15:48:55 5 78158: Spinal manipulation , 3 to 4 regions completed Nura Mendiola, LIBORIO [address] [facility], [place], [address], [facility] 08/29/2024 16:25:45 5 08478: Spinal manipulation , 3 to 4 regions completed Nura Mendiola [place] [address] [facility], [place], [address], [facility] 08/19/2024 10:12:05 5 72345: Spinal manipulation , 3 to 4 regions completed Nura Mendiola [place] [address] [facility], [place], [address], [facility] 08/08/2024 12:58:36 4 99588: Spinal manipulation , 3 to 4 regions completed Nura Mendiola [place] [address] [facility], [place], [address], [facility] 07/25/2024 13:24:16 4 92637: Spinal manipulation , 3 to 4 regions completed Nura Mendiola [place] [address] [facility], [place], [address], [facility] 07/15/2024 12:07:33 Imaging Results None recorded. Procedure [...] SNOMED-CT Code Diagnosis ICD10 Code Diagnosis Note [id number] [facility] [address] [place] [address] 07/15/2024 09:56:53 07/15/2024 12:56:16 Lumbar segmental dysfunction 357765537 M99.03 Low back pain 602026040 M54.50 Somatic dy sfunction of sacral spine 133650651 M99.04 Thoracic s egmental dysfunction 611767089 M99.02 Cervical s egmental dysfunction 756108300 M99.01 Neck pain 86710671 M54.2 [id number] Nura Mendiola [place] [facility] [address] [place] [address] 07/25/2024 11:56:42 07/25/2024 13:33:11 Lumbar segmental dysfunction 313235654 M99.03 Low back pain 105638977 M54.50 Somatic dy sfunction of sacral spine 539064984 M99.04 Thoracic s egmental dysfunction 761753651 M99.02 Cervical radiculopathy 97713867 M54.12 Neck pain 31241104 M54.2 Muscle spa sm of cervical muscle of neck 5242405857 04 M62.838 Cervical s egmental dysfunction 264091382 M99.01 Degenerati on of cervical intervertebral disc 25129850 M50.30 Pain of er john spinae muscle 9107622115 34576 M54.12 [id number] Nura Mendiola DC [facility] [address] [place] [address] 08/08/2024 12:23:31 08/08/2024 16:45:57 Somatic dysfunction of pelvic region 779039699 M99.05 Somatic dy sfunction of sacral spine 011627976 M99.04 Cervical s egmental dysfunction 919962307 M99.01 Spasm of m uscle of lower back 7380204959 8864055 M62.830 41265 [facility] [address] [place] [address] 08/19/2024 09:37:37 08/19/2024 12:07:34 Lumbar segmental dysfunction 809530678 M99.03 Low back pain 609607243 M54.50 Somatic dy sfunction of sacral spine 419127707 M99.04 Thoracic s egmental dysfunction 391376605 M99.02 Cervical s egmental dysfunction 192383280 M99.01 Neck pain 29001868 M54.[address] [facility] [address] [address] [facility] [place] [address] 08/29/2024 15:22:11 08/29/2024 16:30:20 Lumbar segmental dysfunction 164325126 M99.03 Low back pain 191644655 M54.50 Somatic dy sfunction of sacral spine 532126167 M99.04 Thoracic s egmental dysfunction 282628370 M99.02 Cervical s egmental dysfunction 120278496 M99.01 Neck pain 96053292 M54.2 [id number] [facility] & [address] [place] [address] 09/12/2024 14:57:07 09/12/2024 15:53:55 Lumbar segmental dysfunction 391868179 M99.03 Low back pain 921904005 M54.50 Somatic dy sfunction of sacral spine 779659543 M99.04 Thoracic s egmental dysfunction 501548698 M99.02 Cervical s egmental dysfunction 654573957 M99.01 Neck pain 77734583 M54.2 733696 [place] [address] [place] [address] 10/10/2024 11:06:28 10/11/2024 18:34:13 Lumbar segmental dysfunction 723427813 M99.03 Low back pain 063274685 M54.50 Somatic dy sfunction of sacral spine 145108823 M99.04 Thoracic s egmental dysfunction 245538443 M99.02 Cervical s egmental dysfunction 400495830 M99.01 Neck pain 78247352 M54.2 [id number] [facility] & [address] [place] [address] 11/21/2024 15:39:31 11/21/2024 16:34:32 Lumbar segmental dysfunction 804661543 M99.03 Somatic dy sfunction of sacral spine 271424810 M99.04 Thoracic s egmental dysfunction 699647325 M99.02 Cervical s egmental dysfunction 207614465 M99.01 Neck pain 98078712 M54.[address] [facility] & [address] [place] [address] 12/05/2024 11:52:13 12/05/2024 14:15:55 Lumbar segmental dysfunction 801170819 M99.03 Somatic dy sfunction of sacral spine 921841805 M99.04 Thoracic s egmental dysfunction 045750278 M99.02 Cervical s egmental dysfunction 369276783 M99.01 Neck pain 55641734 M54.[address] [facility] & [address] [place] [address] 12/19/2024 10:54:20 12/19/2024 12:16:50 Lumbar segmental dysfunction 760113611 M99.03 Somatic dy sfunction of sacral spine 725942005 M99.04 Thoracic s egmental dysfunction 203757632 M99.02 Cervical s egmental dysfunction 836253300 M99.01 Neck pain 15290717 M54.2 [id number] Nura Mendiola [place] [facility] [address] [place] [address] 01/02/2025 17:17:33 01/02/2025 17:54:42 Lumbar segmental dysfunction 167948894 M99.03 Somatic dy sfunction of sacral spine 399694251 M99.04 Thoracic s egmental dysfunction 207385211 M99.02 Cervical s egmental dysfunction 691387812 M99.01 Neck pain 56634015 M54.2 [id number] [facility] & [address] [place] [address] 01/16/2025 12:54:50 01/17/2025 17:13:57 Lumbar segmental dysfunction 901414825 M99.03 Somatic dy sfunction of sacral spine 708316821 M99.04 Thoracic s egmental dysfunction 879715522 M99.02 Cervical s egmental dysfunction 184695116 M99.01 Neck pain 63740711 M54.2 [id number] [facility] & [address] [place] [address] 02/06/2025 12:52:04 02/08/2025 15:08:34 Lumbar segmental dysfunction 400832516 M99.03 Somatic dy sfunction of sacral spine 536627173 M99.04 Thoracic s egmental dysfunction 902996453 M99.02 Cervical s egmental dysfunction 222278573 M99.01 Neck pain 42595975 M54.2 Health Concerns Section Related Observation LastModified by Organization Detai ls LastModified Time None Recorded Concern Status LastModified by Organization Details LastModified Time None Recorded Advance Directives Directive None Recorded Payers Insurance Date Sequence Insurance Name Policy Number Policy Topete Covered Member ID Topete Member ID Guarantor Name 07/19/2024 2 [place] [employer] Sinan Mustafa [id number] Isaias Mustafa 02/06/2025 2 [place] [id number] Sinanrebecca Mustafa [id number] Isaias Mustafa 02/06/2025 1 [place] [employer] [facility] Sinan Eddy Ramsey [id number] Isaias Mustafa Notes Date Note Type Note Provider Name and Address Organization Details Recorded Time 12/05/2024 text/html HPI - Cervical SpineReported bypatient.Location: bilateral Quality:aching Severity:moderate Duration:1 weeks Timing:gradual Alleviating Factors:rest; ice Aggravating Factors:twisting/tu rning Associated Symptoms:no numbness/tinglingHP I - Lumbar SpineReported bypatient.Location: bilateral; With radiation to knee Quality:aching Severity:moderate Timing:gradual Aggravating Factors:carrying; twisting Alleviating Factors:ice; rest Nura Eric [place], [place] [address] [facility], [place], [address], [facility] 12/05/2024 12:16:18 12/19/2024 text/html HPI - Cervical SpineReported bypatient.Location: bilateral Quality:aching Severity:moderate Duration:1 weeks Timing:gradual Alleviating Factors:rest; ice Aggravating Factors:twisting/tu rning Associated Symptoms:no numbness/tinglingHP I - Lumbar SpineReported bypatient.Location: bilateral; With radiation to knee Quality:aching Severity:moderate Timing:gradual Aggravating Factors:carrying; twisting Alleviating Factors:ice; rest Nura Eric Cram, [place] [address] [facility], [place], [address], [facility] 12/19/2024 11:24:21 01/02/2025 text/html HPI - Cervical SpineReported bypatient.Location: bilateral Quality:aching Severity:moderate Duration:1 weeks Timing:gradual Alleviating Factors:rest; ice Aggravating Factors:twisting/tu rning Associated Symptoms:no numbness/tinglingHP I - Lumbar SpineReported bypatient.Location: bilateral; With radiation to knee Quality:aching Severity:moderate Timing:gradual Aggravating Factors:carrying; twisting Alleviating Factors:ice; rest Nura Mendiola, LIBORIO [address] [facility], [place], [address], [facility] 01/02/2025 17:54:16 01/16/2025 text/html HPI - Cervical SpineReported bypatient.Location: bilateral Quality:aching Severity:moderate Duration:1 weeks Timing:gradual Alleviating Factors:rest; ice Aggravating Factors:twisting/tu rning Associated Symptoms:no numbness/tinglingHP I - Lumbar SpineReported bypatient.Location: bilateral; With radiation to knee Quality:aching Severity:moderate Timing:gradual Aggravating Factors:carrying; twisting Alleviating Factors:ice; rest Nura Mendiola, LIBORIO [address] [facility], [place], [address], [facility] 01/16/2025 12:56:30 02/06/2025 text/html HPI - Cervical SpineReported bypatient.Location: bilateral Quality:aching Severity:moderate Duration:1 weeks Timing:gradual Alleviating Factors:rest; ice Aggravating Factors:twisting/tu rning Associated Symptoms:no numbness/tinglingHP I - Lumbar SpineReported bypatient.Location: bilateral; With radiation to knee Quality:aching Severity:moderate Timing:gradual Aggravating Factors:carrying; twisting Alleviating Factors:ice; rest Nura Mendiola, LIBORIO [address] [facility], [place], [address], [facility] 02/06/2025 13:20:07
--- OUTSIDE RECORDS SUMMARY | 2025-02-14 07:53 | XMS_ITS | Encounter Summary ---
Author Organization [facility] Address [address] [place] [address] Care Team Providers Care Rn Acls Name Role Phone Jayla Canales APRN, C.N.P. Primary Care Provide r Reason for Visit * Reason Onset Date Comments Med Refill 02/01/2025 Encounter Details Date Type Department Care Team (Late st Contact Info) Description 02/01/2025 Refill Department of Family Medicine, [facility], in [address] [phone] Jayla Canales APRN, C.N.P. [address] [place] [phone] Med Refill Social History Tobacco Use Types Packs/Day Years Used Date Smoking Tobacco: Never Passive Smoke Exposure: Never Smokeless Tobacco: Never Alcohol Use Standard Drinks/Week Comments Never 0 (1 standard drink = 0.6 oz pur e alcohol) [facility] Utilities Answer Date Recorded In the past [address] Z, gas, oil, or water [employer] threatened to shut off services in your [...] your living situation today? I have a [facility] place to live 11/08/2024 Education Answer Date Recorded What is the highest level of school you have completed or the highest degree you have received? 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 Needs Review: Med Refill Team is unable to forward request to provider. Pharmacy Communication. Primary Provider: Jayla Canales APRN, C.N.P. Requested Prescriptions Pending Prescriptions Disp Refills DULoxetine (Cymbalta) [address] capsule 90 capsule 3 Sig: Take 1 capsule (30 mg total) by mouth daily. documented in this encounter Plan of Treatment Upcoming Encounters Date Type Department Care Team (Latest Contact Info) Description 02/21/2025 8:00 AM CDT Clinical Support Department of Rehabilitation Services in [address] [address] Ke Curiel MPAS, P.A.-C. [address] [place] [address] Capri Valdez PShy., D.P.T. [address] [place] [phone] 02/28/2025 8:45 AM CDT Clinical Support Department of Rehabilitation Services in [address] [address] Ke Cureil MPAS, P.A.-C. [address] [place] [address] Capri Valdez P.Christiano., D.P.T. [address] [place] [phone] 03/13/2025 10:15 AM CDT Clinical Support Department of Rehabilitation Services in [address] [address] Ke Curiel MPAS, P.A.-C. [address] [place] [phone] Capri Valdez P.T., D.P.T. [address] [place] [address] [place] [phone] 03/20/2025 3:15 PM CDT Clinical Support Department of Rehabilitation Services in [address] [place] [address] Ke Curiel, JOAN, P.A.-C. [address] [place] [phone] Capri Valdez P.T., D.P.T. [address] [place], [place] [address]on [place] [address] 03/27/2025 11:00 AM CDT Clinical Communication Virtual Review in [address] [address] 03/29/2025 8:00 AM CDT Comprehensive Visit Department of Neurology in [address] [address] Bobby Santiago M.D., Ph.D. [address] [place] [phone] 03/29/2025 9:45 AM CDT Appointment Department of Radiology, [facility] in [address] [address] Bobby Santiago M.D., Ph.D. [address] [place] [phone] 03/29/2025 1:00 PM CDT Education Department of Neurology in [place], [place] [address] [place] [phone] Bobby Santiago M.D., Ph.D. [address] [place] [phone] 03/29/2025 2:30 PM CDT Comprehensive Visit Department of Neurologic Surgery in [address] [address] Freddy Wayne M.D., Ph.D. [address] [place] [phone] 03/30/2025 8:00 AM CDT Clinical Support Department of Neurology in [address] [address] Bobby Santiago M.D., Ph.D. [address] [place] [phone] 03/30/2025 10:30 AM CDT Comprehensive Visit Department of Neurology in [address] [address] Bobby Santiago M.D., Ph.D. [address] [place] [phone] Maria Irvin, Ph.D. [address] [place] [phone] documented as of this encounter Visit Diagnoses Not on filedocumented in this encounter Additional Health Concerns Assessment Noted Time PHQ-9 Depression Total Score: 1 10/30/19 21 1:32 PM CDT documented as of this encounter Care Teams Rn Acls Relationship Specialty Start Date End Date Jayla Canales APRN, C.N.P. [address] [place] [phone] PCP - General Family Medicine 12/24/[address] [place], [place] Dentist 03/15/24 documented as of this encounter
--- OUTSIDE RECORDS SUMMARY | 2025-02-14 07:53 | XMS_ITS | Encounter Summary ---
Author Organization [facility] Address [address] [place] [address] Care Team Providers Care Broadcast Operations Technician Name Role Phone Jayla Canales APRN C.N.P. Primary Care Provide r Reason for Referral * Behavioral Health (Routine) - Authorized Specialty Diagnoses / Procedures Referred By Contac t Referred To Contact Psychiatry / Psychiatry and Psychology Diagnoses Parkinson's Disease With Dyskinesia, With Fluctuations (HCC) Procedures PSY Neuropsychology testing - Deep Brain Stimulation (DBS) Bobby Santiago M.D., Ph.D. [address] [place] [phone] Phone: tel: fax: [place] [facility] Referral ID Status Reason Start Date Expiration Date V isits Requested Visits Authorized [id number] Authorized 12/21/2024 03/23/2026 1 1 Encounter Details Date Type Department Care Team (Late st Contact Info) Description 12/20/2024 Clinical Communication Department of Neurology in [place], [place] [address] [place] [address] Bobby Santiago M.D., Ph.D. [address] [place] [phone] Social History Tobacco Use Types Packs/Day Years Used Date Smoking Tobacco: Never Passive Smoke Exposure: Never Smokeless Tobacco: Never Alcohol Use Standard Drinks/Week Comments Never 0 (1 standard drink = 0.6 oz pur e alcohol) [facility] Utilities Answer Date Recorded In the past 12 months has e [employer], gas, oil, or water company threatened to [...] your living situation today? I have a [facility] place to live 11/08/2024 Education Answer Date Recorded What is the highest level of school you have completed or the highest degree you have received? 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 [address] [place] [phone] Capri Valdez P.T., D.P.T. [address] [place] [phone] 02/28/2025 8:45 AM CDT Clinical Support Department of Rehabilitation Services in [address] [phone] Ke Curiel MPAS, P.A.-C. [address] [place] [phone] Capri Valdez P.T., D.P.T. [address] [place] [phone] 03/13/2025 10:15 AM CDT Clinical Support Department of Rehabilitation Services in [address] [place] [phone] Ke Curiel MPAS, P.A.-C. [address] [place] [phone] Capri Valdez P.T., D.P.T. [address] [place] [phone] 03/20/2025 3:15 PM CDT Clinical Support Department of Rehabilitation Services in [address] [phone] Ke Curiel MPAS, P.A.-C. [address] [place] [phone] Capri Valdez P.T., D.P.T. [address] [place] [phone] 03/27/2025 11:00 AM CDT Clinical Communication Virtual Review in [address] [phone] 03/29/2025 8:00 AM CDT Comprehensive Visit Department of Neurology in [address] [phone] Bobby Santiago M.D., Ph.D. [address] [place] [phone] 03/29/2025 9:45 AM CDT Appointment Department of Radiology, [facility] in [address] [phone] Bobby Santiago M.D., Ph.D. [address] [place] [phone] 03/29/2025 1:00 PM CDT Education Department of Neurology in [place], [place] [address] [place] [phone] Bobby Santiago M.D., Ph.D. [address] [place] [phone] 03/29/2025 2:30 PM CDT Comprehensive Visit Department of Neurologic Surgery in [place], [place] [address] [place] [phone] Freddy Wayne M.D., Ph.D. [address] [place] [phone] 03/30/2025 8:00 AM CDT Clinical Support Department of Neurology in [place], [place] [address] [place] [phone] Bobby Santiago M.D., Ph.D. [address] [place] [phone] 03/30/2025 10:30 AM CDT Comprehensive Visit Department of Neurology in [place], [place] [address] [place] [phone] Bobby Santiago M.D., Ph.D. [address] [place] [phone] Maria Irvin, Ph.D. [address] [place] [phone] documented as of this encounter Visit Diagnoses Diagnosis Parkinson's Disease With Dyskinesia, With Fluctuations (HCC)- Primary documented in this encounter Additional Health Concerns Assessment Noted Time PHQ-9 Depression Total Score: 1 10/30/19 21 1:32 PM CDT documented as of this encounter Care Teams Broadcast Operations Technician Relationship Specialty Start Date End Date Jayla Canales APRN, C.N.P. [address] [place] [phone] PCP - General Family Medicine 12/24/[address] [place], [place] Dentist 03/15/24 documented as of this encounter
[2025-02-14 07:54] VITALS: BP 130/86; PULSE 78; RESP 16; TEMP 35.9; O2SAT 96; BMI 27.0
--- NOTE | 2025-02-14 08:10 | CRLHL7_ITS ---
For Patients: As a result of the Cures Act, medical imaging exams and procedure reports are released immediately into your electronic medical record. You may view this report before your referring provider. If you have questions, please contact your health care provider. INDICATION: Injury COMPARISON: May 10, 2024 TECHNIQUE: CT examination of the head was performed as axial sections without intravenous contrast. Images were obtained from the vertex of the skull through the skull base. Please note that all CT scans at this facility use dose modulation, iterative reconstruction, and/or weight-based dosing when appropriate to reduce radiation dose to as low as reasonably achievable. FINDINGS: The brain shows no sign of mass lesion, mass effect, hemorrhage, or edema. The ventricles and sulci are normal in appearance for the patient`s age. The visualized portions of the orbits are normal in appearance. The osseous structures are normal in their appearance with no sign of abnormality in the skull base or calvarium. Right parieto-occipital region subcutaneous hematoma. IMPRESSION: Right parieto-occipital region subcutaneous hematoma. No calvarial fracture. No acute intracranial posttraumatic findings Please note that all CT scans at this facility use dose modulation, iterative reconstruction, and/or weight-based dosing when appropriate to reduce radiation dose to as low as reasonably achievable. Dictated by Warner Vasquez MD @ 02/14/2025 8:42:07 AM (Electronically Signed)
--- NOTE | 2025-02-14 08:14 | ED.GENADULT ---
HPI - General Adult General Chief complaint: Fall/Minor Trauma Stated complaint: fell, hit head Time Seen by Provider: 02/14/25 08:03 Source: patient Mode of arrival: ambulatory Limitations: no limitations History of Present Illness HPI narrative: Patient is a zeferino 69-year-old male presenting today after a fall. Lost his footing and fell backwards hitting his head on the concrete of the basement approximately for 4 hours ago. Patient has Parkinson's and falls frequently, stating that he has fallen approximately 30 times in the last several months. He is anticoagulated for history of atrial fibrillation. Has a swelling in the back of the head, denies headache, confusion. States that he remembers everything before, during and after the fall. Was able to get up without assistance. Denies slurred speech, word-finding difficulty. Denies any neck pain. He denies any back or buttock pain. Related Data Home Medications ?Medication ?Instructions ?Recorded ?Confirmed amiodarone 200 mg tablet 100 mg PO DAILY 05/10/24 02/14/25 apixaban 5 mg tablet (Eliquis) 5 mg PO BID 05/10/24 02/14/25 carbidopa 25 mg-levodopa 100 mg tab PO 05/10/24 05/10/24 tablet duloxetine 30 mg capsule,delayed 30 mg PO DAILY 05/10/24 02/14/25 release metoprolol succinate 25 mg 25 mg PO DAILY 05/10/24 02/14/25 tablet,extended release 24 hr Crexont 02/14/25 pyridoxine (vitamin B6) 02/14/25 Previous Rx's ?Medication ?Instructions ?Recorded hydrocodone 5 mg-acetaminophen 325 1 tab PO Q4-6H PRN pain #10 tabs 04/05/25 mg tablet Allergies Allergy/AdvReac Type Severity Reaction Status Date / Time No Known Drug Allergies Allergy Verified 11/05/24 17:33 Review of Systems Status of ROS: Reports: 10 or more systems reviewed and unremarkable except as noted in History and below [facility] Social History Smoking Status: Never smoker Do you use any of these nicotine containing products: None Second hand tobacco smoke exposure: No How often do you have a drink containing alcohol: never AUDIT-C Alcohol total score: 0 Non-prescribed substance use: denies use service: No Exam Narrative: Exam Narrative: Well-nourished well-developed patient in no acute distress. Alert and oriented. Answers questions appropriately. Thoughts are goal oriented and rational. No tangential or magical thinking noted. Patient speaks in full sentences without needing to catch his breath. HEENT: Extraocular muscles are intact. Conjunctivae are moist without any icterus noted. Moist mucous membranes. Posterior pharynx is normal- no trauma noted to the inside of the mouth. Neck is without pain. Cervical spine is without pain. No pain with range of motion exercises. Hematoma posterior right scalp. Skin: Patient has scattered bruising throughout all extremities at all stages of healing. Bruise of the left flank that is not new. Const: Vital Signs, click to edit/add: Vital Signs - 24 hr 02/14/25 07:54 Temperature 96.6 F L Pulse Rate [Pulse Oximeter] 78 Respiratory Rate 16 Blood Pressure [Ri ght Upper Arm] 130/86 Pulse Oximetry 96 Oxygen Delivery Me thod Room Air Course Course ED Course: CT scan of the head did not show an intracranial bleed. Vital Signs Vital signs: Initial Vital Signs Temperature 96.6 F L 02/14/25 07:54 Temperature Source Temporal Artery Scan 02/14/25 07:54 Pulse Rate 78 02/14/25 07:54 Respiratory Rate 16 02/14/25 07:54 Blood Pressure 130/86 02/14/25 07:54 Blood Pressure Mean 100 02/14/25 07:54 Blood Pressure Position Supine 02/14/25 07:54 Pulse Oximetry 96 02/14/25 07:54 Oxygen Delivery Method Room Air 02/14/25 07:54 Vital Signs Temperature 96.6 F L 02/14/25 07:54 Pulse Rate 78 02/14/25 07:54 Respiratory Rate 16 02/14/25 07:54 Blood Pressure 130/86 02/14/25 07:54 Pulse Oximetry 96 02/14/25 07:54 Oxygen Delivery Method Room Air 02/14/25 07:54 Temperature 96.6 F L 02/14/25 07:54 Pulse Rate 78 02/14/25 07:54 Respiratory Rate 16 02/14/25 07:54 Blood Pressure 130/86 02/14/25 07:54 Pulse Oximetry 96 02/14/25 07:54 Oxygen Delivery Method Room Air 02/14/25 07:54 Medical Decision Making [facility] Narrative Medical decision making narrative: 69-year-old male status post fall with a closed head injury and scalp hematoma. We discussed symptomatic treatment. We also discussed at length today hell since he has had over 30 falls in last several months that he is high risk for being on blood thinners and he needs to have this discussion with his primary care provider or his accounts receivable collector to go over the risks and benefits of being on Eliquis. Imaging Data CT scan - head: Attestation: I have reviewed the pertinent imaging results. Radiologist's impression: TECHNIQUE: CT examination of the head was performed as axial sections without intravenous contrast. Images were obtained from the vertex of the skull through the skull base. Please note that all CT scans at this facility use dose modulation, iterative reconstruction, and/or weight-based dosing when appropriate to reduce radiation dose to as low as reasonably achievable. FINDINGS: The brain shows no sign of mass lesion, mass effect, hemorrhage, or edema. The ventricles and sulci are normal in appearance for the patient`s age. The visualized portions of the orbits are normal in appearance. The osseous structures are normal in their appearance with no sign of abnormality in the skull base or calvarium. Right parieto-occipital region subcutaneous hematoma. IMPRESSION: Right parieto-occipital region subcutaneous hematoma. No calvarial fracture. No acute intracranial posttraumatic findings Discharge Plan Discharge Clinical Impression: Fall, Closed head injury, Hematoma of occipital region of scalp Patient Disposition: Home, Self-Care Condition: Stable Additional Instructions: Recommend you have a discussion with her primary care provider or your accounts receivable collector about your anticoagulation status. Like we discussed, being on a blood thinner when you fall so frequently can be very dangerous. Prescriptions: No Action carbidopa-levodopa 25-100 mg tablet PO duloxetine 30 mg capsule,delayed release(DR/EC) 30 mg PO DAILY amiodarone 200 mg tablet 100 mg PO DAILY metoprolol succinate 25 mg tablet extended release 24 hr 25 mg PO DAILY Eliquis 5 mg tablet 5 mg PO BID hydrocodone-acetaminophen 5-325 mg tablet 1 tab PO Q4-6H PRN (Reason: pain) Qty: 10 0RF pyridoxine (vitamin B6) Crexont Follow Up/Referrals: Jayla Canales, BARB [Primary Care Provider, Family Practice] Stand Alone Forms: [employer] Info Instructions
== END 2025-02-14 09:23 | disposition home or self-care (01) ==
PROVIDERS: Emergency Provider Family Medicine; PCP Clinical Nurse Specialist Adult Health
DX: S00.03XA Contusion of scalp, initial encounter (principal); W19.XXXA Unspecified fall, initial encounter
CPT/HCPCS: 70450; 99283; 99284

== ENCOUNTER 2025-04-05 11:09 | Outpatient (CLI) | payer MEDICARE, BC, SELFPAY ==
--- NOTE | 2025-04-05 11:00 | CRLHL7_ITS ---
For Patients: As a result of the Century Cures Act, medical imaging exams and procedure reports are released immediately into your electronic medical record. You may view this report before your referring provider. If you have questions, please contact your health care provider. Indication: Multiple traumas and falls to hip over time Technique: Pelvis and right hip 3 views Comparison: None Findings: Joint space narrowing and spurring right hip. Spurring also at the left hip. No fracture. Chronic osteitis pubis. Normal SI joints. No fracture or intrinsic lesion. Vascular calcifications. Impression: Moderate degenerative joint disease right hip. Dictated by Steven Srinivasan MD @ 04/05/2025 11:51:19 AM (Electronically Signed)
--- NOTE | 2025-04-05 11:00 | CRLHL7_ITS ---
For Patients: As a result of the Cures Act, medical imaging exams and procedure reports are released immediately into your electronic medical record. You may view this report before your referring provider. If you have questions, please contact your health care provider. Indication: Multiple trauma and falls to hip over time Technique: Three views sacrum and coccyx Comparison: None Findings: Facet degeneration L5-S1. No fracture deformity. Subchondral sclerosis at the symphysis pubis. Sacroiliac joints normal. Impression: No fracture deformity. Dictated by Steven Srinivasan MD @ 04/05/2025 11:47:50 AM (Electronically Signed)
== END 2025-04-05 11:10 | disposition home or self-care (01) ==
PROVIDERS: PCP Clinical Nurse Specialist Adult Health; Visit Provider Chiropractor
DX: Z91.81 History of falling (principal); M16.11 Unilateral primary osteoarthritis, right hip
CPT/HCPCS: 72220; 73502

== ENCOUNTER 2025-06-26 14:55 | Emergency (ER) | payer MEDICARE, BC, SELFPAY ==
--- OUTSIDE RECORDS SUMMARY | 2025-04-06 07:00 | XMS_ITS | Encounter Summary ---
Author Organization [facility] Address [address] [place] [address] Care Team Providers Care Mash Filter Operator Name Role Phone Jayla Canales APRN, C.N.P. Primary Care Provide r Reason for Visit * Speech Pathology (Routine) - Canceled Specialty Diagnoses / Procedures Referred By Contac t Referred To Contact Diagnoses Dysarthria Procedures BRICKLAYER HELPER - Ongoing treatment Jayla Canales APRN, C.N.P. [address] [place] [address] Phone: tel: fax: [facility] Region Referral ID Status Reason Start Date Expiration Date V isits Requested Visits Authorized [id number] Canceled 11/29/2024 03/01/2026 99 99 Encounter Details Date Type Department Care Team (Late st Contact Info) Description 04/06/2025 8:00 AM CDT Clinical Support Department of Rehabilitation Services in [address] [phone] Jayla Canales, LINDY, C.N.P. [address] [place] [phone] Juju Suarez [address] [place] [phone] Dysarthria Social History Tobacco Use Types Packs/Day Years Used Date Smoking Tobacco: Never Passive Smoke Exposure: Never Smokeless Tobacco: Never Alcohol Use Standard Drinks/Week Comments Never 0 (1 standard drink = 0.6 oz pur e alcohol) [facility] Utilities Answer Date Recorded In the past 12 months has e [x+1], gas, oil, or water i[employer] threatened to shut off services in your [...] 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, PRESS CLIPPER, [employer]) 01/09/2019 Sex and Gender Information Value Date Recorded Sex Assigned at Male 12/15/2017 6:50 AM CDT Legal Sex Male 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 He reports evaluation for DBS in [place] since our last meeting, which he is told he does not qualify for. He reports feet freezing has gotten worse; he has started with PT in [facility] to complete LSVT BIG program OBJECTIVE: Sinan Mustafa is seen today for speech language therapy to improve function of speech /dysarthria Short term: 1) Patient will: complete vocal cord adductions exercises with min cues. Sinan reports he has resumed LSVT - MPT exercises. Sinan is independently completing exercises. I have stressed the importance to complete exercise program on a daily basis - He verbalized understanding - goal met 2) Patient will: participate in formal speech practice with focus on reduced rate using pacing boards or other strategies with min cues. Sinan is often able to report that he is not being loud enough, however does not correct independently. With cues he is able to get ???loud?? which a significant impact on intelligibility. 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 Visual cues are beneficial to increased volume, as well to insert pauses for no more natural sending speech. 3) Patient will: demonstrate use of speech strategies during formal Q&A and simple conversation. Sinan is able to use increased vocal loudness with verbal and/or modeled cues only. He does requires consistent cues for use during spontaneous speaking tasks. Continue goal 4) Patient will: report use of speech strategies outside therapy room with improved intelligibility Sinan reports some intentional use of strategies successfully during important phone calls and appointments. Continue goal . Service Order Taker: 1) Patient will:be independent for use of compensatory speech strategies and exercises to be 90% intelligible to all communication partners. Progressing continue goal ASSESSMENT: Sinan is demonstrating reduced awareness of vocal loudness. He does acknowledge that he is speaking too softly when asked and requires consistent moderate-max cues to increase volume. When using loud voice, Sinan is noted with significantly improved intelligibility. We continue to stress need to complete daily exercises, with verbalized understanding. PLAN: Continue POC Total Visit Time: 60 minutes Natural Gas Technician Present n/a Patient has not returned to Speech Therapy in over 30 days. Patient was last seen in clinic on 04-06-25: 6 visits from 11-29-24 to 04-06-25 Functional status and progress towards goals unknown at time of discharge. Progress towards goals at last visit is listed above. At this time, patient will be discharged from skilled ST services and will require a new referral for future visits. Pt is discharged due to inactivity, plan of care expiration, and failure to schedule follow-up visits. documented in this encounter Plan of Treatment Not on file documented as of this encounter Visit Diagnoses Diagnosis Dysarthria documented in this encounter Additional Health Concerns Assessment Noted Time PHQ-9 Depression Total Score: 1 10/30/19 21 1:32 PM CDT documented as of this encounter Care Teams Mash Filter Operator Relationship Specialty Start Date End Date Jayla Canales APRN, C.N.P. [address] [place] [phone] PCP - General Family Medicine 12/24/23 05/23/[address] [place], [place] Dentist 03/15/24 documented as of this encounter
--- OUTSIDE RECORDS SUMMARY | 2025-05-15 12:00 | XMS_ITS | Encounter Summary ---
Author Organization [facility] Address [address] [place] [address] Care Team Providers Care Cattle Brander Name Role Phone Jayla Canales APRN, C.N.P. Primary Care Provide r Reason for Visit * Reason Comments Post Ed Visit Follow-up 05/07/2025 (1 vinnie rs)[facility] still ooz[facility] after 6.5 days of antibiotics Encounter Details Date Type Department Care Team (Late st Contact Info) Description 05/15/2025 1:00 PM CDT Office Visit Department of Family Medicine, [facility], in [address] [phone] Neel Pelaez P.A.-C., P.A. [address] [place] [phone] Cellulitis (Primary Dx) Discharge Disposition: Home or Self Care Social History Tobacco Use Types Packs/Day Years Used Date Smoking Tobacco: Never Passive Smoke Exposure: Never Smokeless Tobacco: Never Tobacco Cessation:Counseling Given: Not Answered Alcohol Use Standard Drinks/Week Comments Never 0 (1 standard drink = 0.6 oz pur e alcohol) [facility] Utilities Answer Date Recorded In the past [...] your living situation today? I have a [facility] place to live 11/08/2024 Education Answer Date Recorded What is the highest level of school you have completed or the highest degree you have received? 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 - 05/15/2025 1:00 PM CDT SUBJECTIVE Sinan Mustafa [phone] CHIEF COMPLAINT / REASON FOR VISIT Sinan Mustafa is a 70 y.o. male who presents for evaluation of Post Ed Visit Follow-up (05/07/2025 (1 hours)/[facility]//cellulitis still oozimg after 6.5 days of antibiotics/). HISTORY OF PRESENT ILLNESS Patient presents with continued redness at the left lateral leg. Has responded favorably with antibiotic took the last dose last night. Redness has improved. Less pain and discomfort. He is concernedhowever that may still need additional antibiotics. No chills no fevers. Otherwise usual state of health. REVIEW OF SYSTEMS REVIEW OF SYSTEMS Discussed. See HPI. OBJECTIVE VITAL SIGNS Vitals: 05/15/25 1243 05/15/25 1253 BP: 145/82 125/78 BP Location: Left arm Left arm Patient Position: Sitting Sitting Cuff Size: Regular Regular Pulse: 75 71 Temp: 36.6 ??C TempSrc: Temporal SpO2: 97% PHYSICAL EXAMINATION Physical Exam Pleasant alert 70-year-old male not ill or toxic. Focal exam left lower extremity does reveal redness laterally from the knee. Normal gait although he does have a cane to help with Parkinson's. Thereis some scabbing over of the area of redness but still some area that appears to be open with whitepink granular base. DIAGNOSTICS No results found for this or any previous visit (from the past 24 hours). Leg-Emergency Department Image Exam Result Date: 05/07/2025 Narrative: This order has been created and auto-finalized to support the import of images acquired without order. The clinical documentation to support these images can be found on the encounter thatproduced images. DX Hip And Pelvis Right 2-3 Views Result Date: 04/25/2025 Narrative: EXAM: DX HIP AND PELVIS RIGHT 2-3 VIEWS Impression: Comparison 01/10/25. No acute fracture seen. Bilateral hip degenerative joint disease with partial joint space loss and marginal osteophytes. Degenerative osteitis pubis. 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 No images are attached to the encounter. ASSESSMENT / PLAN #1 Cellulitis - cefdinir (Omnicef) 300 mg capsule; Take 1 capsule (300 mg total) by mouth 2 (two) times a day before morning and evening meals for 10 days., Starting 05/15/2025, Until Suki 05/25/2025, Normal Other orders - chlorhexidine (Hibiclens) 4 % external solution; Apply 1 Application topically daily for 14 days.Apply to affected area on left leg., Starting Thu05/15/2025, Until Thu05/29/2025, Normal Localizing cellulitis. It does seem to be filling in. Some of the areas seems to be healing by secondary intent with some granulation. No pus no foul odor. There is some slight serosanguineous fluid.Will recommend additional antibiotic for 10 days. Also topically, will recommend chlorhexidine. When application daily setting up the skin, gently washing then rinsing with water. Recheck within 10 days for follow-up to be sure were seeing continued improvement. Urgent return if getting worse. Neel Pelaez P.A.-C., P.A. 05/15/2025 1:15 PM CDT documented in this encounter Plan of Treatment Not on file documented as of this encounter Visit Diagnoses Diagnosis Cellulitis- Primary documented in this encounter Additional Health Concerns Assessment Noted Time PHQ-9 Depression Total Score: 1 10/30/19 21 1:32 PM CDT documented as of this encounter Care Teams Cattle Brander Relationship Specialty Start Date End Date Jayla Canales APRN, C.N.P. [address] [place] [phone] PCP - General Family Medicine 12/24/23 05/23/[address] [place], [place] Dentist 03/15/24 documented as of this encounter
--- OUTSIDE RECORDS SUMMARY | 2025-05-23 15:40 | XMS_ITS | Encounter Summary ---
Author Organization [facility] Address [address] [place] [address] Care Team Providers Care Coal Conveyor Operator Name Role Phone Jayla Canales APRN, C.N.P. Primary Care Provide r Encounter Details Date Type Department Care Team (Late st Contact Info) Description 05/23/2025 5:40 PM EDT Ancillary Procedure Department of Family Medicine, [place] Social History Tobacco Use Types Packs/Day Years [...] your living situation today? I have a [facility] [employer] place to live 11/08/2024 Education Answer Date Recorded What is the highest level of school you have completed or the highest degree you have received? 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, [employer]) 01/09/2019 Sex and Gender Information Value Date Recorded Sex Assigned at Male 12/15/2017 6:50 AM CDT Legal Sex Male 5:03 AM ELIGIBILITY ANALYST Gender Identity Male 12/15/2017 6:50 AM CDT Sexual Orientation Straight 12/15/2017 6: 50 AM CDT documented as of this encounter Plan of Treatment Not on file documented as of this encounter Procedures Procedure Name Priority Date/Time Associated Diagnosis Comments FAMILY MEDICINE IMAGE EXAM Routine 05/23/2025 5:40 PM EDT documented in this encounter Results * Leg-Family Medicine Image Exam (05/23/2025 5:40 PM EDT) 05/23/2025 5:39 PM EDT Narrative [facility]IMS - 05/23/2025 6:44 PM EDT This order has been created and auto-finalized [...] documented as of this encounter Care Teams Coal Conveyor Operator Relationship Specialty Start Date End Date Jayla Canales APRN, C.N.P. [address] [place] [phone] PCP - General Family Medicine 12/24/23 05/23/[address] [place], [place] Dentist 03/15/24 documented as of this encounter
--- OUTSIDE RECORDS SUMMARY | 2025-05-23 16:40 | XMS_ITS | Encounter Summary ---
Author Organization [facility] Address [address] [place] [address] Care Team Providers Care Cool Roofing Installer Name Role Phone Jayla Cnaales APRN, C.N.P. Primary Care Provide r Reason for Visit * Reason Comments Post Ed Visit Follow-up 05/07/20[facility] (1 vinnie rs[facility]patient (Routine) - Closed Specialty Diagnoses / Procedures Referred By Axel t Referred To Contact Emergency Medicine Diagnoses Cellulitis Arm Left Jayla Canales APRN, C.N.P. [address] [place] [phone] Phone: tel: fax: [facility] Referral ID Status Reason Start Date Expiration Date Visits Re quested Visits Authorized [id number] Closed 05/08/2025 11/07/2026 1 1 Encounter Details Date Type Department Care Team (Late st Contact Info) Description 05/23/2025 5:40 PM CDT Office Visit Department of Family Medicine, [facility], in [address] [phone] Nura Moore M.D., M.P.H. [address] [place] [phone] Cellulitis (Primary Dx); Wound Lower Leg Open Subsequent Left Discharge Disposition: Home or Self Care Social History Tobacco Use Types Packs/Day Years Used Date Smoking Tobacco: Never Passive Smoke Exposure: Never Smokeless Tobacco: Never Tobacco Cessation:Counseling Given: Not Answered Alcohol Use Standard Drinks/Week Comments Never 0 (1 standard drink = 0.6 oz pur e alcohol) [facility] Utilities Answer Date Recorded In the past 12 months has e [employer], gas, oil, or water [employer] threatened to shut off services in your [...] your living situation today? I have a [facility] place to live 11/08/2024 Education Answer Date Recorded What is the highest level of school you have completed or the highest degree you have received? 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, PRINTED CIRCUIT BOARDS BEVELER, [place]) 01/09/2019 Sex and Gender Information Value Date Recorded Sex Assigned at Male 12/15/2017 6:50 AM CDT Legal Sex Male 5:03 AM SNAP SHEARER Gender Identity Male 12/15/2017 6:50 AM CDT Sexual Orientation Straight 12/15/2017 6: 50 AM CDT documented as of this encounter Last Filed Vital Signs Vital Sign Reading Time Taken Comments Blood Pressure 140/84 05/23/2025 5:28 PM CDT Pulse 76 05/23/2025 5:28 PM CDT Temperature 36.6 C (97.9 F) 05/23/2025 5:28 PM CDT Respiratory Rate - - Oxygen Saturation 98% 05/23/2025 5:28 PM CDT Inhaled Oxygen Concentration - - Weight 95.4 kg (210 lb 5.1 oz) 05/23/2025 5:28 P M CDT Height - - Body Mass Index 27 11/08/2024 2:12 PM CDT documented in this encounter Progress Notes * Nura Moore M.D., M.P.H. - 05/23/2025 5:40 PM CDT DATE OF VISIT: 05/23/2025 SUBJECTIVE CHIEF COMPLAINT / REASON FOR VISIT Sinan Mustafa is a 70 y.o. male who presents for evaluation of Post Ed Visit Follow-up (05/07/2025 (1 hours)/[facility]//Cellulitis of left lower leg/). The patient verbally consented to an audio recording of their visit to assist with the completion of documentation. History of Present Illness Mr. Sinan Esparza is a 70 year old male who presents for a follow-up on wound care. Seen in the emergency department on 05/07/2025 for left lower leg cellulitis to which he is prescribed cefdinir 300 mg every 12 hours for 7 days. He was then seen on 05/15/2025 in the clinic which hehad ongoing localized cellulitis and his wounds seem to be healing. Plan was to continue another 10days of cefdinir 300 mg daily. The wound is showing signs of improvement. He has been using antibacterial soap as part of his careregimen. The area remains red. He has been taking photos to monitor progress and believes the woundlooks better compared to when it first started. He is using a cream from a green tube, provided by an ER doctor, which is not a prescription medication. He is unsure of the exact name but confirms it is not Hibiclens or chlorhexidine. I am assuming he that has referring to Vaseline that he has been applying to keep the wound moisturized and prevent it from drying out. He completed a course of oral antibiotics, which made him feel drowsy. He is currently not taking any more oral antibiotics and is focusing on topical treatments. His sleep patterns have been 'kind of goofy.' OBJECTIVE VITAL SIGNS BP 140/84 (BP Location: Left arm, Patient Position: Sitting, Cuff Size: Regular) Pulse 76 Temp 36.6 ??C (Temporal) Wt 95.4 kg SpO2 98% BMI 27.00 kg/m?? Physical Exam Vitals reviewed. Constitutional Appearance: Normal appearance. Skin Comments: Healing skin wounds on his left posterior calf closest to his knee. No surrounding erythema that raises concern for cellulitis. No warmth to touch or pain on palpation. Photos taken uploaded in the chart. No oozing of wounds are present. Neurological Mental Status: He is alert. ASSESSMENT / PLAN #1 Cellulitis #2 Wound Lower Leg Open Subsequent Left Wound healing well with reduced redness. No signs of cellulitis. Post- inflammatory changes noted. No further oral antibiotics needed. - Continue antibacterial soap for wound care. - Apply Vaseline to keep wound moisturized. - Monitor for cellulitis recurrence. - Return for follow-up if condition worsens documented in this encounter Plan of Treatment Not on file documented as of this encounter Visit Diagnoses Diagnosis Cellulitis- Primary Wound Lower Leg Open Subsequent Left documented in this encounter Additional Health Concerns Assessment Noted Time PHQ-9 Depression Total Score: 1 10/30/19 21 1:32 PM CDT documented as of this encounter Care Teams Cool Roofing Installer Relationship Specialty Start Date End Date Jayla Canales APRN, C.N.P. [address] [place] [phone] PCP - General Family Medicine 12/24/23 05/23/[address] [place], [place] Dentist 03/15/24 documented as of this encounter
--- OUTSIDE RECORDS SUMMARY | 2025-06-09 11:00 | XMS_ITS | Encounter Summary ---
Author Organization [facility] Address [address] [place] [address] Care Team Providers Care Emergency Worker Name Role Phone Nura Moore M.D., M.P.H. Primary Care Provi santa Reason for Visit * Outpatient (Routine) - Closed Specialty Diagnoses / Procedures Referred By Contbryce t Referred To Contact Neurology Dia Sharif M.D. [address] [place] [phone] Phone: tel: fax: Bobby Santiago M.D., Ph.D. [address] [place] [address] Phone: tel: fax: Referral ID Status Reason Start Date Expiration Date Visits Re quested Visits Authorized [id number] Closed 03/29/2025 09/28/2026 1 1 Encounter Details Date Type Department Care Team ([facility] st Contact Info) Description 06/09/2025 11:00 AM IT PROGRAMMER Office Visit Department of Neurology in [place], [place] [address] [place] [phone] Bobby Santiago M.D., Ph.D. [address] [place] [phone] Parkinsonism Unspecified (HCC) (Primary Dx) Social History Tobacco Use Types Packs/Day Years Used Date Smoking Tobacco: Never Passive Smoke Exposure: Never Smokeless Tobacco: Never Alcohol Use Standard Drinks/Week Comments Never 0 (1 standard drink = 0.6 oz pur e alcohol) [facility] Utilities Answer Date Recorded In the past 12 months has e [employer], gas, oil, or water [employer] threatened to [...] living situation today? I have a [facility] place to live 11/08/2024 Education Answer Date Recorded What is the highest level of school you have completed or the highest degree you have received? 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, PAINTER ASSISTANT, [employer]) 01/09/2019 Sex and Gender Information Value Date Recorded Sex Assigned at Male 12/15/2017 6:50 AM CDT Legal Sex Male 5:03 AM IT PROGRAMMER Gender Identity Male 12/15/2017 6:50 AM CDT Sexual Orientation Straight 12/15/2017 6: 50 AM CDT documented as of this encounter Progress Notes * Bobby Santiago M.D., Ph.D. - 06/09/2025 11:00 AM CST Mr. Mustafa came to see me today for follow-up of his Parkinson's disease, accompanied by his . I last saw him this past December. In the interim, he was seen in the [facility] where DBS surgery was discussed. I read the note of Dr. Sharif, who described their discussion, which centered aroundwhether DBS would help his gait freezing. 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 The decision was to not proceed with the DBS workup and consideration for surgery. At present, he is taking 3 of the 280 mg Crexont capsules every 4 hours. For the most part, he can get a fairly consistent response. More problems occur later in the day when he starts to get tired. We discussed his sleep and it turns out that he often wakes up in the middle of the night to urinate and cannot get back to sleep. I emphasized the need for 7 to 8 hours of sleep every night and sometimes he is coming up far short ofthat. He uses 50 mg of trazodone at bedtime although occasionally he has used 100 mg (2 tablets). He also occasionally uses Ambien, sometimes at bedtime and sometimes when he awakens during the night. I warned him about excessive sedation that might surface in the morning but that has not been a problem thus far. In any case, I advised him to not use the Ambien at bedtime if he is using trazodonebut if he finds that Ambien in the middle of the night when he awakens helps him get back to sleep,that would be acceptable, provided that he is not sleepy in the morning, which has not been the case. I also mentioned that if sleeping through the night continues to be a problem, he could try raising the trazodone to 100 mg. I watched him walk in the hallway. He walked fairly well down to the end of the hallway but with initiation of walking and turns, gait freezing was apparent. We had a lengthy discussion about strategies for breaking the freeze and specifically when he recognizes that is occurring, to pause and think about standing straight up and taking control of one leg to initiate the next step. A goose step typically works well to initiate walking, which typically continues until he has to. Again or turn.. A marching step is useful when initiating a pivot. His brass bobbin winder told him that given the absence of atrial fibrillation over a prolonged period of time, he can discontinue his anticoagulation. Given his fall risk, that is obviously desirable. Parenthetically, I checked his standing blood pressure today and obtained a value of 134/91 with a pulse of 81. PROGRAMMER PROGRAMMER documented in this encounter Plan of Treatment Not on file documented as of this encounter Visit Diagnoses Diagnosis Parkinsonism Unspecified (HCC)- Primary documented in this encounter Additional Health Concerns Assessment Noted Time PHQ-9 Depression Total Score: 1 10/30/19 21 1:32 PM CDT documented as of this encounter Care Teams Emergency Worker Relationship Specialty Start Date End Date Nura Moore M.D., M.P.H. [id number] [phone] PCP - General Family Medicine 05/24/[address] [place], [place] Dentist 03/15/24 documented as of this encounter
--- OUTSIDE RECORDS SUMMARY | 2025-06-09 16:40 | XMS_ITS | Encounter Summary ---
Author Organization [facility] Address [address] [place] [address] Care Team Providers Care Power Lineman Name Role Phone Nura Moore M.D., M.P.H. Primary Care Provi santa Reason for Visit * Outpatient (Routine) - Closed Specialty Diagnoses / Procedures Referred By Contbryce t Referred To Contact Dermatology Courtney Madden M.D. [address] [place] [address] Phone: tel: fax: [facility] Referral ID Status Reason Start Date Expiration Date Visits Re quested Visits Authorized [id number] Closed 01/02/2025 07/04/2026 1 1 Encounter Details Date Type Department Care Team ([facility] st Contact Info) Description 06/09/2025 4:40 PM MOLD SHIFTER Office Visit Department of Dermatology in [place], [place] [address] [place] [phone] Courtney Madden M.D. [address] [place] [phone] Purpura (Primary Dx); Dermatitis Seborrheic Discharge Disposition: Home or Self Care Social History Tobacco Use Types Packs/Day Years Used Date Smoking Tobacco: Never Passive Smoke Exposure: Never Smokeless Tobacco: Never Alcohol Use Standard Drinks/Week Comments Never 0 (1 standard drink = 0.6 oz pur e alcohol) [facility] Utilities Answer Date Recorded In the past 12 months has e [employer], gas, oil, or water [employer] threatened to shut off services in your [...] living situation today? I have a [facility] place to live 11/08/2024 Education Answer Date Recorded What is the highest level of school you have completed or the highest degree you have received? 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, CAR MECHANIC, [employer]) 01/09/2019 Sex and Gender Information Value Date Recorded Sex Assigned at Male 12/15/2017 6:50 AM CDT Legal Sex Male 5:03 AM MOLD SHIFTER Gender Identity Male 12/15/2017 6:50 AM CDT Sexual Orientation Straight 12/15/2017 6: 50 AM CDT documented as of this encounter Progress Notes * Courtney Madden M.D. - 06/09/2025 4:40 PM CST SUBJECTIVE CHIEF COMPLAINT / REASON FOR VISIT Skin lesions on arms HISTORY OF PRESENT ILLNESS Mr. Sinan Mustafa is a 70 y.o. male who presents today for evaluation of a skin lesions involving arms. Patient states that the lesions involving his arms have been present for several weeksand he does have Parkinson's and does have falls. He was on anticoagulation until approximately a few weeks ago. He also has a history of a malignant melanoma involving the right medial calf but is not due for a melanoma recheck and only wants a check of his arms today and he is not due for his melanoma recheck forat least 6-8months. 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 Skin: Limited skin exam done today at patient's request. Examination of arms today reveals several scattered purpuric macules that are nonpalpable as well as some bruising. No evidence for cutaneous vasculitis. Examination of his eyebrows reveals some mild erythema and scaling compatible with seborrheic dermatitis. He states he also gets some involvement of the scalp area. ASSESSMENT / PLAN #1 Forearms: Purpura He was given reassurance that these lesions are compatible with benign purpura and there is no evidence for cutaneous vasculitis. We discussed that as we get older or skin gets thinner in any trauma that occurs can lead to per per and he has been on anticoagulation in the past as well and does havea history of Parkinson's with falls. He states that he has been taken off his anticoagulation. No treatment needed for his purpura at this time. #2 Eyebrows and scalp area: Seborrheic dermatitis Chronic and recurring nature of this skin condition discussed and he understands and pamphlet givenand discussed. Recommend ketoconazole shampoo while in shower to be washed off after a few minutes 2-3 times per week. Follow up as needed. PATIENT EDUCATION: Ready to learn. No apparent learning barriers were identified. Learning preferences include listening. Explained diagnosis and treatment plan; patient/guardian of patient expressed understanding of the content. SHIFTER documented in this encounter Plan of Treatment Not on file documented as of this encounter Visit Diagnoses Diagnosis Purpura- Primary Dermatitis Seborrheic documented in this encounter Additional Health Concerns Assessment Noted Time PHQ-9 Depression Total Score: 1 10/30/19 21 1:32 PM CDT documented as of this encounter Care Teams Power Lineman Relationship Specialty Start Date End Date Nura Moore M.D., M.P.H. [address] [phone] PCP - General Family Medicine [facility] [place], [place] Dentist 03/15/24 documented as of this encounter
--- OUTSIDE RECORDS SUMMARY | 2025-06-26 14:59 | XMS_ITS | Encounter Summary ---
Author Organization [facility] Address [address] [place] [address] Care Team Providers Care Stake Driver Name Role Phone Nura Moore M.D., M.P.H. Primary Care Provi santa Encounter Details Date Type Department Care Team (Late st Contact Info) Description 04/26/2025 Results Follow-Up Department of Family Medicine, [facility], in [place], [place] [address] [place] [phone] Ross Curtis M.D. [address] [place] [phone] Basic Metabolic Panel Social History Tobacco Use Types Packs/Day Years Used Date Smoking Tobacco: Never Passive Smoke Exposure: Never Smokeless Tobacco: Never Alcohol Use Standard Drinks/Week Comments Never 0 (1 standard drink = 0.6 oz pur e alcohol) [facility] Utilities Answer Date Recorded In the past 12 months has [employer], gas, oil, or water company threatened to [...] your living situation today? I have a [facility] place to live 11/08/2024 Education Answer Date Recorded What is the highest level of school you have completed or the highest degree you have received? 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, SLOTTER OPERATOR, [employer]) 01/09/2019 Sex and Gender Information Value Date Recorded Sex Assigned at Male 12/15/2017 6:50 AM CDT Legal Sex Male 5:03 AM MOVEMENT ASSEMBLER Gender Identity Male 12/15/2017 6:50 AM CDT Sexual Orientation Straight 12/15/2017 6: 50 AM CDT documented as of this encounter Plan of Treatment Not on file documented as of this encounter Visit Diagnoses Not on filedocumented in this encounter Additional Health Concerns Assessment Noted Time PHQ-9 Depression Total Score: 1 10/30/19 21 1:32 PM CDT documented as of this encounter Care Teams Stake Driver Relationship Specialty Start Date End Date Nura Moore M.D., M.P.H. [address] [place] [phone] PCP - General Family Medicine 05/24/[address] [place], [place] Dentist 03/15/24 documented as of this encounter
--- OUTSIDE RECORDS SUMMARY | 2025-06-26 14:59 | XMS_ITS | Encounter Summary ---
Author Organization [facility] Address [address] [place] [address] Care Team Providers Care Circulating Process Inspector Name Role Phone Nura Moore M.D., M.P.H. Primary Care Provi santa Encounter Details Date Type Department Care Team (Late st Contact Info) Description 04/28/2025 Results Follow-Up Department of Family Medicine, [facility], in [place], [place] [address] [place] [phone] Ross Curtis M.D. [address] [place] [phone] Basic Metabolic Panel Social History Tobacco Use Types Packs/Day Years Used Date Smoking Tobacco: Never Passive Smoke Exposure: Never Smokeless Tobacco: Never Alcohol Use Standard Drinks/Week Comments Never 0 (1 standard drink = 0.6 oz pur e alcohol) [facility] Utilities Answer Date Recorded In the past 12 months has [employer], gas, oil, or water company threatened to [...] your living situation today? I have a [facility] place to live 11/08/2024 Education Answer Date Recorded What is the highest level of school you have completed or the highest degree you have received? 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, BLUEPRINT BLOCKER, [employer]) 01/09/2019 Sex and Gender Information Value Date Recorded Sex Assigned at Male 12/15/2017 6:50 AM CDT Legal Sex Male 5:03 AM SR SOLUTIONS CONSULTANT Gender Identity Male 12/15/2017 6:50 AM CDT Sexual Orientation Straight 12/15/2017 6: 50 AM CDT documented as of this encounter Plan of Treatment Not on file documented as of this encounter Visit Diagnoses Not on filedocumented in this encounter Additional Health Concerns Assessment Noted Time PHQ-9 Depression Total Score: 1 10/30/19 21 1:32 PM CDT documented as of this encounter Care Teams Circulating Process Inspector Relationship Specialty Start Date End Date Nura Moore M.D., M.P.H. [address] [place] [phone] PCP - General Family Medicine 05/24/[address] [place], [place] Dentist 03/15/24 documented as of this encounter
--- OUTSIDE RECORDS SUMMARY | 2025-06-26 14:59 | XMS_ITS | Clinical Summary ---
Author Organization [facility] Address [address] [place] [address] Care Team Providers Care Front Maker Name Role Phone Nura Moore M.D., M.P.H. Primary Care Provi santa Source Comments Patient records contain information from all sites at [facility]. For routine questions regarding patient records, call [phone] during business hours, M-F 8:00 AM - 5:00 PM Central Time. Record requests for emergency care only can be directed to [phone] at any time.[facility] Allergies No known active allergies Medications * This document contains information received from the source organization and may not represent a complete record from that organization. folic acid-vitamin B6,B12 (FOLBIC) 2.5-25-2 mg per tablet Take 2 tablets by mouth daily. To prevent homocysteine elevation. 01/08/20 16 Active fish oil 1,000 mg capsule Take 1,000 mg by mouth daily. Active fluocinolone (SYNALAR) 0.01 % external solutionIndica tions:Keratosi s Seborrheic,Ecz michael Apply topically daily as needed for itching or rash. 60 mL 3 08/27/19 22 Active ketoconazole (NIZORAL) 2 % shampoo Apply 1 Application topically 3 (three) times a week. Apply to damp skin, lather, leave on 5 minutes, and rinse 120 mL 3 03/23/20 23 Active carbidopa-levo dopa (SINEMET) 25-100 mg per tablet Take 0.5-1 tablets by mouth as directed. 1/2 tab by mouth six times per day; pt may take an additional 3 tabs daily as needed. 540 tablet 3 11/16/19 24 Active traZODone (DesyreL) 50 mg tablet take 2 tablets by mouth at bedtime, may repeat with one tablet during the night. 270 tablet 3 08/04/19 25 Active amiodarone (Pacerone) 200 mg tablet TAKE HALF TABLET BY MOUTH DAILY 90 tablet 3 09/07/19 25 Active zolpidem (Ambien) 5 mg tablet Take 1 tablet (5 mg total) by mouth at bedtime. 90 tablet 1 01/24/20 25 Active DULoxetine (Cymbalta) [address] capsule Take 1 capsule (60 mg total) by mouth daily. 90 capsule 1 02/02/20 25 Active carbidopa-levo dopa (Crexont) 70-280 mg per IR-ER capsule Take 3 capsules by mouth every 4 (four) hours. 1620 capsule 3 05/30/20 25 026 Active ketoconazole (Nizoral) 2 % shampoo Apply to damp skin, lather, leave on 5 minutes, and rinse while in shower 2-3 times per week 120 mL 6 06/09/20 25 Active carbidopa-levo dopa (Crexont) 70-280 mg capsule,IR -extend rel,biphase Take 3 capsules by mouth every 4 (four) hours. Substitute for Rytary. Take 3 Crexont caps every 4 hours around the clock. Take on an empty stomach. 1800 each 3 05/17/20 24 025 Discontinued chlorhexidine (Hibiclens) 4 % external solution Apply 1 Application topically daily for 14 days. Apply to affected area on left leg. 120 mL 1 05/15/20 25 025 Active Problems Problem Noted Date Diagnosed Date [...] risks versus benefits of initiating anticoagulation - [id number]: 1; Stroke risk was 0.6% per year [...] SCD. Because of this will refer to [facility] Cardiology. Nodule Thyroid 01/13/2017 Overview (04/03/2018): Normal [...] 04/03/2018 Nephrolithiasis Calcium Oxalate 06/11/2012 04/03/2018 Encounters Date Type Department Care Team Description 06/09/2025 4:40 PM APPLICATION TESTER Office Visit Department of Dermatology in [place], [place] [address] [place] [address] Courtney Madden M.D. Purpura (Primary Dx); Dermatitis Seborrheic Discharge Disposition: Home or Self Care 06/09/2025 11:00 AM APPLICATION TESTER Office Visit Department of Neurology in [place], [place] [address] [place] [phone] Bobby Santiago M.D., Ph.D. Parkinsonism Unspecified (HCC) (Primary Dx) 05/30/2025 Refill Department of Neurology in [place], [place] [address] [place] [phone] AhBobby cartagena M.D., Ph.D. Med Refill 05/23/2025 5:40 PM EDT Ancillary Procedure Department of Family Medicine, [place] 05/23/2025 5:40 PM CDT Office Visit Department of Family [facility], [facility], [address] [phone] Nura Moore M.D., M.P.H. Cellulitis (Primary Dx); Wound Lower Leg Open Subsequent Left Discharge Disposition: Home or Self Care 05/15/2025 1:00 PM CDT Office Visit Department of [facility], [facility], in [address] [phone] Neel Pelaez P.A.-C., P.A. Cellulitis (Primary Dx) Discharge Disposition: Home or Self Care 05/14/2025 Nurse Triage Department of [facility], [facility], in [address] [phone] Andra Mckeon, REmekaN. Skin Redness 05/07/2025 1:40 PM CDT Ancillary Procedure Department of Emergency Medicine 05/07/2025 1:12 PM CDT - 05/07/2025 2:25 PM CDT Emergency [facility] [address] [place] [phone] Steven Ferrell APRN, C.N.P., D.N.P. Cellulitis Leg Left (Primary Dx) Discharge Disposition: Home or Self Care 05/07/2025 Results Follow-Up Department of Cardiovascular Diseases in [place], [place] [address] [place] [phone] Maverick Terry M.D. Thyroid Function [place], Hepatic Function Panel 05/07/2025 Results Follow-Up Department of Family Medicine, [facility], in [place], [place] [address] [place] [phone] Joselyn Gonzalez APRN, C.N.P. Bacterial Culture, Aerobic + Susceptibility, Urine, Urinalysis with Microscopic if Indicated: Urine, Midstream 05/05/2025 2:53 PM CDT - 05/05/2025 11:59 PM CDT Hospital Encounter Department of Laboratory Medicine in [address] [phone] Thom Nance M.D. Frequency Urinary Discharge Disposition: Home or Self Care 05/05/2025 2:00 PM CDT Telemedicine Department of Family Medicine, [facility], in [place], [place] [address] [place] [phone] Thom Nance M.D. Frequency Urinary (Primary Dx) 05/05/2025 Orders Only Department of Family Medicine, [facility], in [address] [phone] Jayla Canales APRN, C.N.P. Annual Medicare Examination Return (Primary Dx) 05/04/2025 Nurse Triage Department of Family Medicine, [facility], in [address] [phone] Tamanna Wilkins M.SEmekaN., R.N. Urinary Frequency 04/28/2025 12:13 PM CDT - 04/28/2025 11:59 PM CDT Hospital Encounter Department of Laboratory Medicine in [address] [phone] Ross Curtis M.D. Hyperkalemia Discharge Disposition: Home or Self Care 04/28/2025 Results Follow-Up Department of Family Medicine, [facility], in [address] [place] [address] Ross Curtis M.D. Basic Metabolic Panel 04/26/2025 1:10 PM CDT - 04/26/2025 11:59 PM CDT Hospital Encounter Department of Laboratory Medicine in [address] [phone] Ross Curtis M.D. Atrial Fibrillation Paroxysmal (HCC) Discharge Disposition: Home or Self Care 04/26/2025 Orders Only Department of Family Medicine, [facility], in [place] [address] [place] [address] Ross Curtis M.D. Hyperkalemia (Primary Dx) 04/26/2025 Results Follow-Up Department of Family Medicine, [facility], in [place] [address] [place] [address] Ross Curtis M.D. Basic Metabolic Panel 04/25/2025 9:50 AM CDT - 04/25/2025 11:59 PM CDT Hospital Encounter Department of Laboratory Medicine in [address] [phone] Maverick Terry M.D. High Risk Medication; Atrial Fibrillation Paroxysmal (HCC) Discharge Disposition: Home or Self Care 04/25/2025 9:30 AM CDT Office Visit Department of Orthopedic Surgery in [address] [phone] Cristian Alvarenga M.D. Pain Hip Right (Primary Dx) 04/25/2025 9:05 AM CDT - 04/25/2025 9:49 AM CDT Hospital Encounter Department of Radiology in [address] [phone] Cristian Alvarenga M.D. Pain Hip Right Discharge Disposition: Home or Self Care 04/25/2025 Orders Only Department of Family Medicine, [facility], in [place] [address] [place] [phone] Ross Curtis M.D. Atrial Fibrillation Paroxysmal (HCC) (Primary Dx) 04/21/2025 Clinical Communication Department of Cardiovascular Diseases in [address] [phone] Destiney Bullard R.N. amiodarone monitoring 04/06/2025 8:00 AM CDT Clinical Support Department of Rehabilitation Services in [address] [phone] Jayla Canales APRN, C.N.P. Englert, Jody L Dysarthria 04/04/2025 4:15 PM CDT Clinical Support Department of Rehabilitation Services in [address] [phone] Ke Curiel P.Sheba.NoemiCEmeka, Capri Arrieta, P.T., D.P.T. Primary Osteoarthritis Knee Bilateral 03/29/2025 8:00 AM CDT Comprehensive Visit Department of Neurology in [address] [phone] Bobby Santiago M.D., Ph.D. Richard Rubi M.D. Parkinsonism Unspecified (HCC) (Primary Dx) 03/27/2025 11:00 AM CDT Clinical Communication Virtual Review in [address] [phone] Pre-visit Intake 03/27/2025 8:30 AM CDT Clinical Support Department of Rehabilitation Services in [address] [phone] Ke Curiel P.Sheba.-C., Capri Arrieta, P.T., D.P.T. Primary Osteoarthritis Knee Bilateral from Last 3 Months Immunizations Immunization Administration Dates Next Due HZV (ZOSTAVAX) 05/08/2013 HepB Adult 1999 HepB Adult (HEPLISAV-B) 02/19/2023,08/18/2022 HepB, Unspecified 1999 Influenza Split 04/19/2017, 6,04/17/2015,2013,05/03/2013 Influenza TIV (IM) 04/19/2025, 4,04/18/2019,2016 Influenza, Quadrivalent, Adj uvanted, Preservative Free 05/14/2023,05/13/2022,04/17/2021,2019 Influenza, Unspecified 04/16/2018 PCV13 2018 PPSV23 2019 RSV: respiratory syncytial v irus (ABRYSVO) bivalent vaccine 07/16/2023 RZV (SHINGRIX) 11/23/2017,09/22/2017,04/20/2013 SARS-COV-2 (COVID-19) - PFIZ ER (Discontinued)(12 years or older) 09/22/2020,08/30/2020 Td (Adult), adsorbed 10/18/2002,11/30/1992 Tdap 04/15/2022,2018,11/18/2007 influenza trivalent high dos e (HD)(PF) 04/13/2020 influenza trivalent vaccine (6 months and older)(PF) 05/17/2009 influenza vaccine quad (FLUZONE/FLUARIX) (6 months and older)(PF) 04/16/2016,04/30/2014 Family History Medical History Relation Name Comments Arthritis Brother Rafael Mustafa Asthma Brother Rafael Mustafa Diabetes Brother Rafael Ramsey Hyperlipidemia (high cholesterol) Brother Rafael Mustafa Hypertension Brother Rafael Herreraon Parkinson's disease Brother Rafael Mustafa Essen tial tremor first diagnosed age 62 Stroke Brother Rafael Mustafa Arthritis Father Zac Mustafa Diabetes Father Zac Mustafa Mild in hi s 60 d Prostate cancer Father Zac Herreraon Dementia Father's Sister Felicitas Herreraon [place] in her 90 s Stroke Maternal Grandmother Dior Bruever Asthma Mother Bee Mustafa As a Child Diabetes Mother Bee Mustafa Mild on her 60 s Hypertension Mother Bee Mustafa Osteoporosis Mother Bee Mustafa Parkinson's disease Mother Bee Mustafa Esse ntial tremor for 60 of her 99 years Leukemia Paternal Grandfather Juan Bruring Dementia Paternal Grandmother Aletha O Christiano Mustafa Alzheimer s in her 90 s Transient ischemic attack Paternal Grandmother I landon O T hetal Mustafa Asthma Sister Crockett Lechuga Diabetes Sister Florence Lechuga Hyperlipidemia (high cholesterol) Sister Crockett Lechuga Hypertension Sister Florence Lechuga Osteoporosis Sister Florence Lechuga Anesthesia problems Neg Hx Relation Name Status Comments Brother Rafael Mustafa Father Zac Mustafa Father's Sister Felicitas Mustafa Maternal Grandmother Dior [place] Alive Mother Bee Mustafa Paternal Grandfather Juan Bruring Alive Paternal Grandmother Aletha O T hetal Mustafa Alive Sister Florence Lechuga Social History Tobacco Use Types Packs/Day Years Used Date Smoking Tobacco: Never Passive Smoke Exposure: Never Smokeless Tobacco: Never Tobacco Cessation:Counseling Given: Not Answered Alcohol Use Standard Drinks/Week Comments Never 0 (1 standard drink = 0.6 oz pur e alcohol) [facility] Utilities Answer Date Recorded In the past 12 months has [facility] [employer], oil, or water [employer] threatened to shut off services in your [...] your living situation today? I have a [facility] place to live 11/08/2024 Education Answer Date Recorded What is the highest level of school you have completed or the highest degree you have received? 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, [employer]) 01/09/2019 Sex and Gender Information Value Date Recorded Sex Assigned at Male 12/15/2017 6:50 AM CDT Legal Sex Male 5:03 AM APPLICATION TESTER Gender Identity Male 12/15/2017 6:50 AM CDT Sexual Orientation Straight 12/15/2017 6: 50 AM CDT Last Filed Vital Signs Vital Sign Reading Time Taken Comments Blood Pressure 140/84 05/23/2025 5:28 PM CDT Pulse 76 05/23/2025 5:28 PM CDT Temperature 36.6 C (97.9 F) 05/23/2025 5:28 PM CDT Respiratory Rate 16 11/09/2024 12:40 PM CDT Oxygen Saturation 98% 05/23/2025 5:28 PM CDT Inhaled Oxygen Concentration - - Weight 95.4 kg (210 lb 5.1 oz) 05/23/2025 5:28 P M CDT Height 188 cm (6' 2) 11/08/2024 2:12 PM CDT Body Mass Index 27 11/08/2024 2:12 PM CDT Plan of Treatment Health Maintenance Due Date Last Done Comments CT Colonography 1955 Visit: Medicare Annual Wellness 03/16/2025 03/15/2024, 02/19/2023 COVID-19 Vaccine ( season) 2025 04/19/2025, 12/23/2024, 05/03/2024, Additional history exists Visit: Annual, age 65+ (or Medicare and <65) 05/23/2026 05/23/2025 Cologuard 11/29/2026 11/30/2023 Colonoscopy 02/02/2027 02/03/2024, 01/02, 03/07/2004 Colorectal Cancer Surveillance 02/02/2027 Fasting Glucose for Diabetes Screening 04/28/2028 04/28/2025, 04/26/2025, 11/08/2024, Additional history exists DTaP,Tdap,and Td Vaccines (4 - Td or Tdap) 04/15/2032 04/15/2022, 2018, 11/18/2007, Additional history exists Zoster Vaccines Completed 11/23/2017, 09/04, 05/08/2013, Additional history exists Pneumococcal vaccine (50+ years) Completed 2019, 2018 Hepatitis C Screening Completed 10/29/2020 Hepatitis B Vaccines Completed 02/19/2023, 08/18/2022, 1999, Additional history exists RSV vaccine - (32-36 weeks) or 50+ years Completed 07/16/2023 Colonoscopy After Positive Cologuard Discontinued 02/03/2024 Depression Screening (Annual PHQ-2) Completed 09/05/2024, 08/31/2024 Fall Risk Screen (Annual) Completed 09/05/2024 Influenza Vaccine Completed 04/19/2025, , 05/14/2023, Additional history exists IPV Vaccines Aged Out No longer eligi ble based on patient's age to complete this topic Procedures Procedure Name Priority Date/Time Associated Diagnosis Comments FAMILY MEDICINE IMAGE EXAM Routine 05/23/2025 5:40 PM EDT EMERGENCY DEPARTMENT IMAGE EXAM Routine 05/07/2025 1:40 PM CDT URINALYSIS WITH MICROSCOPIC IF INDICATED, U Routine 05/05/2025 3:26 PM CDT Frequency Urinary BACTERIAL CULTURE, AEROBIC + SUSC, URINE Routine 05/05/2025 3:26 PM CDT Frequency Urinary BASIC METABOLIC PANEL, S/P Routine 04/28/2025 12:22 PM CDT Hyperkalemia BASIC METABOLIC PANEL, S/P Routine 04/26/2025 1:24 PM CDT Atrial Fibrillation Paroxysmal (HCC) HEPATIC FUNCTION PANEL, S Routine 04/25/2025 9:54 AM CDT High Risk Medication Atrial Fibrillation Paroxysmal (HCC) THYROID FUNCTION CASCADE, S Routine 04/25/2025 9:54 AM CDT High Risk Medication Atrial Fibrillation Paroxysmal (HCC) NE ARTHCS ASP/INJ MJR JT WO US Routine 04/25/2025 9:30 AM CDT Pain Hip Right DX HIP AND PELVIS RIGHT 2-3 VIEWS RAD - Routine (most inpatients and all outpatients) 04/25/2025 9:26 AM CDT Pain Hip Right COLONOSCOPY Routine 02/03/2024 12:32 PM CDT Screening Cancer Colon Positive Cologuard Stool Deoxyribonucleic Acid Test COLOGUARD Routine 11/30/2023 11:00 AM CDT Screening Cancer Colon HCV AB SCRN W/REFLEX TO HCV PCR, S Routine 10/29/2020 2:52 PM CDT Health Maintenance Examination Adult from Last 3 Months or Most Recently Relevant to Health Maintenance Results * Leg-Family Medicine Image Exam (05/23/2025 [...] IMAGING PROCE DURES Final Result IIMS NA * Leg-Emergency Department Image Exam (05/07/2025 1:40 PM CDT) 05/07/2025 1:39 PM CDT Narrative IIMS - 05/07/2025 1:42 PM CDT This order has been created and auto-finalized to support the import of images acquired without order. The clinical documentation to support these images can be found on the encounter that produced images. Provider Not In System IMG NON RAD IMAGING PROCE DURES Final Result IIPA NA * (ABNORMAL) Urinalysis with Microscopic if Indicated: Urine, Midstream (05/05/2025 3:26 PM CDT) Source Urine, Urine, Midstream 05/05/2025 3:26 PM CDT CNFL Clarity Clear Clear 05/05/2025 3:29 PM CDT CNFL Color Yellow 05/05/2025 3:29 PM CDT CNFL Comment: ----REFERENCE VALUE---- Colorless Yellow Angie Blood Negative Negative 05/05/2025 3:29 PM CDT CNFL Nitrite Negative Negative 05/05/2025 3:29 PM CDT CNFL Leukocyte Esterase Negative Negative 05/05/2025 3:29 PM CDT CNFL Protein Trace mg/dL 05/05/2025 3:29 PM CDT CNFL Comment: ----REFERENCE VALUE---- Negative Trace Glucose Negative Negative mg/dL 05/05/2025 3:29 PM CDT CNFL Ketones, QI(U) 40(A) Negative mg/dL 05/05/2025 3:29 PM CDT CNFL Bilirubin Small(A) Negative 05/05/2025 3:29 PM CDT CNFL pH 6.0 5.0 - 8.0 05/05/2025 3:29 PM CDT CNFL Specific [place] 1.025 1.001 - 1.035 05/05/2025 3:29 PM CDT CNFL Urobilinogen 1.0 0.2 - 1.0 mg/dL 05/05/2025 3:29 PM CDT CNFL Urine (Urine, Midstream) 05/05/2025 3:26 PM CDT 05/05/2025 3:26 PM CDT Thom Nance M.D. LAB URINE ORDERABLES Final R esult Performing Organization Address City/[facility]/ZIP Co de Phone Number [facility] [address] [place] [id number], [facility] CN[facility] in [address] [address] * Bacterial Culture, Aerobic + Susceptibility, Urine (05/05/2025 3:26 PM CDT) Urine Culture No growth after 1 day of incubation. 05/06/2025 5:31 PM CDT ECLR Urine (Urine, Midstream) 05/05/2025 3:26 PM CDT 05/05/2025 8:42 PM CDT Comment:Specimen Source Site : Urine us Thom Nance M.D. LAB MICROBIOLOGY - GENERAL O RDERABLES Final Result Performing Organization Address City/[facility]/ZIP Co de Phone Number [facility] [address] [place] [address], [facility] ECLR [facility] [place] [address] * (ABNORMAL) Basic Metabolic Panel (04/28/2025 12:22 PM CDT) Only the most recent of2 resultswithin the time period is included. Potassium, P 4.9 3.6 - 5.2 mmol/L 04/28/2025 12:45 PM CDT CNFL Sodium, P 142 135 - 145 mmol/L 04/28/2025 12:45 PM CDT CNFL Chloride, P 104 98 - 107 mmol/L 04/28/2025 12:45 PM CDT CNFL Bicarbonate, P 28 22 - 29 mmol/L 04/28/2025 12:45 PM CDT CNFL Anion Gap, P 10 7 - 15 04/28/2025 12:45 PM CDT CNFL BUN (Blood Urea Nitrogen), P 18 8 - 24 mg/dL 04/28/2025 12:45 PM CDT CNFL Creatinine 0.54(L) 0.74 - 1.35 mg/dL 04/28/2025 12:45 PM CDT CNFL Estimated GFR (eGFR) >90 >=60 mL/min/BSA 04/28/2025 12:45 PM CDT CNFL Comment: Estimated GFR calculated using the 2020 CKD_EPI creatinine equation. Calcium, Total, P 9.7 8.8 - 10.2 mg/dL 04/28/2025 12:45 PM CDT CNFL Glucose, P 109 70 - 140 mg/dL 04/28/2025 12:45 PM CDT CNFL Blood (Blood, Venous) 04/28/2025 12:22 PM CDT 04/28/2025 12:23 PM CDT Ross Curtis M.D. LAB BLOOD ADD-ON Final Resu lt [facility] [address], [facility] CNFL [facility] [address] * (ABNORMAL) Hepatic Function Panel (04/25/2025 9:54 AM CDT) Bilirubin, Total, P 0.4 0.0 - 1.2 mg/dL 04/25/2025 10:22 AM CDT CNFL Bilirubin, Direct, P 0.1 0.0 - 0.3 mg/dL 04/25/2025 10:22 AM CDT CNFL Aspartate Aminotransferase (AST), P 19 8 - 48 U/L 04/25/2025 10:22 AM CDT CNFL Alanine Aminotransferase (ALT), P 5(L) 7 - 55 U/L 04/25/2025 10:22 AM CDT CNFL Alkaline Phosphatase, P 80 40 - 129 U/L 04/25/2025 10:22 AM CDT CNFL Albumin, P 4.2 3.5 - 5.0 g/dL 04/25/2025 10:22 AM CDT CNFL Protein, Total, P 6.8 6.3 - 7.9 g/dL 04/25/2025 10:22 AM CDT CNFL Blood (Blood, Venous) 04/25/2025 9:54 AM CDT 04/25/2025 9:57 AM CDT us Maverick Terry M.D. LAB BLOOD ADD-ON Final Res ult Performing Organization Address [facility]/[place] [address], [place] [address] * Thyroid Function [place] (04/25/2025 9:54 AM CDT) TSH, Sensitive 4.0 0.3 - 4.2 mIU/L 04/25/2025 11:16 AM CDT [facility] Blood (Blood, Venous) 04/25/2025 9:54 AM CDT 04/25/2025 9:57 AM CDT us Maverick Terry M.D. LAB BLOOD ADD-ON Final Res ult Performing Organization Address [facility] [place] [address], [place] [address] * NE ARTHCS ASP/INJ MJR JT WO US (04/25/2025 9:30 AM CDT) Narrative MMODAL - 04/25/2025 9:30 AM CDT Cristian Alvarenga M.D. 04/27/2025 9:56 AM Hip site - Right greater trochanteric bursa: injection only Performed by: Cristian Alvarenga M.D. Authorized by: Cristian Alvarenga M.D. PROCEDURE DETAILS Procedure Location hip Hip site - Right greater trochanteric bursa Site prep: patient was prepped and draped in usual sterile fashion Patient position: side-lying Procedural approach: lateral Procedure performed: injection only Needle gauge: 22 G, length: 1 1/2 in Procedural Medication The following medications were administered at the target site(s) Local anesthetic: 5 mL lidocaine 10 mg/mL (1 %); 3 mL lidocaine 10 mg/mL (1 %) Corticosteroid: 80 mg methylPREDNISolone acetate 80 mg/mL CONSENT Consent obtained: written (Risks, benefits and alternatives were discussed and a written Informed Consent was obtained. Please see Informed Consent form for further details.) UNIVERSAL PROTOCOL All relevant documentation and testing were reviewed and available. All required blood products, implants, devices and or special equipment were made available as applicable. Pre-procedure verification was conducted and the correct site was marked if required. A fire risk and smoke assessment were done as applicable. The procedural time-out to verify correct patient, correct side/site, and procedure was conducted prior to performing the procedure and confirmed in a procedural pause. PRE-PROCEDURE DETAILS Appropriate hand hygiene, gown, cap, mask, protective eyewear, sterile gloves, skin preparation, sterile drape, and strict aseptic technique were utilized as applicable for the procedure. Site preparation: chlorhexidine POST-PROCEDURE DETAILS Procedure completed successfully: yes Complications: no apparent complications Discharge instructions: ice area as needed for comfort and follow-up with ordering provider Comments The procedure site was marked by the proceduralist and verified with the patient. A time out/final pause was completed with verification of patient identity using two identifiers, confirmation of the site and side(s), agreement on the procedure to be performed, and appropriate fire risk assessment. us Cristian Alvarenga M.D. PROCEDURE/MINOR SURGICAL O RDERABLES Final Result MMODAL NA * DX Hip And Pelvis Right 2-3 Views (04/25/2025 9:26 AM CDT) Anatomical Region Laterality Modality Lower Extremity, Pelvis, Hip , Musculoskeletal RST LOS, Musculoskeletal ARZ LOS, Muskuloskeletal FLA LOS Right Digit al Radiography Impressions 04/25/2025 9:52 AM CDT Comparison 01/10/25. No acute fracture seen. Bilateral hip degenerative joint disease with partial joint space loss and marginal osteophytes. Degenerative osteitis pubis. 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 Narrative 04/25/2025 9:52 AM CDT EXAM: DX HIP AND PELVIS RIGHT 2-3 VIEWS Procedure Note Steven Floyd M.D. - 04/25/2025 EXAM: DX HIP AND PELVIS RIGHT 2-3 VIEWS IMPRESSION: Comparison 01/10/25. No acute fracture seen. Bilateral hip degenerativejoint disease with partial joint space loss and marginal osteophytes.Degenerative osteitis pubis. Bilateral sacroiliac degenerative jointdisease with subchondral sclerosis. us Cristian Alvarenga M.D. IMG DIAGNOSTIC IMAGING PRO CEDURES Final Result * Colonoscopy (02/03/2024 12:32 PM CDT) Anatomical Region Laterality Modality Endoscopy 02/03/2024 12:3 2 PM CDT us Radha Arce M.D. GI PROCEDURE ORDERABLES Ed ited Result - Final * (ABNORMAL) Cologuard - Sent Out Lab [...] Castañeda et al, N Engl J Med 2014;370(14):9082-1927.) Cologuard may produce a false negative or false positive result (no colorectal cancer or precancerous polyp present at colonoscopy follow up). A negative Cologuard test result does not guarantee the absence of CRC or advanced adenoma (pre-cancer). The current Cologuard screening interval is every 3 years. ([place] [employer] and U.S. Multi-Society Task Force). Cologuard performance data in a 10,000 patient pivotal study using colonoscopy as the reference method can be accessed at the following location: www.The Daily Caller/results. Additional description of the Cologuard test process, warnings and precautions can be found at [email or web address]. Stool (Stool) 11/30/2023 11: 00 AM CDT 12/01/2023 1:25 PM CDT Radha Arce M.D. LAB BODY FLUIDS AND STOOLS ORDERABLES Final Result Performing Organization Address City/[facility]/ZIP Co de Phone Number [employer] [address] [place] [address] EX [employer] [address] [place] [address], [address] [place] [address] * HCV Ab Scrn w/Reflex to HCV PCR, Serum (10/29/2020 2:52 PM CDT) HCV Ab Screen, S Negative Negative 10/30/2020 8:44 AM CDT [facility] Comment:Urydxq-gl-mvgcsp rat io is <1.00. Blood (Blood, Venous) 10/29/2020 2:52 PM CDT 10/30/2020 6:50 AM CDT Annamarie Harrell D.O. LAB MICROBIOLOGY - BLOO D ORDERABLES Final Result [facility] [address] [place] [address] [facility] Dept. of Laboratory Medicine and Pathology [address] [place] [address] from Last 3 Months or Most Recently Relevant to Health Maintenance Insurance MEDICARE [facility] Advance Directives For more information, please contact: [phone] Documents on File Type Date Recorded Patient Tenter Feeder Expl anation Advance Directives 01/03/2022 1:28 PM Leydi Small HCPOA/ADVOCATE/AGENT/ CUSTOMER SERVICE PROFESSIONAL/SURROG ATE Advance Directives 04/01/2004 12:00 AM Leg [...] Leydi Mustafa Spouse Health Care Agent [email or web address] Josefina [email or web address] Small Daughter First Romanat e Health Care Agent [email or web address] .[email or web address] Care Teams Front Maker Relationship Specialty Start Date End Date Nura Moore M.D., M.P.H. [address] [phone] PCP - General Family Medicine 05/24/[address] [place], [place] Dentist 03/15/24
--- OUTSIDE RECORDS SUMMARY | 2025-06-26 14:59 | XMS_ITS | Encounter Summary ---
Author Organization [facility] Address [address] [place] [address] Care Team Providers Care Lvn Lpn Name Role Phone Jayla Canales APRN, C.N.P. Primary Care Provide r Reason for Referral * Outpatient (Routine) - Authorized Specialty Diagnoses / Procedures Referred By Contac t Referred To Contact Diagnoses Annual Medicare Examination Return Jayla Canales APRN, C.N.P. [address] [place] [phone] Phone: tel: fax: [facility] Region Referral ID Status Reason Start Date Expiration Date V isits Requested Visits Authorized [id number] Authorized 05/05/2025 11/04/2026 1 1 Encounter Details Date Type Department Care Team (Late st Contact Info) Description 05/05/2025 Orders Only Department of Family Medicine, [facility], in [address] [phone] Jayla Canales, RIBBON WINDER, C.N.P. [address] [place] [phone] Annual Medicare Examination Return (Primary Dx) Social History Tobacco Use Types Packs/Day Years Used Date Smoking Tobacco: Never Passive Smoke Exposure: Never Smokeless Tobacco: Never Alcohol Use Standard Drinks/Week Comments Never 0 (1 standard drink = 0.6 oz pur e alcohol) 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 Gender Identity Male 12/15/2017 6:50 AM CDT Sexual Orientation Straight 12/15/2017 6: 50 AM CDT documented as of this encounter Plan of Treatment Scheduled Referrals Name Type Priority Associated Diagnoses Orde r Schedule Primary Care [facility]; Medicare Annual Wellness Outpatient Referral Routine Annual Medicare Examination Return Expected: 05/05/2025, Expires: 08/05/2026 documented as of this encounter Visit Diagnoses Diagnosis Annual Medicare Examination Return- Primary documented in this encounter Additional Health Concerns Assessment Noted Time PHQ-9 Depression Total Score: 1 10/30/19 21 1:32 PM CDT documented as of this encounter Care Teams Lvn Lpn Relationship Specialty Start Date End Date Jayla Canales APRN, C.N.P. [address] [facility] [place] [phone] PCP - General Family Medicine 12/24/23 05/23/[address] [place], [place] Dentist 03/15/24 documented as of this encounter
--- OUTSIDE RECORDS SUMMARY | 2025-06-26 14:59 | XMS_ITS | Encounter Summary ---
Author Organization [facility] Address [address] [place] [address] Care Team Providers Care Applications Consultant Name Role Phone Jayla Canales APRN, C.N.P. Primary Care Provide r Reason for Visit * Reason Onset Date Comments amiodarone monitoring 04/21/2025 Encounter Details Date Type Department Care Team (Latest Contact Info) Description 04/21/2025 Clinical Communication Department of Cardiovascular Diseases in [place], [place] [address] [place] [phone] Destiney Bullard RSandra [address] [place] [phone] amiodarone monitoring Social History Tobacco Use Types Packs/Day Years Used Date Smoking Tobacco: Never Passive Smoke Exposure: Never Smokeless Tobacco: Never Alcohol Use Standard Drinks/Week Comments Never 0 (1 standard drink = 0.6 oz pur e alcohol) [facility] Utilities Answer Date Recorded In the past 12 months has [employer], gas, oil, or water [employer] threatened to shut off services in your [...] your living situation today? I have a [facility] place to live 11/08/2024 Education Answer Date Recorded What is the highest level of school you have completed or the highest degree you have received? 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 Gender Identity Male 12/15/2017 6:50 AM CDT Sexual Orientation Straight 12/15/2017 6: 50 AM CDT documented as of this encounter Plan of Treatment Not on file documented as of this encounter Results * (ABNORMAL) Hepatic Function Panel (04/25/2025 9:54 [...] ADD-ON Final Res ult Performing Organization Address City/State/[facility] Co de Phone Number [place] [address], [facility] in [address] [address] * Thyroid Function [place] (04/25/2025 9:54 AM CDT) TSH, Sensitive 4.0 0.3 - 4.2 mIU/L 04/25/2025 11:16 AM CDT CNFL Blood (Blood, Venous) 04/25/2025 9:54 AM CDT 04/25/2025 9:57 AM CDT us Maverick Terry M.D. LAB BLOOD ADD-ON Final Res ult [facility] [id number] [place] [address], [address]UST CNFL [facility] in [address] [address] documented in this encounter Visit Diagnoses Diagnosis High Risk Medication- Primary Atrial Fibrillation Paroxysmal (HCC) documented in this encounter Additional Health Concerns Assessment Noted Time PHQ-9 Depression Total Score: 1 10/30/19 21 1:32 PM CDT documented as of this encounter Care Teams Applications Consultant Relationship Specialty Start Date End Date Jayla Canales APRN, C.N.P. [address] [place] [phone] PCP - General Family Medicine 12/24/23 05/23/[address] [place], [place] Dentist 03/15/24 documented as of this encounter
[2025-06-26 15:00] VITALS: BP 133/90; PULSE 70; RESP 18; TEMP 36.1; O2SAT 97; BMI 27.0
--- OUTSIDE RECORDS SUMMARY | 2025-06-26 15:00 | XMS_ITS | Encounter Summary ---
Author Organization [facility] Address [address] [place] [address] Care Team Providers Care Canvassing Manager Name Role Phone Nura Moore M.D., M.P.H. Primary Care [facility] Encounter Details Date Type Department Care Team (Latest Contact Info) Description 05/07/2025 Results Follow-Up Department of Cardiovascular Diseases in [place], [place] [address] [place] [phone] Maverick Terry M.D. [address] [place] [phone] Thyroid Function [place], Hepatic Function Panel Social History Tobacco Use Types Packs/Day Years Used Date Smoking Tobacco: Never Passive Smoke Exposure: Never Smokeless Tobacco: Never Alcohol Use Standard Drinks/Week Comments Never 0 (1 standard drink = 0.6 oz pur e alcohol) [facility] Utilities Answer Date Recorded In the past 12 months has [employer], gas, oil, or water company threatened to [...] your living situation today? I have a [facility] place to live 11/08/2024 Education Answer Date Recorded What is the highest level of school you have completed or the highest degree you have received? 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 [address] [place] [phone] PCP - General Family Medicine 05/24/25 professional [facility] dental [place], [place] Dentist 03/15/24 documented as of this encounter
--- OUTSIDE RECORDS SUMMARY | 2025-06-26 15:00 | XMS_ITS | Encounter Summary ---
Author Organization [facility] Address [address] [place] [address] Care Team Providers Care Engineering Analyst Name Role Phone Jayla Canales APRN, C.N.P. Primary Care Provide r Reason for Visit * Reason Onset Date Comments Skin Redness 05/14/2025 Encounter Details Date Type Department Care Team (Late st Contact Info) Description 05/14/2025 Nurse Triage Department of Family Medicine, [facility], in [address] [phone] Andra Mckeon, R.NEmeka [address] [place] [phone] Skin Redness Social History Tobacco Use Types Packs/Day Years Used Date Smoking Tobacco: Never Passive Smoke Exposure: Never Smokeless Tobacco: Never Alcohol Use Standard Drinks/Week Comments Never 0 (1 standard drink = 0.6 oz pur e alcohol) [facility] Utilities Answer Date Recorded In the past 12 months has [employer], oil, or water [employer] threatened to shut off services in your [...] your living situation today? I have a [facility] place to live 11/08/2024 Education Answer Date Recorded What is the highest level of school you have completed or the highest degree you have received? 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 - 05/14/2025 11:02 AM CDT Chief Complaint / Reason for Call Patient is a 70 y.o. male calling regarding Skin Redness. Assessment Concern: Was in the ER 7 days ago with cellulitis of his left leg. . He will run out of his medication tonight. His leg is still oozing. It is healing but it isn't quite there yet. Present for: a couple of weeks. Home cares tried: antibiotic and ointment as prescribed. Calling to request: appointment The recommended disposition is See a health care provider within 24 hours. Patient was scheduled for an acute appointment via [employer] Scheduling. Verification of patient's scheduled appointment day, date, time, and location was completed. Reason for Disposition [1] Using antibiotic ointment > 1 week AND [2] sore not completely healed antibiotics Protocols used: Dfhye-Tznmt-NW Care Advice Patient/Caregiver understands and will follow care advice?: Yes, able to teach back Ctrvn-Iqovv-YB Nurse Andra Allen May 14, 2025 11:09 AM Care Advice SEE PCP WITHIN 24 HOURS: CLEANING: * Wash the area 2 to 3 times daily with antibacterial soap and warm water. * Gently remove any scab. The bacteria live underneath the scab. You may need to soak the scab off by placing a warm wet washcloth (or gauze) on the sore for 10 minutes. ANTIBIOTIC OINTMENT: * Put a small amount of antibiotic ointment on the infected area 3 times per day. * You can get this jkot-oxy-walndyt (OTC) at a drugstore. * Use Bacitracin ointment (OTC in [place] or Polysporin ointment (OTC in [place]) or one that you already have. * Cover the area with a clean gauze or an adhesive bandage (such as a Band-Aid). This will help prevent scratching and spread. CALL BACK IF: * Fever occurs * You become worse documented in this encounter Plan of Treatment Not on file documented as of this encounter Visit Diagnoses Not on filedocumented in this encounter Additional Health Concerns Assessment Noted Time PHQ-9 Depression Total Score: 1 10/30/19 21 1:32 PM CDT documented as of this encounter Care Teams Engineering Analyst Relationship Specialty Start Date End Date Jayla Canales APRN, C.N.P. [address] [place] [phone] PCP - General Family Medicine 12/24/23 05/23/[address] [place], [place] Dentist 03/15/24 documented as of this encounter
--- OUTSIDE RECORDS SUMMARY | 2025-06-26 15:00 | XMS_ITS | Encounter Summary ---
Author Organization [facility] Address [address] [place] [address] Care Team Providers Care Exterior Work Helper Name Role Phone Nura Moore M.D., M.P.H. Primary Care [facility] Reason for Visit * Reason Comments Med Refill Encounter Details Date Type Department Care Team (Late st Contact Info) Description 05/30/2025 Refill Department of Neurology in [place], [place] [address] [place] [phone] Bobby Santiago M.D., Ph.D. [address] [place] [phone] Med Refill Social History Tobacco Use Types Packs/Day Years Used Date Smoking Tobacco: Never Passive Smoke Exposure: Never Smokeless Tobacco: Never Alcohol Use Standard Drinks/Week Comments Never 0 (1 standard drink = 0.6 oz pur e alcohol) [facility] Utilities Answer Date Recorded In the past 12 months has [employer], oil, or [employer] threatened to shut off services in your [...] your living situation today? I have a [facility] place to live 11/08/2024 Education Answer Date Recorded What is the highest level of school you have completed or the highest degree you have received? 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 [address] [place] [phone] PCP - General Family Medicine 05/24/[address] [place], [place] Dentist 03/15/24 documented as of this encounter
--- NOTE | 2025-06-26 15:18 | CRLHL7_ITS ---
For Patients: As a result of the Century Cures Act, medical imaging exams and procedure reports are released immediately into your electronic medical record. You may view this report before your referring provider. If you have questions, please contact your health care provider. Indication: Fall on blood thinners, hit head. Technique: CT of the head without contrast. Coronal and sagittal reformats. Bone and soft tissue windows. Comparison: CT 02/14/2025. Findings: No acute intracranial hemorrhage or extra-axial collection. No evidence of acute cortical infarction. No mass effect or midline shift. Normal cerebral volume. The ventricles are normal in size, shape and contour. There is normal ferris and white matter differentiation. The orbital contents are normal. No calvarial fractures. No lytic or sclerotic osseous lesions within the calvarium or skull base. Scalp and other imaged soft tissue structures are normal. Mastoid air cells are clear. Paranasal sinuses are well aerated. Impression: No acute intracranial abnormality. No significant changes compared to the prior exam. Please note that all CT scans at this facility use dose modulation, iterative reconstruction, and/or weight-based dosing when appropriate to reduce radiation dose to as low as reasonably achievable. Dictated by Steven Byrd MD @ 06/26/2025 4:34:49 PM (Electronically Signed)
--- NOTE | 2025-06-26 15:44 | ED.GENADULT ---
HPI - General Adult General Chief complaint: Head Injury/Pain Stated complaint: fell and hit head/ bleeding on top right of head Time Seen by Provider: 06/26/25 15:13 Source: patient Mode of arrival: ambulatory Limitations: no limitations History of Present Illness HPI narrative: 70-year-old male presenting today after falling at home. Patient has history of Parkinson's, falls frequently. Is no longer anticoagulated because of this. States that he tripped over a step and fell forward hitting his head on a structure in his home. There is a small laceration on the top of the scalp because significant bleeding. He denies headache or neck pain. He is not dizzy or lightheaded. No vision or hearing changes. The patient lives in a town home with his . Related Data Home Medications ?Medication ?Instructions ?Recorded ?Confirmed amiodarone 200 mg tablet 100 mg PO DAILY 05/10/24 06/26/25 carbidopa 25 mg-levodopa 100 mg 3 tab PO Q4H 05/10/24 06/26/25 tablet duloxetine 30 mg capsule,delayed 30 mg PO DAILY 05/10/24 06/26/25 release Crexont 02/14/25 pyridoxine (vitamin B6) 02/14/25 Previous Rx's ?Medication ?Instructions ?Recorded hydrocodone 5 mg-acetaminophen 325 1 tab PO Q4-6H PRN pain #10 tabs 04/05/25 mg tablet Allergies Allergy/AdvReac Type Severity Reaction Status Date / Time No Known Drug Allergies Allergy Verified 06/26/25 15:04 Review of Systems Status of ROS: Reports: 6 or more systems reviewed and unremarkable except as noted in History and below PFSH PFS Social History Smoking Status: Never smoker Do you use any of these nicotine containing products: None Second hand tobacco smoke exposure: No How often do you have a drink containing alcohol: never AUDIT-C Alcohol total score: 0 Non-prescribed substance use: denies use service: No Exam Narrative: Exam Narrative: Well-nourished well-developed patient in no acute distress. Alert and oriented. Answers questions appropriately. Speech is sometimes difficult to understand. HEENT: Normocephalic. Extraocular muscles are intact. Conjunctivae are moist without any icterus noted. Moist mucous membranes. Patient has a very small laceration on the top of the scalp that is currently not bleeding. Laceration does not penetrate through the skin, more of a deep abrasion. No crepitus or significant tenderness in the area. No trauma noted to the face or inside of the mouth. Neck is supple without pain. No pain over the cervical spine. No pain with range of motion at the spine. No scalp hematoma. Skin: Bruising throughout the extremity is in all different stages of healing. Const: Vital Signs, click to edit/add: Vital Signs - 24 hr 06/26/25 15:00 Temperature 97 F L Pulse Rate [Pulse Oximeter] 70 Respiratory Rate 18 Blood Pressure [Ri ght Upper Arm] 133/90 H Pulse Oximetry 97 Oxygen Delivery Me thod Room Air Course Course ED Course: Dermabond was placed on the small scalp abrasion. Head CT was done, unremarkable. Vital Signs Vital signs: Initial Vital Signs Temperature 97 F L 06/26/25 15:00 Temperature Source Temporal Artery Scan 06/26/25 15:00 Pulse Rate 70 06/26/25 15:00 Pulse Rhythm Regular 06/26/25 15:00 Respiratory Rate 18 06/26/25 15:00 Blood Pressure 133/90 H 06/26/25 15:00 Blood Pressure Mean 104 06/26/25 15:00 Blood Pressure Position Sitting 06/26/25 15:00 Pulse Oximetry 97 06/26/25 15:00 Oxygen Delivery Method Room Air 06/26/25 15:00 Vital Signs Temperature 97 F L 06/26/25 15:00 Pulse Rate 70 06/26/25 15:00 Respiratory Rate 18 06/26/25 15:00 Blood Pressure 133/90 H 06/26/25 15:00 Pulse Oximetry 97 06/26/25 15:00 Oxygen Delivery Method Room Air 06/26/25 15:00 Temperature 97 F L 06/26/25 15:00 Pulse Rate 70 06/26/25 15:00 Respiratory Rate 18 06/26/25 15:00 Blood Pressure 133/90 H 06/26/25 15:00 Pulse Oximetry 97 06/26/25 15:00 Oxygen Delivery Method Room Air 06/26/25 15:00 Medical Decision Making MDM Narrative Medical decision making narrative: 70-year-old male status post fall with a small scalp abrasion. Head CT unremarkable. Imaging Data CT scan - head: Attestation: I have reviewed the pertinent imaging results. Radiologist's impression: Technique: CT of the head without contrast. Coronal and sagittal reformats. Bone and soft tissue windows. Comparison: CT 02/14/2025. Findings: No acute intracranial hemorrhage or extra-axial collection. No evidence of acute cortical infarction. No mass effect or midline shift. Normal cerebral volume. The ventricles are normal in size, shape and contour. There is normal ferris and white matter differentiation. The orbital contents are normal. No calvarial fractures. No lytic or sclerotic osseous lesions within the calvarium or skull base. Scalp and other imaged soft tissue structures are normal. Mastoid air cells are clear. Paranasal sinuses are well aerated. Impression: No acute intracranial abnormality. No significant changes compared to the prior exam. Discharge Plan Discharge Clinical Impression: Fall, Abrasion of scalp Patient Disposition: Home, Self-Care Condition: Stable Additional Instructions: Head CT was normal. Be careful when you wash or comb your hair not to pull the glue off on accident. Recommend not washing the hair or touching the area for 24 hours. Should the area start bleeding again apply pressure to the cut for 20 minutes without stopping. If this does not help it to stop bleeding, return to the ER. Prescriptions: No Action carbidopa-levodopa 25-100 mg tablet 3 tab PO Q4H duloxetine 30 mg capsule,delayed release(DR/EC) 30 mg PO DAILY amiodarone 200 mg tablet 100 mg PO DAILY hydrocodone-acetaminophen 5-325 mg tablet 1 tab PO Q4-6H PRN (Reason: pain) Qty: 10 0RF pyridoxine (vitamin B6) Crexont Follow Up/Referrals: Jayal Canales, BARB [Primary Care Provider, Family Practice] Stand Alone Forms: MyHealth Info Instructions
== END 2025-06-26 16:53 | disposition home or self-care (01) ==
PROVIDERS: Emergency Provider Family Medicine; PCP Clinical Nurse Specialist Adult Health
DX: S00.01XA Abrasion of scalp, initial encounter (principal); W01.10XA Fall on same level from slipping, tripping and stumbling with subsequent striking against unspecified object, initial encounter; Y92.019 Unspecified place in single-family (private) house as the place of occurrence of the external cause; Z91.81 History of falling
CPT/HCPCS: 12001; 70450; 99284